=== PATIENT | female | born 1960 | race Caucasian/White ===

== ENCOUNTER 2018-05-28 15:15 | Emergency (ER) | payer BC, SELFPAY ==
[2018-05-28 15:15] VITALS: BP 163/74; PULSE 68; RESP 17; TEMP 36.7; O2SAT 96; BMI 47.1
--- NOTE | 2018-05-28 15:49 | ED.DEP ---
ED Disposition - Plan for ED Patient: Instructions: ED Sprain Knee Prescriptions: Naproxen [Naprosyn] 500 mg PO BID PRN #20 tablet Referrals: Shen Smith III, MD [Primary Care Provider] -
--- NOTE | 2018-05-28 15:53 | ED.VISSUMM ---
- ER Visit Summary Date of Service: 05/28/18 Chief Complaint: Left knee pain History of Present Illness: The patient is a 57 F presenting with left knee pain. She states this has been ongoing for the past 3 weeks. She does not recall a specific injury. Pain has been persistent for the past 3 weeks. She has been able to ambulate. She has taken Tylenol at home for pain. She went to a walk-in clinic yesterday. She states they were unable to do anything for her and they were unable to prescribe her pain medication. She did have an x-ray which she was told showed degenerative changes. 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 She states this does not feel similar. Denies fever. Denies other complaints. Physical Examination: Vitals are stable. Patient is afebrile. Alert no acute distress. HEENT exam is unremarkable. Neck is supple. Lungs are clear and equal bilaterally. Heart is regular rate and rhythm. Abdomen is soft nontender nondistended. Extremities left anterior knee and medial knee tenderness. Active full range of motion. No erythema or warmth. No calf tenderness. No swelling. Normal distal pulse. Skin is warm and dry. No focal neurologic deficit. Remainder of exam is unremarkable. Emergency Department Course and Treatment: Patient is given morphine, Zofran IM x1. She is given prescription for Naprosyn. She is advised to follow-up at her scheduled appointment with Dr. Smith. Advised return to ED for worsening complaints. Disposition: Discharge home Impression: Left knee pain This note was generated with [employer] dictation software. It may contain incorrect words, spelling, and punctuation that were not noted in review of the chart prior to signing ED Disposition - Plan for ED Patient: Instructions: ED Sprain Knee Prescriptions: Naproxen [Naprosyn] 500 mg PO BID PRN #20 tablet Referrals: Shen Smith III, MD [Primary Care Provider] -
[2018-05-28] MEDS: morphine 10 MG/ML Syringe 8 MG IM (16:28)
[2018-05-28] MEDS: Ondansetron 4 MG/2 ML Vial IM (16:28)
[2018-05-28 17:00] VITALS: BP 138/79; PULSE 65; RESP 15; O2SAT 98
== END 2018-05-28 17:03 | disposition home or self-care (01) ==
LOC: ED 16:00
PROVIDERS: Emergency Provider Emergency Medicine; Family Provider Family Medicine; PCP Family Medicine
DX: M25.562 Pain in left knee (principal); I10 Essential (primary) hypertension; E11.9 Type 2 diabetes mellitus without complications; Z86.718 Personal history of other venous thrombosis and embolism; Z79.01 Long term (current) use of anticoagulants; Z79.84 Long term (current) use of oral hypoglycemic drugs; Z79.899 Other long term (current) drug therapy
CPT/HCPCS: 96372; 99282; J2405

== ENCOUNTER → 2019-10-10 11:37 | Outpatient (CLI) | payer BC, SELFPAY ==
--- NOTE | 2019-10-10 | EMB_PTH ---
PATIENT: DEREK ROD LOC: [facility] U#:[id number] AGE/SX: 64/F ROOM: RE10/10/[address]: Dr. Angeline Galvez MD : [id number] BED: DIS: SPEC #: [id number] RECD: 10/10/19 16:07 STATUS: ZORAN LETI #: [id number] SABINO: 10/10/19 00:[address]: Angeline Galvez DEPT: SURGICAL PATHOLOGY RECD BY: Anders Robison ENTERED: 10/13/19 08:31 SP TYPE: ENDOM BX/C BELTRAN DR: Dr. Shen Smith III, MD Tissues: Endometrium, NOS Procedures: Surgery Specimen Level IV HEADER OPERATION: Endometrial biopsy PRE-OP DIAGNOSIS: Postmenopausal bleeding TISSUE SUBMITTED: Endometrial biopsy MICROSCOPIC DIAGNOSIS Endometrial biopsy: Disordered proliferative endometrium to simple cystic endometrial hyperplasia without atypia. SJ:dione 10/14/19 COMMENT Case has been reviewed in consultation with Dr. Orozco who concurs with the above diagnosis. IDC:AM MICROSCOPIC DESCRIPTION Slides are reviewed. GROSS DESCRIPTION Received is one container labeled with the patient's name and not further designated. The specimen consists of multiple fragments of hemorrhagic soft tissue mixed with mucoid tissue that in aggregate measure 2.5 x 2.5 x 0.2 cm. The specimen is totally submitted in one cassette. / SJ:dione 10/13/19 TC:5 CPT: 00430
[2019-10-10 10:53] VITALS: BMI 47.1
[2019-10-10 11:52] LABS: Absolute Lymphocyte Count 1.51 X10^3/uL (0.83-4.51); Absolute Neutrophil Count 5.3 X10^3/uL (2.0-7.7); Basophil# 0.04 X10^3/uL; Basophil% 0.5 % (0-1); Eosinophil# 0.16 X10^3/uL; Eosinophils% 2.1 % (0-5); Hematocrit 42.2 % (37-47); Hemoglobin 13.1 g/dL (12.0-15.0); Lymphocyte # 1.51 X10^3/ul (4.0); Lymphocyte % 19.5 % (19-41); Mean Corpuscular Hgb 28.2 pg (27.0-32.0); Mean Corpuscular Volume 90.8 fL (81-99); Mean Platelet Vol. 10.5 fl (6.2-12.0); Monocyte# 0.69 X10^3/uL; Monocyte% 8.9 % (0-10); NRBC Flagged by Analyzer 0 % (0-5); Neutrophil # 5.32 X10^3/uL (2.7-7.7); Neutrophil % 68.9 % (47-70); Platelet Count 285 K/mm3 (150-450); RBC Distribution Width CV 14.7 % (11.6-14.6); RBC Distribution Width SD 48.8 fl (35.1-43.9); Red Blood Count 4.65 M/mm3 (4.2-5.4); White Blood Count 7.7 K/mm3 (4.4-11.0)
[2019-10-10 12:05] LABS: ALB/GLOB Ratio 0.7 RATIO (0.9-2.4); AST(SGOT) 12 U/L (15-37); Alanine Aminotransfer ALT/SGPT 22 U/L (13-56); Albumin, Serum 3.2 g/dL (3.2-5.0); Alkaline Phosphatase 122 U/L (45-117); Anion Gap 5 (5-15); BUN 19 mg/dL (7-18); BUN/Creat Ratio 30.8 RATIO (10-20); Calcium,Total 8.4 mg/dL (8.5-10.1); Chloride 112 mmol/L (98-107); Creatinine, Serum 0.62 mg/dL (0.55-1.02); EST Glomerular Filtration Rate 105 mL/min (>60); Est Glom Filt Rate - Afr Amer 127 mL/min (>60); Globulin 4.6 g/dL (2.2-4.2); Glucose 157 mg/dL (74-106); Protein, Total 7.8 g/dL (6.4-8.2); Sodium Level 142 mmol/L (136-145)
[2019-10-10 12:10] LABS: Hemoglobin A1c 7.1 % (3.8-5.6)
== END ==
PROVIDERS: PCP Family Medicine; Referring Provider Obstetrics & Gynecology; Visit Provider Obstetrics & Gynecology
DX: N95.0 Postmenopausal bleeding (principal); E11.9 Type 2 diabetes mellitus without complications
CPT/HCPCS: 36415; 80053; 83036; 85025; 86304; 88305

== ENCOUNTER → 2019-10-13 12:28 | Outpatient (CLI) | payer BC, SELFPAY ==
[2019-10-10 10:53] VITALS: BMI 47.1
--- NOTE | 2019-10-13 12:30 | US_ITS ---
STUDY: ULTRASOUND OF THE FEMALE PELVIS - COMPLETE REASON FOR EXAM: Female, 59 years old. POST MENOPAUSAL BLEEDING INTERMITTENT X 2 YEARS LMP: The patient is postmenopausal. TECHNIQUE: Transabdominal and Transvaginal TECHNICAL QUALITY: Adequate. COMPARISON: None. FINDINGS: The uterus is anteverted and is in a midline position. The uterus is enlarged and measures 14.9 cm x 11.8 cm x 9.0 cm. There is a Nabothian cyst of the cervix. The endometrium is thickened and measures 10 mm in thickness, and is hyperechoic. There is no demonstrated endometrial mass. Several fibroids are seen. The largest measures 4.7 cm x 5.3 sinus by 3.5 cm. A second fibroid measures 4.6 cm by 4.3 cm x 3.9 cm. I.U.D. - The patient does not have an I.U.D. The right ovary is non-visualized. The left ovary is non-visualized. There is no fluid in the cul-de-sac. US/Pelvic (Non ) IMPRESSION: Enlarged fibroid uterus with thickened endometrium. Electronically Signed: Brandyn Livingston, at 15:36 EDT , Service support ,
--- NOTE | 2019-10-13 12:30 | US_ITS ---
STUDY: ULTRASOUND OF THE FEMALE PELVIS - COMPLETE REASON FOR EXAM: Female, 59 years old. POST MENOPAUSAL BLEEDING INTERMITTENT X 2 YEARS LMP: The patient is postmenopausal. TECHNIQUE: Transabdominal and Transvaginal TECHNICAL QUALITY: Adequate. COMPARISON: None. FINDINGS: The uterus is anteverted and is in a midline position. The uterus is enlarged and measures 14.9 cm x 11.8 cm x 9.0 cm. There is a Nabothian cyst of the cervix. The endometrium is thickened and measures 10 mm in thickness, and is hyperechoic. There is no demonstrated endometrial mass. Several fibroids are seen. The largest measures 4.7 cm x 5.3 sinus by 3.5 cm. A second fibroid measures 4.6 cm by 4.3 cm x 3.9 cm. I.U.D. - The patient does not have an I.U.D. The right ovary is non-visualized. The left ovary is non-visualized. There is no fluid in the cul-de-sac. US/Transvaginal Non- IMPRESSION: Enlarged fibroid uterus with thickened endometrium. Electronically Signed: Brandyn Livingston, at 15:36 EDT , Service support ,
== END ==
PROVIDERS: PCP Family Medicine; Referring Provider Obstetrics & Gynecology; Visit Provider Obstetrics & Gynecology
DX: N95.0 Postmenopausal bleeding (principal); D25.9 Leiomyoma of uterus, unspecified; R93.89 Abnormal findings on diagnostic imaging of other specified body structures
CPT/HCPCS: 76830; 76856

== ENCOUNTER 2020-06-04 15:50 | Inpatient (IN) | payer OTHER, SELFPAY ==
[2019-10-10 10:53] VITALS: BMI 47.1
[2020-06-04] VITALS (12 sets, daily range): BP systolic 130–163; BP diastolic 77–93; PULSE 92–104; RESP 20–30; TEMP 36.1–36.9; O2SAT 90–96; BMI 47.2; BMI 46.9
--- NOTE | 2020-06-04 16:23 | CT_ITS ---
STUDY: CT BRAIN WITHOUT CONTRAST REASON FOR EXAM: Female, 59 years old. Dizziness RADIATION DOSAGE (If Supplied By Facility): CTDIvol = ( 44.99 ) mGy, DLP = ( 779.24 ) mGycm TECHNIQUE: Transaxial CT imaging of the brain was performed without administration of intravenous contrast material. Individualized dose optimization techniques were used for this CT. COMPARISON: No relevant priors. FINDINGS: Normal soft tissue structures. Normal calvarium. There is mild cerebral atrophy with widening of the extra-axial spaces and ventricular dilatation. There are areas of decreased attenuation within the white matter tracts of the supratentorial brain, consistent with microvascular disease changes. Normal basal ganglia and thalami. Normal brainstem. Normal cerebellum. There is no intracranial hemorrhage. There are no findings of an acute ischemic infarction. Normal visualized paranasal sinuses. CT/Brain/Head without Contrast IMPRESSION: Chronic involutional changes of the brain. Electronically Signed: Sukhi Deleon MD at 17:02 EDT Tel , Service support ,
--- NOTE | 2020-06-04 16:23 | EKG12_ITS ---
Test Reason : SOB Blood Pressure : / mmHG Vent. Rate : 101 BPM Atrial Rate : 101 BPM P-R Int : 200 ms QRS Dur : 086 ms QT Int : 358 ms P-R-T Axes : 018 -25 003 degrees QTc Int : 464 ms Sinus tachycardia Otherwise normal ECG Confirmed by JEANETH DHILLON, ROMERO ([id number]), film or videotape editor YASSINE SAUCEDA ([id number]) on 06/07/2020 1:49:53 PM Referred By: MAI Confirmed By:ROMERO ERIC MD
[2020-06-04] MEDS: Meclizine HCl 25 MG Tablet PO (16:35)
--- NOTE | 2020-06-04 16:38 | ED.DCSUM_ITS ---
- ER Visit Summary Date of Service: 06/04/20 Chief Complaint: Shortness of breath, nausea, vomiting, and diarrhea. History of Present Illness: The patient is a 59 F who presents with shortness of breath, nausea, vomiting, and diarrhea that has been getting worse over the past week. Patient states it has been waxing and waning. Patient admits to a cough but denies any sputum production. Patient admits to subjective chills but denies any fevers. Patient denies any chest pain. Patient denies any sore throat or rhinorrhea. Patient does admit to some dizziness. Patient states she feels off balance with this. Patient states it is worse whenever she closes her eyes. Patient denies any headaches. Patient denies any hearing changes or tinnitus. Physical Examination: Vital signs showed an elevated blood pressure of 163/93, mild tachycardia of 104, and a mild tachypnea of 22. Pulse oximeter is 90% on room air. Patient is afebrile. Patient is in no acute distress. Oral mucosa is pink and moist. Neck is supple. Trachea is midline. There is no JVD. Heart was regular rate and rhythm. Lungs are diminished bilaterally. There is adequate respiratory effort. Abdomen is soft. Bowel sounds are normal. There is no tenderness. Cranial nerves II through XII are intact. There are no focal motor or sensory deficits. Extremities are intact. There is no calf tenderness or edema. Test Results: Portable chest x-ray was obtained. There is 1 view. On my interpretation, there is a right upper lobe and right middle lobe infiltrate. Bony thorax is normal. There is no cardiomegaly noted. Radiologist also interpreted the x-ray and agrees. CT scan of the brain was obtained. There is no acute intracranial abnormality. This was interpreted by the radiologist and reviewed by myself. KG was obtained. On my interpretation, there is a sinus tachycardia with a rate of 101. There are no acute ST or T wave changes. CBC is within normal limits. Comprehensive metabolic profile showed an elevated glucose of 285. Troponin was normal. D-dimer was slightly elevated at 1.04. Because of this, CTA of the chest was obtained. There is no evidence of pulmonary embolism. There is patchy groundglass infiltrates in both lungs. This was interpreted by the radiologist and reviewed by myself. Because of the bilateral groundglass infiltrates, COVID-19 PCR test was ordered and is pending. Emergency Department Course and Treatment: Patient was given albuterol here. Patient was started on Rocephin and Zithromax. Patient was also given a dose of Decadron. Case was discussed with the hospitalist. She will admit the patient to [facility] unit. Patient understood and was agreeable with the plan. All questions were answered. Disposition: Admit to hospital Impression: 1. Pneumonia This note was generated with [employer] dictation software. It may contain incorrect words, spelling, and punctuation that were not noted in review of the chart raza or to signing ED Disposition - Plan for ED Patient: Disposition: Acute Care Hospital [facility] Diagnosis: Pneumonia Referrals: Shen Smith III, MD [Primary Care Provider] -
--- NOTE | 2020-06-04 16:45 | RAD_ITS ---
STUDY: X-RAY CHEST REASON FOR EXAM: Female, 59 years old. Shortness of breath TECHNIQUE: Single AP portable view of the chest. COMPARISON: None. FINDINGS: 3 cm focal opacity in the right upper lobe the lungs worrisome for focal pneumonia or mass. Correlation with CT the chest with contrast is recommended. There is no demonstrated pleural abnormality. There is moderate cardiac enlargement. Normal mediastinum and andre. Normal visualized pulmonary arteries. Normal visualized aortic arch and descending thoracic aorta. Normal visualized thoracic spine. Normal visualized ribs, clavicles, and shoulders. There is no demonstrated abnormality of the visualized soft tissue structures of the upper abdomen. RAD/Chest 1 View (Portable) IMPRESSION: 1. Focal pneumonia or mass in the right upper lobe and correlation with CT the chest with contrast is recommended. 2. Cardiomegaly. Electronically Signed: Sukhi Deleon MD at 17:04 EDT Tel , Service support ,
[2020-06-04 16:47] LABS: Absolute Lymphocyte Count 0.78 X10^3/uL (0.83-4.51); Absolute Neutrophil Count 4.2 X10^3/uL (2.0-7.7); Basophil# 0.01 X10^3/uL; Basophil% 0.2 % (0-1); Hematocrit 43.1 % (37-47); Hemoglobin 13.4 g/dL (12.0-15.0); Lymphocyte # 0.78 X10^3/ul (4.0); Lymphocyte % 14.3 % (19-41); Mean Corp Hgb Conc 31.1 g/dL (32-36); Mean Corpuscular Hgb 26.3 pg (27.0-32.0); Mean Corpuscular Volume 84.5 fL (81-99); Mean Platelet Vol. 10.9 fl (6.2-12.0); Monocyte# 0.45 X10^3/uL; Monocyte% 8.2 % (0-10); NRBC Flagged by Analyzer 0 % (0-5); Neutrophil # 4.21 X10^3/uL (2.7-7.7); Neutrophil % 77.1 % (47-70); POSITIVE MORPHOLOGY YES; Platelet Count 208 K/mm3 (150-450); RBC Distribution Width CV 15.1 % (11.6-14.6); RBC Distribution Width SD 46.8 fl (35.1-43.9); White Blood Count 5.5 K/mm3 (4.4-11.0)
[2020-06-04 17:02] LABS: Differential Indicated SCAN CRITERIA MET
[2020-06-04 17:04] LABS: ALB/GLOB Ratio 0.6 RATIO (0.9-2.4); AST(SGOT) 27 U/L (15-37); Alanine Aminotransfer ALT/SGPT 23 U/L (13-56); Albumin, Serum 2.9 g/dL (3.2-5.0); Alkaline Phosphatase 126 U/L (45-117); Anion Gap 11 (5-15); BUN 13 mg/dL (7-18); BUN/Creat Ratio 18.1 RATIO (10-20); Calcium,Total 8.1 mg/dL (8.5-10.1); Chloride 101 mmol/L (98-107); Creatinine, Serum 0.72 mg/dL (0.55-1.02); EST Glomerular Filtration Rate 87 mL/min (>60); Est Glom Filt Rate - Afr Amer 106 mL/min (>60); Estimated Creatinine Clearance 76.81 ml/min; Globulin 5.2 g/dL (2.2-4.2); Glucose 285 mg/dL (74-106); Potassium 3.4 mmol/L (3.5-5.1); Protein, Total 8.1 g/dL (6.4-8.2); Sodium Level 136 mmol/L (136-145)
[2020-06-04 17:27] LABS: Platelet Estimate ADEQUATE (ADEQ); Red Cell Morphology NORM C+C NORMAL (NORM C&C)
[2020-06-04] MEDS: Ondansetron 4 MG/2 ML Vial IV (17:31)
[2020-06-04 17:42] LABS: D-Dimer Quantitative (DVT/PE) 1.04 FEU/ug/m (0.27-0.49)
--- NOTE | 2020-06-04 18:17 | CT_ITS ---
STUDY: CTA CHEST REASON FOR EXAM: Female, 59 years old. Elevated d-dimer. Cough. Shortness of breath. Body aches for one week. Nausea, vomiting and diarrhea. RADIATION DOSAGE (If Supplied By Facility): CTDIvol = ( 17.42 ) mGy, DLP = ( 504.13 ) mGycm TECHNIQUE: The examination was performed with the intravenous administration of IV 100mL [id number]-300. Post-processing of the angiographic images was performed, with multiplanar reformation and 3D reconstruction. Individualized dose optimization techniques were used for this CT. COMPARISON: Chest, 06/04/2020. FINDINGS: Normal enhancement of the main pulmonary artery and right and left pulmonary arteries. Normal enhancement of the bilateral peripheral pulmonary arteries. There is no demonstrated pulmonary embolism. Normal thoracic aorta and visualized great vessels. There is no demonstrated aortic dissection. Borderline cardiomegaly. Normal pericardium. Sternal cerclage wires and vascular clips are present from a prior sternotomy and coronary artery bypass graft procedure (CABG). There is evidence of prevascular, paratracheal, AP window and subcarinal lymphadenopathy. Normal hilar regions. Normal visualized trachea and bronchi. The lungs are well expanded. A patchy groundglass infiltrates throughout both lungs from directly peripheral and most marked in the perihilar regions. No focal mass. There is minimal consolidative changes along the pleural surface in the right upper lobe in the region of the hilum thought to correlate with the density seen on plain film. Normal pleura. Normal chest wall structures. There are degenerative changes of thoracic spine. Diffuse fatty infiltration of liver without mass. The upper abdomen is otherwise unremarkable. CT/CTA Chest W/WO Contrast IMPRESSION: 1. No evidence of pulmonary embolus. 2. No aortic dissection or aneurysm. 3. Patchy groundglass infiltrates in both lungs. 4. Mediastinal lymphadenopathy. 5. Fatty infiltration of the liver. 6. Borderline cardiomegaly. Electronically Signed: Yifan Richard DO at 19:01 EDT Tel [phone], Service support ,
--- NOTE | 2020-06-04 20:05 | HP.PCM_ITS ---
Problem List (1) Hypoxia Status: Acute (2) Sepsis Status: Acute Qualifiers: Sepsis type: sepsis due to unspecified organism Sepsis acute organ dysfunction status: unspecified Qualified Code(s): A41.9 - Sepsis, unspecified organism (3) Pneumonia due to COVID-19 virus Status: Suspected (4) DM (diabetes mellitus), type 2 Status: Chronic Qualifiers: Diabetes mellitus terminal clerk insulin use: without terminal clerk use Diabetes mellitus complication status: with other specified complication Qualified Code(s): E11.69 - Type 2 diabetes mellitus with other specified complication (5) HTN (hypertension) Status: Chronic Qualifiers: Hypertension type: essential hypertension Qualified Code(s): I10 - Essential (primary) hypertension (6) Right leg DVT Status: Chronic Qualifiers: Affected thrombotic vein of extremity: unspecified vein of extremity Chronicity: chronic Qualified Code(s): I82.501 - Chronic embolism and thrombosis of unspecified deep veins of right lower extremity Comment: diagnosed in March of 2014 (7) Venous (peripheral) insufficiency Status: Chronic (8) Morbid obesity with BMI of 45.0-49.9, adult Status: Chronic (9) History of Crohn's disease Status: Chronic Comment: no flares for many years History of Present Illness Date of Admission: 06/04/20 Chief Complaint: Cough, dyspnea, N/V/D, body aches x 1 week. The patient is a 59 y/o F w/ PMHx: Morbid Obesity, Crohn's Disease with chronic diarrhea, Diabetes mellitus type II, Hx DVT, HTN, Chronic R ankle ulcer who presents to the [facility] ED on 06/04/20 with onset non-productive cough, dyspnea, diz ziness with off balance sensation with activity attempts, nausea as well as emesis, decreased appetite, unchanged chronic diarrhea without abdominal pain prompting ED presentation for evaluation. Patient denies any fevers but does states she has had chills. She denies any alteration to her sense of taste or smell. Denies any headaches, sore throat or upper respiratory type symptoms including rhinorrhea or congestion. Patient's who is present notes that he has had a recent cough as well. Patient reports that she has been treated for pneumonia previously. Work-up in the ED included T 97, heart rate 104, BP 163/93, respiratory rate 22, initially 90% on room air transitioned to 3 L nasal cannula with 93% oxygenation, CBC with WC 5.5, hemoglobin 13.4, platelet 2 8 with lymphopenia, D-dimer 1.04, CMP with potassium 3.4, glucose 285, alk phos 126 otherwise not marked appearing hepatic profile, troponin less than 0.015, SARS rapid Covid antigen negative, CT of the brain with chronic involutional changes with no acute intracranial findings, chest x-ray with focal pneumonia or mass in the right upper lobe with recommended follow-up CT with cardiomegaly, follow-up CTPA with no evidence of PE, aortic dissection or aneurysm with patchy ground-glass infiltrates bilaterally, mediastinal lymphadenopathy, fatty infiltration of the liver and borderline cardiomegaly. In the ED patient ministered Zofran, meclizine, albuterol inhaler, Rocephin and azithromycin. PCR pending. Discussed case with ED physician and he will administer decadron. Past Medical History Past Medical History (Chronic Problems): Chronic Problems (Last Updated 10/15/19 @ 14:35 by Maria Del Carmen Munguia) DM (diabetes mellitus), type 2 (Chronic) HTN (hypertension) (Chronic) Right leg DVT (Chronic) diagnosed in March of 2014 Venous (peripheral) insufficiency (Chronic) Morbid obesity with BMI of 45.0-49.9, adult (Chronic) History of Crohn's disease (Chronic) no flares for many years Medical History: Medical History (Last Updated 10/15/19 @ 14:35 by Maria Del Carmen Munguia) Crohn's disease K50.90 DVT (deep venous thrombosis) I82.409 leg Diabetes E11.9 Urinary incontinence R32 Hypertension I10 Allergies Sulfa (Sulfonamide Antibiotics) Allergy (Verified 06/04/20 15:51) Hives Home Medications: Ambulatory Orders Medication Instructions Recorded Amlodipine [Norvasc] 5 mg PO QHS 06/09/14 Bisoprol/Hydrochlorothiazide [Ziac 1 tab PO DAILY 06/09/14 10/6.25 MG (Beta Savanah)] Lisinopril [Zestril] 40 mg PO QHS 06/09/14 Glimepiride [Amaryl] 4 mg PO DAILY #60 tab 10/28/15 metformin 1,000 mg tablet 1,000 mg PO BID 10/10/19 nystatin 100,000 unit/gram topical 1 applic TOPICAL BID #60 g 10/10/19 powder Rivaroxaban [Xarelto] 20 mg PO DINNER 06/04/20 Surgical History: Surgical History (Last Updated 10/15/19 @ 14:59 by Maria Del Carmen Munguia) H/O colonoscopy Z98.890 2017 H/O tubal ligation Z98.51 S/P foot surgery Z98.890 right heel spur Surgical History: - - Bilateral tubal ligation with a ventral hysterectomy with bilateral salpingo-oophorectomy, right foot heel spur removal. 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 Denies: Fever, Weight Change HEENT: Denies: Head Aches, Sinus Congestion, Sinus Drainage Cardiovascular: Reports: Light Headedness. Denies: Chest Pain, Palpitations Respiratory: Reports: Cough, Shortness of Breath, Shortness of breath at rest, Shortness of breath upon exertion. Denies: Sputum production, Wheezing Gastrointestinal: Reports: Diarrhea, Nausea, Vomiting. Denies: Abdominal Pain Genitourinary: Denies: Dysuria Musculoskeletal: Denies: Joint Pain, Joint Tenderness Skin: Denies: Rash, Wounds Neurological: Denies: Numbness, Tingling, Focal weakness Psychiatric: Denies: Anxiety, Depression, Homicidal Ideations, Suicidal Ideations Hematologic/ Lymphatic: Reports: Easy Bruising, Easy Bleeding VTE Information - Inpt Only VTE Present on Admission: No VTE Mechan Device Prophylaxis: SCD's VTE Pharm Prophylaxis ordered?: Yes Patient Problems: Active and Suspected Problems (Last Updated 10/15/19 @ 14:35 by Maria Del Carmen Munguia) Pneumonia (Acute) Hypoxia (Acute) Sepsis (Acute) Pneumonia due to COVID-19 virus (Suspected) Subjective: Patient seated upright in the ED bed, fatigued and ill-appearing but no obvious distress, supplemental oxygen in place. Objective: Physical Examination: General: awake, alert, oriented x 3 and cooperative, seated upright in the ED bed in no apparent distress. Skin: normal color, turgor, no icterus, cyanosis except mild evidence stasis disease bilateral lower extremities, chronic right heel ulcer. HEENT: AT/NC, EOMI, PERRLA, dry MM, no carotid bruits or JVD noted; however thickened neck makes examination difficult. Lungs: Diminished breath sounds throughout, greater bases, moderate effort currently, on supplemental oxygen, no rales, ronchi or wheezing. Heart: Mildly tachycardic with regular rhythm; no gallop, rub audible. Abdomen: soft, morbidly obese, NTTP, ND, moderately hyperactive BS, difficulty assessing HSM secondary to morbidly obese habitus. Extremities: no cyanosis or clubbing, mild bilateral pedal to proximal redd edema, not markedly pitting, chronic, see skin. Neurological: patient awake, alert, oriented as noted; cognitive function intact; pupils equally reactive to light and accomodation; cranial nerves II-XII grossly normal, moving all 4 extremities, no focal deficits, strength moderately to severely global decrease given acute presentation. Psychiatric: affect appears fatigued, ill-appearing, no acute evidence of depressive or anxiety feelings. - Physical Exam Vitals/I&O's: Vital Signs Temp Pulse Resp BP Pulse Ox 98 F 100 21 H 144/82 H 93 06/04/20 19:00 06/04/20 19:00 06/04/20 19:00 06/04/20 19:00 06/04/20 19:00 Oxygen Flow Rate (L/min) 3 Oxygen Delivery Method Nasal Cannula Weight: 292 lb 15.909 oz Body Mass Index (BMI) 47.2 Microbiology Past 72 Hours 06/04/20 16:27 Mucosa - Nose SARS-CoV-2 Antigen (Rapid) - Final Laboratory Results 06/04/20 16:25: WBC 5.5, RBC 5.10, Hgb 13.4, Hct 43.1, MCV 84.5, MCH 26.3 L, MCHC 31.1 L, RDW Std Deviation 46.8 H, RDW Coeff of Yves 15.1 H, Plt Count 208, MPV 10.9, Immature Gran % (Auto) 0.200, Neut % (Auto) 77.1 H, Lymph % (Auto) 14.3 L, [place] % (Auto) 8.2, Eos % (Auto) 0.0, Baso % (Auto) 0.2, Absolute Neuts (auto) 4.2, Absolute Lymphs (auto) 0.78 L, Nucleated RBC % 0, Platelet Estimate ADEQUATE, RBC Morphology NORM C+C 06/04/20 16:25: D-Dimer Quant (PE/DVT) 1.04 H* 06/04/20 16:25: Sodium 136, Potassium 3.4 L, Chloride 101, Carbon Dioxide 24.0, Anion Gap 11, BUN 13, Creatinine 0.72, Estim Creat Clear Calc 76.81, Est GFR (MDRD) Af Amer 106, Est GFR (MDRD) Non-Af 87, BUN/Creatinine Ratio 18.1, Glucose 285 H, Calcium 8.1 L, Total Bilirubin 0.70, AST 27, ALT 23, Alkaline Phosphatase 126 H, Troponin I < 0.015, Total Protein 8.1, Albumin 2.9 L, Globulin 5.2 H, Albumin/Globulin Ratio 0.6 L Current Medications Azithromycin 500 mg/ Dextrose 255 mls @ 250 mls/hr IV X1 ONE Stop: 06/04/20 21:00 Ceftriaxone Sodium (Rocephin) 1 gm in 50 mls @ 100 mls/hr IV X1 ONE Stop: 06/04/20 20:28 Assessment/Plan All Active Problems (Last Updated 10/15/19 @ 14:35 by Maria Del Carmen Munguia) Pneumonia (Acute) Hypoxia (Acute) Sepsis (Acute) Postmenopausal bleeding (Acute) Cellulitis and abscess (Acute) The patient is a 59 y/o F w/ PMHx: Morbid Obesity, Crohn's Disease with chronic diarrhea, Diabetes mellitus type II, Hx DVT, HTN, Chronic R ankle ulcer who presents to the [facility] ED on 06/04/20 with onset non-productive cough, dyspnea, dizziness with off balance sensation with activity attempts, nausea as well as emesis, decreased appetite, unchanged chronic diarrhea without abdominal pain prompting ED presentation for evaluation. 1. Acute Sepsis with Hypoxia secondary to Acute Bilateral Pneumonia suspected secondary to Acute Viral Syndrome, COVID-19: Will admit to the COVID unit, rapid Covid antigen negative but given presentation with no marked WBC elevation or l eft shift and lymphopenia with bilateral groundglass opacities on CTPA with elevated dimer higher suspicion with pending Covid PCR, will maintain on oxygen with wean as tolerated to room air, PRN albuterol, HOB, IS parameters w/ pending sputum cultures, respiratory viral panel and urine antigens, will procalcitonin, CRP, CPK, Ferritin, LDH and BNP, continue supportive care including q 2 hour turning including prone given no prone bed availability and judicious hydration, closely monitor for worsening status for ARDS and multiorgan failure, will consult Infectious disease, will initiate and continue IV decadron x 10 doses, given presentation will also initiate IV remdesivir if patient able if PCR positive but defer to discretion of Infectious disease. Patient did receive IV Rocephin and azithromycin in the emergency room therefore if any further evaluation more suggestive of bacterial pneumonia may add back antibiotic therapy 06/05/2020 given already dosed for today. 2. Hypokalemia: Admission K+ 3.4, magnesium level requested, supplementation given, repeat level in AM. 3. Hypertension: Continue home regimen including bisoprolol, Norvasc, hydrochlorothiazide, lisinopril with hold as needed given acute presentation, PRN hydralazine. 4. Diabetes mellitus type II: Hold oral home regimen, initiate on clear liquids given current presentation and transition once tolerated to ADA diet, accu checks w/ ISS. 5. Morbid Obesity: Weight loss and lifestyle changes encouraged. 6. History of DVT: We will continue patient home Xarelto regimen. 7. Crohn's disease: Not on any current regimen per list, encourage continued outpatient follow-up with gastroenterology, patient with chronic diarrhea which she reports has been unchanged but does not usually have any nausea or emesis. To be cautious will obtain stool cultures including enteric pathogen and C. difficile to be cautious given underlying history concurrently. 8. R Medical Ankle Chronic Ulcer: Not healing, chronic, will consult Wound RN, may need DESMOND/PVR, consider Podiatry involvement once #1 evaluated. 9. DVT prophylaxis: SCDs, Lovenox. 10. CODE status: Patient does not have healthcare power of claim attorney nor living will set up. Discussed potential for and herself to review these items with case management/social work if they are interested. Given potential for possible Covid pneumonia admission with hypoxia, discussed CODE status at length including difference between FULL code, DNR-CCA and DNR-CC status. Following discussions about the differences in these status, requested Full Code. She is amenable if needed for BIPAP and airvo usage also. Advanced Care Planning Face to Face Time: 16 minutes. Inpatient E&M: 99321 Init Hosp L3 Procedures: 31602 Advncd Care Plan 30 Min
[2020-06-04] MEDS: Ceftriaxone 1 GM/50 ML BAG IV (20:18)
[2020-06-04] MEDS: dexAMETHasone 10 MG/ML Vial 6 MG IV (20:25)
[2020-06-04 22:49] LABS: Ferritin 580 ng/mL (8-252); LDH 333 U/L (84-246); Magnesium 1.5 mg/dL (1.6-2.6)
[2020-06-04 22:53] LABS: BNP,B-Type NATRIURETIC PEPTIDE 24.7 pg/mL (0-100)
[2020-06-04 22:55] LABS: Procalcitonin 0.07 ng/mL (0.00-0.09)
[2020-06-04 22:56] LABS: Alkaline Phosphatase 126 U/L (45-117)
[2020-06-04] MEDS: Insulin Lispro 100 UNIT/ML INSULN.PEN SC (23:02)
[2020-06-04] MEDS: Potassium Chloride Oral Tablet 20 MEQ 40 MEQ PO (23:03)
[2020-06-04] MEDS: Lisinopril 40 MG Tablet PO (23:03)
[2020-06-04] MEDS: amLODIPine 5 MG Tablet PO (23:03)
[2020-06-04] MEDS: 0.9% Normal Saline 1,000 ML 100 ML IV (23:06)
[2020-06-05] VITALS (11 sets, daily range): BP systolic 124–145; BP diastolic 74–92; PULSE 69–95; RESP 19–24; TEMP 36.1–37; O2SAT 94–96
[2020-06-05 00:41] LABS: Bedside Glucose 293 mg/dL (70-110)
[2020-06-05 04:32] LABS: Absolute Lymphocyte Count 0.54 X10^3/uL (0.83-4.51); Absolute Neutrophil Count 2.3 X10^3/uL (2.0-7.7); Basophil# 0.02 X10^3/uL; Basophil% 0.7 % (0-1); Hematocrit 41.5 % (37-47); Hemoglobin 12.6 g/dL (12.0-15.0); Lymphocyte # 0.54 X10^3/ul (4.0); Lymphocyte % 17.7 % (19-41); Mean Corp Hgb Conc 30.4 g/dL (32-36); Mean Corpuscular Hgb 26.4 pg (27.0-32.0); Mean Platelet Vol. 10.6 fl (6.2-12.0); Monocyte# 0.14 X10^3/uL; Monocyte% 4.6 % (0-10); NRBC Flagged by Analyzer 0 % (0-5); Neutrophil # 2.33 X10^3/uL (2.7-7.7); Neutrophil % 76.3 % (47-70); POSITIVE DIFFERENTIAL YES; POSITIVE MORPHOLOGY YES; Platelet Count 212 K/mm3 (150-450); RBC Distribution Width CV 15.1 % (11.6-14.6); RBC Distribution Width SD 48.4 fl (35.1-43.9); Red Blood Count 4.77 M/mm3 (4.2-5.4); White Blood Count 3.1 K/mm3 (4.4-11.0)
[2020-06-05 04:38] LABS: Differential Indicated SCAN CRITERIA MET
[2020-06-05 04:49] LABS: ALB/GLOB Ratio 0.5 RATIO (0.9-2.4); AST(SGOT) 21 U/L (15-37); Alanine Aminotransfer ALT/SGPT 25 U/L (13-56); Albumin, Serum 2.6 g/dL (3.2-5.0); Alkaline Phosphatase 113 U/L (45-117); Anion Gap 5 (5-15); BUN 9 mg/dL (7-18); BUN/Creat Ratio 14.4 RATIO (10-20); Calcium,Total 8.2 mg/dL (8.5-10.1); Chloride 104 mmol/L (98-107); Creatinine, Serum 0.62 mg/dL (0.55-1.02); EST Glomerular Filtration Rate 103 mL/min (>60); Est Glom Filt Rate - Afr Amer 125 mL/min (>60); Globulin 4.9 g/dL (2.2-4.2); Glucose 303 mg/dL (74-106); Magnesium 2.8 mg/dL (1.6-2.6); Potassium 4.6 mmol/L (3.5-5.1); Protein, Total 7.5 g/dL (6.4-8.2); Sodium Level 137 mmol/L (136-145)
[2020-06-05 08:05] LABS: Bedside Glucose 274 mg/dL (70-110)
[2020-06-05] MEDS: Bisoprolol Fumarate 5 MG Tablet 10 MG PO (10:48)
[2020-06-05] MEDS: hydroCHLOROthiazide 6.25mg TAB 6.25 MG PO (10:49)
[2020-06-05] MEDS: dexAMETHasone 4 MG/ML Vial 6 MG IV (10:49)
[2020-06-05] MEDS: Insulin Lispro 100 UNIT/ML INSULN.PEN SC ×3 (11:01→22:07)
[2020-06-05 11:35] LABS: Bedside Glucose 247 mg/dL (70-110)
--- NOTE | 2020-06-05 13:07 | CM.UR ---
Addendum entered by Stephy Strong 06/05/20 15:19: Attempted to call again however no answer still. Samira Strong RN, CCM. Addendum entered by Stephy Strong 06/05/20 13:49: Attempted to call patient in her room again, however no answer. Samira Strong RN,CCM. Original Note: Attempted to call patient in her room at this time however no answer. Samira Strong RN, CCM.
--- NOTE | 2020-06-05 13:14 | PN_ITS ---
Patient Problems: Active and Suspected Problems (Last Updated 10/15/19 @ 14:35 by Maria Del Carmen Munguia) Pneumonia (Acute) Hypoxia (Acute) Sepsis (Acute) Pneumonia due to COVID-19 virus (Suspected) Subjective: Patient is currently lying in bed. Denies any significant shortness of breath and states she is overall feeling okay. States she started feeling poorly approximately a week and a half ago but did not present to the emergency department until yesterday when she became short of breath. She states she is not really not having any diarrhea at this time and her bowel movements are at her baseline with her Crohn's disease. Vitals/I&O's: Vital Signs Temp Pulse Resp BP Pulse Ox 98.2 F 86 20 H 140/85 H 94 06/05/20 10:00 06/05/20 10:00 06/05/20 10:00 06/05/20 10:00 06/05/20 10:00 Oxygen Flow Rate (L/min) 3 Oxygen Delivery Method Nasal Cannula Weight: 131.8 kg Body Mass Index (BMI) 46.9 Intake and Output for Last 24 Hours 06/03/20 06/04/20 06/05/20 23:59 23:59 23:59 Intake Total 306.67 / 426.67 1472.33 / 1472.33 Output Total 875 / 875 Balance 306.67 / 26.67 597.33 / 597.33 General: Alert, Oriented x3, Cooperative, No apparent distress, Well developed, Well nourished, - - Obese upper middle-aged white female lying in bed, appears comfortable, currently with supplemental nasal cannula in place, nontoxic- appearing, no signs of respiratory distress HEENT: Atraumatic, PERRLA, EOMI, Normocephalic, EAC Clear Oral: Moist Mucosa, No Gingival or Mucosal Lesions/ Ulcerations, - - No thrush Neck: Supple, Trachea Midline Lungs: Clear to auscultation, No rhonchi, No wheeze, No rales, Diminished - Fusilli, - - Stent secondary to body habitus Cardiovascular: Regular rate, Regular Rhythm, Normal S1, Normal S2, No murmurs, No Ectopic Activity, No rub noted, No Gallop, - - Distant secondary to body habitus Abdomen: Bowel Sounds Present, Soft, Non Tender, Non-Distended, Obese Extremities: No clubbing, No cyanosis, Capillary Refill Less than 3 Seconds, Edema - Bilateral lower extremity edema-patient states this is chronic, Peripheral Pulses Normal Skin: No rashes, Ulcer/ Wound - Right distal and medial lower extremity just above ankle, dressing in place, no purulent drainage Musculoskeletal: No Tenderness to Palpation of Joints or Extremities, No Muscle Wasting Lymphatic: No Cervical, Supraclavicular, or Inguinal Adenopathy Neurological: Cranial nerves II-XII grossly intact, Neuro grossly intact, Muscle tone normal, Coordination normal Psych/Mental Status: Normal Affect, Appropriate Microbiology Past 72 Hours 06/04/20 20:18 Mucosa - Nasopharyngeal Respiratory Panel (PCR) - Final 06/05/20 00:00 Urine, Clean Catch Legionella Antigen - Final 06/05/20 00:00 Urine, Clean Catch Streptococcus pneumoniae Antigen (M - Final 06/04/20 16:27 Mucosa - Nose SARS-CoV-2 Antigen (Rapid) - Final Laboratory Results 06/04/20 16:25: WBC 5.5, RBC 5.10, Hgb 13.4, Hct 43.1, MCV 84.5, MCH 26.3 L, MCHC 31.1 L, RDW Std Deviation 46.8 H, RDW Coeff of Yves 15.1 H, Plt Count 208, MPV 10.9, Immature Gran % (Auto) 0.200, Neut % (Auto) 77.1 H, Lymph % (Auto) 14.3 L, [place] % (Auto) 8.2, Eos % (Auto) 0.0, Baso % (Auto) 0.2, Absolute Neuts (auto) 4.2, Absolute Lymphs (auto) 0.78 L, Nucleated RBC % 0, Platelet Estimate ADEQUATE, RBC Morphology NORM C+C 06/04/20 16:25: D-Dimer Quant (PE/DVT) 1.04 H* 06/04/20 16:25: Sodium 136, Potassium 3.4 L, Chloride 101, Carbon Dioxide 24.0, Anion Gap 11, BUN 13, Creatinine 0.72, Estim Creat Clear Calc 76.81, Est GFR (MDRD) Af Amer 106, Est GFR (MDRD) Non-Af 87, BUN/Creatinine Ratio 18.1, Glucose 285 H, Calcium 8.1 L, Total Bilirubin 0.70, AST 27, ALT 23, Alkaline Phosphatase 126 H, Troponin I < 0.015, Total Protein 8.1, Albumin 2.9 L, Globulin 5.2 H, Albumin/Globulin Ratio 0.6 L 06/04/20 16:25: Alkaline Phosphatase 126 H 06/04/20 16:25: Magnesium 1.5 L, Ferritin 580 H, Lactate Dehydrogenase 333 H, C- React Prot Ext Range 82.50 H 06/04/20 16:25: B-Natriuretic Peptide 24.7 06/04/20 16:25: Procalcitonin 0.07 06/04/20 20:18: COVID-19 (VALERIE) Detected 06/04/20 23:01: POC Glucose 293 H 06/05/20 04:20: WBC 3.1 L, RBC 4.77, Hgb 12.6, Hct 41.5, MCV 87.0, MCH 26.4 L, MCHC 30.4 L, RDW Std Deviation 48.4 H, RDW Coeff of Yves 15.1 H, Plt Count 212, MPV 10.6, Immature Gran % (Auto) 0.700, Neut % (Auto) 76.3 H, Lymph % (Auto) 17.7 L, [place] % (Auto) 4.6, Eos % (Auto) 0.0, Baso % (Auto) 0.7, Absolute Neuts (auto) 2.3, Absolute Lymphs (auto) 0.54 L, Nucleated RBC % 0, Diff Path Review July06/05/20 04:20: Sodium 137, Potassium 4.6, Chloride 104, Carbon Dioxide 28.0, Anion Gap 5, BUN 9, Creatinine 0.62, Estim Creat Clear Calc 89.20, Est GFR (MDRD) Af Amer 125, Est GFR (MDRD) Non-Af 103, BUN/Creatinine Ratio 14.4, Glucose 303 H, Calcium 8.2 L, Magnesium 2.8 H, Total Bilirubin 0.40, AST 21, ALT 25, Alkaline Phosphatase 113, Total Protein 7.5, Albumin 2.6 L, Globulin 4.9 H, Albumin/Globulin Ratio 0.5 L 06/05/20 07:55: POC Glucose 274 H 06/05/20 11:00: POC Glucose 247 H Current Medications Acetaminophen (Acetaminophen 325 Mg Tablet) 650 mg PO Q6H PRN PRN PRN Reason: Pain Score 1-10/Temp > 100.7 F Al Hydroxide/Mg Hydroxide (Mag Hydrox/Al Hydrox/Simeth 30 Ml Udc) 30 ml PO Q6H PRN PRN PRN Reason: Gastric Burning Albuterol Sulfate (Albuterol Ih 8.5 Gm (Proair) Inhaler (200 Puffs)) 4 - 8 puff INHALATION Q4H PRN PRN PRN Reason: Dyspnea, wheezing Amlodipine Besylate (Amlodipine 5 Mg Tablet) 5 mg PO QHS [facility] Last Admin: 06/04/20 23:03 Dose: 5 mg Documented by: Bisoprolol Fumarate (Bisoprolol Fumarate 5 Mg Tablet) 10 mg PO DAILY [facility] Last Admin: 06/05/20 10:48 Dose: 10 mg Documented by: Dexamethasone Sodium Phosphate (Dexamethasone 4 Mg/Ml Vial) 6 mg IV DAILY [facility] Stop: 06/14/20 10:01 Last Admin: 06/05/20 10:49 Dose: 6 mg Documented by: Guaifenesin (Guaifenesin 10 Ml Udc (200mg/10ml)) 20 ml PO Q4H PRN PRN PRN Reason: COUGH Hydralazine HCl (Hydralazine 20 Mg/Ml Vial) 10 mg IV Q4H PRN PRN PRN Reason: SBP > 160 Hydrochlorothiazide (Hydrochlorothiazide 6.25mg Tab) 6.25 mg PO DAILY [facility] Last Admin: 06/05/20 10:49 Dose: 6.25 mg Documented by: Sodium Chloride () 250 mls @ 15 mls/hr IV .[id number] PRN PRN Reason: Saline Flush Remdesivir 100 mg/ Sodium (Chloride) 250 mls @ 125 mls/hr IV Q24H [facility]; Protocol Stop: 06/08/20 23:59 Insulin Human Lispro (Insulin Lispro 100 Unit/Ml Insuln.Pen) 0 unit SC ACHS [facility]; Protocol Last Admin: 06/05/20 11:01 Dose: 3 u Documented by: Lisinopril (Lisinopril 40 Mg Tablet) 40 mg PO QHS [facility] Last Admin: 06/04/20 23:03 Dose: 40 mg Documented by: Loperamide HCl (Loperamide 2 Mg Capsule) 2 mg PO Q2H PRN PRN PRN Reason: Diarrhea Melatonin (Melatonin 3 Mg Tablet) 3 mg PO QHS PRN PRN PRN Reason: INSOMNIA Nitroglycerin (Nitroglycerin (Inpatient Use) 0.4 Mg Tab.Subl) 0.4 mg SL Q5M PRN PRN Reason: CARDIAC/CHEST PAIN Nystatin (Nystatin Powder 15gm Bottle) 1 applic TOPICAL BID EDITH; Protocol Last Admin: 06/05/20 10:49 Dose: Not Given Documented by: Ondansetron HCl (Ondansetron 4 Mg/2 Ml Vial) 4 mg IV Q8H PRN PRN PRN Reason: NAUSEA/VOMITING Prochlorperazine Edisylate (Prochlorperazine 10 Mg/2 Ml Vial) 5 mg IV Q4H PRN PRN PRN Reason: Breakthrough nausea/vomiting Rivaroxaban (Rivaroxaban 20 Mg Tablet) 20 mg PO DINNER EDITH Sodium Chloride (0.9% Saline Lock 10 Ml Syringe) 10 - 40 ml IV UD PRN PRN Reason: SALINE FLUSH Throat Lozenges (Benzocaine/Menthol 1 Lozenge) 1 lozenge MUCOUS MEM Q2H PRN PRN PRN Reason: SORE THROAT STROKE Vital Signs/Narrative: Vital Signs Temp Pulse Resp BP Pulse Ox 06/05/20 10:00 98.2 F 86 20 H 140/85 H 94 Medical Necessity - Tobacco Use Smoking Status: Never smoker Tobacco Use: Non-smoker Assessment/Plan All Active Problems (Last Updated 10/15/19 @ 14:35 by Maria Del Carmen Munguia) Pneumonia (Acute) Hypoxia (Acute) Sepsis (Acute) Postmenopausal bleeding (Acute) Cellulitis and abscess (Acute) Sepsis secondary to COVID-19 pneumonia -Patient was initiated on Decadron and remdesivir day of and day 1 of respectively -Patient is not oxygen dependent at baseline and is currently on 3 L nasal cannula with an O2 saturation of 94% -And oxygen as able -Continue supportive medications -Continue as needed albuterol HFA -ID consult pending Acute hypoxic respiratory failure secondary to Covid pneumonia -See above Leukopenia -Most likely related to Covid infection -Continue to monitor Hypokalemia -Resolved DM-2 -Currently uncontrolled secondary to Decadron use -Baseline the patient is on Metformin and glimepiride -We will hold both of these at this time -Add Lantus 10 units at at bedtime -Sliding scale -Blood sugar is 140-180 with acute illness -Continue BGT before meals and at bedtime Hypertension -Continue amlodipine 5 mg daily -Continue Ziac daily -Continue lisinopril 40 mg daily History of right lower extremity DVT -Continue Xarelto History of Crohn's -Patient is not immunosuppressed -States her stools are at baseline for her -No anemia Morbid obesity -BMI 46.9 -Complicates overall medical condition and prognosis DVT prophylaxis -Continue NOAC CODE STATUS -Full code Inpatient E&M: 84952 Subs Hosp L3
[2020-06-05] MEDS: Rivaroxaban 20 MG Tablet PO (16:27)
[2020-06-05 16:35] LABS: Bedside Glucose 276 mg/dL (70-110)
[2020-06-05] MEDS: amLODIPine 5 MG Tablet PO (22:07)
[2020-06-05] MEDS: Lisinopril 40 MG Tablet PO (22:07)
[2020-06-06] VITALS (15 sets, daily range): BP systolic 144–169; BP diastolic 61–84; PULSE 57–69; RESP 16–19; TEMP 36.1–36.6; O2SAT 93–96
[2020-06-06 03:05] LABS: Bedside Glucose 342 mg/dL (70-110)
[2020-06-06 04:04] LABS: Absolute Lymphocyte Count 0.88 X10^3/uL (0.83-4.51); Absolute Neutrophil Count 5.2 X10^3/uL (2.0-7.7); Basophil# 0.01 X10^3/uL; Basophil% 0.2 % (0-1); Hematocrit 39.7 % (37-47); Hemoglobin 12.2 g/dL (12.0-15.0); Lymphocyte # 0.88 X10^3/ul (4.0); Lymphocyte % 13.4 % (19-41); Mean Corp Hgb Conc 30.7 g/dL (32-36); Mean Corpuscular Hgb 26.8 pg (27.0-32.0); Mean Corpuscular Volume 87.3 fL (81-99); Mean Platelet Vol. 10.3 fl (6.2-12.0); Monocyte% 7.6 % (0-10); NRBC Flagged by Analyzer 0 % (0-5); Neutrophil # 5.15 X10^3/uL (2.7-7.7); Neutrophil % 78.3 % (47-70); POSITIVE MORPHOLOGY YES; Platelet Count 227 K/mm3 (150-450); RBC Distribution Width CV 15.3 % (11.6-14.6); RBC Distribution Width SD 48.4 fl (35.1-43.9); Red Blood Count 4.55 M/mm3 (4.2-5.4); White Blood Count 6.6 K/mm3 (4.4-11.0)
[2020-06-06 04:06] LABS: Differential Indicated SCAN CRITERIA MET
[2020-06-06 04:23] LABS: ALB/GLOB Ratio 0.5 RATIO (0.9-2.4); AST(SGOT) 15 U/L (15-37); Alanine Aminotransfer ALT/SGPT 22 U/L (13-56); Albumin, Serum 2.4 g/dL (3.2-5.0); Alkaline Phosphatase 102 U/L (45-117); Anion Gap 5 (5-15); BUN 21 mg/dL (7-18); BUN/Creat Ratio 34.4 RATIO (10-20); Chloride 107 mmol/L (98-107); Creatinine, Serum 0.61 mg/dL (0.55-1.02); EST Glomerular Filtration Rate 106 mL/min (>60); Est Glom Filt Rate - Afr Amer 128 mL/min (>60); Estimated Creatinine Clearance 90.66 ml/min; Globulin 4.5 g/dL (2.2-4.2); Glucose 308 mg/dL (74-106); Potassium 4.3 mmol/L (3.5-5.1); Protein, Total 6.9 g/dL (6.4-8.2); Sodium Level 139 mmol/L (136-145)
[2020-06-06 04:58] LABS: Atypical Lymphocyte 1+ %; Differential Comment SCANNED
[2020-06-06] MEDS: Insulin Lispro 100 UNIT/ML INSULN.PEN SC ×4 (09:06→20:21)
[2020-06-06] MEDS: Bisoprolol Fumarate 5 MG Tablet 10 MG PO (09:08)
[2020-06-06] MEDS: hydroCHLOROthiazide 6.25mg TAB 6.25 MG PO (09:08)
[2020-06-06] MEDS: dexAMETHasone 4 MG/ML Vial 6 MG IV (09:08)
[2020-06-06] MEDS: 0.9% Saline Lock 10 ML Syringe IV (09:08)
[2020-06-06 09:21] LABS: Bedside Glucose 297 mg/dL (70-110)
[2020-06-06 12:36] LABS: Bedside Glucose 296 mg/dL (70-110)
--- NOTE | 2020-06-06 12:41 | PCM.PN.HOSP ---
Patient Problems: Active and Suspected Problems (Last Updated 10/15/19 @ 14:35 by Maria Del Carmen Munguia) Pneumonia (Acute) Hypoxia (Acute) Sepsis (Acute) Pneumonia due to COVID-19 virus (Suspected) Subjective: States she is feeling a little bit better. Denies any issues overnight. Denies any current needs. Reports that her shortness of breath has improved although she still complains of shortness of breath with exertion. Vitals/I&O's: Vital Signs Temp Pulse Resp BP Pulse Ox 97.0 F L 68 16 169/84 H 93 06/06/20 09:13 06/06/20 11:11 06/06/20 09:13 06/06/20 09:13 06/06/20 09:13 Oxygen Flow Rate (L/min) 1 Oxygen Delivery Method Nasal Cannula Weight: 131.9 kg Body Mass Index (BMI) 46.9 Intake and Output for Last 24 Hours 06/04/20 06/05/20 06/06/20 23:59 23:59 23:59 Intake Total 306.67 / 426.67 2352.33 / 2592.33 730 / 730 Output Total 875 / 875 500 / 500 Balance 306.67 / 26.67 1477.33 / 1717.33 230 / 230 General: Alert, Oriented x3, Cooperative, No apparent distress, Well developed, Well nourished, - - Upper middle-aged white female, morbidly obese, lying in bed, appears comfortable and nontoxic but ill-appearing HEENT: Atraumatic, PERRLA, EOMI, Normocephalic Oral: Moist Mucosa, No Gingival or Mucosal Lesions/ Ulcerations, - - No thrush noted, Mallampati 3 Neck: Supple, Trachea Midline, Thyroid Normal Size and Texture Lungs: Clear to auscultation, No rhonchi, No wheeze, No rales, Diminished - Diffusely Cardiovascular: Regular rate, Regular Rhythm, Normal S1, Normal S2, No murmurs, No Ectopic Activity, No rub noted, No Gallop Abdomen: Bowel Sounds Present, Soft, Non Tender, Non-Distended, No Hepato-splenomegaly, No hernias noted Extremities: No clubbing, No cyanosis, No edema, Capillary Refill Less than 3 Seconds, Peripheral Pulses Normal Skin: No rashes, Ulcer/ Wound - Right lower extremity medial distal, dressing in place Musculoskeletal: No Tenderness to Palpation of Joints or Extremities, No Muscle Wasting, Arthritic Changes Lymphatic: No Cervical, Supraclavicular, or Inguinal Adenopathy Neurological: Cranial nerves II-XII grossly intact, Neuro grossly intact Psych/Mental Status: Normal Affect, Appropriate Microbiology Past 72 Hours 06/04/20 20:18 Mucosa - Nasopharyngeal Respiratory Panel (PCR) - Final 06/05/20 00:00 Urine, Clean Catch Legionella Antigen - Final 06/05/20 00:00 Urine, Clean Catch Streptococcus pneumoniae Antigen (M - Final 06/04/20 16:27 Mucosa - Nose SARS-CoV-2 Antigen (Rapid) - Final Laboratory Results 06/05/20 16:27: POC Glucose 276 H 06/05/20 22:06: POC Glucose 342 H 06/06/20 03:50: WBC 6.6, RBC 4.55, Hgb 12.2, Hct 39.7, MCV 87.3, MCH 26.8 L, MCHC 30.7 L, RDW Std Deviation 48.4 H, RDW Coeff of Yves 15.3 H, Plt Count 227, MPV 10.3, Immature Gran % (Auto) 0.500, Neut % (Auto) 78.3 H, Lymph % (Auto) 13.4 L, Fallon % (Auto) 7.6, Eos % (Auto) 0.0, Baso % (Auto) 0.2, Absolute Neuts (auto) 5.2, Absolute Lymphs (auto) 0.88, Nucleated RBC % 0, Differential Comment SCANNED, Atypical Lymphocytes 1+ 06/06/20 03:50: Sodium 139, Potassium 4.3, Chloride 107, Carbon Dioxide 27.0, Anion Gap 5, BUN 21 H, Creatinine 0.61, Estim Creat Clear Calc 90.66, Est GFR (MDRD) Af Amer 128, Est GFR (MDRD) Non-Af 106, BUN/Creatinine Ratio 34.4 H, Glucose 308 H, Calcium 8.0 L, Total Bilirubin 0.40, AST 15, ALT 22, Alkaline Phosphatase 102, Total Protein 6.9, Albumin 2.4 L, Globulin 4.5 H, Albumin/Globulin Ratio 0.5 L 06/06/20 09:02: POC Glucose 297 H 06/06/20 12:25: POC Glucose 296 H Current Medications Acetaminophen (Acetaminophen 325 Mg Tablet) 650 mg PO Q6H PRN PRN PRN Reason: Pain Score 1-10/Temp > 100.7 F Al Hydroxide/Mg Hydroxide (Mag Hydrox/Al Hydrox/Simeth 30 Ml Udc) 30 ml PO Q6H PRN PRN PRN Reason: Gastric Burning Albuterol Sulfate (Albuterol Ih 8.5 Gm (Proair) Inhaler (200 Puffs)) 4 - 8 puff INHALATION Q4H PRN PRN PRN Reason: Dyspnea, wheezing Amlodipine Besylate (Amlodipine 5 Mg Tablet) 5 mg PO QHS [facility] Last Admin: 06/05/20 22:07 Dose: 5 mg Documented by: Bisoprolol Fumarate (Bisoprolol Fumarate 5 Mg Tablet) 10 mg PO DAILY [facility] Last Admin: 06/06/20 09:08 Dose: 10 mg Documented by: Dexamethasone Sodium Phosphate (Dexamethasone 4 Mg/Ml Vial) 6 mg IV DAILY [facility] Stop: 06/14/20 10:01 Last Admin: 06/06/20 09:08 Dose: 6 mg Documented by: Guaifenesin (Guaifenesin 10 Ml Udc (200mg/10ml)) 20 ml PO Q4H PRN PRN PRN Reason: COUGH Hydralazine HCl (Hydralazine 20 Mg/Ml Vial) 10 mg IV Q4H PRN PRN PRN Reason: SBP > 160 Hydrochlorothiazide (Hydrochlorothiazide 6.25mg Tab) 6.25 mg PO DAILY [facility] Last Admin: 06/06/20 09:08 Dose: 6.25 mg Documented by: Sodium Chloride () 250 mls @ 15 mls/hr IV .[id number] PRN PRN Reason: Saline Flush Remdesivir 100 mg/ Sodium (Chloride) 250 mls @ 125 mls/hr IV Q24H [facility]; Protocol Stop: 06/08/20 23:59 Last Infusion: 06/06/20 00:11 Dose: Infused Documented by: Insulin Glargine (Insulin Glargine 100 Units/Ml Pen) 10 units SC QHS [facility] Last Admin: 06/05/20 22:07 Dose: 10 u Documented by: Insulin Human Lispro (Insulin Lispro 100 Unit/Ml Insuln.Pen) 0 unit SC [facility]; Protocol Last Admin: 06/06/20 12:27 Dose: 4 u Documented by: Lisinopril (Lisinopril 40 Mg Tablet) 40 mg PO QHS [facility] Last Admin: 06/05/20 22:07 Dose: 40 mg Documented by: Loperamide HCl (Loperamide 2 Mg Capsule) 2 mg PO Q2H PRN PRN PRN Reason: Diarrhea Melatonin (Melatonin 3 Mg Tablet) 3 mg PO QHS PRN PRN PRN Reason: INSOMNIA Nitroglycerin (Nitroglycerin (Inpatient Use) 0.4 Mg Tab.Subl) 0.4 mg SL Q5M PRN PRN Reason: CARDIAC/CHEST PAIN Nystatin (Nystatin Powder 15gm Bottle) 1 applic TOPICAL BID [facility]; Protocol Last Admin: 06/06/20 09:27 Dose: Not Given Documented by: Ondansetron HCl (Ondansetron 4 Mg/2 Ml Vial) 4 mg IV Q8H PRN PRN PRN Reason: NAUSEA/VOMITING Prochlorperazine Edisylate (Prochlorperazine 10 Mg/2 Ml Vial) 5 mg IV Q4H PRN PRN PRN Reason: Breakthrough nausea/vomiting Rivaroxaban (Rivaroxaban 20 Mg Tablet) 20 mg PO DINNER [facility] Last Admin: 06/05/20 16:27 Dose: 20 mg Documented by: Sodium Chloride (0.9% Saline Lock 10 Ml Syringe) 10 - 40 ml IV UD PRN PRN Reason: SALINE FLUSH Last Admin: 06/06/20 09:08 Dose: 20 ml Documented by: Throat Lozenges (Benzocaine/Menthol 1 Lozenge) 1 lozenge MUCOUS MEM Q2H PRN PRN PRN Reason: SORE THROAT STROKE Vital Signs/Narrative: Vital Signs Temp Pulse Resp BP Pulse Ox 06/06/20 11:11 68 06/06/20 09:13 97.0 F L 66 16 169/84 H 93 06/06/20 09:00 93 Medical Necessity - Tobacco Use Smoking Status: Never smoker Tobacco Use: Non-smoker Assessment/Plan All Active Problems (Last Updated 10/15/19 @ 14:35 by Maria Del Carmen Munguia) Pneumonia (Acute) Hypoxia (Acute) Sepsis (Acute) Postmenopausal bleeding (Acute) Cellulitis and abscess (Acute) Sepsis secondary to COVID-19 pneumonia -Patient was initiated on Decadron and remdesivir day 2 of 10 and day 2 of 5 respectively -Discontinue remdesivir today -New Decadron for 10-day course -I was able to wean the patient's oxygen to 1 L nasal cannula today and oxygen saturations remained 92 to 93% -I do suspect the patient will likely need discharged home on oxygen especially with exertion and we are limited today with the ability to arrange this -I do anticipate discharge tomorrow -Continue supportive medications -Continue as needed albuterol HFA Acute hypoxic respiratory failure secondary to Covid pneumonia -See above Leukopenia -Most likely related to Covid infection -Continue to monitor Hypokalemia -Resolved DM-2 -Currently uncontrolled secondary to Decadron use -Baseline the patient is on Metformin and glimepiride -We will continue to hold both of these at this time -Increase Lantus to 20 units at at bedtime 10 units -Sliding scale -Blood sugar is 140-180 with acute illness -Continue BGT before meals and at bedtime Hypertension -Continue amlodipine 5 mg daily -Continue Ziac daily -Continue lisinopril 40 mg daily -Blood pressure remains elevated despite therapy -Weighted to steroid utilization -Increase amlodipine to 10 mg daily and continue to monitor History of right lower extremity DVT -Continue Xarelto History of Crohn's -Patient is not immunosuppressed -States her stools are at baseline for her -No anemia Morbid obesity -BMI 46.9 -Complicates overall medical condition and prognosis DVT prophylaxis -Continue NOAC CODE STATUS -Full code Inpatient E&M: 02325 Subs Hosp L2
[2020-06-06] MEDS: Rivaroxaban 20 MG Tablet PO (17:15)
[2020-06-06 18:00] LABS: Bedside Glucose 359 mg/dL (70-110)
[2020-06-06] MEDS: amLODIPine 10 MG Tablet PO (20:24)
[2020-06-06] MEDS: MELATONIN 3 MG TABLET PO (20:24)
[2020-06-06] MEDS: Lisinopril 40 MG Tablet PO (20:24)
[2020-06-06 21:06] LABS: Bedside Glucose 442 mg/dL (70-110)
[2020-06-07 02:33] VITALS: BP 133/50; PULSE 53; RESP 16; TEMP 36.6; O2SAT 95
[2020-06-07 04:41] LABS: ALB/GLOB Ratio 0.5 RATIO (0.9-2.4); AST(SGOT) 14 U/L (15-37); Alanine Aminotransfer ALT/SGPT 23 U/L (13-56); Albumin, Serum 2.4 g/dL (3.2-5.0); Alkaline Phosphatase 108 U/L (45-117); Anion Gap 5 (5-15); BUN 23 mg/dL (7-18); BUN/Creat Ratio 36.1 RATIO (10-20); Calcium,Total 8.3 mg/dL (8.5-10.1); Chloride 107 mmol/L (98-107); Creatinine, Serum 0.64 mg/dL (0.55-1.02); EST Glomerular Filtration Rate 100 mL/min (>60); Est Glom Filt Rate - Afr Amer 121 mL/min (>60); Estimated Creatinine Clearance 86.41 ml/min; Globulin 4.4 g/dL (2.2-4.2); Glucose 340 mg/dL (74-106); Potassium 4.2 mmol/L (3.5-5.1); Protein, Total 6.8 g/dL (6.4-8.2); Sodium Level 138 mmol/L (136-145)
[2020-06-07 08:30] VITALS: BP 139/49; PULSE 61; RESP 16; TEMP 36.9; O2SAT 95
[2020-06-07] MEDS: Insulin Lispro 100 UNIT/ML INSULN.PEN SC (08:40)
[2020-06-07] MEDS: dexAMETHasone 4 MG/ML Vial 6 MG IV (08:41)
[2020-06-07] MEDS: hydroCHLOROthiazide 6.25mg TAB 6.25 MG PO (08:41)
[2020-06-07] MEDS: Bisoprolol Fumarate 5 MG Tablet 10 MG PO (08:42)
[2020-06-07 08:46] LABS: Bedside Glucose 316 mg/dL (70-110)
--- NOTE | 2020-06-07 10:15 | CASEMGMT ---
RN CM called patient for initial transition planning/care coordination assessment. RN CM introduced self and role at [facility]. Patient is alert and oriented. Patient willing to participate in assessment and is able to answer all questions appropriately. Care providers, pharmacy, and demographics verified. Patient wishes to discharge home, denies need for home health at this time. Patient states she has no further needs or concerns at this time. CM to follow for discharge planning needs that may arise. PCP: Luis Specialists: none Preferred Pharmacy: [facility] at discharge. Insurance: Health plan Prescription Benefit: yes Living Will/HPOA: none LNOK: Living Arrangements: Patient lives with in a 1 story home with 3 steps and railing to enter the home. Patient states she is independent at home. is self isolating at home as well. Patient states she could have someone assist with groceries and supplies. Transportation: self/ DME/HHC: Patient states she has raised toilet at home. Patient denies previous HHC or SNF Covid test completed at [facility] Disposition Plan: Patient to discharge home with family support and follow-up plans in place. Elizabeth SALGADO, RN, CM
--- NOTE | 2020-06-07 10:53 | PCM.DC ---
- Discharge Diagnoses Current Active Problems: Current Active and Chronic Problems (Last Updated 10/15/19 @ 14:35 by Maria Del Carmen Munguia) Pneumonia (Acute) Hypoxia (Acute) Sepsis (Acute) DM (diabetes mellitus), type 2 (Chronic) HTN (hypertension) (Chronic) Right leg DVT (Chronic) diagnosed in March of 2014 Venous (peripheral) insufficiency (Chronic) Morbid obesity with BMI of 45.0-49.9, adult (Chronic) History of Crohn's disease (Chronic) no flares for many years You will use the following diet at home:: Calorie/Carbohydrate Controlled (specify 1200, 1400, etc) - 1800 Your food should be the consistency of: Regular Call your doctor if you observe: Fever of 101 or Higher, Shortness of breath Additional Instructions: Self isolate for at least 21 days since symptoms began 05/31/2020-06/21/2020 AND at least one day (24 hours) have passed since resolution of fever without the use of fever-reducing agents AND improvement of symptoms (e.g., cough, shortness of breath) When around people in the same room, wear a face mask. Individuals also in the room should wear a mask. If possible, use a different bathroom and bedroom. Perform adequate hand hygiene. Avoid sharing dishes, glasses, etc. Use insulin glargine (Lantus) only while on dexamethasone, stop the day after dexamethasone has completed. Allergies/Adverse Reactions: Allergies Sulfa (Sulfonamide Antibiotics) Allergy (Verified 06/04/20 15:51) Hives Medications to take at Discharge Amlodipine [Norvasc] 5 mg PO QHS 06/09/14 Bisoprol/Hydrochlorothiazide [Ziac 10/6.25 MG (Beta Savanah)] 1 tab PO DAILY 06/09/14 Lisinopril [Zestril] 40 mg PO QHS 06/09/14 Glimepiride [Amaryl] 4 mg PO DAILY #60 tab 10/28/15 nystatin 100,000 unit/gram topical powder 1 applic TOPICAL BID #60 g 10/10/19 Rivaroxaban [Xarelto] 20 mg PO DINNER 06/04/20 Dexamethasone 6 mg PO DAILY #6 tablet 06/07/20 Insulin Glargine [Lantus SoloStar Pen] 20 units SC QHS #1 pen 06/07/20 Metformin HCl 1,000 mg PO BID #0 06/07/20 Erin, Insulin Disposable [Novofine Autocover 30G Needle] 1 each MISCELL. UD #1 box 06/07/20 The following prescriptions were given: Dexamethasone 6 mg PO DAILY #6 tablet Transmission Status: Pending to [facility] Insulin Glargine [Lantus SoloStar Pen] 20 units SC QHS #1 pen Transmission Status: Pending to [facility] Erin, Insulin Disposable [Novofine Autocover 30G Needle] 1 each MISCELL. UD #1 box Transmission Status: Pending to [facility] Orders to be completed after discharge: Glucometer Location: None Selected Primary Care Physician: Shen Smith III, MD [Primary Care Provider] - Within 2 Weeks Test Results: Test results from this visit will be discussed in further detail at your follow-up appointment, if applicable. Proposed Discharge Date: 06/07/20
--- NOTE | 2020-06-07 10:57 | DS.PCM_ITS ---
Discharge Date and Diagnosis - Problem List Patient Problems: Active and Suspected Problems (Last Updated 10/15/19 @ 14:35 by Maria Del Carmen Munguia) Pneumonia (Acute) Hypoxia (Acute) Sepsis (Acute) Pneumonia due to COVID-19 virus (Suspected) Date of Admission: 06/04/20 Date of Discharge: 06/07/20 - Primary Discharge Diagnosis Acute Problems: Active Problems (Last Updated 10/15/19 @ 14:35 by Maria Del Carmen Munguia) Pneumonia (Acute) Hypoxia (Acute) Sepsis (Acute) Suspected Problems: Suspected Problems (Last Updated 10/15/19 @ 14:35 by Maria Del Carmen Munguia) Pneumonia due to COVID-19 virus (Suspected) - Secondary Discharge Diagnosis Chronic Problems: Chronic Problems (Last Updated 10/15/19 @ 14:35 by Maria Del Carmen Munguia) DM (diabetes mellitus), type 2 (Chronic) HTN (hypertension) (Chronic) Right leg DVT (Chronic) diagnosed in March of 2014 Venous (peripheral) insufficiency (Chronic) Morbid obesity with BMI of 45.0-49.9, adult (Chronic) History of Crohn's disease (Chronic) no flares for many years Hospital Course and Treatment Imaging Results: Clinical Impression(s) from Imaging Studies Brain CT 06/04/20 16:23 IMPRESSION: Chronic involutional changes of the brain. Electronically Signed: Sukhi Deleon MD at 17:02 EDT Tel , Service support , Chest X-Ray 06/04/20 16:45 IMPRESSION: 1. Focal pneumonia or mass in the right upper lobe and correlation with CT the chest with contrast is recommended. 2. Cardiomegaly. Electronically Signed: Sukhi Deleon MD at 17:04 EDT Tel , Service support , Chest CTA 06/04/20 18:17 IMPRESSION: 1. No evidence of pulmonary embolus. 2. No aortic dissection or aneurysm. 3. Patchy groundglass infiltrates in both lungs. 4. Mediastinal lymphadenopathy. 5. Fatty infiltration of the liver. 6. Borderline cardiomegaly. 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 Symptoms began on 31 May. Patient presented to the emergency room and was 90% on room air put on oxygen and improved to 94%. Patient had a rapid Covid antigen that was negative but PCR was positive. Patient had CAT scan findings consistent with COVID-19 pneumonia. Patient was started on remdesivir as well as dexamethasone. Patient steadily improved during the hospitalization and today, the patient is on room air. Patient will be discharged to complete her 10-day course of dexamethasone. Additionally, patient's blood sugars have been very poorly controlled. Patient is a known type II diabetic and does not take Metformin and glimepiride at home. Patient does not check her blood sugars daily as she does not have a glucometer. Patient's blood sugars have been 3-400 range and was started on insulin glargine but still remains uncontrolled. Told the patient that she is likely very poorly controlled at baseline but we do not know that officially because she does not check her blood sugars. Patient will be on insulin glargine while she is on her dexamethasone and then she is instructed to discontinue that. Patient will be off Metformin until the because she had a CT angiogram of her chest. Patient will be given a prescription for glucometer as well as Lantus. Patient instructed to check her blood sugar daily and as needed. Patient stable to be discharged home in stable condition. She will not require oxygen upon discharge. [] Patient Problems: Active and Suspected Problems (Last Updated 10/15/19 @ 14:35 by Maria Del Carmen Munguia) Pneumonia (Acute) Hypoxia (Acute) Sepsis (Acute) Pneumonia due to COVID-19 virus (Suspected) - Physical Exam Vitals/I&O's: Vital Signs Temp Pulse Resp BP Pulse Ox 36.9 C 61 16 139/49 H 95 06/07/20 08:30 06/07/20 08:30 06/07/20 08:30 06/07/20 08:30 06/07/20 08:30 Oxygen Flow Rate (L/min) 1 Oxygen Delivery Method Room Air Weight: 131.9 kg Body Mass Index (BMI) 46.9 Intake and Output for Last 24 Hours 06/05/20 06/06/20 06/07/20 23:59 23:59 23:59 Intake Total 2352.33 / 2592.33 1210 / 1210 250 / 250 Output Total 875 / 875 500 / 500 Balance 1477.33 / 1717.33 710 / 710 250 / 250 General: Alert, No apparent distress HEENT: Atraumatic, Normocephalic Lungs: - - crackles bilaterally. Cardiovascular: Regular rate, Regular Rhythm, Normal S1, Normal S2, No murmurs Abdomen: Bowel Sounds Present, Soft, Non Tender, Non-Distended Microbiology Past 72 Hours 06/04/20 20:18 Mucosa - Nasopharyngeal Respiratory Panel (PCR) - Final 06/05/20 00:00 Urine, Clean Catch Legionella Antigen - Final 06/05/20 00:00 Urine, Clean Catch Streptococcus pneumoniae Antigen (M - Final 06/04/20 16:27 Mucosa - Nose SARS-CoV-2 Antigen (Rapid) - Final Laboratory Results 06/06/20 12:25: POC Glucose 296 H 06/06/20 17:13: POC Glucose 359 H 06/06/20 20:15: POC Glucose 442 H 06/07/20 04:10: Sodium 138, Potassium 4.2, Chloride 107, Carbon Dioxide 26.0, Anion Gap 5, BUN 23 H, Creatinine 0.64, Estim Creat Clear Calc 86.41, Est GFR (MDRD) Af Amer 121, Est GFR (MDRD) Non-Af 100, BUN/Creatinine Ratio 36.1 H, Glucose 340 H, Calcium 8.3 L, Total Bilirubin 0.40, AST 14 L, ALT 23, Alkaline Phosphatase 108, Total Protein 6.8, Albumin 2.4 L, Globulin 4.4 H, Albumin/Globulin Ratio 0.5 L 06/07/20 08:39: POC Glucose 316 H Current Medications Acetaminophen (Acetaminophen 325 Mg Tablet) 650 mg PO Q6H PRN PRN PRN Reason: Pain Score 1-10/Temp > 100.7 F Al Hydroxide/Mg Hydroxide (Mag Hydrox/Al Hydrox/Simeth 30 Ml Udc) 30 ml PO Q6H PRN PRN PRN Reason: Gastric Burning Albuterol Sulfate (Albuterol Ih 8.5 Gm (Proair) Inhaler (200 Puffs)) 4 - 8 puff INHALATION Q4H PRN PRN PRN Reason: Dyspnea, wheezing Amlodipine Besylate (Amlodipine 10 Mg Tablet) 10 mg PO QHS [facility] Last Admin: 06/06/20 20:24 Dose: 10 mg Documented by: Bisoprolol Fumarate (Bisoprolol Fumarate 5 Mg Tablet) 10 mg PO DAILY [facility] Last Admin: 06/07/20 08:42 Dose: 10 mg Documented by: Dexamethasone Sodium Phosphate (Dexamethasone 4 Mg/Ml Vial) 6 mg IV DAILY [facility] Stop: 06/14/20 10:01 Last Admin: 06/07/20 08:41 Dose: 6 mg Documented by: Guaifenesin (Guaifenesin 10 Ml Udc (200mg/10ml)) 20 ml PO Q4H PRN PRN PRN Reason: COUGH Hydralazine HCl (Hydralazine 20 Mg/Ml Vial) 10 mg IV Q4H PRN PRN PRN Reason: SBP > 160 Hydrochlorothiazide (Hydrochlorothiazide 6.25mg Tab) 6.25 mg PO DAILY [facility] Last Admin: 06/07/20 08:41 Dose: 6.25 mg Documented by: Sodium Chloride () 250 mls @ 15 mls/hr IV .[id number] PRN PRN Reason: Saline Flush Remdesivir 100 mg/ Sodium (Chloride) 250 mls @ 125 mls/hr IV Q24H [facility]; Protocol Stop: 06/08/20 23:59 Last Infusion: 06/07/20 00:37 Dose: Infused Documented by: Insulin Glargine (Insulin Glargine 100 Units/Ml Pen) [facility] Last Admin: 06/06/20 20:22 Dose: 20 units Documented by: Insulin Human Lispro (Insulin Lispro 100 Unit/Ml Insuln.Pen) 0 unit SC [facility]; Protocol Last Admin: 06/07/20 08:40 Dose: 5 u Documented by: Lisinopril (Lisinopril 40 Mg Tablet) 40 mg PO QHS [facility] Last Admin: 06/06/20 20:24 Dose: 40 mg Documented by: Loperamide HCl (Loperamide 2 Mg Capsule) 2 mg PO Q2H PRN PRN PRN Reason: Diarrhea Melatonin (Melatonin 3 Mg Tablet) 3 mg PO QHS PRN PRN PRN Reason: INSOMNIA Last Admin: 06/06/20 20:24 Dose: 3 mg Documented by: Nitroglycerin (Nitroglycerin (Inpatient Use) 0.4 Mg Tab.Subl) 0.4 mg SL Q5M PRN PRN Reason: CARDIAC/CHEST PAIN Nystatin (Nystatin Powder 15gm Bottle) 1 applic TOPICAL BID [facility]; Protocol Last Admin: 06/07/20 08:41 Dose: Not Given Documented by: Ondansetron HCl (Ondansetron 4 Mg/2 Ml Vial) 4 mg IV Q8H PRN PRN PRN Reason: NAUSEA/VOMITING Prochlorperazine Edisylate (Prochlorperazine 10 Mg/2 Ml Vial) 5 mg IV Q4H PRN PRN PRN Reason: Breakthrough nausea/vomiting Rivaroxaban (Rivaroxaban 20 Mg Tablet) 20 mg PO DINNER [facility] Last Admin: 06/06/20 17:15 Dose: 20 mg Documented by: Sodium Chloride (0.9% Saline Lock 10 Ml Syringe) 10 - 40 ml IV UD PRN PRN Reason: SALINE FLUSH Last Admin: 06/06/20 09:08 Dose: 20 ml Documented by: Throat Lozenges (Benzocaine/Menthol 1 Lozenge) 1 lozenge MUCOUS MEM Q2H PRN PRN PRN Reason: SORE THROAT Discharge Diet: 1800 Calorie Control Diet Discharge Activity: Return to Normal Activity Call your doctor if you observe: Fever of 101 or Higher, Shortness of breath Home Medications: Medications to take at Discharge Amlodipine [Norvasc] 5 mg PO QHS 06/09/14 Bisoprol/Hydrochlorothiazide [Ziac 10/6.25 MG (Beta Savanah)] 1 tab PO DAILY 06/09/14 Lisinopril [Zestril] 40 mg PO QHS 06/09/14 Glimepiride [Amaryl] 4 mg PO DAILY #60 tab 10/28/15 nystatin 100,000 unit/gram topical powder 1 applic TOPICAL BID #60 g 10/10/19 Rivaroxaban [Xarelto] 20 mg PO DINNER 06/04/20 Dexamethasone 6 mg PO DAILY #6 tablet 06/07/20 Insulin Glargine [Lantus SoloStar Pen] 20 units SC QHS #1 pen 06/07/20 Metformin HCl 1,000 mg PO BID #0 06/07/20 Hagerman, Insulin Disposable [Novofine Autocover 30G Needle] 1 each MISCELL. UD #1 box 06/07/20 Following Prescriptions Were Given to Patient: Dexamethasone 6 mg PO DAILY #6 tablet Transmission Status: Pending to [facility] Insulin Glargine [Lantus SoloStar Pen] 20 units SC QHS #1 pen Transmission Status: Pending to [facility] Hagerman, Insulin Disposable [Novofine Autocover 30G Needle] 1 each MISCELL. UD #1 box Transmission Status: Pending to [facility] Other Amb Orders: Glucometer Location: None Selected Primary Care Physician: Shen Smith III, MD [Primary Care Provider] - Within 2 Weeks Disposition: Home Minutes spent on discharge:: 32 Patient Condition:: Good Medical Necessity - Tobacco Use Smoking Status: Never smoker Tobacco Use: Non-smoker Meaningful Use Info Meaningful Use Diagnoses (Choose all that apply): None applicable Inpatient E&M: 96792 Disch Hosp
[2020-06-07 13:38] LABS: Pathologist Review Reviewed
--- NOTE | 2020-06-09 16:11 | CASEMGMT ---
JANNY GREGORY Discharge Follow-up Phone Call: JOSE: Jameel Strata: 2 Call Date: 06/09/20 Discharge Date: 06/07/20 Time of Call: 1610 Duration: 3 min Admitting Diagnosis: Covid JANNY GREGORY completed follow-up phone call after recent hospitalization. Patient states she is doing ok and her breathing is fine. Patient has been checking her BS and taking insulin without difficulty. Patient was able to fill prescription with no problems. Patient had no questions or concerns regarding discharge instructions. Patient states she and are isolating at home. Patient aware of follow-up appts.
== END 2020-06-07 11:45 | disposition home or self-care (01) | DRG 871 ==
LOC: ED 20:19 → ICU 21:38
PROVIDERS: Internal Medicine; Admitting Provider Family Medicine; Emergency Provider Emergency Medicine; PCP Family Medicine
DX: A41.89 Other specified sepsis (principal); U07.1 COVID-19; J12.82 Pneumonia due to coronavirus disease 2019; J96.01 Acute respiratory failure with hypoxia; Z68.42 Body mass index [BMI] 45.0-49.9, adult; I82.501 Chronic embolism and thrombosis of unspecified deep veins of right lower extremity; K50.90 Crohn's disease, unspecified, without complications; I10 Essential (primary) hypertension; E11.65 Type 2 diabetes mellitus with hyperglycemia; E11.621 Type 2 diabetes mellitus with foot ulcer; L97.519 Non-pressure chronic ulcer of other part of right foot with unspecified severity; I87.2 Venous insufficiency (chronic) (peripheral); T38.0X5A Adverse effect of glucocorticoids and synthetic analogues, initial encounter; E66.01 Morbid (severe) obesity due to excess calories; Z79.01 Long term (current) use of anticoagulants; Z79.4 Long term (current) use of insulin; Z79.899 Other long term (current) drug therapy
CPT/HCPCS: 70450; 71045; 71275; 80053; 82728; 82962; 83615; 83735; 83880; 84075; 84145; 84484; 85025; 85379; 86140; 87426; 87449; 87633; 87635; 93005; 94640; 97163; 97166; 97530; 99251; 99285; J7030; J7050; Q9967; A4216; G0463; J2405; U0002

== ENCOUNTER 2020-10-18 13:02 | Emergency (ER) | payer OTHER, SELFPAY ==
[2020-06-04 20:44] VITALS: BMI 46.9
[2020-10-18 13:03] VITALS: BP 144/80; PULSE 78; RESP 14; TEMP 36.5; O2SAT 99; BMI 47.9
--- NOTE | 2020-10-18 14:44 | ED.VIS.LOWEX ---
HPI History of Present Illness Chief Complaint: Wound Informant: patient Onset/Context/Timing Onset: Month(s) (2) Context: Gradual Onset Timing: Continuous Quality of Pain: - (sore) Location: Right lower leg Current Severity: Mild Maximum Severity: Moderate Worsened by: Palpation/touching affected wound Relieved by: Leaving it alone Associated Symptoms Associated Symptoms: Negative for Parasthesia, Weakness and Loss of Funtion Narrative Narrative: Patient has had this wound present for about 2 months. She saw someone in urgent care who initially just gave her some pain medication then she went back and was prescribed an antibiotic that she is still currently on. She said that the urgent care nurse practitioner told her it did not look like it was infected. She states the wound is persistent. She denies any systemic symptoms or fevers. She is a diabetic. She states her PCP retired so I do not have one now. She confirms that she has had bilateral lower extremity lymphedema for years. She is on a combination pill including hydrochlorothiazide, no other diuretics. [facility] Medical History Crohn's disease Diabetes DVT (deep venous thrombosis) Hypertension Urinary incontinence Home Medications amlodipine 5 mg PO QHS 06/09/14 [History Last Taken 10/24/15 00:00] bisoprolol-hydrochlorothiazide 1 tab PO DAILY 06/09/14 [History Last Taken 10/24/15 01:00] lisinopril 40 mg PO QHS 06/09/14 [History Last Taken 10/24/15 00:00] glimepiride 4 mg PO DAILY #60 tab 10/28/15 [Rx Last Taken Unknown] nystatin 100,000 unit/gram topical powder 1 applic TOPICAL BID #60 g 10/10/19 [Rx Last Taken Unknown] rivaroxaban 20 mg PO DINNER 06/04/20 [History Last Taken Unknown] dexamethasone 6 mg PO DAILY #6 tablet 06/07/20 [Rx Last Taken Unknown] insulin glargine 20 units SC QHS #1 pen 06/07/20 [Rx Last Taken Unknown] metformin 1,000 mg PO BID #0 06/07/20 [Rx Last Taken Unknown] pen needle, diabetic, safety #1 box 06/07/20 [Rx Last Taken Unknown] Allergy/AdvReac Type Severity Reaction Status Date / Time Sulfa (Sulfonamide Allergy Hives Verified 10/18/20 13:03 Antibiotics) Family History (Updated 10/10/19 @ 10:51 by Radha Rapp) Mother Heart disease Surgical History (Updated 06/04/20 @ 20:[address] Sandy Nguyen MD) H/O colonoscopy H/O tubal ligation S/P foot surgery Social History Smoking Status: Never smoker alcohol intake: never substance use type: does not use caffeine: Yes what type of physical activity do you participate in: walking frequency: 1-2 times per week seatbelt use: always do you feel safe at home: Yes additional social history: Anitra [place] second shift- [employer] ROS ROS ED Constitutional Constitutional ED: Denies chills or fever(s) Musculoskeletal Musculoskeletal: Reports extremity pain; Denies neck pain Integumentary Reports wounds; Denies Abrasions or rash Neurologic Neurologic: Denies paresthesias or weakness EXAM Physical Exam Const Vital Signs: 10/18/20 13:03 Temperature 97.7 F L Temperature Source Temporal Pulse Rate 78 Respiratory Rate 14 Blood Pressure 144/80 H Blood Pressure Mean 101 Pulse Ox 99 Oxygen Delivery Method Room Air Positive well nourished and well developed General Appearance ED: well developed and NAD Neck full ROM and supple Back/Spine normal ROM and normal to inspection Extremity Extremity Narrative: Bilateral lower extremity symmetric lymphedema with signs of chronic stasis dermatitis bilaterally, associated with a superficial broad-based wound with granulation tissue present and no signs of infection on the right redd distally above the ankle. Neuro oriented x3, no focal motor deficits and no sensory deficits noted Sensorium / Orientation: alert Psych mental status grossly normal and thought process normal Skin Skin Narrative: Wound as above, broad-based superficial with granulation tissue present right distal lower leg. No lymphangitis. No discharge. No tenderness if I am not palpating directly into the wound. There is no surrounding erythema noted although this wound is in the area of stasis dermatitis that is noted on the other side as well. There is no lymphangitis, abscess. She has no limited ranging of the knee or ankle. No inguinal lymphadenopathy. Rashes: no rashes MDM MDM MDM Narrative Medical decision making narrative: Patient has had some minor transparent yellow seeping from these wounds no bleeding or purulent discharge and currently it does not appear to be infected. I reassured her, advised that she continue the antibiotic until completed, advised her to follow-up with the new PCP she will have in the office, to help manage the lymphedema and her diabetes, and I also referred her to the wound care center here locally at the hospital. She is comfortable with that plan. We discussed reasons to return. Discharge Plan Triage Chief Complaint: Wound ED Provider: Alex Pizarro Dx/Rx/DC Orders Clinical Impression: Visit for wound check Instructions: ED Wound Check (No Infection) Prescriptions: No Action nystatin [Nystop] 100,000 unit/gram powder 1 applic TOPICAL BID Qty: 60 RF: 2 bisoprolol-hydrochlorothiazide 1 TAB tablet 1 tab PO DAILY RF: 0 amlodipine 5 MG tablet 5 mg PO QHS RF: 0 lisinopril 40 MG tablet 40 mg PO QHS RF: 0 glimepiride 2 MG tablet 4 mg PO DAILY Qty: 60 RF: 0 rivaroxaban 20 MG tablet 20 mg PO DINNER RF: 0 dexamethasone 6 MG tablet 6 mg PO DAILY Qty: 6 RF: 0 (DME) pen needle, diabetic, safety 1 EACH needle 1 each MISCELL. UD Qty: 1 RF: 0 insulin glargine 100 UNITS/ML insulin pen 20 units SC QHS Qty: 1 RF: 0 metformin 1,000 mg tablet 1,000 mg PO BID Qty: 0 RF: 0 Primary Care Provider: Care Physician,No Primary Referrals: Wound Health [Outside] - As soon as possible (call for appt [phone]) Doctor,Your [STAFF PHYSICIAN] - Keep Mariya appointment (Follow-up with your new primary care physician as scheduled or sooner if able) Disposition Disposition: Home, Self Care
[2020-10-18 14:58] VITALS: BP 145/82; PULSE 76; RESP 16; O2SAT 97
== END 2020-10-18 15:08 | disposition home or self-care (01) ==
PROVIDERS: Emergency Provider Emergency Medicine
DX: S80.921A Unspecified superficial injury of right lower leg, initial encounter (principal); X58.XXXA Exposure to other specified factors, initial encounter; Y93.9 Activity, unspecified; Y92.9 Unspecified place or not applicable; Y99.9 Unspecified external cause status; I89.0 Lymphedema, not elsewhere classified; I10 Essential (primary) hypertension; E11.9 Type 2 diabetes mellitus without complications; Z79.4 Long term (current) use of insulin; Z79.899 Other long term (current) drug therapy
CPT/HCPCS: 99282

== ENCOUNTER 2020-11-03 10:00 | Outpatient (RCR) | payer OTHER, SELFPAY ==
[2020-10-27 10:09] VITALS: BP 145/86; PULSE 99; TEMP 36.2; BMI 47.9
--- NOTE | 2020-10-27 11:12 | HP.PCM_ITS ---
History of Present Illness Date of Service: 10/27/20 Chief Complaint: Follow-up on right lower leg blisters and skin breakdown and edema History of Wound: 60-year-old white female diabetic history of a DVT in the same leg. She is currently on Xarelto. About 2 months ago started developing increase in swelling of the right lower leg with blisters developing on the ankle area but not circumferential. Went to the emergency room on October 18 , and they noted previously she had gone to urgent care and had been put on antibiotics Bactrim DS and she has been taking water pills. The emergency room suggested she refer to wound center. Patient has been using Neosporin ointment on the wounds which are covered in yellow slough. [facility] Medical History Crohn's disease Diabetes DVT (deep venous thrombosis) Hypertension Urinary incontinence Home Medications amlodipine 5 mg PO QHS 06/09/14 [History Last Taken 10/24/15 00:00] bisoprolol-hydrochlorothiazide 1 tab PO DAILY 06/09/14 [History Last Taken 10/24/15 01:00] lisinopril 40 mg PO QHS 06/09/14 [History Last Taken 10/24/15 00:00] glimepiride 4 mg PO DAILY #60 tab 10/28/15 [Rx Last Taken Unknown] nystatin 100,000 unit/gram topical powder 1 applic TOPICAL BID #60 g 10/10/19 [Rx Last Taken Unknown] rivaroxaban 20 mg PO DINNER 06/04/20 [History Last Taken Unknown] dexamethasone 6 mg PO DAILY #6 tablet 06/07/20 [Rx Last Taken Unknown] insulin glargine 20 units SC QHS #1 pen 06/07/20 [Rx Last Taken Unknown] metformin 1,000 mg PO BID #0 06/07/20 [Rx Last Taken Unknown] pen needle, diabetic, safety #1 box 06/07/20 [Rx Last Taken Unknown] Allergy/AdvReac Type Severity Reaction Status Date / Time Sulfa (Sulfonamide Allergy Hives Verified 10/18/20 13:03 Antibiotics) Family History (Updated 10/10/19 @ 10:51 by Radha Rapp) Mother Heart disease Surgical History H/O colonoscopy H/O tubal ligation S/P foot surgery Social History Smoking Status: Never smoker alcohol intake: never substance use type: does not use caffeine: Yes what type of physical activity do you participate in: walking frequency: 1-2 times per week seatbelt use: always do you feel safe at home: Yes additional social history: Anitra [place] second shift- [employer] ROS Constitutional Constitutional: Reports systems reviewed and no addt'l complaints, except as documented Eyes Eyes: Reports systems reviewed and no addt'l complaints, except as documented ENT HEENT: Reports systems reviewed and no addt'l complaints, except as documented Cardiovascular Cardiovascular: Reports systems reviewed and no addt'l complaints, except as documented Respiratory/Chest Respiratory/Chest: Reports systems reviewed and no addt'l complaints, except as documented Gastrointestinal Gastrointestinal: Reports systems reviewed and no addt'l complaints, except as documented Genitourinary Genitourinary: Reports systems reviewed and no addt'l complaints, except as documented Musculoskeletal Musculoskeletal: Reports systems reviewed and no addt'l complaints, except as documented Integumentary Integumentary: Reports as per HPI, nail changes, skin swelling, sores and wounds Neurologic Neurologic: Reports systems reviewed and no addt'l complaints, except as documented Psychiatric Psychiatric: Reports systems reviewed and no addt'l complaints, except as documented Endocrine Endocrinology: Reports systems reviewed and no addt'l complaints, except as documented Hematologic/Lymphatic Hematologic/Lymphatic: Reports systems reviewed and no addt'l complaints, except as documented Allergic/Immunologic Allergic/Immunologic: Reports systems reviewed and no addt'l complaints, except as documented Vital Signs Vital Signs Vital Signs: 10/27/20 10:09 Temperature 97.1 F L Temperature Source Temporal Pulse Rate 99 Blood Pressure 145/86 H Blood Pressure Mean 105 Blood Pressure Source Monitor Blood Pressure Position Semi-Fowlers Blood Pressure Location Right Arm Weight Body Mass Index (BMI) 47.9 Physical Exam Const oriented x3 General Appearance: cooperative and disheveled; Negative for well kempt Orientation / Consciousness: awake and oriented to person Exam Limitations: physical limitations Nutritional Appearance: obese HEENT normocephalic Head and Scalp: normal to inspection Face and Sinus: normal facial exam Nose: external nose normal External Ear: external ears normal External Auditory Canal: EAC's normal Mouth: oral and palatal mucosa normal Teeth and Gingiva: abnormal tooth and associated gingiva Throat: posterior oropharynx normal Eyes PERRL General Eye: normal appearance of both eyes Neck full ROM General: normal visual inspection Lymph Lymphatic: no lymphadenopathy noted Chest inspection of chest normal Chest: abnormal inspection of the chest Resp normal respiratory effort Effort and Inspection: able to speak in complete sentences Auscultation: clear to auscultation bilaterally Cardio regular rate and regular rhythm Palpation: normal PMI Rate: regular rate Rhythm: regular rhythm GI Auscultation: normoactive bowel sounds Palpation: soft, firm and tender Percussion: normal to percussion no CVA tenderness Back/Spine Thoracic Spine / Upper Back: normal to inspection Lumbar Spine / Lower Back: normal to inspection Extremity Negative for normal to inspection, no clubbing, cyanosis or edema or no pedal edema Extremity Narrative: bilat lower extremity edema right lower leg bigger than left lower leg. Right lower leg has open blisters anterior with slough on top. Bilateral low lower legs has stasis dermatitis General Extremity: edema; Negative for normal exam except as noted or vascular access Peripheral Pulses: Negative for dorsalis pedis pulses present Skin No no rashes or lesions noted General Skin Exam: erythema, venous stasis, dermatitis and other wounds R lower legs Rashes: rashes noted Wounds: wounds noted Neuro oriented x3 Debridement Note Debridement Note Post-Debridement Measurements and Additional Note: Post-Debridement Measurements/Treatment MICHELLE - Nurse 1 - General Ulcer Assessment Start: 10/27/20 10:09 Freq: Status: Active Protocol: DERRICK Activity Type Activity Date Activity User E-Sign Co-Sign Detail Recorded Client Recorded Date Recorded By Document 10/27/20 10:09 DREW [id number] 10/27/20 10:32 DREW 10/27/20 10:09 - Today's Visit Information Type of service Follow-up Visit (Physician/[employer] ) Patient Identification Verified (Name & Yes ) Height and Weight Body Mass Index (BMI) 47.9 BMI Classification Obese Vital Signs Temperature (97.8 F-99.1 F) 97.1 F L Temperature Source Temporal Pulse Rate (60-100) 99 Pulse Location Monitor Blood Pressure (90/60-120/80) 145/86 H Blood Pressure Mean 105 Source Monitor Position Semi-Fowlers Blood Pressure Location Right Arm History Since Last Visit- (Skip if this is Patient's initial visit) Have you changed medications since your No last visit? Any new allergies or adverse reactions No Had a fall/change in ADL's that may No increase risk of falls Signs or symptoms of abuse and/or No neglect since last visit Have you been in the hospital since your No last visit? Has dressing in place as prescribed No Has compression in place as prescribed N/A Has offloadiing in place as prescribed N/A Experienced any changes in pain level or No management Left Footwear Regular Shoe Right Footwear Regular Shoe Pain Scale: 0-10 Numeric Is Patient Pain Free? Yes Lower Extremity Assessment/ Foot Assessment/ Toe Nail Assessment Right -Popliteal Doppler Multiphasic -Posterior Tibial Doppler Multiphasic -Dorsalis Pedis Doppler Multiphasic -Extremity Color Hemosiderin -Hair Growth on Legs No -Hair Growth on Toes Yes -Temperature of Extremity Warm -Capillary Refill Less than 3 Seconds -Dependent Rubor No -Blanched when Elevated No -Lipodermatosclerosis No -Other Deformity No -Prior Foot Ulcer No -Charcot Joint No -Prior Amputation No -Thick Yes -Discolored Yes -Deformed No -Improper Length & Hygeine No Left -Popliteal Doppler Monophasic -Posterior Tibial Doppler Monophasic -Dorsalis Pedis Doppler Monophasic -Extremity Color Hemosiderin -Hair Growth on Legs No -Hair Growth on Toes Yes -Temperature of Extremity Warm -Capillary Refill Less than 3 Seconds -Dependent Rubor No -Blanched when Elevated No -Lipodermatosclerosis No -Thick Yes -Discolored Yes -Deformed No -Improper Length & Hygeine Yes Neuropathy Assessment Feet - Top Side and Bottom <Entered> (a) (a) 1 - + 2 - + 3 - + 4 - + 5 - + 6 - + WC - Nurse 1 - General Ulcer Measurement Start: 10/27/20 10:09 Freq: Status: Active Protocol: Activity Type Activity Date Activity User E-Sign Co-Sign Detail Recorded Client Recorded Date Recorded By Document 10/27/20 10:09 DREW [id number] 10/27/20 10:32 DREW 10/27/20 10:09 Wound Center Nurse 1 #1 Right ankle cluster -Current Size (cm) - Length 6.5 -Current Size (cm) - Width 31 -Current Size (cm) - Depth 0.1 -Total Square Cm 201.5 -Exudate Amt Large -Exudate Type Yellow/Green -Wound Margin Distinct, Outline Attached -Granulation Amt Small (1-33%) -Granulation Quality Red -Necrosis Amt Large (67-100%) -Necrotic Tissue Type Adherent Slough -Texture (Flower-wound Skin Appearance) Assessed, Scarring -Moisture (Flower-wound Skin Appearance) Assessed, Maceration -Color (Flower-wound Skin Appearance) No Abnormality, Assessed -Temperature (Flower-wound Skin No Abnormality Appearance) (Pt Warm) -Tenderness on Palpation (Flower-wound No Skin Appearance) -Ulcer Cleansing Rinsed/ Irrigated with Saline -Foul Odor after Cleansing No -Anesthetic Used 4% Lidocaine Solution Right Calf (cm) 54 Right Ankle (cm) 31.4 Left Calf (cm) 45 Left Ankle (cm) 31.5 WC - Nurse 2 - General Ulcer CM Notes Start: 10/27/20 10:09 Freq: Status: Active Protocol: Activity Type Activity Date Activity User E-Sign Co-Sign Detail Recorded Client Recorded Date Recorded By Document 10/27/20 10:56 PL [id number] 10/27/20 10:58 PL 10/27/20 10:56 Wound Center Nurse 2 #1 Right ankle cluster -Time 10:40 -Correct Patient Yes -Correct Side, Site, Position Yes -Correct Procedure Yes -Procedure Performed Yes -Type of Procedure Debridement -Clinical Debridement Subcutaneous -Tissue Removed Subcutaneous -Post Debridement (cm) - Length 7.0 -Post Debridement (cm) - Width 20.5 -Post Debridement (cm) - Depth 0.2 -Total Square (Post) (cm) 143.50 -Area of Debridement (cm) - Length 7.0 -Area of Debridement (cm) - Width 20.5 -Total Square (Area) (cm) 143.50 -Tunneling No -Undermining/Tunneling No -Circular Undermining No -Wound/Ulcer Outcome Not Healed -Ulcer Cleansing Rinsed/ Irrigated with Saline -Foul Odor after Cleansing No -Bioengineered Tissue No -Debridement - Subq, 1st 20sq cm Yes -Debridement, SubQ, ea addt'l 20sq cm 7 or part thereof WC - Nurse 3 - General Ulcer D/C NN Start: 10/27/20 10:09 Freq: Status: Active Protocol: Activity Type Activity Date Activity User E-Sign Co-Sign Detail Recorded Client Recorded Date Recorded By Document 10/27/20 11:03 ELIZABETH [id number] 10/27/20 11:05 ELIZABETH 10/27/20 11:03 Wound Care Nurse 3 -Ulcer Cleansing Rinsed/ Irrigated with Saline -Foul Odor after Cleansing No -Negative Pressure Wound Therapy N/A -Other Dressing xeroform x2 Right -Lotion applied to leg before No compression wrap -Compression Wrap Juan Luis Wrap WC - Visit Discharge Discharge Condition Stable Ambulatory Status Ambulatory Transportation Private Auto Medication Reconcilliation completed & No provided to patient/care provider Clinical Summary of Care Provided Yes Wound debrided: Right lower leg wounds Type of Debridement: Excisional debridement Anesthesia Used: 5% Lidocaine Gel Depth: Down to and including healthy tissue and in the subcutaneous layer Percentage of wound debrided: 100 Instrument Used: 7mm curette Tissue Removed: Slough Severity: Fat Layer Exposed Amount of bleeding with debridement: Mild Bleeding Controlled with: Compression and gauze Patient tolerated procedure: Patient tolerated procedure well Assessment/Plan Assessment/Plan (1) Peripheral vascular disease of lower extremity with ulceration: CODE(S): I73.9 - Peripheral vascular disease, unspecified; L97.909 - Non- pressure chronic ulcer of unspecified part of unspecified lower leg with unspecified severity PLAN: Wash right leg with antibacterial soap cover wound area with Xeroform dressing and Adaptic a gauze and Christen with Juan Luis wraps over top every day (2) Diabetes type 2, uncontrolled: CODE(S): E11.65 - Type 2 diabetes mellitus with hyperglycemia PLAN: Better monitoring and control of her diabetes (3) Edema, lower extremity: CODE(S): R60.0 - Localized edema PLAN: 4 and 6 inch Juan Luis wraps to the right lower extremity come continue the compression stocking on the left leg (4) Non-healing surgical wound: CODE(S): T81.89XA - Other complications of procedures, not elsewhere classified, initial encounter (5) Infected wound: CODE(S): T14.8XXA - Other injury of unspecified body region, initial encounter; L08.9 - Local infection of the skin and subcutaneous tissue, unspecified PLAN: Wound cultures obtained for anaerobes
[2020-11-03 10:08] VITALS: BP 154/93; PULSE 98; TEMP 35.8; BMI 47.9
--- NOTE | 2020-11-03 12:12 | PN.PCM_ITS ---
History of Present Illness Date of Service: 11/03/20 Chief Complaint: Follow-up on right lower leg blisters and skin breakdown and edema History of Wound: 60-year-old white female diabetic history of a DVT in the same leg. She is currently on Xarelto. About 2 months ago started developing increase in swelling of the right lower leg with blisters developing on the ankle area but not circumferential. Went to the emergency room on October 18 , and they noted previously she had gone to urgent care and had been put on antibiotics Bactrim DS and she has been taking water pills. The emergency room suggested she refer to wound center. Patient has been using Neosporin ointment on the wounds which are covered in yellow slough. Progress of Wound: The open wound is not quite circumferential but open appears a peripheral vascular disease with ulcerations shallow. Easier to debride this week with the use of the Adaptic over top the Xeroform dressings tolerating dressings well. Has many bacteria growing will start patient on antibiotic therapy and metronidazole for her anaerobes. Subjective Subjective No concerns see slight improvement Objective Data Objective Data Open wound right lower ankle area debrided easily for slough and many bacteria's and anaerobes patient is starting on antibiotic therapy for this. Patient still complains of some pain, should get better with antibiotic therapy Vital Signs: Vital Signs Temp Pulse BP 96.5 F L 98 154/93 H 11/03/20 10:08 11/03/20 10:08 11/03/20 10:08 Body Mass Index (BMI) 47.9 Lab / Micro Data Attestation: I reviewed the patient's lab results. Micro: Microbiology 10/27/20 10:45 Wound - Open/Non-Healing Wound Gram Stain - Final 10/27/20 10:45 Wound - Open/Non-Healing Wound Wound Culture - Final Meth. resistant Staph. aureus Staphylococcus epidermidis Kocuria kristinae Corynebacterium minutissimum Enterococcus faecalis 10/27/20 10:45 Wound - Open/Non-Healing Wound Anaerobic Culture - Final Anaerobic cocci Physical Exam Const oriented x3 General Appearance: cooperative and disheveled; Negative for well kempt Orientation / Consciousness: awake and oriented to person Exam Limitations: physical limitations Nutritional Appearance: obese HEENT normocephalic Head and Scalp: normal to inspection Face and Sinus: normal facial exam Nose: external nose normal External Ear: external ears normal External Auditory Canal: EAC's normal Mouth: oral and palatal mucosa normal Teeth and Gingiva: abnormal tooth and associated gingiva Throat: posterior oropharynx normal Eyes PERRL General Eye: normal appearance of both eyes Neck full ROM General: normal visual inspection Lymph Lymphatic: no lymphadenopathy noted Chest inspection of chest normal Chest: abnormal inspection of the chest Resp normal respiratory effort Effort and Inspection: able to speak in complete sentences Auscultation: clear to auscultation bilaterally Cardio regular rate and regular rhythm Palpation: normal PMI Rate: regular rate Rhythm: regular rhythm GI Auscultation: normoactive bowel sounds Palpation: soft, firm and tender Percussion: normal to percussion no CVA tenderness Back/Spine Thoracic Spine / Upper Back: normal to inspection Lumbar Spine / Lower Back: normal to inspection Extremity Negative for normal to inspection, no clubbing, cyanosis or edema or no pedal edema Extremity Narrative: bilat lower extremity edema right lower leg bigger than left lower leg. Right lower leg has open blisters anterior with slough on top. Bilateral low lower legs has stasis dermatitis General Extremity: edema; Negative for normal exam except as noted or vascular access Peripheral Pulses: Negative for dorsalis pedis pulses present Skin No no rashes or lesions noted General Skin Exam: erythema, venous stasis, dermatitis and other wounds R lower legs Rashes: rashes noted Wounds: wounds noted Neuro oriented x3 Debridement Note Debridement Note Post-Debridement Measurements and Additional Note: Post-Debridement Measurements/Treatment MICHELLE - Nurse 1 - General Ulcer Assessment Start: 10/27/20 10:09 Freq: Status: Active Protocol: DERRICK Activity Type Activity Date Activity User E-Sign Co-Sign Detail Recorded Client Recorded Date Recorded By Document 10/27/20 10:09 DREW [id number] 10/27/20 10:32 KR Document 11/03/20 10:08 DREW [id number] 11/03/20 10:09 DREW 10/27/20 11/03/20 10:09 10:08 - Today's Visit Information Type of service Follow-up Visit Follow-up Visit (Physician/FILM OR VIDEOTAPE EDITOR (Physician/FILM OR VIDEOTAPE EDITOR ) ) Arrival Mode Ambulatory Patient Identification Verified (Name & Yes Yes ) Height and Weight Body Mass Index (BMI) 47.9 47.9 BMI Classification Obese Obese Vital Signs Temperature (97.8 F-99.1 F) 97.1 F L 96.5 F L Temperature Source Temporal Temporal Pulse Rate (60-100) 99 98 Pulse Location Monitor Monitor Blood Pressure (90/60-120/80) 145/86 H 154/93 H Blood Pressure Mean (mm Hg) 105 113 Source Monitor Monitor Position Semi-Fowlers Sitting Blood Pressure Location Right Arm Right Arm History Since Last Visit- (Skip if this is Patient's initial visit) Have you changed medications since your No No last visit? Any new allergies or adverse reactions No No Had a fall/change in ADL's that may No No increase risk of falls Signs or symptoms of abuse and/or No No neglect since last visit Have you been in the hospital since your No No last visit? Has dressing in place as prescribed No Yes Has compression in place as prescribed N/A N/A Has offloadiing in place as prescribed N/A N/A Experienced any changes in pain level or No No management Left Footwear Regular Shoe Right Footwear Regular Shoe Pain Scale: 0-10 Numeric Is Patient Pain Free? Yes Yes Lower Extremity Assessment/ Foot Assessment/ Toe Nail Assessment Right -Popliteal Doppler Multiphasic -Posterior Tibial Doppler Multiphasic -Dorsalis Pedis Doppler Multiphasic -Extremity Color Hemosiderin -Hair Growth on Legs No -Hair Growth on Toes Yes -Temperature of Extremity Warm -Capillary Refill Less than 3 Seconds -Dependent Rubor No -Blanched when Elevated No -Lipodermatosclerosis No -Other Deformity No -Prior Foot Ulcer No -Charcot Joint No -Prior Amputation No -Thick Yes -Discolored Yes -Deformed No -Improper Length & Hygeine No Left -Popliteal Doppler Monophasic -Posterior Tibial Doppler Monophasic -Dorsalis Pedis Doppler Monophasic -Extremity Color Hemosiderin -Hair Growth on Legs No -Hair Growth on Toes Yes -Temperature of Extremity Warm -Capillary Refill Less than 3 Seconds -Dependent Rubor No -Blanched when Elevated No -Lipodermatosclerosis No -Thick Yes -Discolored Yes -Deformed No -Improper Length & Hygeine Yes Neuropathy Assessment Feet - Top Side and Bottom <Entered> (a) (a) 1 - + 2 - + 3 - + 4 - + 5 - + 6 - + WC - Nurse 1 - General Ulcer Measurement Start: 10/27/20 10:09 Freq: Status: Active Protocol: Activity Type Activity Date Activity User E-Sign Co-Sign Detail Recorded Client Recorded Date Recorded By Document 10/27/20 10:09 KR [id number] 10/27/20 10:32 KR Document 11/03/20 10:08 KR [id number] 11/03/20 10:09 KR 10/27/20 11/03/20 10:09 10:08 Wound Center Nurse 1 #1 Right ankle cluster -Current Size (cm) - Length 6.5 6.8 -Current Size (cm) - Width 31 19.5 -Current Size (cm) - Depth 0.1 0.2 -Total Square Cm 201.5 132.60 -Exudate Amt Large Medium -Exudate Type Yellow/Green Serosanguineous -Wound Margin Distinct, Distinct, Outline Outline Attached Attached -Granulation Amt Small (1-33%) Medium (34-66%) -Granulation Quality Red Red -Necrosis Amt Large (67-100%) Medium (34-66%) -Necrotic Tissue Type Adherent Slough Adherent Slough -Texture (Flower-wound Skin Appearance) Assessed, Assessed, Scarring Scarring -Moisture (Flower-wound Skin Appearance) Assessed, Assessed, Maceration Maceration -Color (Flower-wound Skin Appearance) No Abnormality, No Abnormality, Assessed Assessed -Temperature (Flower-wound Skin No Abnormality Appearance) (Pt Warm) -Tenderness on Palpation (Flower-wound No Skin Appearance) -Ulcer Cleansing Rinsed/ Rinsed/ Irrigated with Irrigated with Saline Saline -Foul Odor after Cleansing No No -Anesthetic Used 4% Lidocaine 4% Lidocaine Solution Solution,5% Lidocaine Gel Right Calf (cm) 54 Right Ankle (cm) 31.4 Left Calf (cm) 45 Left Ankle (cm) 31.5 WC - Nurse 2 - General Ulcer CM Notes Start: 10/27/20 10:09 Freq: Status: Active Protocol: Activity Type Activity Date Activity User E-Sign Co-Sign Detail Recorded Client Recorded Date Recorded By Document 10/27/20 10:56 PL [id number] 10/27/20 10:58 PL Document 11/03/20 10:15 MW [id number] 11/03/20 10:21 MW 10/27/20 11/03/20 10:56 10:15 Wound Center Nurse 2 -Time 10:40 10:17 -Correct Patient Yes Yes -Correct Side, Site, Position Yes Yes -Correct Procedure Yes Yes -Procedure Performed Yes Yes -Type of Procedure Debridement Debridement -Clinical Debridement Subcutaneous Subcutaneous -Tissue Removed Subcutaneous Subcutaneous -Post Debridement (cm) - Length 7.0 7.0 -Post Debridement (cm) - Width 20.5 19.0 -Post Debridement (cm) - Depth 0.2 0.1 -Total Square (Post) (cm) 143.50 133.00 -Area of Debridement (cm) - Length 7.0 7.0 -Area of Debridement (cm) - Width 20.5 19.0 -Total Square (Area) (cm) 143.50 133.00 -Tunneling No No -Undermining/Tunneling No No -Circular Undermining No No -Wound/Ulcer Outcome Not Healed Not Healed -Ulcer Cleansing Rinsed/ Rinsed/ Irrigated with Irrigated with Saline Saline -Foul Odor after Cleansing No No -Bioengineered Tissue No No -Bleeding Controlled with Pressure -Offloading No -Treatment Response Procedure Tolerated Well -Debridement - Subq, 1st 20sq cm Yes Yes -Debridement, SubQ, ea addt'l 20sq cm 7 6 or part thereof Pain Scale: 0-10 Numeric Is Patient Pain Free? Yes - Nurse 3 - General Ulcer D/C NN Start: 10/27/20 10:09 Freq: Status: Active Protocol: Activity Type Activity Date Activity User E-Sign Co-Sign Detail Recorded Client Recorded Date Recorded By Document 10/27/20 11:03 FL [id number] 10/27/20 11:05 FL Document 11/03/20 10:29 WY [id number] 11/03/20 10:30 MT Document 11/03/20 10:31 WY [id number] 11/03/20 10:32 WY 10/27/20 11/03/20 11/03/20 11:03 10:29 10:31 Wound Care Nurse 3 #1 Right ankle cluster -Ulcer Cleansing Rinsed/ Rinsed/ Irrigated with Irrigated with Saline Saline -Foul Odor after Cleansing No No -Negative Pressure Wound Therapy N/A N/A -Primary Dressing Applied NonAdherent Contact Layer -Other Dressing xeroform x2 Xeroform -Primary Dressing Covered/Secured with Dry Gauze & Roll Gauze, Secured with Tape Right -Lotion applied to leg before No No compression wrap -Compression Wrap Juan Luis Wrap Juan Luis Wrap WC - Visit Discharge Discharge Condition Stable Stable Ambulatory Status Ambulatory Ambulatory Transportation Private Auto Private Auto Medication Reconcilliation completed & No No provided to patient/care provider Clinical Summary of Care Provided Yes Yes Wound debrided: Right lower extremity around ankle Type of Debridement: Excisional debridement Anesthesia Used: 5% Lidocaine Gel Depth: Down to and including healthy tissue and in the subcutaneous layer Percentage of wound debrided: 100 Instrument Used: 7mm curette Tissue Removed: Slough devitalized tissue Severity: Fat Layer Exposed Amount of bleeding with debridement: Mild Bleeding Controlled with: Compression and gauze Patient tolerated procedure: Patient tolerated procedure well Assessment/Plan Assessment/Plan (1) Infected wound: CODE(S): T14.8XXA - Other injury of unspecified body region, initial encounter; L08.9 - Local infection of the skin and subcutaneous tissue, unspecified PLAN: Patient to start antibiotic therapy for her infection (2) Edema, lower extremity: CODE(S): R60.0 - Localized edema PLAN: 4 and 6 inch Juan Luis wraps to the right lower extremity come continue the compression stocking on the left leg (3) Non-healing surgical wound: CODE(S): T81.89XA - Other complications of procedures, not elsewhere classified, initial encounter (4) Diabetes type 2, uncontrolled: CODE(S): E11.65 - Type 2 diabetes mellitus with hyperglycemia PLAN: Better monitoring and control of her diabetes (5) Peripheral vascular disease of lower extremity with ulceration: CODE(S): I73.9 - Peripheral vascular disease, unspecified; L97.909 - Non- pressure chronic ulcer of unspecified part of unspecified lower leg with unspecified severity PLAN: Wash right leg with antibacterial soap cover wound area with Xeroform dressing and Adaptic a gauze and Christen with Juan Luis wraps over top every day
== END 2020-11-09 23:59 ==
LOC: WC 10:00
PROVIDERS: Visit Provider Nurse Practitioner
DX: E11.621 Type 2 diabetes mellitus with foot ulcer (principal); L97.312 Non-pressure chronic ulcer of right ankle with fat layer exposed; E11.51 Type 2 diabetes mellitus with diabetic peripheral angiopathy without gangrene; E11.65 Type 2 diabetes mellitus with hyperglycemia; T81.89XA Other complications of procedures, not elsewhere classified, initial encounter; Y83.8 Other surgical procedures as the cause of abnormal reaction of the patient, or of later complication, without mention of misadventure at the time of the procedure; Z86.718 Personal history of other venous thrombosis and embolism; R60.0 Localized edema; M79.89 Other specified soft tissue disorders
CPT/HCPCS: 11042; 11045; 87070; 87075; 87077; 87186; 87205; 99213; G0463

== ENCOUNTER 2020-12-08 10:30 | Outpatient (RCR) | payer OTHER, SELFPAY ==
[2020-11-10 00:43] VITALS: BP 154/93; PULSE 98; TEMP 35.8; BMI 47.9
[2020-11-10 10:31] VITALS: BP 153/80; PULSE 89; TEMP 36.2; BMI 47.9
--- NOTE | 2020-11-10 11:57 | PN.PCM_ITS ---
History of Present Illness Date of Service: 11/10/20 Chief Complaint: Follow-up on right lower leg blisters and skin breakdown and edema History of Wound: 60-year-old white female diabetic history of a DVT in the same leg. She is currently on Xarelto. About 2 months ago started developing increase in swelling of the right lower leg with blisters developing on the ankle area but not circumferential. Went to the emergency room on October 18 , and they noted previously she had gone to urgent care and had been put on antibiotics Bactrim DS and she has been taking water pills. The emergency room suggested she refer to wound center. Patient has been using Neosporin ointment on the wounds which are covered in yellow slough. Progress of Wound: The wounds on the right lower leg are healing definitely has some peripheral vascular disease going on studies to be done this Sunday. Tolerating treatments well no increase in infection she did have positive cultures and is on antibiotic therapy at this time Subjective Subjective No concerns Objective Data Objective Data [place] wound is healing better softer easier to debridement for the yellow got most of all the skin off and scabbing looks nice clean and beefy Vital Signs: Vital Signs Temp Pulse BP 97.2 F L 89 153/80 H 11/10/20 10:31 11/10/20 10:31 11/10/20 10:31 Body Mass Index (BMI) 47.9 Physical Exam Const oriented x3 General Appearance: cooperative and disheveled; Negative for well kempt Orientation / Consciousness: awake and oriented to person Exam Limitations: physical limitations Nutritional Appearance: obese HEENT normocephalic Head and Scalp: normal to inspection Face and Sinus: normal facial exam Nose: external nose normal External Ear: external ears normal External Auditory Canal: EAC's normal Mouth: oral and palatal mucosa normal Teeth and Gingiva: abnormal tooth and associated gingiva Throat: posterior oropharynx normal Eyes PERRL General Eye: normal appearance of both eyes Neck full ROM General: normal visual inspection Lymph Lymphatic: no lymphadenopathy noted Chest inspection of chest normal Chest: abnormal inspection of the chest Resp normal respiratory effort Effort and Inspection: able to speak in complete sentences Auscultation: clear to auscultation bilaterally Cardio regular rate and regular rhythm Palpation: normal PMI Rate: regular rate Rhythm: regular rhythm GI Auscultation: normoactive bowel sounds Palpation: soft, firm and tender Percussion: normal to percussion no CVA tenderness Back/Spine Thoracic Spine / Upper Back: normal to inspection Lumbar Spine / Lower Back: normal to inspection Extremity Negative for normal to inspection, no clubbing, cyanosis or edema or no pedal edema Extremity Narrative: bilat lower extremity edema right lower leg bigger than left lower leg. Right lower leg has open blisters anterior with slough on top. Bilateral low lower legs has stasis dermatitis General Extremity: edema; Negative for normal exam except as noted or vascular access Peripheral Pulses: Negative for dorsalis pedis pulses present Skin No no rashes or lesions noted General Skin Exam: erythema, venous stasis, dermatitis and other wounds R lower legs Rashes: rashes noted Wounds: wounds noted Neuro oriented x3 Debridement Note Debridement Note Post-Debridement Measurements and Additional Note: Post-Debridement Measurements/Treatment - Nurse 1 - General Ulcer Assessment Start: 11/10/20 10:31 Freq: Status: Active Protocol: [email or web address] Activity Type Activity Date Activity User E-Sign Co-Sign Detail Recorded Client Recorded Date Recorded By Document 11/10/20 10:31 DREW [id number] 11/10/20 10:37 DREW 11/10/20 10:31 - Today's Visit Information Type of service Follow-up Visit (Physician/ALLOCATION ANALYST ) Arrival Mode Ambulatory Patient Identification Verified (Name & Yes ) Height and Weight Body Mass Index (BMI) 47.9 BMI Classification Obese Vital Signs Temperature (97.8 F-99.1 F) 97.2 F L Temperature Source Temporal Pulse Rate (60-100) 89 Pulse Location Monitor Blood Pressure (90/60-120/80) 153/80 H Blood Pressure Mean (mm Hg) 104 Source Monitor Position Semi-Fowlers Blood Pressure Location Right Arm History Since Last Visit- (Skip if this is Patient's initial visit) Have you changed medications since your No last visit? Any new allergies or adverse reactions No Had a fall/change in ADL's that may No increase risk of falls Signs or symptoms of abuse and/or No neglect since last visit Have you been in the hospital since your No last visit? Has dressing in place as prescribed Yes Has compression in place as prescribed N/A Has offloadiing in place as prescribed N/A Experienced any changes in pain level or No management Left Footwear Regular Shoe Right Footwear Regular Shoe Pain Scale: 0-10 Numeric Is Patient Pain Free? Yes - Nurse 1 - General Ulcer Measurement Start: 11/10/20 10:31 Freq: Status: Active Protocol: Activity Type Activity Date Activity User E-Sign Co-Sign Detail Recorded Client Recorded Date Recorded By Document 11/10/20 10:31 KR [id number] 11/10/20 10:37 KR 11/10/20 10:31 Wound Center Nurse 1 #1 Right ankle cluster -Current Size (cm) - Length 5 -Current Size (cm) - Width 27 -Current Size (cm) - Depth 0.1 -Total Square Cm 135 -Photo Taken No -Epithelialization None Present -Tunneling No -Undermining/Tunneling No -Circular Undermining No -Change in Wound Grade/Stage No -Exudate Amt Small -Exudate Type Serosanguineous -Wound Margin Distinct, Outline Attached -Texture (Flower-wound Skin Appearance) Assessed, Scarring -Moisture (Flower-wound Skin Appearance) No Abnormality, Assessed -Color (Flower-wound Skin Appearance) No Abnormality, Assessed -Temperature (Flower-wound Skin No Abnormality Appearance) (Pt Warm) -Tenderness on Palpation (Flower-wound No Skin Appearance) -Ulcer Cleansing Rinsed/ Irrigated with Saline -Foul Odor after Cleansing No -Anesthetic Used 5% Lidocaine Gel Right Calf (cm) 51 Right Ankle (cm) 31 - Nurse 2 - General Ulcer CM Notes Start: 11/10/20 10:31 Freq: Status: Active Protocol: Activity Type Activity Date Activity User E-Sign Co-Sign Detail Recorded Client Recorded Date Recorded By Document 11/10/20 10:59 MW [id number] 11/10/20 11:04 MW 11/10/20 10:59 Wound Center Nurse 2 #1 Right ankle cluster -Time 10:59 -Correct Patient Yes -Correct Side, Site, Position Yes -Correct Procedure Yes -Procedure Performed Yes -Type of Procedure Debridement -Clinical Debridement Subcutaneous -Tissue Removed Subcutaneous -Post Debridement (cm) - Length 5.5 -Post Debridement (cm) - Width 18.5 -Post Debridement (cm) - Depth 0.1 -Total Square (Post) (cm) 101.75 -Area of Debridement (cm) - Length 5.5 -Area of Debridement (cm) - Width 18.5 -Total Square (Area) (cm) 101.75 -Tunneling No -Undermining/Tunneling No -Circular Undermining No -Wound/Ulcer Outcome Not Healed -Ulcer Cleansing Rinsed/ Irrigated with Saline -Foul Odor after Cleansing No -Bioengineered Tissue No -Bleeding Controlled with Pressure -Offloading No -Treatment Response Procedure Tolerated Well -Debridement - Subq, 1st 20sq cm Yes -Debridement, SubQ, ea addt'l 20sq cm 5 or part thereof Pain Scale: 0-10 Numeric Is Patient Pain Free? Yes Wound debrided: Right lower leg peripheral vascular disease ulcers Type of Debridement: Excisional debridement Anesthesia Used: 5% Lidocaine Gel Depth: Down to and including healthy tissue Percentage of wound debrided: 100 Instrument Used: 5mm curette Tissue Removed: Slough and fibrin and devitalized tissue Severity: Fat Layer Exposed Amount of bleeding with debridement: Mild Bleeding Controlled with: Compression and gauze Patient tolerated procedure: Patient tolerated procedure well Assessment/Plan Assessment/Plan (1) Infected wound: CODE(S): T14.8XXA - Other injury of unspecified body region, initial encounter; L08.9 - Local infection of the skin and subcutaneous tissue, unspecified PLAN: Patient to start antibiotic therapy for her infection (2) Edema, lower extremity: CODE(S): R60.0 - Localized edema PLAN: 4 and 6 inch Juan Luis wraps to the right lower extremity come continue the compression stocking on the left leg (3) Non-healing surgical wound: CODE(S): T81.89XA - Other complications of procedures, not elsewhere classified, initial encounter QUALIFIERS: Encounter type: subsequent encounter Qualified Code(s): T81.89XD - Other complications of procedures, not elsewhere classified, subsequent encounter (4) Diabetes type 2, uncontrolled: CODE(S): E11.65 - Type 2 diabetes mellitus with hyperglycemia QUALIFIERS: Glycemic state: with hyperglycemia Qualified Code(s): E11.65 - Type 2 diabetes mellitus with hyperglycemia PLAN: Better monitoring and control of her diabetes (5) Peripheral vascular disease of lower extremity with ulceration: CODE(S): I73.9 - Peripheral vascular disease, unspecified; L97.909 - Non- pressure chronic ulcer of unspecified part of unspecified lower leg with unspecified severity PLAN: Wash right leg with antibacterial soap cover wound area with Xeroform dressing and Adaptic a gauze and Christen with Juan Luis wraps over top every day
--- NOTE | 2020-11-12 12:46 | ART_ITS ---
Reason For Study: PAD Procedure A bilateral lower extremity continuous wave Doppler with analog waveform analysis,segmental pressures,and ankle brachial indexes without exercise. Left Segmental Pressures Left brachial= 144mmHg. Left posterior tibial artery = 161mmHg. Left dorsalis pedis artery = 151mmHg. Left digit = 131 mmHg. The left dorsalis pedis waveforms are triphasic. The left posterior tibial artery waveforms are triphasic. Right Segmental Pressures Right brachial= 149mmHg. Right posterior tibial artery = 167mmHg. Right dorsalis pedis artery = 165mmHg. Right digit = 141 mmHg. The right dorsalis pedis waveforms are triphasic. The right posterior tibial artery waveforms are triphasic. Indices The right ankle brachial index by the dorsalis pedis is 1.11. The right ankle brachial index by the posterior tibial artery is 1.12. The right digital-brachial index is 0.95. The left ankle brachial index by the dorsalis pedis is 1.01. The left ankle brachial index by the posterior tibial artery is 1.08. The left digital-brachial index is 0.88. VL/Lower Ext Art Exam w/o Exercis Interpretation Summary Triphasic Doppler waveforms are noted at ankle level bilaterally. Pulse-volume recordings appear satisfactory at all levels bilaterally. Resting ankle-brachial indices are norm al bilaterally. Digital-brachial indices are normal bilaterally. There is no evidece of significant arterial occlusive disease in the lower extr emities bilaterally. Ordering Physician: Casandra Jarquin Performed By: Elizabeth Godfrey RVT
--- NOTE | 2020-11-12 12:46 | VDLE_ITS ---
Reason For Study: Bilateral lower extremity edema RIGHT LEFT CFV is compressible, spontaneous, phasic, CFV is compressible, spontaneous, phasic, competent and demonstrates normal competent, and demonstrates normal augmentation. augmentation. FV is compressible, spontaneous, phasic, FV is compressible, spontaneous, phasic, competent and demonstrates normal competent and demonstrates normal augmentation. augmentation. POP V is compressible, spontaneous, phasic, POP V is compressible, spontaneous, phasic, competent and demonstrates normal competent and demonstrates normal augmentation. augmentation. T/P Trunk is compressible. T/P Trunk is compressible. PTV is compressible. PTV is compressible. RT PerV is compressible. LT PerV is compressible. SFJ is INCOMPETENT and measures 1.43 x 1.68 SFJ is INCOMPETENT and measures 1.02 x 1.33 cm. cm. GSV proximal thigh measures 0.94 x 0.98 cm. GSV proximal thigh measures 0.79 x 0.82 cm. GSV at knee measures 0.30 x 0.28 cm. GSV at knee measures 0.23 x 0.20 cm. GSV is competent throughout. GSV is competent throughout. ASV mid thigh is INCOMPETENT for greater than SSV proximal calf is INCOMPETENT for greater 0.5 seconds and measures 0.91 x 0.88 cm. than 0.5 seconds and measures 0.62 x 0.60 SSV proximal calf is competent and measures cm. 0.34 x 0.33 cm. Left Vein of Giacomini is INCOMPETENT for ASV from junction is INCOMPETENTfor greater greater than 0.5 seconds and measures 0.43 x than 0.5 seconds and measures 0.59 x 0.60 cm. 0.42 cm. Right Vein of Giacomini is INCOMPETENT for greater than 0.5 secodns and measures 0.40 x 0.42 cm. Procedure This is a venous duplex using B-mode, color flow and spectral Doppler. Exam performed in department. A preliminary report was called and/or faxed to . VL/Venous Duplex US - Chuckie Extrem Interpretation Summary Deep veins of the lower extremities are bilaterally patent and compressible seg mentally. There is no evidence of deep vein thrombosis on either side. Valvular competence appears in tact within the proximal deep venous systems bilaterally. The great saphenous veins appear bila terally patent and compressible segmentally. Sapheno-femoral junctions are bilaterally incompetent . Valvular competence appears to be intact segmentally within the great saphenous veins bi laterally. The right small saphenous vein is patent and competent. The left small saphenous vein is patent and incompetent. The accessory saphenous vein at the right sapheno-femoral junction is incompetent. The accessory saphenous vein in the right mid-thigh is incompetent. The right vein of Giacomini is incompetent. The left vein of Giacomini is incompetent. Ordering Physician: Casandra Jarquin Performed By: Elizabeth Godfrey RVT
[2020-11-17 10:38] VITALS: BP 119/75; PULSE 89; TEMP 35.9; BMI 47.9
--- NOTE | 2020-11-17 11:23 | PCM.WC.PN ---
History of Present Illness Date of Service: 11/17/20 Chief Complaint: Follow-up on right lower leg blisters and skin breakdown and edema History of Wound: 60-year-old white female diabetic history of a DVT in the same leg. She is currently on Xarelto. About 2 months ago started developing increase in swelling of the right lower leg with blisters developing on the ankle area but not circumferential. Went to the emergency room on October 18 , and they noted previously she had gone to urgent care and had been put on antibiotics Bactrim DS and she has been taking water pills. The emergency room suggested she refer to wound center. Patient has been using Neosporin ointment on the wounds which are covered in yellow slough. Progress of Wound: The wounds on the right lower leg are healing definitely has some peripheral vascular disease going on studies to be done and shows definite problems in the GSV area patient be referred to [facility] for evaluation. Tolerating treatments well no increase in infection she did have positive cultures and is on antibiotic therapy at this time Patient also has returned to work on 11/27/20 Subjective Subjective No concerns Objective Data Objective Data Healing well she has the pitted cobblestoning type skin from peripheral vascular disease cleaning well with the Xeroform debrided easily bleeding well controlled becoming smaller. Compression stockings are working patient needs to be seen by [facility]. Vital Signs: Vital Signs Temp Pulse BP 96.7 F L 89 119/75 11/17/20 10:38 11/17/20 10:38 11/17/20 10:38 Body Mass Index (BMI) 47.9 Physical Exam Const oriented x3 General Appearance: cooperative and disheveled; Negative for well kempt Orientation / Consciousness: awake and oriented to person Exam Limitations: physical limitations Nutritional Appearance: obese HEENT normocephalic Head and Scalp: normal to inspection Face and Sinus: normal facial exam Nose: external nose normal External Ear: external ears normal External Auditory Canal: EAC's normal Mouth: oral and palatal mucosa normal Teeth and Gingiva: abnormal tooth and associated gingiva Throat: posterior oropharynx normal Eyes PERRL General Eye: normal appearance of both eyes Neck full ROM General: normal visual inspection Lymph Lymphatic: no lymphadenopathy noted Chest inspection of chest normal Chest: abnormal inspection of the chest Resp normal respiratory effort Effort and Inspection: able to speak in complete sentences Auscultation: clear to auscultation bilaterally Cardio regular rate and regular rhythm Palpation: normal PMI Rate: regular rate Rhythm: regular rhythm GI Auscultation: normoactive bowel sounds Palpation: soft, firm and tender Percussion: normal to percussion no CVA tenderness Back/Spine Thoracic Spine / Upper Back: normal to inspection Lumbar Spine / Lower Back: normal to inspection Extremity Negative for normal to inspection, no clubbing, cyanosis or edema or no pedal edema Extremity Narrative: bilat lower extremity edema right lower leg bigger than left lower leg. Right lower leg has open blisters anterior with slough on top. Bilateral low lower legs has stasis dermatitis General Extremity: edema; Negative for normal exam except as noted or vascular access Peripheral Pulses: Negative for dorsalis pedis pulses present Skin No no rashes or lesions noted General Skin Exam: erythema, venous stasis, dermatitis and other wounds R lower legs Rashes: rashes noted Wounds: wounds noted Neuro oriented x3 Debridement Note Debridement Note Wound debrided: Right lower leg peripheral vascular disease ulcers Type of Debridement: Selective debridement Anesthesia Used: 5% Lidocaine Gel Depth: Down to and including healthy tissue and in the subcutaneous layer Percentage of wound debrided: 100 Instrument Used: 7mm curette Tissue Removed: Fibrin and devitalized tissue Severity: Fat Layer Exposed Amount of bleeding with debridement: Mild Bleeding Controlled with: Compression and gauze Patient tolerated procedure: Patient tolerated procedure well Post-Debridement Measurements and Additional Note: Post-Debridement Measurements/Treatment - Nurse 1 - General Ulcer Assessment Start: 11/10/20 10:31 Freq: Status: Active Protocol: [email or web address] Activity Type Activity Date Activity User E-Sign Co-Sign Detail Recorded Client Recorded Date Recorded By Document 11/10/20 10:31 DREW [id number] 11/10/20 10:37 KR Document 11/17/20 10:38 DREW [id number] 11/17/20 10:38 KR 11/10/20 11/17/20 10:31 10:38 - Today's Visit Information Type of service Follow-up Visit Follow-up Visit (Physician/RESIDENTIAL PROPERTY MANAGER (Physician/RESIDENTIAL PROPERTY MANAGER ) ) Arrival Mode Ambulatory Ambulatory Patient Identification Verified (Name & Yes Yes ) Height and Weight Body Mass Index (BMI) 47.9 47.9 BMI Classification Obese Obese Vital Signs Temperature (97.8 F-99.1 F) 97.2 F L 96.7 F L Temperature Source Temporal Temporal Pulse Rate (60-100) 89 89 Pulse Location Monitor Monitor Blood Pressure (90/60-120/80) 153/80 H 119/75 Blood Pressure Mean (mm Hg) 104 89 Source Monitor Monitor Position Semi-Fowlers Sitting Blood Pressure Location Right Arm Left Arm History Since Last Visit- (Skip if this is Patient's initial visit) Have you changed medications since your No No last visit? Any new allergies or adverse reactions No No Had a fall/change in ADL's that may No No increase risk of falls Signs or symptoms of abuse and/or No No neglect since last visit Have you been in the hospital since your No No last visit? Has dressing in place as prescribed Yes Yes Has compression in place as prescribed N/A N/A Has offloadiing in place as prescribed N/A N/A Experienced any changes in pain level or No No management Left Footwear Regular Shoe Regular Shoe Right Footwear Regular Shoe Regular Shoe Pain Scale: 0-10 Numeric Is Patient Pain Free? Yes Yes WC - Nurse 1 - General Ulcer Measurement Start: 11/10/20 10:31 Freq: Status: Active Protocol: Activity Type Activity Date Activity User E-Sign Co-Sign Detail Recorded Client Recorded Date Recorded By Document 11/10/20 10:31 DREW [id number] 11/10/20 10:37 KR Document 11/17/20 10:38 KR [id number] 11/17/20 10:38 KR 11/10/20 11/17/20 10:31 10:38 Wound Center Nurse 1 #1 Right ankle cluster -Current Size (cm) - Length 5 3.9 -Current Size (cm) - Width 27 12.4 -Current Size (cm) - Depth 0.1 0.1 -Total Square Cm 135 48.36 -Photo Taken No -Epithelialization None Present -Tunneling No -Undermining/Tunneling No -Circular Undermining No -Change in Wound Grade/Stage No -Exudate Amt Small Small -Exudate Type Serosanguineous Serosanguineous -Wound Margin Distinct, Distinct, Outline Outline Attached Attached -Granulation Amt Medium (34-66%) -Granulation Quality Red -Necrosis Amt Medium (34-66%) -Necrotic Tissue Type Adherent Slough -Texture (Flower-wound Skin Appearance) Assessed, Assessed, Scarring Scarring -Moisture (Flower-wound Skin Appearance) No Abnormality, Assessed, Assessed Maceration -Color (Flower-wound Skin Appearance) No Abnormality, No Abnormality, Assessed Assessed -Temperature (Flower-wound Skin No Abnormality No Abnormality Appearance) (Pt Warm) (Pt Warm) -Tenderness on Palpation (Flower-wound No No Skin Appearance) -Ulcer Cleansing Rinsed/ Rinsed/ Irrigated with Irrigated with Saline Saline -Foul Odor after Cleansing No No -Anesthetic Used 5% Lidocaine 4% Lidocaine Gel Solution Right Calf (cm) 51 Right Ankle (cm) 31 WC - Nurse 2 - General Ulcer CM Notes Start: 11/10/20 10:31 Freq: Status: Active Protocol: Activity Type Activity Date Activity User E-Sign Co-Sign Detail Recorded Client Recorded Date Recorded By Document 11/10/20 10:59 MW [id number] 11/10/20 11:04 MW Document 11/17/20 10:57 MW Desktop 11/17/20 11:01 MW 11/10/20 11/17/20 10:59 10:57 Wound Center Nurse 2 #1 Right ankle cluster -Time 10:59 10:59 -Correct Patient Yes Yes -Correct Side, Site, Position Yes Yes -Correct Procedure Yes Yes -Procedure Performed Yes Yes -Type of Procedure Debridement Debridement -Clinical Debridement Subcutaneous Subcutaneous -Tissue Removed Subcutaneous Subcutaneous -Post Debridement (cm) - Length 5.5 5.0 -Post Debridement (cm) - Width 18.5 18.5 -Post Debridement (cm) - Depth 0.1 0.1 -Total Square (Post) (cm) 101.75 92.50 -Area of Debridement (cm) - Length 5.5 5.0 -Area of Debridement (cm) - Width 18.5 18.5 -Total Square (Area) (cm) 101.75 92.50 -Tunneling No No -Undermining/Tunneling No No -Circular Undermining No No -Wound/Ulcer Outcome Not Healed Not Healed -Ulcer Cleansing Rinsed/ Rinsed/ Irrigated with Irrigated with Saline Saline -Foul Odor after Cleansing No No -Bioengineered Tissue No No -Bleeding Controlled with Pressure Pressure -Offloading No No -Treatment Response Procedure Tolerated Well -Debridement - Subq, 1st 20sq cm Yes Yes -Debridement, SubQ, ea addt'l 20sq cm 5 4 or part thereof Pain Scale: 0-10 Numeric Is Patient Pain Free? Yes Yes Assessment/Plan Assessment/Plan (1) Infected wound: CODE(S): T14.8XXA - Other injury of unspecified body region, initial encounter; L08.9 - Local infection of the skin and subcutaneous tissue, unspecified PLAN: Patient to start antibiotic therapy for her infection (2) Edema, lower extremity: CODE(S): R60.0 - Localized edema PLAN: 4 and 6 inch Juan Luis wraps to the right lower extremity come continue the compression stocking on the left leg (3) Non-healing surgical wound: CODE(S): T81.89XA - Other complications of procedures, not elsewhere classified, initial encounter QUALIFIERS: Encounter type: subsequent encounter Qualified Code(s): T81.89XD - Other complications of procedures, not elsewhere classified, subsequent encounter (4) Diabetes type 2, uncontrolled: CODE(S): E11.65 - Type 2 diabetes mellitus with hyperglycemia QUALIFIERS: Glycemic state: with hyperglycemia Qualified Code(s): E11.65 - Type 2 diabetes mellitus with hyperglycemia PLAN: Better monitoring and control of her diabetes (5) Peripheral vascular disease of lower extremity with ulceration: CODE(S): I73.9 - Peripheral vascular disease, unspecified; L97.909 - Non-pressure chronic ulcer of unspecified part of unspecified lower leg with unspecified severity PLAN: Wash right leg with antibacterial soap cover wound area with Xeroform dressing and Adaptic a gauze and Christen with Juan Luis wraps over top every day We will refer to Dr. Ojeda for further evaluation of her peripheral vascular disease
[2020-11-24 11:43] VITALS: BP 142/77; PULSE 85; RESP 16; TEMP 36.3; BMI 47.9
--- NOTE | 2020-11-24 12:16 | PCM.WC.PN ---
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 She is currently on Xarelto. About 2 months ago started developing increase in swelling of the right lower leg with blisters developing on the ankle area but not circumferential. Went to the emergency room on October 18 , and they noted previously she had gone to urgent care and had been put on antibiotics Bactrim DS and she has been taking water pills. The emergency room suggested she refer to wound center. Patient has been using Neosporin ointment on the wounds which are covered in yellow slough. Progress of Wound: The wounds on the right lower leg are healing definitely has some peripheral vascular disease going on studies to be done and shows definite problems in the GSV area patient be referred to [facility] for evaluation. Tolerating treatments well no increase in infection she did have positive cultures and is on antibiotic therapy at this time Patient also has returned to work on 11/27/20 The wound is itself is smaller less circumferential and less cobblestoning. Subjective Subjective Patient has no concerns Objective Data Objective Data Improving wound on right lower ankle area compressions working well Vital Signs: Vital Signs Temp Pulse Resp BP 97.4 F L 85 16 142/77 H 11/24/20 11:43 11/24/20 11:43 11/24/20 11:43 11/24/20 11:43 Body Mass Index (BMI) 47.9 Physical Exam Const oriented x3 General Appearance: cooperative and disheveled; Negative for well kempt Orientation / Consciousness: awake and oriented to person Exam Limitations: physical limitations Nutritional Appearance: obese HEENT normocephalic Head and Scalp: normal to inspection Face and Sinus: normal facial exam Nose: external nose normal External Ear: external ears normal External Auditory Canal: EAC's normal Mouth: oral and palatal mucosa normal Teeth and Gingiva: abnormal tooth and associated gingiva Throat: posterior oropharynx normal Eyes PERRL General Eye: normal appearance of both eyes Neck full ROM General: normal visual inspection Lymph Lymphatic: no lymphadenopathy noted Chest inspection of chest normal Chest: abnormal inspection of the chest Resp normal respiratory effort Effort and Inspection: able to speak in complete sentences Auscultation: clear to auscultation bilaterally Cardio regular rate and regular rhythm Palpation: normal PMI Rate: regular rate Rhythm: regular rhythm GI Auscultation: normoactive bowel sounds Palpation: soft, firm and tender Percussion: normal to percussion no CVA tenderness Back/Spine Thoracic Spine / Upper Back: normal to inspection Lumbar Spine / Lower Back: normal to inspection Extremity Negative for normal to inspection, no clubbing, cyanosis or edema or no pedal edema Extremity Narrative: bilat lower extremity edema right lower leg bigger than left lower leg. Right lower leg has open blisters anterior with slough on top. Bilateral low lower legs has stasis dermatitis General Extremity: edema; Negative for normal exam except as noted or vascular access Peripheral Pulses: Negative for dorsalis pedis pulses present Skin No no rashes or lesions noted General Skin Exam: erythema, venous stasis, dermatitis and other wounds R lower legs Rashes: rashes noted Wounds: wounds noted Neuro oriented x3 Debridement Note Debridement Note Wound debrided: Right lower ankle area Type of Debridement: Excisional debridement Anesthesia Used: 5% Lidocaine Gel Depth: Down to and including healthy tissue and in the subcutaneous layer Percentage of wound debrided: 100 Instrument Used: 7mm curette Tissue Removed: Devitalized tissue and fibrin Severity: Limited To Skin Breakdown Amount of bleeding with debridement: Mild Bleeding Controlled with: Compression and gauze Patient tolerated procedure: Patient tolerated procedure well Post-Debridement Measurements and Additional Note: Post-Debridement Measurements/Treatment - Nurse 1 - General Ulcer Assessment Start: 11/10/20 10:31 Freq: Status: Active Protocol: [email or web address].[email or web address] Activity Type Activity Date Activity User E-Sign Co-Sign Detail Recorded Client Recorded Date Recorded By Document 11/10/20 10:31 KR [id number] 11/10/20 10:37 KR Document 11/17/20 10:38 KR [id number] 11/17/20 10:38 KR Document 11/24/20 11:43 ML [id number] 11/24/20 11:45 ML 11/10/20 11/17/20 11/24/20 10:31 10:38 11:43 - Today's Visit Information Type of service Follow-up Visit Follow-up Visit Follow-up Visit (Physician/OPTICAL LAB TECHNICIAN (Physician/OPTICAL LAB TECHNICIAN (Physician/OPTICAL LAB TECHNICIAN ) ) ) Arrival Mode Ambulatory Ambulatory Ambulatory Transfer Assistance None Patient Identification Verified (Name & Yes Yes Yes ) Patient Requires Transmission-Based No Precautions Safety Precautions NA Height and Weight Body Mass Index (BMI) 47.9 47.9 47.9 BMI Classification Obese Obese Obese Vital Signs Temperature (97.8 F-99.1 F) 97.2 F L 96.7 F L 97.4 F L Temperature Source Temporal Temporal Temporal Pulse Rate (60-100) 89 89 85 Pulse Location Monitor Monitor Monitor Respiratory Rate (12-18) 16 Respiratory rate source Monitor Blood Pressure (90/60-120/80) 153/80 H 119/75 142/77 H Blood Pressure Mean (mm Hg) 104 89 98 Source Monitor Monitor Monitor Position Semi-Fowlers Sitting Sitting Blood Pressure Location Right Arm Left Arm Right Arm History Since Last Visit- (Skip if this is Patient's initial visit) Have you changed medications since your No No No last visit? Any new allergies or adverse reactions No No No Had a fall/change in ADL's that may No No No increase risk of falls Signs or symptoms of abuse and/or No No No neglect since last visit Have you been in the hospital since your No No No last visit? Has dressing in place as prescribed Yes Yes Yes Has compression in place as prescribed N/A N/A Yes Has offloadiing in place as prescribed N/A N/A N/A Experienced any changes in pain level or No No No management Left Footwear Regular Shoe Regular Shoe Regular Shoe Right Footwear Regular Shoe Regular Shoe Regular Shoe Pain Scale: 0-10 Numeric Is Patient Pain Free? Yes Yes Yes WC - Nurse 1 - General Ulcer Measurement Start: 11/10/20 10:31 Freq: Status: Active Protocol: Activity Type Activity Date Activity User E-Sign Co-Sign Detail Recorded Client Recorded Date Recorded By Document 11/10/20 10:31 KR [id number] 11/10/20 10:37 KR Document 11/17/20 10:38 KR [id number] 11/17/20 10:38 KR Document 11/24/20 11:43 ML [id number] 11/24/20 11:45 ML 11/10/20 11/17/20 11/24/20 10:31 10:38 11:43 Wound Center Nurse 1 #1 Right ankle cluster -Current Size (cm) - Length 5 3.9 3.5 -Current Size (cm) - Width 27 12.4 7 -Current Size (cm) - Depth 0.1 0.1 0.1 -Total Square Cm 135 48.36 24.5 -Photo Taken No -Epithelialization None Present -Tunneling No -Undermining/Tunneling No -Circular Undermining No -Change in Wound Grade/Stage No -Exudate Amt Small Small Medium -Exudate Type Serosanguineous Serosanguineous Serosanguineous -Wound Margin Distinct, Distinct, Distinct, Outline Outline Outline Attached Attached Attached -Granulation Amt Medium (34-66%) Medium (34-66%) -Granulation Quality Red -Necrosis Amt Medium (34-66%) Medium (34-66%) -Necrotic Tissue Type Adherent Slough Adherent Slough -Texture (Flower-wound Skin Appearance) Assessed, Assessed, Assessed Scarring Scarring -Moisture (Flower-wound Skin Appearance) No Abnormality, Assessed, Assessed Assessed Maceration -Color (Flower-wound Skin Appearance) No Abnormality, No Abnormality, Hemosiderin Assessed Assessed Staining -Temperature (Flower-wound Skin No Abnormality No Abnormality Appearance) (Pt Warm) (Pt Warm) -Tenderness on Palpation (Flower-wound No No No Skin Appearance) -Ulcer Cleansing Rinsed/ Rinsed/ Rinsed/ Irrigated with Irrigated with Irrigated with Saline Saline Saline -Foul Odor after Cleansing No No No -Anesthetic Used 5% Lidocaine 4% Lidocaine 4% Lidocaine Gel Solution Solution Right Calf (cm) 51 Right Ankle (cm) 31 WC - Nurse 2 - General Ulcer CM Notes Start: 11/10/20 10:31 Freq: Status: Active Protocol: Activity Type Activity Date Activity User E-Sign Co-Sign Detail Recorded Client Recorded Date Recorded By Document 11/10/20 10:59 MW [id number] 11/10/20 11:04 MW Document 11/17/20 10:57 MW Desktop 11/17/20 11:01 MW Document 11/24/20 11:54 ML [id number] 11/24/20 11:56 ML 11/10/20 11/17/20 11/24/20 10:59 10:57 11:54 Wound Center Nurse 2 #1 Right ankle cluster -Time 10:59 10:59 11:54 -Correct Patient Yes Yes Yes -Correct Side, Site, Position Yes Yes Yes -Correct Procedure Yes Yes Yes -Procedure Performed Yes Yes Yes -Type of Procedure Debridement Debridement Debridement -Clinical Debridement Subcutaneous Subcutaneous Subcutaneous -Tissue Removed Subcutaneous Subcutaneous Subcutaneous -Post Debridement (cm) - Length 5.5 5.0 4.5 -Post Debridement (cm) - Width 18.5 18.5 17.0 -Post Debridement (cm) - Depth 0.1 0.1 0.1 -Total Square (Post) (cm) 101.75 92.50 76.50 -Area of Debridement (cm) - Length 5.5 5.0 4.5 -Area of Debridement (cm) - Width 18.5 18.5 17.0 -Total Square (Area) (cm) 101.75 92.50 76.50 -Tunneling No No No -Undermining/Tunneling No No No -Circular Undermining No No No -Wound/Ulcer Outcome Not Healed Not Healed Not Healed -Ulcer Cleansing Rinsed/ Rinsed/ Rinsed/ Irrigated with Irrigated with Irrigated with Saline Saline Saline -Foul Odor after Cleansing No No No -Bioengineered Tissue No No No -Bleeding Controlled with Pressure Pressure Pressure -Offloading No No No -Treatment Response Procedure Procedure Tolerated Well Tolerated Well -Debridement - Subq, 1st 20sq cm Yes Yes Yes -Debridement, SubQ, ea addt'l 20sq cm 5 4 3 or part thereof Pain Scale: 0-10 Numeric Is Patient Pain Free? Yes Yes Yes - Nurse 3 - General Ulcer D/C NN Start: 11/10/20 10:31 Freq: Status: Active Protocol: Activity Type Activity Date Activity User E-Sign Co-Sign Detail Recorded Client Recorded Date Recorded By Document 11/24/20 12:05 [facility] [id number] 11/24/20 12:06 [facility] 11/24/20 12:05 Wound Care Nurse 3 #1 Right ankle cluster -Ulcer Cleansing Rinsed/ Irrigated with Saline -Foul Odor after Cleansing No -Primary Dressing Applied NonAdherent Contact Layer, Other -Other Dressing xeroform, adaptic -Primary Dressing Covered/Secured with Dry Gauze & Roll Gauze, Secured with Tape,Other -Other Covering abd Right -Compression Wrap Juan Luis Wrap Treatment Response Procedure Tolerated Well Pain Scale: 0-10 Numeric Is Patient Pain Free? Yes - Visit Discharge Discharge Condition Stable Ambulatory Status Ambulatory Transportation Private Auto Assessment/Plan Assessment/Plan (1) Infected wound: CODE(S): T14.8XXA - Other injury of unspecified body region, initial encounter; L08.9 - Local infection of the skin and subcutaneous tissue, unspecified PLAN: Patient finished antibiotics (2) Edema, lower extremity: CODE(S): R60.0 - Localized edema PLAN: Continue 4 and 6 inch Juan Luis wraps to the right lower extremity come continue the compression stocking on the left leg (3) Non-healing surgical wound: CODE(S): T81.89XA - Other complications of procedures, not elsewhere classified, initial encounter QUALIFIERS: Encounter type: subsequent encounter Qualified Code(s): T81.89XD - Other complications of procedures, not elsewhere classified, subsequent encounter (4) Diabetes type 2, uncontrolled: CODE(S): E11.65 - Type 2 diabetes mellitus with hyperglycemia QUALIFIERS: Glycemic state: with hyperglycemia Qualified Code(s): E11.65 - Type 2 diabetes mellitus with hyperglycemia PLAN: Better monitoring and control of her diabetes (5) Peripheral vascular disease of lower extremity with ulceration: CODE(S): I73.9 - Peripheral vascular disease, unspecified; L97.909 - Non-pressure chronic ulcer of unspecified part of unspecified lower leg with unspecified severity PLAN: Wash right leg with antibacterial soap cover wound area with Xeroform dressing and Adaptic a gauze and Christen with Juan Luis wraps over top every day Patient to call Dr. Ojeda for further evaluation of her peripheral vascular disease referral has gone through November 17
[2020-12-08 10:42] VITALS: BP 168/57; PULSE 93; TEMP 36.1; BMI 47.9
--- NOTE | 2020-12-08 11:52 | PCM.WC.PN ---
History of Present Illness Date of Service: 12/08/20 Chief Complaint: Follow-up on right lower leg blisters and skin breakdown and edema History of Wound: 60-year-old white female diabetic history of a DVT in the same leg. She is currently on Xarelto. About 2 months ago started developing increase in swelling of the right lower leg with blisters developing on the ankle area but not circumferential. Went to the emergency room on October 18 , and they noted previously she had gone to urgent care and had been put on antibiotics Bactrim DS and she has been taking water pills. The emergency room suggested she refer to wound center. Patient has been using Neosporin ointment on the wounds which are covered in yellow slough. Progress of Wound: The wounds on the right lower leg are healing definitely has some peripheral vascular disease going on studies to be done and shows definite problems in the GSV area patient be referred to [facility] for evaluation. Tolerating treatments well no increase in infection she did have positive cultures and finished antibiotic therapy at this time Patient also has returned to work on 11/27/20 The wound is itself is smaller less circumferential and less cobblestoning. Patient needs to follow-up with Dr. Ojeda she has not called him back. Patient is to stop with the Xeroform and will just do Adaptic it is almost healed now. Continue with compression stockings and and basically she needs to follow-up with Dr. Ojeda. Subjective Subjective Patient has neglected to call Dr. Ojeda yet reiterated the importance Objective Data Objective Data Area is almost healed just a little bit more of hyper granulation we did use nitro sticks to stop the overgrowth of skin we will just put her on Adaptic no medications. Vital Signs: Vital Signs Temp Pulse Resp BP 96.9 F L 93 16 168/57 H 12/08/20 10:42 12/08/20 10:42 11/24/20 11:43 12/08/20 10:42 Body Mass Index (BMI) 47.9 Physical Exam Const oriented x3 General Appearance: cooperative and disheveled; Negative for well kempt Orientation / Consciousness: awake and oriented to person Exam Limitations: physical limitations Nutritional Appearance: obese HEENT normocephalic Head and Scalp: normal to inspection Face and Sinus: normal facial exam Nose: external nose normal External Ear: external ears normal External Auditory Canal: EAC's normal Mouth: oral and palatal mucosa normal Teeth and Gingiva: abnormal tooth and associated gingiva Throat: posterior oropharynx normal Eyes PERRL General Eye: normal appearance of both eyes Neck full ROM General: normal visual inspection Lymph Lymphatic: no lymphadenopathy noted Chest inspection of chest normal Chest: abnormal inspection of the chest Resp normal respiratory effort Effort and Inspection: able to speak in complete sentences Auscultation: clear to auscultation bilaterally Cardio regular rate and regular rhythm Palpation: normal PMI Rate: regular rate Rhythm: regular rhythm GI Auscultation: normoactive bowel sounds Palpation: soft, firm and tender Percussion: normal to percussion no CVA tenderness Back/Spine Thoracic Spine / Upper Back: normal to inspection Lumbar Spine / Lower Back: normal to inspection Extremity Negative for normal to inspection, no clubbing, cyanosis or edema or no pedal edema Extremity Narrative: bilat lower extremity edema right lower leg bigger than left lower leg. Right lower leg has open blisters anterior with slough on top. Bilateral low lower legs has stasis dermatitis General Extremity: edema; Negative for normal exam except as noted or vascular access Peripheral Pulses: Negative for dorsalis pedis pulses present Skin No no rashes or lesions noted General Skin Exam: erythema, venous stasis, dermatitis and other wounds R lower legs Rashes: rashes noted Wounds: wounds noted Neuro oriented x3 Debridement Note Debridement Note Wound debrided: Right ankle cluster peripheral vascular disease ulcers Laterality: Right Type of Debridement: Excisional debridement Anesthesia Used: 5% Lidocaine Gel Depth: Down to and including healthy tissue Percentage of wound debrided: 100 Instrument Used: 5mm curette Tissue Removed: Fibrin Severity: Limited To Skin Breakdown Amount of bleeding with debridement: Mild Bleeding Controlled with: Silver Nitrate Patient tolerated procedure: Patient tolerated procedure well Post-Debridement Measurements and Additional Note: Post-Debridement Measurements/Treatment WC - Nurse 1 - General Ulcer Assessment Start: 11/10/20 10:31 Freq: Status: Active Protocol: DERRICK Activity Type Activity Date Activity User E-Sign Co-Sign Detail Recorded Client Recorded Date Recorded By Document 11/10/20 10:31 KR [id number] 11/10/20 10:37 KR Document 11/17/20 10:38 KR [id number] 11/17/20 10:38 KR Document 11/24/20 11:43 ML [id number] 11/24/20 11:45 ML Document 12/08/20 10:42 AK [id number] 12/08/20 10:47 AK 11/10/20 11/17/20 11/24/20 10:31 10:38 11:43 WC - Today's Visit Information Type of service Follow-up Visit Follow-up Visit Follow-up Visit (Physician/LOGISTICS SERVICE REPRESENTATIVE (Physician/LOGISTICS SERVICE REPRESENTATIVE (Physician/LOGISTICS SERVICE REPRESENTATIVE ) ) ) Arrival Mode Ambulatory Ambulatory Ambulatory Transfer Assistance None Patient Identification Verified (Name & Yes Yes Yes ) Patient Requires Transmission-Based No Precautions Safety Precautions NA Height and Weight Body Mass Index (BMI) 47.9 47.9 47.9 BMI Classification Obese Obese Obese Vital Signs Temperature (97.8 F-99.1 F) 97.2 F L 96.7 F L 97.4 F L Temperature Source Temporal Temporal Temporal Pulse Rate (60-100) 89 89 85 Pulse Location Monitor Monitor Monitor Respiratory Rate (12-18) 16 Respiratory rate source Monitor Blood Pressure (90/60-120/80) 153/80 H 119/75 142/77 H Blood Pressure Mean (mm Hg) 104 89 98 Source Monitor Monitor Monitor Position Semi-Fowlers Sitting Sitting Blood Pressure Location Right Arm Left Arm Right Arm History Since Last Visit- (Skip if this is Patient's initial visit) Have you changed medications since your No No No last visit? Any new allergies or adverse reactions No No No Had a fall/change in ADL's that may No No No increase risk of falls Signs or symptoms of abuse and/or No No No neglect since last visit Have you been in the hospital since your No No No last visit? Has dressing in place as prescribed Yes Yes Yes Has compression in place as prescribed N/A N/A Yes Has offloadiing in place as prescribed N/A N/A N/A Experienced any changes in pain level or No No No management Left Footwear Regular Shoe Regular Shoe Regular Shoe Right Footwear Regular Shoe Regular Shoe Regular Shoe Pain Scale: 0-10 Numeric Is Patient Pain Free? Yes Yes Yes 12/08/20 10:42 WC - Today's Visit Information Type of service Follow-up Visit (Physician/LOGISTICS SERVICE REPRESENTATIVE ) Arrival Mode Ambulatory Transfer Assistance Patient Identification Verified (Name & Yes ) Patient Requires Transmission-Based No Precautions Safety Precautions NA Height and Weight Body Mass Index (BMI) 47.9 BMI Classification Obese Vital Signs Temperature (97.8 F-99.1 F) 96.9 F L Temperature Source Temporal Pulse Rate (60-100) 93 Pulse Location Monitor Respiratory Rate (12-18) Respiratory rate source Blood Pressure (90/60-120/80) 168/57 H Blood Pressure Mean (mm Hg) 94 Source Monitor Position Blood Pressure Location History Since Last Visit- (Skip if this is Patient's initial visit) Have you changed medications since your No last visit? Any new allergies or adverse reactions No Had a fall/change in ADL's that may No increase risk of falls Signs or symptoms of abuse and/or No neglect since last visit Have you been in the hospital since your No last visit? Has dressing in place as prescribed Yes Has compression in place as prescribed Yes Has offloadiing in place as prescribed N/A Experienced any changes in pain level or No management Left Footwear Regular Shoe Right Footwear Regular Shoe Pain Scale: 0-10 Numeric Is Patient Pain Free? WC - Nurse 1 - General Ulcer Measurement Start: 11/10/20 10:31 Freq: Status: Active Protocol: Activity Type Activity Date Activity User E-Sign Co-Sign Detail Recorded Client Recorded Date Recorded By Document 11/10/20 10:31 KR [id number] 11/10/20 10:37 KR Document 11/17/20 10:38 KR [id number] 11/17/20 10:38 KR Document 11/24/20 11:43 ML [id number] 11/24/20 11:45 ML Document 12/08/20 10:42 AK [id number] 12/08/20 10:47 AK 11/10/20 11/17/20 11/24/20 10:31 10:38 11:43 Wound Center Nurse 1 #1 Right ankle cluster -Current Size (cm) - Length 5 3.9 3.5 -Current Size (cm) - Width 27 12.4 7 -Current Size (cm) - Depth 0.1 0.1 0.1 -Total Square Cm 135 48.36 24.5 -Photo Taken No -Epithelialization None Present -Tunneling No -Undermining/Tunneling No -Circular Undermining No -Change in Wound Grade/Stage No -Exudate Amt Small Small Medium -Exudate Type Serosanguineous Serosanguineous Serosanguineous -Wound Margin Distinct, Distinct, Distinct, Outline Outline Outline Attached Attached Attached -Granulation Amt Medium (34-66%) Medium (34-66%) -Granulation Quality Red -Slough/Fibrin -Necrosis Amt Medium (34-66%) Medium (34-66%) -Necrotic Tissue Type Adherent Slough Adherent Slough -Structure Exposed -Texture (Flower-wound Skin Appearance) Assessed, Assessed, Assessed Scarring Scarring -Moisture (Flower-wound Skin Appearance) No Abnormality, Assessed, Assessed Assessed Maceration -Color (Flower-wound Skin Appearance) No Abnormality, No Abnormality, Hemosiderin Assessed Assessed Staining -Temperature (Flower-wound Skin No Abnormality No Abnormality Appearance) (Pt Warm) (Pt Warm) -Tenderness on Palpation (Flower-wound No No No Skin Appearance) -Ulcer Cleansing Rinsed/ Rinsed/ Rinsed/ Irrigated with Irrigated with Irrigated with Saline Saline Saline -Foul Odor after Cleansing No No No -Anesthetic Used 5% Lidocaine 4% Lidocaine 4% Lidocaine Gel Solution Solution Right Calf (cm) 51 Right Ankle (cm) 31 12/08/20 10:42 Wound Center Nurse 1 #1 Right ankle cluster -Current Size (cm) - Length -Current Size (cm) - Width -Current Size (cm) - Depth -Total Square Cm -Photo Taken No -Epithelialization -Tunneling No -Undermining/Tunneling No -Circular Undermining No -Change in Wound Grade/Stage -Exudate Amt Medium -Exudate Type Serosanguineous -Wound Margin Distinct, Outline Attached -Granulation Amt None Present (0 %) -Granulation Quality N/A -Slough/Fibrin Yes -Necrosis Amt Medium (34-66%) -Necrotic Tissue Type Adherent Slough -Structure Exposed N/A -Texture (Flower-wound Skin Appearance) No Abnormality, Assessed -Moisture (Flower-wound Skin Appearance) No Abnormality, Assessed -Color (Flower-wound Skin Appearance) Assessed, Hemosiderin Staining -Temperature (Flower-wound Skin No Abnormality Appearance) (Pt Warm) -Tenderness on Palpation (Flower-wound Yes Skin Appearance) -Ulcer Cleansing Rinsed/ Irrigated with Saline -Foul Odor after Cleansing No -Anesthetic Used 5% Lidocaine Gel Right Calf (cm) 52 Right Ankle (cm) 32.5 WC - Nurse 2 - General Ulcer CM Notes Start: 11/10/20 10:31 Freq: Status: Active Protocol: Activity Type Activity Date Activity User E-Sign Co-Sign Detail Recorded Client Recorded Date Recorded By Document 11/10/20 10:59 MW [id number] 11/10/20 11:04 MW Document 11/17/20 10:57 MW Desktop 11/17/20 11:01 MW Document 11/24/20 11:54 ML [id number] 11/24/20 11:56 ML Document 12/08/20 10:53 MW [id number] 12/08/20 10:54 MW 11/10/20 11/17/20 11/24/20 10:59 10:57 11:54 Wound Center Nurse 2 #1 Right ankle cluster -Time 10:59 10:59 11:54 -Correct Patient Yes Yes Yes -Correct Side, Site, Position Yes Yes Yes -Correct Procedure Yes Yes Yes -Procedure Performed Yes Yes Yes -Type of Procedure Debridement Debridement Debridement -Clinical Debridement Subcutaneous Subcutaneous Subcutaneous -Tissue Removed Subcutaneous Subcutaneous Subcutaneous -Post Debridement (cm) - Length 5.5 5.0 4.5 -Post Debridement (cm) - Width 18.5 18.5 17.0 -Post Debridement (cm) - Depth 0.1 0.1 0.1 -Total Square (Post) (cm) 101.75 92.50 76.50 -Area of Debridement (cm) - Length 5.5 5.0 4.5 -Area of Debridement (cm) - Width 18.5 18.5 17.0 -Total Square (Area) (cm) 101.75 92.50 76.50 -Tunneling No No No -Undermining/Tunneling No No No -Circular Undermining No No No -Wound/Ulcer Outcome Not Healed Not Healed Not Healed -Ulcer Cleansing Rinsed/ Rinsed/ Rinsed/ Irrigated with Irrigated with Irrigated with Saline Saline Saline -Foul Odor after Cleansing No No No -Bioengineered Tissue No No No -Bleeding Controlled with Pressure Pressure Pressure -Offloading No No No -Treatment Response Procedure Procedure Tolerated Well Tolerated Well -Debridement - Subq, 1st 20sq cm Yes Yes Yes -Debridement, SubQ, ea addt'l 20sq cm 5 4 3 or part thereof Pain Scale: 0-10 Numeric Is Patient Pain Free? Yes Yes Yes 12/08/20 10:53 Wound Center Nurse 2 #1 Right ankle cluster -Time 10:53 -Correct Patient Yes -Correct Side, Site, Position Yes -Correct Procedure Yes -Procedure Performed No -Type of Procedure Chemical Cauterization ( $) -Clinical Debridement -Tissue Removed -Post Debridement (cm) - Length 3.5 -Post Debridement (cm) - Width 8.0 -Post Debridement (cm) - Depth 0.1 -Total Square (Post) (cm) 28.00 -Area of Debridement (cm) - Length -Area of Debridement (cm) - Width -Total Square (Area) (cm) -Tunneling No -Undermining/Tunneling No -Circular Undermining No -Wound/Ulcer Outcome Not Healed -Ulcer Cleansing Rinsed/ Irrigated with Saline -Foul Odor after Cleansing No -Bioengineered Tissue No -Bleeding Controlled with NA -Offloading No -Treatment Response Procedure Tolerated Well -Debridement - Subq, 1st 20sq cm -Debridement, SubQ, ea addt'l 20sq cm or part thereof Pain Scale: 0-10 Numeric Is Patient Pain Free? - Nurse 3 - General Ulcer D/C NN Start: 11/10/20 10:31 Freq: Status: Active Protocol: Activity Type Activity Date Activity User E-Sign Co-Sign Detail Recorded Client Recorded Date Recorded By Document 11/24/20 12:05 [facility] [id number] 11/24/20 12:06 [facility] Document 12/08/20 10:59 MW [id number] 12/08/20 10:59 MW 11/24/20 12/08/20 12:05 10:59 Wound Care Nurse 3 #1 Right ankle cluster -Ulcer Cleansing Rinsed/ Not Cleansed Irrigated with Saline -Foul Odor after Cleansing No -Primary Dressing Applied NonAdherent Contact Layer, Other -Other Dressing xeroform, adaptic -Primary Dressing Covered/Secured with Dry Gauze & Dry Gauze & Roll Gauze, Roll Gauze, Secured with Secured with Tape,Other Tape -Other Covering abd Right -Lotion applied to leg before No compression wrap -Compression Wrap Juan Luis Wrap Juan Luis Wrap Treatment Response Procedure Tolerated Well Pain Scale: 0-10 Numeric Is Patient Pain Free? Yes Yes Teaching: Wound Center Dressing Your Wound -Person Taught Patient -Teaching Method Discussion, Demonstration -Response to teaching Verbalize understanding WC - Visit Discharge Discharge Condition Stable Stable Ambulatory Status Ambulatory Ambulatory Transportation Private Auto Private Auto Accompanied by self Medication Reconcilliation completed & No provided to patient/care provider Clinical Summary of Care Provided Yes Assessment/Plan Assessment/Plan (1) Infected wound: CODE(S): T14.8XXA - Other injury of unspecified body region, initial encounter; L08.9 - Local infection of the skin and subcutaneous tissue, unspecified PLAN: Patient finished antibiotics (2) Edema, lower extremity: CODE(S): R60.0 - Localized edema PLAN: Continue 4 and 6 inch Juan Luis wraps to the right lower extremity come continue the compression stocking on the left leg (3) Non-healing surgical wound: CODE(S): T81.89XA - Other complications of procedures, not elsewhere classified, initial encounter QUALIFIERS: Encounter type: subsequent encounter Qualified Code(s): T81.89XD - Other complications of procedures, not elsewhere classified, subsequent encounter (4) Diabetes type 2, uncontrolled: CODE(S): E11.65 - Type 2 diabetes mellitus with hyperglycemia QUALIFIERS: Glycemic state: with hyperglycemia Qualified Code(s): E11.65 - Type 2 diabetes mellitus with hyperglycemia PLAN: Better monitoring and control of her diabetes (5) Peripheral vascular disease of lower extremity with ulceration: CODE(S): I73.9 - Peripheral vascular disease, unspecified; L97.909 - Non-pressure chronic ulcer of unspecified part of unspecified lower leg with unspecified severity PLAN: Wash right leg with antibacterial soap cover wound area with Adaptic a gauze and Christen with Juan Luis wraps over top every day Patient to call Dr. Ojeda for further evaluation of her peripheral vascular disease
== END 2020-12-09 23:59 ==
LOC: WC 10:30
PROVIDERS: Visit Provider Nurse Practitioner
DX: E11.621 Type 2 diabetes mellitus with foot ulcer (principal); R60.0 Localized edema; M79.89 Other specified soft tissue disorders; E11.51 Type 2 diabetes mellitus with diabetic peripheral angiopathy without gangrene; L97.312 Non-pressure chronic ulcer of right ankle with fat layer exposed; T81.89XA Other complications of procedures, not elsewhere classified, initial encounter; Y83.8 Other surgical procedures as the cause of abnormal reaction of the patient, or of later complication, without mention of misadventure at the time of the procedure; E11.65 Type 2 diabetes mellitus with hyperglycemia; Z86.718 Personal history of other venous thrombosis and embolism; L97.311 Non-pressure chronic ulcer of right ankle limited to breakdown of skin
CPT/HCPCS: 11042; 11045; 17250; 93923; 93970; 99213; G0463

== ENCOUNTER 2020-12-15 09:30 | Outpatient (RCR) | payer OTHER, SELFPAY ==
[2020-12-10 00:33] VITALS: BP 168/57; PULSE 93; RESP 16; TEMP 36.1; BMI 47.9
--- NOTE | 2020-12-15 09:15 | PN.PCM_ITS ---
History of Present Illness Date of Service: 12/15/20 Chief Complaint: Follow-up on right lower leg blisters and skin breakdown and edema History of Wound: 60-year-old white female diabetic history of a DVT in the same leg. She is currently on Xarelto. About 2 months ago started developing increase in swelling of the right lower leg with blisters developing on the ankle area but not circumferential. Went to the emergency room on October 18 , and they noted previously she had gone to urgent care and had been put on antibiotics Bactrim DS and she has been taking water pills. The emergency room suggested she refer to wound center. Patient has been using Neosporin ointment on the wounds which are covered in yellow slough. Progress of Wound: Wound is healed patient will be discharged from the wound center Subjective Subjective Patient states she does have an appointment Dr. Ojeda finally Objective Data Objective Data The area is completely healed she is to continue wearing his port stockings until seen by Dr. Ojeda for repair Vital Signs: Vital Signs Temp Pulse Resp BP 96.9 F L 93 16 168/57 H 12/10/20 00:33 12/10/20 00:33 12/10/20 00:33 12/10/20 00:33 Body Mass Index (BMI) 47.9 Lab / Micro Data Attestation: I reviewed the patient's lab results. Physical Exam Const oriented x3 General Appearance: cooperative and disheveled; Negative for well kempt Orientation / Consciousness: awake and oriented to person Exam Limitations: physical limitations Nutritional Appearance: obese HEENT normocephalic Head and Scalp: normal to inspection Face and Sinus: normal facial exam Nose: external nose normal External Ear: external ears normal External Auditory Canal: EAC's normal Mouth: oral and palatal mucosa normal Teeth and Gingiva: abnormal tooth and associated gingiva Throat: posterior oropharynx normal Eyes PERRL General Eye: normal appearance of both eyes Neck full ROM General: normal visual inspection Lymph Lymphatic: no lymphadenopathy noted Chest inspection of chest normal Chest: abnormal inspection of the chest Resp normal respiratory effort Effort and Inspection: able to speak in complete sentences Auscultation: clear to auscultation bilaterally Cardio regular rate and regular rhythm Palpation: normal PMI Rate: regular rate Rhythm: regular rhythm GI Auscultation: normoactive bowel sounds Palpation: soft, firm and tender Percussion: normal to percussion no CVA tenderness Back/Spine Thoracic Spine / Upper Back: normal to inspection Lumbar Spine / Lower Back: normal to inspection Extremity Negative for normal to inspection, no clubbing, cyanosis or edema or no pedal edema Extremity Narrative: bilat lower extremity edema right lower leg bigger than left lower leg. Right lower leg has open blisters anterior with slough on top. Bilateral low lower legs has stasis dermatitis General Extremity: edema; Negative for normal exam except as noted or vascular access Peripheral Pulses: Negative for dorsalis pedis pulses present Skin No no rashes or lesions noted General Skin Exam: erythema, venous stasis, dermatitis and other wounds R lower legs Rashes: rashes noted Wounds: wounds noted Neuro oriented x3 Debridement Note Debridement Note Wound debrided: Right ankle Laterality: Right No debridement was completed: No debridement was completed today Assessment/Plan Assessment/Plan (1) Edema, lower extremity: CODE(S): R60.0 - Localized edema PLAN: Continue wearing compression stockings till seen by Dr. Ojeda (2) Non-healing surgical wound: CODE(S): T81.89XA - Other complications of procedures, not elsewhere classified, initial encounter QUALIFIERS: Encounter type: subsequent encounter Qualified Code(s): T81.89XD - Other complications of procedures, not elsewhere classified, subsequent encounter (3) Diabetes type 2, uncontrolled: CODE(S): E11.65 - Type 2 diabetes mellitus with hyperglycemia QUALIFIERS: Glycemic state: with hyperglycemia Qualified Code(s): E11.65 - Type 2 diabetes mellitus with hyperglycemia (4) Peripheral vascular disease of lower extremity with ulceration: CODE(S): I73.9 - Peripheral vascular disease, unspecified; L97.909 - Non- pressure chronic ulcer of unspecified part of unspecified lower leg with unspecified severity PLAN: Patient will be discharged from the wound center follow-up with Dr. Ojeda for further treatments
[2020-12-15 09:29] VITALS: BP 151/66; PULSE 88; TEMP 36; BMI 47.9
== END 2020-12-15 09:51 | disposition home or self-care (01) ==
LOC: WC 09:30
PROVIDERS: Visit Provider Nurse Practitioner
DX: Z09 Encounter for follow-up examination after completed treatment for conditions other than malignant neoplasm (principal); Z86.718 Personal history of other venous thrombosis and embolism; Z79.01 Long term (current) use of anticoagulants; R60.0 Localized edema; E11.51 Type 2 diabetes mellitus with diabetic peripheral angiopathy without gangrene; E11.65 Type 2 diabetes mellitus with hyperglycemia
CPT/HCPCS: 99213; G0463

== ENCOUNTER 2021-03-09 10:30 | Outpatient (RCR) | payer OTHER, SELFPAY ==
[2021-03-02 10:03] VITALS: BP 185/78; PULSE 89; RESP 16; TEMP 35.9; BMI 29.3
--- NOTE | 2021-03-02 12:48 | PCM.WC.PN ---
History of Present Illness Date of Service: 03/02/21 Chief Complaint: Follow-up on right lower leg skin breakdown and edema History of Wound: 60-year-old white female diabetic history of a DVT in the same leg. She is currently on Xarelto. About 2 months ago started developing increase in swelling of the right lower leg with blisters developing on the ankle area but not circumferential. Went to the emergency room on October 18 , and they noted previously she had gone to urgent care and had been put on antibiotics Bactrim DS and she has been taking water pills. The emergency room suggested she refer to wound center. Patient has already seen Dr. Ojeda but pending her insurance for treatment. Patient is already been discharged back in December for her previous problem she is here again for the same thing. On a smaller scale, smaller area but it appears to be a little bit deeper than the last time but not circumferential like it was the last time. Progress of Wound: Today more cobblestoning on the medial ankle of the right ankle. 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 After debridement we will continue to use Aquacel extra on her this time and follow-up in 1 week Subjective Subjective Patient was happy she did not wait as long as she did the last time. Objective Data Objective Data Same cobblestone skin with slough in between the crevices. Lots of swelling in her lower leg discoloration from her peripheral vascular disease it needs to be taken care of. Still pending on insurance for treatment Vital Signs: Vital Signs Temp Pulse Resp BP 96.7 F L 89 16 185/78 H 03/02/21 10:03 03/02/21 10:03 03/02/21 10:03 03/02/21 10:03 Oxygen Delivery Method Room Air Weight: 182 lb Body Mass Index (BMI) 29.3 Physical Exam Const oriented x3 General Appearance: cooperative and disheveled; Negative for well kempt Orientation / Consciousness: awake and oriented to person Exam Limitations: physical limitations Nutritional Appearance: obese HEENT normocephalic Head and Scalp: normal to inspection Face and Sinus: normal facial exam Nose: external nose normal External Ear: external ears normal External Auditory Canal: EAC's normal Mouth: oral and palatal mucosa normal Teeth and Gingiva: abnormal tooth and associated gingiva Throat: posterior oropharynx normal Eyes PERRL General Eye: normal appearance of both eyes Neck full ROM General: normal visual inspection Lymph Lymphatic: no lymphadenopathy noted Chest inspection of chest normal Chest: abnormal inspection of the chest Resp normal respiratory effort Effort and Inspection: able to speak in complete sentences Auscultation: clear to auscultation bilaterally Cardio regular rate and regular rhythm Palpation: normal PMI Rate: regular rate Rhythm: regular rhythm GI Auscultation: normoactive bowel sounds Palpation: soft, firm and tender Percussion: normal to percussion no CVA tenderness Back/Spine Thoracic Spine / Upper Back: normal to inspection Lumbar Spine / Lower Back: normal to inspection Extremity Negative for normal to inspection, no clubbing, cyanosis or edema or no pedal edema Extremity Narrative: bilat lower extremity edema right lower leg bigger than left lower leg. Right lower leg has open blisters anterior with slough on top. Bilateral low lower legs has stasis dermatitis General Extremity: edema; Negative for normal exam except as noted or vascular access Peripheral Pulses: Negative for dorsalis pedis pulses present Skin No no rashes or lesions noted General Skin Exam: erythema, venous stasis, dermatitis and other wounds R lower legs Rashes: rashes noted Wounds: wounds noted Neuro oriented x3 Debridement Note Debridement Note Wound debrided: Right medial ankle peripheral vascular disease with ulcer Type of Debridement: Excisional debridement Depth: in the subcutaneous layer Percentage of wound debrided: 100 Instrument Used: 7mm curette Tissue Removed: Devitalized tissue and slough Severity: Fat Layer Exposed Amount of bleeding with debridement: Mild Bleeding Controlled with: Compression and gauze Patient tolerated procedure: Patient tolerated procedure well Post-Debridement Measurements and Additional Note: Post-Debridement Measurements/Treatment WC - Nurse 1 - General Ulcer Assessment Start: 03/02/21 10:02 Freq: Status: Active Protocol: [email or web address] Activity Type Activity Date Activity User E-Sign Co-Sign Detail Recorded Client Recorded Date Recorded By Document 03/02/21 10:03 [facility] [id number] 03/02/21 10:09 [facility] 03/02/21 10:03 Height and Weight Height 5 ft 6 in Weight 182 lb Weight in Pounds 182.0 lbs Weight Measurement Method Estimated by Patient Body Mass Index (BMI) 29.3 BMI Classification Overweight BSA - Chetna 1.92 Vital Signs Temperature (97.8 F-99.1 F) 96.7 F L Temperature Source Temporal Pulse Rate (60-100) 89 Pulse Location Monitor Respiratory Rate (12-18) 16 Respiratory rate source Observation Oxygen Delivery Method Room Air Blood Pressure (90/60-120/80) 185/78 H Blood Pressure Mean (mm Hg) 113 Source Monitor Position Sitting Blood Pressure Location Left Arm History Since Last Visit- (Skip if this is Patient's initial visit) Left Footwear Regular Shoe Right Footwear Regular Shoe WC - Nurse 1 - General Ulcer Measurement Start: 03/02/21 10:02 Freq: Status: Active Protocol: Activity Type Activity Date Activity User E-Sign Co-Sign Detail Recorded Client Recorded Date Recorded By Document 03/02/21 10:03 [facility] [id number] 03/02/21 10:09 [facility] 03/02/21 10:03 Wound Center Nurse 1 #2- R MEDIAL LOWER LEG CLUSTER -Combined with other wound No -Current Size (cm) - Length 4.5 -Current Size (cm) - Width 6.3 -Current Size (cm) - Depth 0.1 -Total Square Cm 28.35 -Date of Last Picture (Recall this 03/02/21 field) -Photo Taken Yes -Tunneling No -Undermining/Tunneling No -Circular Undermining No -Exudate Amt Medium -Exudate Type Serosanguineous -Wound Margin Distinct, Outline Attached -Granulation Amt Medium (34-66%) -Granulation Quality Red -Slough/Fibrin Yes -Necrosis Amt Medium (34-66%) -Necrotic Tissue Type Adherent Slough -Texture (Flower-wound Skin Appearance) Assessed, Scarring -Moisture (Flower-wound Skin Appearance) Assessed,Dry/ Scaly -Color (Flower-wound Skin Appearance) Assessed, Erythema, Hemosiderin Staining -Temperature (Flower-wound Skin No Abnormality Appearance) (Pt Warm) -Tenderness on Palpation (Flower-wound No Skin Appearance) -Ulcer Cleansing Soap and Water -Foul Odor after Cleansing No -Anesthetic Used 5% Lidocaine Gel Lower Limb Edema Present Yes Right Calf (cm) 49 Right Ankle (cm) 29.8 Left Calf (cm) 45.2 Left Ankle (cm) 29.5 WC - Nurse 2 - General Ulcer CM Notes Start: 03/02/21 10:02 Freq: Status: Active Protocol: Activity Type Activity Date Activity User E-Sign Co-Sign Detail Recorded Client Recorded Date Recorded By Document 03/02/21 10:26 MW [id number] 03/02/21 10:32 MW 03/02/21 10:26 Wound Center Nurse 2 #2- R MEDIAL LOWER LEG CLUSTER -Time 10:27 -Correct Patient Yes -Correct Side, Site, Position Yes -Correct Procedure Yes -Procedure Performed Yes -Type of Procedure Incision & Drainage -Clinical Debridement Subcutaneous -Tissue Removed Subcutaneous -Post Debridement (cm) - Length 4.3 -Post Debridement (cm) - Width 7.5 -Post Debridement (cm) - Depth 0.1 -Total Square (Post) (cm) 32.25 -Area of Debridement (cm) - Length 4.3 -Area of Debridement (cm) - Width 7.5 -Total Square (Area) (cm) 32.25 -Tunneling No -Undermining/Tunneling No -Circular Undermining No -Wound/Ulcer Outcome Not Healed -Ulcer Cleansing Rinsed/ Irrigated with Saline -Foul Odor after Cleansing No -Bioengineered Tissue No -Bleeding Controlled with Pressure -Offloading No -Treatment Response Procedure Tolerated Well -Debridement - Subq, 1st 20sq cm Yes Pain Scale: 0-10 Numeric Is Patient Pain Free? Yes - Nurse 3 - General Ulcer D/C NN Start: 03/02/21 10:02 Freq: Status: Active Protocol: Activity Type Activity Date Activity User E-Sign Co-Sign Detail Recorded Client Recorded Date Recorded By Document 03/02/21 10:50 DL [id number] 03/02/21 10:51 DL 03/02/21 10:50 Wound Care Nurse 3 #2- R MEDIAL LOWER LEG CLUSTER -Ulcer Cleansing Soap and Water -Foul Odor after Cleansing No -Primary Dressing Applied Aquacel Extra, NonAdherent Contact Layer -Other Dressing ABD -Primary Dressing Covered/Secured with Dry Gauze & Roll Gauze -Aquacel Extra 1 Right -Tubular Bandage Double Layer -Size of Tubigrip Used Size E -Size E ($) 1 Treatment Response Procedure Tolerated Well Pain Scale: 0-10 Numeric Is Patient Pain Free? Yes - Visit Discharge Discharge Condition Stable Ambulatory Status Ambulatory Transportation Private Auto Assessment/Plan Assessment/Plan (1) Infected wound: CODE(S): T14.8XXA - Other injury of unspecified body region, initial encounter; L08.9 - Local infection of the skin and subcutaneous tissue, unspecified PLAN: Cultures obtained today (2) Edema, lower extremity: CODE(S): R60.0 - Localized edema PLAN: Double layer Tubigrip to the right lower leg she can wear a stocking it to the other left leg (3) Non-healing surgical wound: CODE(S): T81.89XA - Other complications of procedures, not elsewhere classified, initial encounter QUALIFIERS: Encounter type: subsequent encounter Qualified Code(s): T81.89XD - Other complications of procedures, not elsewhere classified, subsequent encounter PLAN: Wash the right lower leg with antibacterial soap and apply Aquacel extra to the wound base moistened cover with Adaptic gauze and dressing or Christen Apply double layer Tubigrip to it Follow-up in [address] Ojeda's procedures with insurance (4) Diabetes type 2, uncontrolled: CODE(S): E11.65 - Type 2 diabetes mellitus with hyperglycemia QUALIFIERS: Glycemic state: with hyperglycemia Qualified Code(s): E11.65 - Type 2 diabetes mellitus with hyperglycemia
[2021-03-09 10:41] VITALS: BP 160/78; PULSE 74; RESP 18; TEMP 36.1; BMI 29.3
--- NOTE | 2021-03-09 12:29 | PCM.WC.PN ---
History of Present Illness Date of Service: 03/09/21 Chief Complaint: Follow-up on right lower leg skin breakdown and edema History of Wound: 60-year-old white female diabetic history of a DVT in the same leg. She is currently on Xarelto. About 2 months ago started developing increase in swelling of the right lower leg with blisters developing on the ankle area but not circumferential. Went to the emergency room on October 18 , and they noted previously she had gone to urgent care and had been put on antibiotics Bactrim DS and she has been taking water pills. The emergency room suggested she refer to wound center. Patient has already seen Dr. Ojeda but pending her insurance for treatment. Patient is already been discharged back in December for her previous problem she is here again for the same thing. On a smaller scale, smaller area but it appears to be a little bit deeper than the last time but not circumferential like it was the last time. Progress of Wound: Today more cobblestoning on the medial ankle of the right ankle. 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 After debridement we will continue to use Aquacel extra on her this time . Much improvement this week on the size and wound base is more shallow Subjective Subjective No concerns at this time she just needs to wait for insurance to okay her meetings with Dr. Ojeda Objective Data Objective Data Wound is much improved from last week using the Aquacel extra we will continue with same treatment at this time Vital Signs: Vital Signs Temp Pulse Resp BP 97 F L 74 18 160/78 H 03/09/21 10:41 03/09/21 10:41 03/09/21 10:41 03/09/21 10:41 Oxygen Delivery Method Room Air Weight: 182 lb Body Mass Index (BMI) 29.3 Lab / Micro Data Micro: Microbiology 03/02/21 10:30 Wound - Leg, Right Gram Stain - Final 03/02/21 10:30 Wound - Leg, Right Wound Culture - Final Escherichia coli Proteus mirabilis Staphylococcus aureus Kocuria kristinae 03/02/21 10:30 Wound - Leg, Right Anaerobic Culture - Final No anaerobic bacteria isolated. Physical Exam Const oriented x3 General Appearance: cooperative and disheveled; Negative for well kempt Orientation / Consciousness: awake and oriented to person Exam Limitations: physical limitations Nutritional Appearance: obese HEENT normocephalic Head and Scalp: normal to inspection Face and Sinus: normal facial exam Nose: external nose normal External Ear: external ears normal External Auditory Canal: EAC's normal Mouth: oral and palatal mucosa normal Teeth and Gingiva: abnormal tooth and associated gingiva Throat: posterior oropharynx normal Eyes PERRL General Eye: normal appearance of both eyes Neck full ROM General: normal visual inspection Lymph Lymphatic: no lymphadenopathy noted Chest inspection of chest normal Chest: abnormal inspection of the chest Resp normal respiratory effort Effort and Inspection: able to speak in complete sentences Auscultation: clear to auscultation bilaterally Cardio regular rate and regular rhythm Palpation: normal PMI Rate: regular rate Rhythm: regular rhythm GI Auscultation: normoactive bowel sounds Palpation: soft, firm and tender Percussion: normal to percussion no CVA tenderness Back/Spine Thoracic Spine / Upper Back: normal to inspection Lumbar Spine / Lower Back: normal to inspection Extremity Negative for normal to inspection, no clubbing, cyanosis or edema or no pedal edema Extremity Narrative: bilat lower extremity edema right lower leg bigger than left lower leg. Right lower leg has open blisters anterior with slough on top. Bilateral low lower legs has stasis dermatitis General Extremity: edema; Negative for normal exam except as noted or vascular access Peripheral Pulses: Negative for dorsalis pedis pulses present Skin No no rashes or lesions noted General Skin Exam: erythema, venous stasis, dermatitis and other wounds R lower legs Rashes: rashes noted Wounds: wounds noted Neuro oriented x3 Debridement Note Debridement Note Wound debrided: Right medial lower leg ulcer Type of Debridement: Excisional debridement Anesthesia Used: 5% Lidocaine Gel Depth: Down to and including healthy tissue Percentage of wound debrided: 100 Instrument Used: 5mm curette Tissue Removed: Fibrin devitalized tissue Severity: Limited To Skin Breakdown Amount of bleeding with debridement: None Bleeding Controlled with: Compression and gauze Patient tolerated procedure: Patient tolerated procedure well Post-Debridement Measurements and Additional Note: Post-Debridement Measurements/Treatment WC - Nurse 1 - General Ulcer Assessment Start: 03/02/21 10:02 Freq: Status: Active Protocol: DERRICK Activity Type Activity Date Activity User E-Sign Co-Sign Detail Recorded Client Recorded Date Recorded By Document 03/02/21 10:03 [facility] [id number] 03/02/21 10:09 [facility] Document 03/09/21 10:41 [facility] [id number] 03/09/21 10:51 [facility] 03/02/21 03/09/21 10:03 10:41 - Today's Visit Information Type of service Follow-up Visit (Physician/[employer] ) Arrival Mode Ambulatory Accompanied by self Patient Identification Verified (Name & Yes ) Height and Weight Height 5 ft 6 in Weight 182 lb Weight in Pounds 182.0 lbs Weight Measurement Method Estimated by Patient Body Mass Index (BMI) 29.3 29.3 BMI Classification Overweight Overweight BSA - Chetna 1.92 Vital Signs Temperature (97.8 F-99.1 F) 96.7 F L 97 F L Temperature Source Temporal Temporal Pulse Rate (60-100) 89 74 Pulse Location Monitor Monitor Respiratory Rate (12-18) 16 18 Respiratory rate source Observation Observation Oxygen Delivery Method Room Air Room Air Blood Pressure (90/60-120/80) 185/78 H 160/78 H Blood Pressure Mean (mm Hg) 113 105 Source Monitor Monitor Position Sitting Sitting Blood Pressure Location Left Arm Left Arm Has dressing in place as prescribed Yes Has compression in place as prescribed No Has offloadiing in place as prescribed No Experienced any changes in pain level or No management History Since Last Visit- (Skip if this is Patient's initial visit) Left Footwear Regular Shoe Slipper Right Footwear Regular Shoe Slipper WC - Nurse 1 - General Ulcer Measurement Start: 03/02/21 10:02 Freq: Status: Active Protocol: Activity Type Activity Date Activity User E-Sign Co-Sign Detail Recorded Client Recorded Date Recorded By Document 03/02/21 10:03 [facility] [id number] 03/02/21 10:09 [facility] Document 03/09/21 10:41 [facility] [id number] 03/09/21 10:51 [facility] 03/02/21 03/09/21 10:03 10:41 Wound Center Nurse 1 #2- R MEDIAL LOWER LEG CLUSTER -Combined with other wound No -Current Size (cm) - Length 4.5 4.5 -Current Size (cm) - Width 6.3 8.0 -Current Size (cm) - Depth 0.1 0.1 -Total Square Cm 28.35 36.00 -Date of Last Picture (Recall this 03/02/21 field) -Photo Taken Yes -Tunneling No -Undermining/Tunneling No -Circular Undermining No -Exudate Amt Medium Medium -Exudate Type Serosanguineous Serosanguineous -Wound Margin Distinct, Flat & Intact Outline Attached -Granulation Amt Medium (34-66%) Large (67-100%) -Granulation Quality Red Pale,[place] -Slough/Fibrin Yes -Necrosis Amt Medium (34-66%) Small (1-33%) -Necrotic Tissue Type Adherent Slough Adherent Slough -Texture (Flower-wound Skin Appearance) Assessed, Assessed Scarring -Moisture (Flower-wound Skin Appearance) Assessed,Dry/ Assessed Scaly -Color (Flower-wound Skin Appearance) Assessed, Assessed Erythema, Hemosiderin Staining -Temperature (Flower-wound Skin No Abnormality No Abnormality Appearance) (Pt Warm) (Pt Warm) -Tenderness on Palpation (Flower-wound No Yes Skin Appearance) -Ulcer Cleansing Soap and Water Rinsed/ Irrigated with Saline -Foul Odor after Cleansing No No -Anesthetic Used 5% Lidocaine 4% Lidocaine Gel Solution Lower Limb Edema Present Yes Yes Right Calf (cm) 49 50 Right Ankle (cm) 29.8 30 Left Calf (cm) 45.2 Left Ankle (cm) 29.5 WC - Nurse 2 - General Ulcer CM Notes Start: 03/02/21 10:02 Freq: Status: Active Protocol: Activity Type Activity Date Activity User E-Sign Co-Sign Detail Recorded Client Recorded Date Recorded By Document 03/02/21 10:26 MW [id number] 03/02/21 10:32 MW Edit Result 03/02/21 10:26 MW (1) [id number] 03/03/21 08:31 PL Document 03/09/21 10:57 MW [id number] 03/09/21 11:00 MW (1) #2- R MEDIAL LOWER LEG CLUSTER - Debridement, SubQ, ea addt'l 20sq cm => 1 or part thereof 03/02/21 03/09/21 10:26 10:57 Wound Center Nurse 2 #2- R MEDIAL LOWER LEG CLUSTER -Time 10:27 10:58 -Correct Patient Yes Yes -Correct Side, Site, Position Yes Yes -Correct Procedure Yes Yes -Procedure Performed Yes Yes -Type of Procedure Incision & Debridement Drainage -Clinical Debridement Subcutaneous Subcutaneous -Tissue Removed Subcutaneous Subcutaneous -Post Debridement (cm) - Length 4.3 4.8 -Post Debridement (cm) - Width 7.5 6.8 -Post Debridement (cm) - Depth 0.1 0.2 -Total Square (Post) (cm) 32.25 32.64 -Area of Debridement (cm) - Length 4.3 4.8 -Area of Debridement (cm) - Width 7.5 6.8 -Total Square (Area) (cm) 32.25 32.64 -Tunneling No No -Undermining/Tunneling No No -Circular Undermining No No -Wound/Ulcer Outcome Not Healed Not Healed -Ulcer Cleansing Rinsed/ Rinsed/ Irrigated with Irrigated with Saline Saline -Foul Odor after Cleansing No No -Bioengineered Tissue No No -Bleeding Controlled with Pressure Pressure -Offloading No No -Treatment Response Procedure Procedure Tolerated Well Tolerated Well -Debridement - Subq, 1st 20sq cm Yes Yes -Debridement, SubQ, ea addt'l 20sq cm 1 1 or part thereof Pain Scale: 0-10 Numeric Is Patient Pain Free? Yes Yes - Nurse 3 - General Ulcer D/C NN Start: 03/02/21 10:02 Freq: Status: Active Protocol: Activity Type Activity Date Activity User E-Sign Co-Sign Detail Recorded Client Recorded Date Recorded By Document 03/02/21 10:50 DL [id number] 03/02/21 10:51 DL 03/02/21 10:50 Wound Care Nurse 3 #2- R MEDIAL LOWER LEG CLUSTER -Ulcer Cleansing Soap and Water -Foul Odor after Cleansing No -Primary Dressing Applied Aquacel Extra, NonAdherent Contact Layer -Other Dressing ABD -Primary Dressing Covered/Secured with Dry Gauze & Roll Gauze -Aquacel Extra 1 Right -Tubular Bandage Double Layer -Size of Tubigrip Used Size E -Size E ($) 1 Treatment Response Procedure Tolerated Well Pain Scale: 0-10 Numeric Is Patient Pain Free? Yes - Visit Discharge Discharge Condition Stable Ambulatory Status Ambulatory Transportation Private Auto Assessment/Plan Assessment/Plan (1) Infected wound: CODE(S): T14.8XXA - Other injury of unspecified body region, initial encounter; L08.9 - Local infection of the skin and subcutaneous tissue, unspecified PLAN: Cultures obtained today (2) Edema, lower extremity: CODE(S): R60.0 - Localized edema PLAN: Double layer Tubigrip to the right lower leg she can wear a stocking it to the other left leg (3) Non-healing surgical wound: CODE(S): T81.89XA - Other complications of procedures, not elsewhere classified, initial encounter QUALIFIERS: Encounter type: subsequent encounter Qualified Code(s): T81.89XD - Other complications of procedures, not elsewhere classified, subsequent encounter PLAN: Wash the right lower leg with antibacterial soap and apply Aquacel extra to the wound base moistened cover with Adaptic gauze and dressing or Christen Apply double layer Tubigrip to it Follow-up in [address] Ojeda's procedures with insurance (4) Diabetes type 2, uncontrolled: CODE(S): E11.65 - Type 2 diabetes mellitus with hyperglycemia QUALIFIERS: Glycemic state: with hyperglycemia Qualified Code(s): E11.65 - Type 2 diabetes mellitus with hyperglycemia
== END 2021-03-11 23:59 ==
LOC: WC 10:30
PROVIDERS: Visit Provider Nurse Practitioner
DX: T14.8XXA Other injury of unspecified body region, initial encounter (principal); E11.622 Type 2 diabetes mellitus with other skin ulcer; Y83.8 Other surgical procedures as the cause of abnormal reaction of the patient, or of later complication, without mention of misadventure at the time of the procedure; R60.0 Localized edema; T81.89XA Other complications of procedures, not elsewhere classified, initial encounter; E11.65 Type 2 diabetes mellitus with hyperglycemia; Z86.718 Personal history of other venous thrombosis and embolism; L08.9 Local infection of the skin and subcutaneous tissue, unspecified; L97.811 Non-pressure chronic ulcer of other part of right lower leg limited to breakdown of skin
CPT/HCPCS: 11042; 11045; 87070; 87075; 87077; 87186; 87205; 99213; G0463

== ENCOUNTER 2021-03-30 10:30 | Outpatient (RCR) | payer BC, SELFPAY ==
[2021-03-12 00:38] VITALS: BP 160/78; PULSE 74; RESP 18; TEMP 36.1; BMI 29.3
[2021-03-30 12:29] VITALS: BP 193/94; PULSE 91; TEMP 36.2; BMI 29.3
--- NOTE | 2021-03-30 13:12 | PN.PCM_ITS ---
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 She is currently on Xarelto. About 2 months ago started developing increase in swelling of the right lower leg with blisters developing on the ankle area but not circumferential. Went to the emergency room on October 18 , and they noted previously she had gone to urgent care and had been put on antibiotics Bactrim DS and she has been taking water pills. The emergency room suggested she refer to wound center. Patient has already seen Dr. Ojeda but pending her insurance for treatment. Patient is already been discharged back in December for her previous problem she is here again for the same thing. On a smaller scale, smaller area but it appears to be a little bit deeper than the last time but not circumferential like it was the last time. Progress of Wound: Patient is still waiting for insurance to cover procedures. Legs are very still very edematous wearing compression stockings regularly Still has a lot of stasis dermatitis wound on right mid lower leg is healed. Will discharge from the wound center Subjective Subjective Patient very happy with care and healing Objective Data Objective Data Wound is closed patient will be discharged from the wound center and will only need to follow-up with Dr. Ojeda for further procedures Vital Signs: Vital Signs Temp Pulse Resp BP 97.2 F L 91 18 193/94 H 03/30/21 12:29 03/30/21 12:29 03/12/21 00:38 03/30/21 12:29 Weight: 182 lb Body Mass Index (BMI) 29.3 Physical Exam Const oriented x3 General Appearance: cooperative and disheveled; Negative for well kempt Orientation / Consciousness: awake and oriented to person Exam Limitations: physical limitations Nutritional Appearance: obese HEENT normocephalic Head and Scalp: normal to inspection Face and Sinus: normal facial exam Nose: external nose normal External Ear: external ears normal External Auditory Canal: EAC's normal Mouth: oral and palatal mucosa normal Teeth and Gingiva: abnormal tooth and associated gingiva Throat: posterior oropharynx normal Eyes PERRL General Eye: normal appearance of both eyes Neck full ROM General: normal visual inspection Lymph Lymphatic: no lymphadenopathy noted Chest inspection of chest normal Chest: abnormal inspection of the chest Resp normal respiratory effort Effort and Inspection: able to speak in complete sentences Auscultation: clear to auscultation bilaterally Cardio regular rate and regular rhythm Palpation: normal PMI Rate: regular rate Rhythm: regular rhythm GI Auscultation: normoactive bowel sounds Palpation: soft, firm and tender Percussion: normal to percussion no CVA tenderness Back/Spine Thoracic Spine / Upper Back: normal to inspection Lumbar Spine / Lower Back: normal to inspection Extremity Negative for normal to inspection, no clubbing, cyanosis or edema or no pedal edema Extremity Narrative: bilat lower extremity edema right lower leg bigger than left lower leg. Right lower leg has open blisters anterior with slough on top. Bilateral low lower legs has stasis dermatitis General Extremity: edema; Negative for normal exam except as noted or vascular access Peripheral Pulses: Negative for dorsalis pedis pulses present Skin No no rashes or lesions noted General Skin Exam: erythema, venous stasis, dermatitis and other wounds R lower legs Rashes: rashes noted Wounds: wounds noted Neuro oriented x3 Debridement Note Debridement Note Wound debrided: Right mid lower leg No debridement was completed: No debridement was completed today Post-Debridement Measurements and Additional Note: Post-Debridement Measurements/Treatment WC - Nurse 1 - General Ulcer Assessment Start: 03/30/21 11:15 Freq: Status: Active Protocol: DERRICK Activity Type Activity Date Activity User E-Sign Co-Sign Detail Recorded Client Recorded Date Recorded By Document 03/30/21 12:29 ELIZABETH [id number] 03/30/21 12:30 ELIZABETH 03/30/21 12:29 WC - Today's Visit Information Type of service Follow-up 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 Any new allergies or adverse reactions No Had a fall/change in ADL's that may No increase risk of falls Signs or symptoms of abuse and/or No neglect since last visit Have you been in the hospital since your No last visit? Has dressing in place as prescribed Yes Has compression in place as prescribed Yes Has offloadiing in place as prescribed N/A Experienced any changes in pain level or No management Left Footwear Regular Shoe Right Footwear Regular Shoe Pain Scale: 0-10 Numeric Is Patient Pain Free? Yes - Nurse 2 - General Ulcer CM Notes Start: 03/30/21 11:15 Freq: Status: Active Protocol: Activity Type Activity Date Activity User E-Sign Co-Sign Detail Recorded Client Recorded Date Recorded By Document 03/30/21 11:15 [id number] 03/30/21 11:17 MW 03/30/21 11:15 Wound Center Nurse 2 #2- R MEDIAL LOWER LEG CLUSTER -Time 11:15 -Correct Patient Yes -Correct Side, Site, Position Yes -Correct Procedure Yes -Procedure Performed No -Post Debridement (cm) - Length 0 -Post Debridement (cm) - Width 0 -Post Debridement (cm) - Depth 0 -Total Square (Post) (cm) 0 -Wound/Ulcer Outcome Healed- Epithelialized Pain Scale: 0-10 Numeric Is Patient Pain Free? Yes - Nurse 3 - General Ulcer D/C NN Start: 03/30/21 11:15 Freq: Status: Active Protocol: Activity Type Activity Date Activity User E-Sign Co-Sign Detail Recorded Client Recorded Date Recorded By Document 03/30/21 11:35 [facility] [id number] 03/30/21 11:35 [facility] 03/30/21 11:35 Wound Care Nurse 3 Right -Tubular Bandage Double Layer -Size of Tubigrip Used Size E -Size E ($) 2 Treatment Response Procedure Tolerated Well Pain Scale: 0-10 Numeric Is Patient Pain Free? Yes - Visit Discharge Discharge Condition Stable Ambulatory Status Ambulatory Transportation Private Auto Assessment/Plan Assessment/Plan (1) Infected wound: CODE(S): T14.8XXA - Other injury of unspecified body region, initial encounter; L08.9 - Local infection of the skin and subcutaneous tissue, unspecified (2) Edema, lower extremity: CODE(S): R60.0 - Localized edema PLAN: Double layer Tubigrip to the right lower leg she can wear a stocking it to the other left leg (3) Non-healing surgical wound: CODE(S): T81.89XA - Other complications of procedures, not elsewhere clas sified, initial encounter QUALIFIERS: Encounter type: subsequent encounter Qualified Code(s): T81.89XD - Other complications of procedures, not elsewhere classified, subsequent encounter PLAN: Wound is healed patient be discharged from the wound center (4) Diabetes type 2, uncontrolled: CODE(S): E11.65 - Type 2 diabetes mellitus with hyperglycemia QUALIFIERS: Glycemic state: with hyperglycemia Qualified Code(s): E11.65 - Type 2 diabetes mellitus with hyperglycemia
== END 2021-04-11 23:59 ==
LOC: WC 10:30
PROVIDERS: PCP Family Medicine; Visit Provider Nurse Practitioner
DX: L08.9 Local infection of the skin and subcutaneous tissue, unspecified (principal); E11.65 Type 2 diabetes mellitus with hyperglycemia; R60.0 Localized edema; Z86.718 Personal history of other venous thrombosis and embolism
CPT/HCPCS: 99213; G0463

== ENCOUNTER 2021-06-08 10:45 | Outpatient (RCR) | payer BC, SELFPAY ==
[2021-04-12 00:43] VITALS: BP 193/94; PULSE 91; RESP 18; TEMP 36.2; BMI 29.3
[2021-05-11 10:09] VITALS: BP 154/87; PULSE 90; RESP 16; TEMP 35.7; BMI 29.3
--- NOTE | 2021-05-11 11:15 | PCM.WC.HP ---
History of Present Illness Date of Service: 05/11/21 Chief Complaint: Follow-up on right lower leg blister that opened to a hole and again open areas around the ankle History of Wound: 60-year-old white female that was just discharged in March for basically the same thing around her ankles. Never followed up with Dr. Ojeda. 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 Patient states she developed a blister on her right lateral leg that she popped and now it is a deep crater hole on the right lateral leg. Again the ankle the top layer skin she gets were it just opens up like a blister. [facility] Medical History Crohn's disease Diabetes DVT (deep venous thrombosis) Hypertension Urinary incontinence Home Medications amlodipine 5 mg PO QHS 06/09/14 [History Last Taken 10/24/15 00:00] bisoprolol-hydrochlorothiazide 1 tab PO DAILY 06/09/14 [History Last Taken 10/24/15 01:00] lisinopril 40 mg PO QHS 06/09/14 [History Last Taken 10/24/15 00:00] glimepiride 4 mg PO DAILY #60 tab 10/28/15 [Rx Last Taken Unknown] rivaroxaban 20 mg PO DINNER 06/04/20 [History Last Taken Unknown] metformin 1,000 mg PO BID #0 06/07/20 [Rx Last Taken Unknown] pen needle, diabetic, safety #1 box 06/07/20 [Rx Last Taken Unknown] cholecalciferol (vitamin D3) [Vitamin D3] 25 mcg PO DAILY 05/11/21 [History Last Taken Unknown] magnesium mg PO DAILY 05/11/21 [History Last Taken Unknown] Allergy/AdvReac Type Severity Reaction Status Date / Time Sulfa (Sulfonamide Allergy Hives Verified 05/11/21 10:17 Antibiotics) Family History Mother Heart disease Surgical History H/O colonoscopy H/O tubal ligation S/P foot surgery Social History (Reviewed 05/11/21 @ 11:51 by Casandra Jarquin FINANCIAL SYSTEMS MANAGER, FINANCIAL SYSTEMS MANAGER-C) Smoking Status: Never smoker alcohol intake: never substance use type: does not use caffeine: Yes what type of physical activity do you participate in: walking frequency: 1-2 times per week seatbelt use: always do you feel safe at home: Yes additional social history: Anitra [employer] second shift- [employer]- Alicia ROS Constitutional Constitutional: Reports systems reviewed and no addt'l complaints, except as documented Eyes Eyes: Reports systems reviewed and no addt'l complaints, except as documented ENT HEENT: Reports systems reviewed and no addt'l complaints, except as documented Cardiovascular Cardiovascular: Reports systems reviewed and no addt'l complaints, except as documented Respiratory/Chest Respiratory/Chest: Reports systems reviewed and no addt'l complaints, except as documented Gastrointestinal Gastrointestinal: Reports systems reviewed and no addt'l complaints, except as documented Genitourinary Genitourinary: Reports systems reviewed and no addt'l complaints, except as documented Musculoskeletal Musculoskeletal: Reports systems reviewed and no addt'l complaints, except as documented Integumentary Integumentary: Reports wounds and other Details: Blisters that have opened around her ankle and on the right lateral lower leg Neurologic Neurologic: Reports systems reviewed and no addt'l complaints, except as documented Psychiatric Psychiatric: Reports systems reviewed and no addt'l complaints, except as documented Endocrine Endocrinology: Reports systems reviewed and no addt'l complaints, except as documented Hematologic/Lymphatic Hematologic/Lymphatic: Reports systems reviewed and no addt'l complaints, except as documented Allergic/Immunologic Allergic/Immunologic: Reports systems reviewed and no addt'l complaints, except as documented Vital Signs Vital Signs Vital Signs: 05/11/21 10:09 Temperature 96.3 F L Temperature Source Temporal Pulse Rate 90 Respiratory Rate 16 Blood Pressure 154/87 H Blood Pressure Mean 109 Blood Pressure Source Monitor Blood Pressure Position Sitting Blood Pressure Location Left Arm Oxygen Delivery Method Room Air Weight Weight: 182 lb Body Mass Index (BMI) 29.3 Physical Exam Const oriented x3 General Appearance: cooperative Exam Limitations: no limitations HEENT normocephalic Head and Scalp: normal to inspection Face and Sinus: normal facial exam Nose: external nose normal General Ear: hearing grossly impaired External Ear: external ears normal Mouth: oral and palatal mucosa normal Eyes PERRL General Eye: normal appearance of both eyes Neck full ROM General: normal visual inspection Resp normal respiratory effort Effort and Inspection: able to speak in complete sentences Auscultation: clear to auscultation bilaterally Cardio regular rate and regular rhythm Palpation: normal PMI Rate: regular rate Rhythm: regular rhythm GI Auscultation: normoactive bowel sounds Palpation: soft and no hepatosplenomegaly external exam normal Back/Spine Cervical Spine: cervical ROM normal Thoracic Spine / Upper Back: normal to inspection Lumbar Spine / Lower Back: normal to inspection Extremity normal to inspection General Extremity: normal exam except as noted Skin Skin Narrative: Edematous bilateral lower extremities history of positive ultrasound done previously with her incompetency is in her right lower leg worse than her left. Discoloration of skin from blood going through into the skin area staining. This time she has a huge crater hole on the right lateral leg from a blister that popped and her right ankle again has blistered and opened in its superficial not quite circumferential on her legs. Appears the patient has not been wearing her compression stockings Neuro oriented x3 Psych Appearance: grossly normal Speech: normal speech Thought Content: normal thought content Judgement: judgement good Debridement Note Debridement Note Wound debrided: Right lateral lower leg wound from a blister Type of Debridement: Excisional debridement Anesthesia Used: 5% Lidocaine Gel Depth: in the subcutaneous layer Percentage of wound debrided: 100 Instrument Used: 5mm curette Tissue Removed: Fibrin devitalized tissue Severity: Fat Layer Exposed Amount of bleeding with debridement: None Bleeding Controlled with: Compression and gauze Patient tolerated procedure: Patient tolerated procedure well Post-Debridement Measurements and Additional Note: Post-Debridement Measurements/Treatment - Nurse 1 - General Ulcer Assessment Start: 05/11/21 10:09 Freq: Status: Active Protocol: DERRICK Activity Type Activity Date Activity User E-Sign Co-Sign Detail Recorded Client Recorded Date Recorded By Document 05/11/21 10:09 [facility] [id number] 05/11/21 10:16 [facility] 05/11/21 10:09 - Today's Visit Information Type of service Initial Visit Arrival Mode Ambulatory Transfer Assistance None Patient Identification Verified (Name & Yes ) Patient Requires Transmission-Based No Precautions Height and Weight Body Mass Index (BMI) 29.3 BMI Classification Overweight Vital Signs Temperature (97.8 F-99.1 F) 96.3 F L Temperature Source Temporal Pulse Rate (60-100) 90 Pulse Location Monitor Respiratory Rate (12-18) 16 Respiratory rate source Observation Oxygen Delivery Method Room Air Blood Pressure (90/60-120/80) 154/87 H Blood Pressure Mean (mm Hg) 109 Source Monitor Position Sitting Blood Pressure Location Left Arm History Since Last Visit- (Skip if this is Patient's initial visit) Left Footwear Regular Shoe Right Footwear Regular Shoe Pain Scale: 0-10 Numeric Is Patient Pain Free? Yes WC - Nurse 1 - General Ulcer Measurement Start: 05/11/21 10:09 Freq: Status: Active Protocol: Activity Type Activity Date Activity User E-Sign Co-Sign Detail Recorded Client Recorded Date Recorded By Document 05/11/21 10:09 [facility] [id number] 05/11/21 10:16 [facility] 05/11/21 10:09 Wound Center Nurse 1 #4- R LOWER LEHMAN CLUSTER -Combined with other wound No -Current Size (cm) - Length 5 -Current Size (cm) - Width 7.5 -Current Size (cm) - Depth 0.1 -Total Square Cm 37.5 -Date of Last Picture (Recall this 05/11/21 field) -Photo Taken Yes -Epithelialization None Present -Tunneling No -Undermining/Tunneling No -Circular Undermining No -Exudate Amt Large -Exudate Type Serosanguineous -Wound Margin Distinct, Outline Attached -Granulation Amt Large (67-100%) -Granulation Quality Red -Slough/Fibrin Yes -Necrosis Amt Small (1-33%) -Necrotic Tissue Type Adherent Slough -Texture (Flower-wound Skin Appearance) Assessed, Scarring -Moisture (Flower-wound Skin Appearance) Assessed -Color (Flower-wound Skin Appearance) Assessed, Hemosiderin Staining -Temperature (Flower-wound Skin No Abnormality Appearance) (Pt Warm) -Tenderness on Palpation (Flower-wound No Skin Appearance) -Ulcer Cleansing Rinsed/ Irrigated with Saline -Foul Odor after Cleansing No -Anesthetic Used 4% Lidocaine Solution #3- R LAT LE -Combined with other wound No -Current Size (cm) - Length 2.8 -Current Size (cm) - Width 2.8 -Current Size (cm) - Depth 0.7 -Total Square Cm 7.84 -Date of Last Picture (Recall this 05/11/21 field) -Photo Taken Yes -Epithelialization None Present -Tunneling No -Undermining/Tunneling No -Circular Undermining No -Exudate Amt Large -Exudate Type Serosanguineous -Wound Margin Distinct, Outline Attached -Granulation Amt Medium (34-66%) -Granulation Quality Red -Slough/Fibrin Yes -Necrosis Amt Medium (34-66%) -Necrotic Tissue Type Adherent Slough -Texture (Flower-wound Skin Appearance) Assessed, Scarring -Moisture (Flower-wound Skin Appearance) Assessed -Color (Flower-wound Skin Appearance) Assessed, Hemosiderin Staining -Temperature (Flower-wound Skin No Abnormality Appearance) (Pt Warm) -Tenderness on Palpation (Flower-wound No Skin Appearance) -Ulcer Cleansing Rinsed/ Irrigated with Saline -Foul Odor after Cleansing No -Anesthetic Used 5% Lidocaine Gel Lower Limb Edema Present Yes Right Calf (cm) 48.8 Right Ankle (cm) 31.5 WC - Nurse 2 - General Ulcer CM Notes Start: 05/11/21 10:09 Freq: Status: Active Protocol: Activity Type Activity Date Activity User E-Sign Co-Sign Detail Recorded Client Recorded Date Recorded By Document 05/11/21 10:25 MW [id number] 05/11/21 10:37 MW 05/11/21 10:25 Wound Center Nurse 2 #4- R LOWER LEHMAN CLUSTER -Time 10:26 -Correct Patient Yes -Correct Side, Site, Position Yes -Correct Procedure Yes -Procedure Performed Yes -Type of Procedure Debridement -Clinical Debridement Subcutaneous -Tissue Removed Subcutaneous -Post Debridement (cm) - Length 6.0 -Post Debridement (cm) - Width 18.0 -Post Debridement (cm) - Depth 0.1 -Total Square (Post) (cm) 108.00 -Area of Debridement (cm) - Length 6.0 -Area of Debridement (cm) - Width 18.0 -Total Square (Area) (cm) 108.00 -Tunneling No -Undermining/Tunneling No -Circular Undermining No -Wound/Ulcer Outcome Not Healed -Ulcer Cleansing Rinsed/ Irrigated with Saline -Foul Odor after Cleansing No -Bioengineered Tissue No -Bleeding Controlled with Pressure -Offloading No -Treatment Response Procedure Tolerated Well -Debridement - Subq, 1st 20sq cm Yes -Debridement, SubQ, ea addt'l 20sq cm 5 or part thereof #3- R LAT LE -Time 10:26 -Correct Patient Yes -Correct Side, Site, Position Yes -Correct Procedure Yes -Procedure Performed Yes -Type of Procedure Debridement -Clinical Debridement Subcutaneous -Tissue Removed Subcutaneous -Post Debridement (cm) - Length 3.0 -Post Debridement (cm) - Width 3.0 -Post Debridement (cm) - Depth 2.3 -Total Square (Post) (cm) 9.00 -Area of Debridement (cm) - Length 3.0 -Area of Debridement (cm) - Width 3.0 -Total Square (Area) (cm) 9.00 -Tunneling No -Undermining/Tunneling No -Circular Undermining No -Wound/Ulcer Outcome Not Healed -Ulcer Cleansing Rinsed/ Irrigated with Saline -Foul Odor after Cleansing No -Bioengineered Tissue No -Bleeding Controlled with Pressure -Offloading No -Treatment Response Procedure Tolerated Well -Debridement - Subq, 1st 20sq cm No Pain Scale: 0-10 Numeric Is Patient Pain Free? Yes - Nurse 3 - General Ulcer D/C NN Start: 05/11/21 10:09 Freq: Status: Active Protocol: Activity Type Activity Date Activity User E-Sign Co-Sign Detail Recorded Client Recorded Date Recorded By Document 05/11/21 10:43 [facility] [id number] 05/11/21 10:45 [facility] 05/11/21 10:43 Wound Care Nurse 3 #4- R LOWER LEHMAN CLUSTER -Ulcer Cleansing Rinsed/ Irrigated with Saline -Foul Odor after Cleansing No -Primary Dressing Applied NonAdherent Contact Layer -Primary Dressing Covered/Secured with Dry Gauze & Roll Gauze, Secured with Tape,Other -Other Covering ABD; DRSG PER ELIZABETH LANGEN #3- R LAT LE -Ulcer Cleansing Rinsed/ Irrigated with Saline -Foul Odor after Cleansing No -Primary Dressing Applied Aquacel Rope, Optilok 6.5x10 -Primary Dressing Covered/Secured with Dry Gauze & Roll Gauze, Secured with Tape -Other Covering DRSG PER ELIZABETH EQUIPMENT PLANNER -Aquacel Rope 1 -Optilok 6.5x10 1 Right -Tubular Bandage Double Layer -Size of Tubigrip Used Size F -Size F ($) 2 Treatment Response Procedure Tolerated Well Pain Scale: 0-10 Numeric Is Patient Pain Free? Yes WC - Visit Discharge Discharge Condition Stable Ambulatory Status Ambulatory Transportation Private Auto Additional Wound Wound debrided: Right ankle cluster from her peripheral vascular disease Type of Debridement: Excisional debridement Anesthesia Used: 5% Lidocaine Gel Depth: Down to and including healthy tissue Instrument Used: 5mm curette Tissue Removed: Fibrin Severity: Limited To Skin Breakdown Amount of bleeding with debridement: None Bleeding Controlled with: Compression and gauze Patient tolerated procedure: Patient tolerated procedure well Assessment/Plan Assessment/Plan (1) Infected wound: CODE(S): T14.8XXA - Other injury of unspecified body region, initial encounter; L08.9 - Local infection of the skin and subcutaneous tissue, unspecified PLAN: Wound cultures obtained for aerobic and anaerobic (2) Edema, lower extremity: CODE(S): R60.0 - Localized edema PLAN: Applied double layer Tubigrip to the right lower leg (3) Diabetes type 2, uncontrolled: CODE(S): E11.65 - Type 2 diabetes mellitus with hyperglycemia QUALIFIERS: Glycemic state: with hyperglycemia Qualified Code(s): E11.65 - Type 2 diabetes mellitus with hyperglycemia PLAN: Better control of sugar by monitoring and taking medications (4) Peripheral vascular disease of lower extremity with ulceration: CODE(S): I73.9 - Peripheral vascular disease, unspecified; L97.909 - Non-pressure chronic ulcer of unspecified part of unspecified lower leg with unspecified severity (5) Nonhealing nonsurgical wound with fat layer exposed: CODE(S): T14.8XXA - Other injury of unspecified body region, initial encounter PLAN: Wash the right lower leg with antibacterial soap pack the right lower leg wound with Ag roping cover with gauze and tape Xeroform dressing to the right ankle area cover with gauze and Christen Double layer Tubigrip to the right leg Follow-up in 1 week
[2021-05-18 10:31] VITALS: BP 192/84; PULSE 93; TEMP 35.7; BMI 29.3
--- NOTE | 2021-05-18 11:05 | PN.PCM_ITS ---
History of Present Illness Date of Service: 05/18/21 Chief Complaint: Follow-up on right lower leg blister that opened to a hole and again open areas around the ankle History of Wound: 60-year-old white female that was just discharged in March for basically the same thing around her ankles. Never followed up with Dr. Ojeda. 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 Patient states she developed a blister on her right lateral leg that she popped and now it is a deep crater hole on the right lateral leg. Again the ankle the top layer skin she gets were it just opens up like a blister. Progress of Wound: Amazingly the right lateral lower leg: Her leg is filling in and her ankle area is much smaller she definitely suffers from her peripheral vascular disease and and needs to see Dr. Ojeda. Subjective Subjective Patient states going through many bandages and its just saturation from the compression and the packing in her leg. She denies pain Objective Data Objective Data Some maceration around the area but the hole is less in depth and smaller in size. Her right ankle area is smaller in size and again is superficial breakdown of the skin from fluid. Patient has been just keeping her compression stockings on which is increasing the flow of fluid. We will increase her dressing changes to 2 times a day to stop that excessive drainage on her dressings. Patient also found to have staph in her wound and needs to start her antibiotic for 14 days Vital Signs: Vital Signs Temp Pulse Resp BP 96.2 F L 93 16 192/84 H 05/18/21 10:31 05/18/21 10:31 05/11/21 10:09 05/18/21 10:31 Oxygen Delivery Method Room Air Weight: 182 lb Body Mass Index (BMI) 29.3 Lab / Micro Data Attestation: I reviewed the patient's lab results. Micro: Microbiology 05/11/21 10:30 Wound Abcess - Leg, Right Gram Stain - Final 05/11/21 10:30 Wound Abcess - Leg, Right Wound Culture - Final Streptococcus agalactiae (B) Staphylococcus aureus 05/11/21 10:30 Wound Abcess - Leg, Right Anaerobic Culture - Final No anaerobic bacteria isolated. Physical Exam Const oriented x3 General Appearance: cooperative Exam Limitations: no limitations HEENT normocephalic Head and Scalp: normal to inspection Face and Sinus: normal facial exam Nose: external nose normal General Ear: hearing grossly impaired External Ear: external ears normal Mouth: oral and palatal mucosa normal Eyes PERRL General Eye: normal appearance of both eyes Neck full ROM General: normal visual inspection Resp normal respiratory effort Effort and Inspection: able to speak in complete sentences Auscultation: clear to auscultation bilaterally Cardio regular rate and regular rhythm Palpation: normal PMI Rate: regular rate Rhythm: regular rhythm GI Auscultation: normoactive bowel sounds Palpation: soft and no hepatosplenomegaly external exam normal Back/Spine Cervical Spine: cervical ROM normal Thoracic Spine / Upper Back: normal to inspection Lumbar Spine / Lower Back: normal to inspection Extremity normal to inspection General Extremity: normal exam except as noted Skin Skin Narrative: Edematous bilateral lower extremities history of positive ult rasound done previously with her incompetency is in her right lower leg worse than her left. Discoloration of skin from blood going through into the skin area staining. This time she has a huge crater hole on the right lateral leg from a blister that popped and her right ankle again has blistered and opened in its superficial not quite circumferential on her legs. Appears the patient has not been wearing her compression stockings Neuro oriented x3 Psych Appearance: grossly normal Speech: normal speech Thought Content: normal thought content Judgement: judgement good Debridement Note Debridement Note Wound debrided: Right lateral lower leg ulcer from her peripheral vascular disease that bli Type of Debridement: Excisional debridement Anesthesia Used: 5% Lidocaine Gel Depth: Down to and including healthy tissue Percentage of wound debrided: 100 Instrument Used: 5mm curette Tissue Removed: Fibrin Severity: Fat Layer Exposed Amount of bleeding with debridement: Mild (Irrigated with normal saline) Bleeding Controlled with: Compression and gauze Patient tolerated procedure: Patient tolerated procedure well Post-Debridement Measurements and Additional Note: Post-Debridement Measurements/Treatment WC - Nurse 1 - General Ulcer Assessment Start: 05/11/21 10:09 Freq: Status: Active Protocol: DERRICK Activity Type Activity Date Activity User E-Sign Co-Sign Detail Recorded Client Recorded Date Recorded By Document 05/11/21 10:09 [facility] [id number] 05/11/21 10:16 [facility] Document 05/18/21 10:31 RI [id number] 05/18/21 10:40 [place] 05/11/21 05/18/21 10:09 10:31 - Today's Visit Information Type of service Initial Visit Follow-up Visit (Physician/TECHNOLOGY SPECIALIST ) Arrival Mode Ambulatory Ambulatory Transfer Assistance None Patient Identification Verified (Name & Yes Yes ) Patient Requires Transmission-Based No No Precautions Height and Weight Body Mass Index (BMI) 29.3 29.3 BMI Classification Overweight Overweight Vital Signs Temperature (97.8 F-99.1 F) 96.3 F L 96.2 F L Temperature Source Temporal Temporal Pulse Rate (60-100) 90 93 Pulse Location Monitor Monitor Respiratory Rate (12-18) 16 Respiratory rate source Observation Oxygen Delivery Method Room Air Blood Pressure (90/60-120/80) 154/87 H 192/84 H Blood Pressure Mean (mm Hg) 109 120 Source Monitor Monitor Position Sitting Blood Pressure Location Left Arm Have you changed medications since your No last visit? Any new allergies or adverse reactions No Had a fall/change in ADL's that may No increase risk of falls Signs or symptoms of abuse and/or No neglect since last visit Have you been in the hospital since your No last visit? History Since Last Visit- (Skip if this is Patient's initial visit) Left Footwear Regular Shoe Regular Shoe Right Footwear Regular Shoe Regular Shoe Pain Scale: 0-10 Numeric Is Patient Pain Free? Yes Yes - Nurse 1 - General Ulcer Measurement Start: 05/11/21 10:09 Freq: Status: Active Protocol: Activity Type Activity Date Activity User E-Sign Co-Sign Detail Recorded Client Recorded Date Recorded By Document 05/11/21 10:09 [facility] [id number] 05/11/21 10:16 [facility] Document 05/18/21 10:31 RI [id number] 05/18/21 10:40 RI 05/11/21 05/18/21 10:09 10:31 Wound Center Nurse 1 #4- R LOWER LEHMAN CLUSTER -Combined with other wound No No -Current Size (cm) - Length 5 5.5 -Current Size (cm) - Width 7.5 15.3 -Current Size (cm) - Depth 0.1 0.1 -Total Square Cm 37.5 84.15 -Date of Last Picture (Recall this 05/11/21 05/18/21 field) -Photo Taken Yes Yes -Epithelialization None Present None Present -Tunneling No No -Undermining/Tunneling No No -Circular Undermining No No -Exudate Amt Large Large -Exudate Type Serosanguineous Serosanguineous -Wound Margin Distinct, Flat & Intact Outline Attached -Granulation Amt Large (67-100%) None Present (0 %) -Granulation Quality Red N/A -Slough/Fibrin Yes Yes -Necrosis Amt Small (1-33%) Medium (34-66%) -Necrotic Tissue Type Adherent Slough Adherent Slough -Structure Exposed N/A -Texture (Flower-wound Skin Appearance) Assessed, Assessed, Scarring Localized Edema -Moisture (Flower-wound Skin Appearance) Assessed Assessed, Maceration, Weeping -Color (Flower-wound Skin Appearance) Assessed, Assessed, Hemosiderin Hemosiderin Staining Staining -Temperature (Flower-wound Skin No Abnormality No Abnormality Appearance) (Pt Warm) (Pt Warm) -Tenderness on Palpation (Flower-wound No Yes Skin Appearance) -Ulcer Cleansing Rinsed/ Rinsed/ Irrigated with Irrigated with Saline Saline -Foul Odor after Cleansing No No -Anesthetic Used 4% Lidocaine 4% Lidocaine Solution Solution #3- R LAT LE -Combined with other wound No No -Current Size (cm) - Length 2.8 2.5 -Current Size (cm) - Width 2.8 2.4 -Current Size (cm) - Depth 0.7 1.5 -Total Square Cm 7.84 6.00 -Date of Last Picture (Recall this 05/11/21 field) -Photo Taken Yes No -Epithelialization None Present -Tunneling No No -Undermining/Tunneling No No -Circular Undermining No No -Change in Wound Grade/Stage No -Exudate Amt Large Large -Exudate Type Serosanguineous Serosanguineous -Wound Margin Distinct, Distinct, Outline Outline Attached Attached -Granulation Amt Medium (34-66%) None Present (0 %) -Granulation Quality Red N/A -Slough/Fibrin Yes Yes -Necrosis Amt Medium (34-66%) Medium (34-66%) -Necrotic Tissue Type Adherent Slough Adherent Slough -Structure Exposed N/A -Texture (Flower-wound Skin Appearance) Assessed, Assessed, Scarring Excoriation, Localized Edema -Moisture (Flower-wound Skin Appearance) Assessed Assessed, Maceration, Weeping -Color (Flower-wound Skin Appearance) Assessed, Assessed, Hemosiderin Hemosiderin Staining Staining -Temperature (Flower-wound Skin No Abnormality No Abnormality Appearance) (Pt Warm) (Pt Warm) -Tenderness on Palpation (Flower-wound No Yes Skin Appearance) -Ulcer Cleansing Rinsed/ Rinsed/ Irrigated with Irrigated with Saline Saline -Foul Odor after Cleansing No No -Anesthetic Used 5% Lidocaine 4% Lidocaine Gel Solution Lower Limb Edema Present Yes Right Calf (cm) 48.8 Right Ankle (cm) 31.5 WC - Nurse 2 - General Ulcer CM Notes Start: 05/11/21 10:09 Freq: Status: Active Protocol: Activity Type Activity Date Activity User E-Sign Co-Sign Detail Recorded Client Recorded Date Recorded By Document 05/11/21 10:25 MW [id number] 05/11/21 10:37 MW Document 05/18/21 10:47 MW [id number] 05/18/21 10:57 MW 05/11/21 05/18/21 10:25 10:47 Wound Center Nurse 2 #4- R LOWER LEHMAN CLUSTER -Time 10:26 10:48 -Correct Patient Yes Yes -Correct Side, Site, Position Yes Yes -Correct Procedure Yes Yes -Procedure Performed Yes Yes -Type of Procedure Debridement Incision & Drainage -Clinical Debridement Subcutaneous Subcutaneous -Tissue Removed Subcutaneous Subcutaneous -Post Debridement (cm) - Length 6.0 6.5 -Post Debridement (cm) - Width 18.0 15.0 -Post Debridement (cm) - Depth 0.1 0.1 -Total Square (Post) (cm) 108.00 97.50 -Area of Debridement (cm) - Length 6.0 6.5 -Area of Debridement (cm) - Width 18.0 15.0 -Total Square (Area) (cm) 108.00 97.50 -Tunneling No No -Undermining/Tunneling No No -Circular Undermining No No -Wound/Ulcer Outcome Not Healed Not Healed -Ulcer Cleansing Rinsed/ Rinsed/ Irrigated with Irrigated with Saline Saline -Foul Odor after Cleansing No No -Bioengineered Tissue No No -Bleeding Controlled with Pressure Pressure -Offloading No No -Treatment Response Procedure Procedure Tolerated Well Tolerated Well -Debridement - Subq, 1st 20sq cm Yes Yes -Debridement, SubQ, ea addt'l 20sq cm 5 or part thereof #3- R LAT LE -Time 10:26 10:49 -Correct Patient Yes Yes -Correct Side, Site, Position Yes Yes -Correct Procedure Yes Yes -Procedure Performed Yes Yes -Type of Procedure Debridement Debridement -Clinical Debridement Subcutaneous Muscle / Fascia -Tissue Removed Subcutaneous Muscle,Fascia -Post Debridement (cm) - Length 3.0 1.5 -Post Debridement (cm) - Width 3.0 1.0 -Post Debridement (cm) - Depth 2.3 1.5 -Total Square (Post) (cm) 9.00 1.50 -Area of Debridement (cm) - Length 3.0 1.5 -Area of Debridement (cm) - Width 3.0 1.0 -Total Square (Area) (cm) 9.00 1.50 -Tunneling No No -Undermining/Tunneling No No -Circular Undermining No No -Wound/Ulcer Outcome Not Healed Not Healed -Ulcer Cleansing Rinsed/ Rinsed/ Irrigated with Irrigated with Saline Saline -Foul Odor after Cleansing No No -Bioengineered Tissue No No -Bleeding Controlled with Pressure Pressure -Offloading No No -Treatment Response Procedure Procedure Tolerated Well Tolerated Well -Debridement - Subq, 1st 20sq cm No -Debridement - Muscle / Fascia, 1st Yes 20sq cm Pain Scale: 0-10 Numeric Is Patient Pain Free? Yes Yes - Nurse 3 - General Ulcer D/C NN Start: 05/11/21 10:09 Freq: Status: Active Protocol: Activity Type Activity Date Activity User E-Sign Co-Sign Detail Recorded Client Recorded Date Recorded By Document 05/11/21 10:43 [facility] [id number] 05/11/21 10:45 [facility] Document 05/18/21 10:58 [id number] 05/18/21 11:00 MW 05/11/21 05/18/21 10:43 10:58 Wound Care Nurse 3 #4- R LOWER LEHMAN CLUSTER -Ulcer Cleansing Rinsed/ Not Cleansed Irrigated with Saline -Foul Odor after Cleansing No No -Negative Pressure Wound Therapy N/A -Primary Dressing Applied NonAdherent Contact Layer -Other Dressing xeroform -Primary Dressing Covered/Secured with Dry Gauze & Dry Gauze & Roll Gauze, Roll Gauze, Secured with Secured with Tape,Other Tape -Other Covering ABD; DRSG PER RI WASHATERIA ATTENDANT #3- R LAT LE -Ulcer Cleansing Rinsed/ Rinsed/ Irrigated with Irrigated with Saline Saline -Foul Odor after Cleansing No No -Negative Pressure Wound Therapy N/A -Primary Dressing Applied Aquacel Rope, Aquacel Rope, Optilok 6.5x10 Optilok 8x12 -Primary Dressing Covered/Secured with Dry Gauze & Dry Gauze & Roll Gauze, Roll Gauze, Secured with Secured with Tape Tape -Other Covering [facility] -Aquacel Rope 1 1 -Optilok 6.5x10 1 -Optilok 8x12 3 Right -Lotion applied to leg before No compression wrap -Tubular Bandage Double Layer Double Layer -Size of Tubigrip Used Size F Size F -Size F ($) 2 2 Treatment Response Procedure Procedure Tolerated Well Tolerated Well Pain Scale: 0-10 Numeric Is Patient Pain Free? Yes Yes Teaching: Wound Center Dressing Your Wound -Person Taught Patient -Teaching Method Discussion -Response to teaching Verbalize understanding WC - Visit Discharge Discharge Condition Stable Stable Ambulatory Status Ambulatory Ambulatory Transportation Private Auto Private Auto Accompanied by self Medication Reconcilliation completed & No provided to patient/care provider Clinical Summary of Care Provided Yes Additional Wound Wound debrided: Right ankle open wound superficial from peripheral vascular disease Type of Debridement: Excisional debridement Anesthesia Used: 5% Lidocaine Gel Depth: Down to and including healthy tissue Percentage of wound debrided: 100 Instrument Used: 5mm curette Tissue Removed: Fibrin devitalized tissue Severity: Limited To Skin Breakdown Amount of bleeding with debridement: Mild Bleeding Controlled with: Compression and gauze Patient tolerated procedure: Patient tolerated procedure well Assessment/Plan Assessment/Plan (1) Infected wound: CODE(S): T14.8XXA - Other injury of unspecified body region, initial encounter; L08.9 - Local infection of the skin and subcutaneous tissue, unspecified PLAN: Wound cultures obtained for aerobic and anaerobic (2) Edema, lower extremity: CODE(S): R60.0 - Localized edema PLAN: Applied double layer Tubigrip to the right lower leg (3) Diabetes type 2, uncontrolled: CODE(S): E11.65 - Type 2 diabetes mellitus with hyperglycemia QUALIFIERS: Glycemic state: with hyperglycemia Qualified Code(s): E11.65 - Type 2 diabetes mellitus with hyperglycemia PLAN: Better control of sugar by monitoring and taking medications (4) Peripheral vascular disease of lower extremity with ulceration: CODE(S): I73.9 - Peripheral vascular disease, unspecified; L97.909 - Non- pressure chronic ulcer of unspecified part of unspecified lower leg with unspecified severity (5) Nonhealing nonsurgical wound with fat layer exposed: CODE(S): T14.8XXA - Other injury of unspecified body region, initial encounter PLAN: Wash the right lower leg with antibacterial soap pack the right lower leg wound with Ag roping cover with gauze and tape Xeroform dressing to the right ankle area cover with gauze and Christen increase dressings to 2 times a day to the right lateral lower leg Double layer Tubigrip to the right leg Follow-up in 1 week
[2021-05-25 10:25] VITALS: BP 176/85; PULSE 80; RESP 16; TEMP 35.9; BMI 29.3
--- NOTE | 2021-05-25 10:58 | PCM.WC.PN ---
History of Present Illness Date of Service: 05/25/21 Chief Complaint: Follow-up on right lower leg blister that opened to a hole and again open areas around the ankle History of Wound: 60-year-old white female that was just discharged in March for basically the same thing around her ankles. Never followed up with Dr. Ojeda. 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 Patient states she developed a blister on her right lateral leg that she popped and now it is a deep crater hole on the right lateral leg. Again the ankle the top layer skin she gets were it just opens up like a blister. Progress of Wound: Amazingly the right lateral lower leg: Her leg is filling in and her ankle area is much smaller she definitely suffers from her peripheral vascular disease and and needs to see Dr. Ojeda. Appointment is June 22 for evaluation and treatment by Dr. Ojeda We will continue with same treatment patient is finishing up her antibiotic of doxycycline starting to heal well. Subjective Subjective Patient seems happier and doing well with the treatments Objective Data Objective Data Patient appears more compliant with her treatments doing well with using the more absorbent pads and ABDs for absorbing more drainage on her leg and not having a dripping down her leg. Finishing up her antibiotic and already has a Rusty appointment on June Vital Signs: Vital Signs Temp Pulse Resp BP 96.7 F L 80 16 176/85 H 05/25/21 10:25 05/25/21 10:25 05/25/21 10:25 05/25/21 10:25 Oxygen Delivery Method Room Air Weight: 182 lb Body Mass Index (BMI) 29.3 Lab / Micro Data Micro: Microbiology 05/11/21 10:30 Wound Abcess - Leg, Right Gram Stain - Final 05/11/21 10:30 Wound Abcess - Leg, Right Wound Culture - Final Streptococcus agalactiae (B) Staphylococcus aureus 05/11/21 10:30 Wound Abcess - Leg, Right Anaerobic Culture - Final No anaerobic bacteria isolated. Physical Exam Const oriented x3 General Appearance: cooperative Exam Limitations: no limitations HEENT normocephalic Head and Scalp: normal to inspection Face and Sinus: normal facial exam Nose: external nose normal General Ear: hearing grossly impaired External Ear: external ears normal Mouth: oral and palatal mucosa normal Eyes PERRL General Eye: normal appearance of both eyes Neck full ROM General: normal visual inspection Resp normal respiratory effort Effort and Inspection: able to speak in complete sentences Auscultation: clear to auscultation bilaterally Cardio regular rate and regular rhythm Palpation: normal PMI Rate: regular rate Rhythm: regular rhythm GI Auscultation: normoactive bowel sounds Palpation: soft and no hepatosplenomegaly external exam normal Back/Spine Cervical Spine: cervical ROM normal Thoracic Spine / Upper Back: normal to inspection Lumbar Spine / Lower Back: normal to inspection Extremity normal to inspection General Extremity: normal exam except as noted Skin Skin Narrative: Edematous bilateral lower extremities history of positive ultrasound done previously with her incompetency is in her right lower leg worse than her left. Discoloration of skin from blood going through into the skin area staining. This time she has a huge crater hole on the right lateral leg from a blister that popped and her right ankle again has blistered and opened in its superficial not quite circumferential on her legs. Appears the patient has not been wearing her compression stockings Neuro oriented x3 Psych Appearance: grossly normal Speech: normal speech Thought Content: normal thought content Judgement: judgement good Debridement Note Debridement Note Wound debrided: Right lateral ulcer from blister from peripheral vascular disease Type of Debridement: Excisional debridement Anesthesia Used: 5% Lidocaine Gel Depth: Down to and including healthy tissue Percentage of wound debrided: 100 Instrument Used: 5mm curette Tissue Removed: Fibrin and slough Severity: Fat Layer Exposed Amount of bleeding with debridement: Mild Bleeding Controlled with: Compression and gauze Patient tolerated procedure: Patient tolerated procedure well Post-Debridement Measurements and Additional Note: Post-Debridement Measurements/Treatment WC - Nurse 1 - General Ulcer Assessment Start: 05/11/21 10:09 Freq: Status: Active Protocol: MICHELLE.LOWARIAT Activity Type Activity Date Activity User E-Sign Co-Sign Detail Recorded Client Recorded Date Recorded By Document 05/11/21 10:09 [facility] [id number] 05/11/21 10:16 [facility] Document 05/18/21 10:31 [place] [id number] 05/18/21 10:40 [place] Document 05/25/21 10:25 [facility] [id number] 05/25/21 10:33 [facility] 05/11/21 05/18/21 05/25/21 10:09 10:31 10:25 - Today's Visit Information Type of service Initial Visit Follow-up Visit Follow-up Visit (Physician/FISH ROE TECHNICIAN (Physician/FISH ROE TECHNICIAN ) ) Arrival Mode Ambulatory Ambulatory Ambulatory Transfer Assistance None None Patient Identification Verified (Name & Yes Yes Yes ) Patient Requires Transmission-Based No No No Precautions Height and Weight Body Mass Index (BMI) 29.3 29.3 29.3 BMI Classification Overweight Overweight Overweight Vital Signs Temperature (97.8 F-99.1 F) 96.3 F L 96.2 F L 96.7 F L Temperature Source Temporal Temporal Temporal Pulse Rate (60-100) 90 93 80 Pulse Location Monitor Monitor Monitor Respiratory Rate (12-18) 16 16 Respiratory rate source Observation Observation Oxygen Delivery Method Room Air Room Air Blood Pressure (90/60-120/80) 154/87 H 192/84 H 176/85 H Blood Pressure Mean (mm Hg) 109 120 115 Source Monitor Monitor Monitor Position Sitting Sitting Blood Pressure Location Left Arm Left Arm Have you changed medications since your No No last visit? Any new allergies or adverse reactions No No Had a fall/change in ADL's that may No No increase risk of falls Signs or symptoms of abuse and/or No No neglect since last visit Have you been in the hospital since your No No last visit? Has dressing in place as prescribed Yes Has compression in place as prescribed No Has offloadiing in place as prescribed N/A Experienced any changes in pain level or No management History Since Last Visit- (Skip if this is Patient's initial visit) Left Footwear Regular Shoe Regular Shoe Regular Shoe Right Footwear Regular Shoe Regular Shoe Regular Shoe Pain Scale: 0-10 Numeric Is Patient Pain Free? Yes Yes Yes - Nurse 1 - General Ulcer Measurement Start: 05/11/21 10:09 Freq: Status: Active Protocol: Activity Type Activity Date Activity User E-Sign Co-Sign Detail Recorded Client Recorded Date Recorded By Document 05/11/21 10:09 [facility] [id number] 05/11/21 10:16 [facility] Document 05/18/21 10:31 [place] [id number] 05/18/21 10:40 [place] Document 05/25/21 10:25 [facility] [id number] 05/25/21 10:33 [facility] 05/11/21 05/18/2105/25/22 10:09 10:31 10:25 Wound Center Nurse 1 #4- R LOWER LEHMAN CLUSTER -Combined with other wound No No No -Current Size (cm) - Length 5 5.5 5 -Current Size (cm) - Width 7.5 15.3 19 -Current Size (cm) - Depth 0.1 0.1 0.1 -Total Square Cm 37.5 84.15 95 -Date of Last Picture (Recall this 05/11/21 05/18/21 field) -Photo Taken Yes Yes No -Epithelialization None Present None Present Small 1-33% -Tunneling No No No -Undermining/Tunneling No No No -Circular Undermining No No No -Exudate Amt Large Large Medium -Exudate Type Serosanguineous Serosanguineous Serosanguineous -Wound Margin Distinct, Flat & Intact Distinct, Outline Outline Attached Attached -Granulation Amt Large (67-100%) None Present (0 Large (67-100%) %) -Granulation Quality Red N/A Red -Slough/Fibrin Yes Yes Yes -Necrosis Amt Small (1-33%) Medium (34-66%) Small (1-33%) -Necrotic Tissue Type Adherent Slough Adherent Slough Adherent Slough -Structure Exposed N/A -Texture (Flower-wound Skin Appearance) Assessed, Assessed, Assessed, Scarring Localized Edema Scarring -Moisture (Flower-wound Skin Appearance) Assessed Assessed, Assessed, Maceration, Maceration, Weeping Weeping -Color (Flower-wound Skin Appearance) Assessed, Assessed, Assessed, Hemosiderin Hemosiderin Hemosiderin Staining Staining Staining,Palor -Temperature (Flower-wound Skin No Abnormality No Abnormality No Abnormality Appearance) (Pt Warm) (Pt Warm) (Pt Warm) -Tenderness on Palpation (Flower-wound No Yes No Skin Appearance) -Ulcer Cleansing Rinsed/ Rinsed/ Soap and Water Irrigated with Irrigated with Saline Saline -Foul Odor after Cleansing No No No -Anesthetic Used 4% Lidocaine 4% Lidocaine 4% Lidocaine Solution Solution Solution #3- R LAT LE -Combined with other wound No No -Current Size (cm) - Length 2.8 2.5 2 -Current Size (cm) - Width 2.8 2.4 2.1 -Current Size (cm) - Depth 0.7 1.5 1.8 -Total Square Cm 7.84 6.00 4.2 -Date of Last Picture (Recall this 05/11/21 field) -Photo Taken Yes No -Epithelialization None Present None Present -Tunneling No No No -Undermining/Tunneling No No No -Circular Undermining No No No -Change in Wound Grade/Stage No -Exudate Amt Large Large Large -Exudate Type Serosanguineous Serosanguineous Serosanguineous -Wound Margin Distinct, Distinct, Distinct, Outline Outline Outline Attached Attached Attached -Granulation Amt Medium (34-66%) None Present (0 Small (1-33%) %) -Granulation Quality Red N/A Red -Slough/Fibrin Yes Yes Yes -Necrosis Amt Medium (34-66%) Medium (34-66%) Large (67-100%) -Necrotic Tissue Type Adherent Slough Adherent Slough Adherent Slough -Structure Exposed N/A -Texture (Flower-wound Skin Appearance) Assessed, Assessed, Assessed, Scarring Excoriation, Scarring Localized Edema -Moisture (Flower-wound Skin Appearance) Assessed Assessed, Assessed, Maceration, Maceration Weeping -Color (Flower-wound Skin Appearance) Assessed, Assessed, Hemosiderin Hemosiderin Hemosiderin Staining,Palor Staining Staining -Temperature (Flower-wound Skin No Abnormality No Abnormality No Abnormality Appearance) (Pt Warm) (Pt Warm) (Pt Warm) -Tenderness on Palpation (Flower-wound No Yes No Skin Appearance) -Ulcer Cleansing Rinsed/ Rinsed/ Soap and Water Irrigated with Irrigated with Saline Saline -Foul Odor after Cleansing No No No -Anesthetic Used 5% Lidocaine 4% Lidocaine 4% Lidocaine Gel Solution Solution Lower Limb Edema Present Yes Yes Right Calf (cm) 48.8 52 Right Ankle (cm) 31.5 33.2 WC - Nurse 2 - General Ulcer CM Notes Start: 05/11/21 10:09 Freq: Status: Active Protocol: Activity Type Activity Date Activity User E-Sign Co-Sign Detail Recorded Client Recorded Date Recorded By Document 05/11/21 10:25 MW [id number] 05/11/21 10:37 MW Document 05/18/21 10:47 MW [id number] 05/18/21 10:57 MW Edit Result 05/18/21 10:47 MW (1) [id number] 05/19/21 06:45 PL Document 05/25/21 10:51 MW [id number] 05/25/21 10:55 MW (1) #4- R LOWER LEHMAN CLUSTER - Debridement, SubQ, ea addt'l 20sq cm => 4 or part thereof 05/11/21 05/18/21 05/25/21 10:25 10:47 10:51 Wound Center Nurse 2 #4- R LOWER LEHMAN CLUSTER -Time 10: 10:48 10:53 -Correct Patient Yes Yes Yes -Correct Side, Site, Position Yes Yes Yes -Correct Procedure Yes Yes Yes -Procedure Performed Yes Yes Yes -Type of Procedure Debridement Incision & Debridement Drainage -Clinical Debridement Subcutaneous Subcutaneous Subcutaneous -Tissue Removed Subcutaneous Subcutaneous Subcutaneous -Post Debridement (cm) - Length 6.0 6.5 5.5 -Post Debridement (cm) - Width 18.0 15.0 17.0 -Post Debridement (cm) - Depth 0.1 0.1 0.1 -Total Square (Post) (cm) 108.00 97.50 93.50 -Area of Debridement (cm) - Length 6.0 6.5 5.5 -Area of Debridement (cm) - Width 18.0 15.0 17.0 -Total Square (Area) (cm) 108.00 97.50 93.50 -Tunneling No No No -Undermining/Tunneling No No No -Circular Undermining No No No -Wound/Ulcer Outcome Not Healed Not Healed Not Healed -Ulcer Cleansing Rinsed/ Rinsed/ Rinsed/ Irrigated with Irrigated with Irrigated with Saline Saline Saline -Foul Odor after Cleansing No No No -Bioengineered Tissue No No No -Bleeding Controlled with Pressure Pressure Pressure -Offloading No No No -Treatment Response Procedure Procedure Procedure Tolerated Well Tolerated Well Tolerated Well -Debridement - Subq, 1st 20sq cm Yes Yes Yes -Debridement, SubQ, ea addt'l 20sq cm 5 4 4 or part thereof #3- R LAT LE -Time 10: 10:49 10:53 -Correct Patient Yes Yes Yes -Correct Side, Site, Position Yes Yes Yes -Correct Procedure Yes Yes Yes -Procedure Performed Yes Yes Yes -Type of Procedure Debridement Debridement Debridement -Clinical Debridement Subcutaneous Muscle / Fascia Subcutaneous -Tissue Removed Subcutaneous Muscle,Fascia Subcutaneous -Post Debridement (cm) - Length 3.0 1.5 2.0 -Post Debridement (cm) - Width 3.0 1.0 2.0 -Post Debridement (cm) - Depth 2.3 1.5 1.8 -Total Square (Post) (cm) 9.00 1.50 4.00 -Area of Debridement (cm) - Length 3.0 1.5 2.0 -Area of Debridement (cm) - Width 3.0 1.0 2.0 -Total Square (Area) (cm) 9.00 1.50 4.00 -Tunneling No No No -Undermining/Tunneling No No No -Circular Undermining No No No -Wound/Ulcer Outcome Not Healed Not Healed Not Healed -Ulcer Cleansing Rinsed/ Rinsed/ Wound Cleanser Irrigated with Irrigated with Saline Saline -Foul Odor after Cleansing No No No -Bioengineered Tissue No No No -Bleeding Controlled with Pressure Pressure Pressure -Offloading No No No -Treatment Response Procedure Procedure Procedure Tolerated Well Tolerated Well Tolerated Well -Debridement - Subq, 1st 20sq cm No No -Debridement - Muscle / Fascia, 1st Yes 20sq cm Pain Scale: 0-10 Numeric Is Patient Pain Free? Yes Yes Yes WC - Nurse 3 - General Ulcer D/C NN Start: 05/11/21 10:09 Freq: Status: Active Protocol: Activity Type Activity Date Activity User E-Sign Co-Sign Detail Recorded Client Recorded Date Recorded By Document 05/11/21 10:43 [facility] [id number] 05/11/21 10:45 [facility] Document 05/18/21 10:58 MW [id number] 05/18/21 11:00 MW 05/11/21 05/18/21 10:43 10:58 Wound Care Nurse 3 #4- R LOWER LEHMAN CLUSTER -Ulcer Cleansing Rinsed/ Not Cleansed Irrigated with Saline -Foul Odor after Cleansing No No -Negative Pressure Wound Therapy N/A -Primary Dressing Applied NonAdherent Contact Layer -Other Dressing xeroform -Primary Dressing Covered/Secured with Dry Gauze & Dry Gauze & Roll Gauze, Roll Gauze, Secured with Secured with Tape,Other Tape -Other Covering ABD; DRSG PER [place] [employer] #3- R LAT LE -Ulcer Cleansing Rinsed/ Rinsed/ Irrigated with Irrigated with Saline Saline -Foul Odor after Cleansing No No -Negative Pressure Wound Therapy N/A -Primary Dressing Applied Aquacel Rope, Aquacel Rope, Optilok 6.5x10 Optilok 8x12 -Primary Dressing Covered/Secured with Dry Gauze & Dry Gauze & Roll Gauze, Roll Gauze, Secured with Secured with Tape Tape -Other Covering DRSG PER [place] [employer] -Aquacel Rope 1 1 -Optilok 6.5x10 1 -Optilok 8x12 3 Right -Lotion applied to leg before No compression wrap -Tubular Bandage Double Layer Double Layer -Size of Tubigrip Used Size F Size F -Size F ($) 2 2 Treatment Response Procedure Procedure Tolerated Well Tolerated Well Pain Scale: 0-10 Numeric Is Patient Pain Free? Yes Yes Teaching: Wound Center Dressing Your Wound -Person Taught Patient -Teaching Method Discussion -Response to teaching Verbalize understanding WC - Visit Discharge Discharge Condition Stable Stable Ambulatory Status Ambulatory Ambulatory Transportation Private Auto Private Auto Accompanied by self Medication Reconcilliation completed & No provided to patient/care provider Clinical Summary of Care Provided Yes Additional Wound Wound debrided: Right ankle ulcers from peripheral vascular disease Type of Debridement: Excisional debridement Depth: Down to and including healthy tissue Percentage of wound debrided: 100 Instrument Used: 5mm curette Tissue Removed: Fibrin Severity: Limited To Skin Breakdown Amount of bleeding with debridement: None Bleeding Controlled with: Pressure Patient tolerated procedure: Patient tolerated procedure well Assessment/Plan Assessment/Plan (1) Infected wound: CODE(S): T14.8XXA - Other injury of unspecified body region, initial encounter; L08.9 - Local infection of the skin and subcutaneous tissue, unspecified PLAN: Wound cultures obtained finish the doxycycline twice a day till gone (2) Edema, lower extremity: CODE(S): R60.0 - Localized edema PLAN: Applied double layer Tubigrip to the right lower leg (3) Diabetes type 2, uncontrolled: CODE(S): E11.65 - Type 2 diabetes mellitus with hyperglycemia QUALIFIERS: Glycemic state: with hyperglycemia Qualified Code(s): E11.65 - Type 2 diabetes mellitus with hyperglycemia PLAN: Better control of sugar by monitoring and taking medications (4) Peripheral vascular disease of lower extremity with ulceration: CODE(S): I73.9 - Peripheral vascular disease, unspecified; L97.909 - Non-pressure chronic ulcer of unspecified part of unspecified lower leg with unspecified severity (5) Nonhealing nonsurgical wound with fat layer exposed: CODE(S): T14.8XXA - Other injury of unspecified body region, initial encounter PLAN: Wash the right lower leg with antibacterial soap pack the right lower leg wound with Ag roping cover with gauze and tape Xeroform dressing to the right ankle area cover with gauze and Christen increase dressings to 2 times a day to the right lateral lower leg Double layer Tubigrip to the right leg Follow-up in 1 week
[2021-06-01 10:24] VITALS: BP 160/83; PULSE 77; RESP 16; TEMP 36.2; BMI 29.3
--- NOTE | 2021-06-01 11:15 | PN.PCM_ITS ---
History of Present Illness Date of Service: 06/01/21 Chief Complaint: Follow-up on right lower leg blister that opened to a hole and again open areas around the ankle History of Wound: 60-year-old white female that was just discharged in March for basically the same thing around her ankles. Never followed up with Dr. Ojeda. 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 Patient states she developed a blister on her right lateral leg that she popped and now it is a deep crater hole on the right lateral leg. Again the ankle the top layer skin she gets were it just opens up like a blister. Progress of Wound: Amazingly the right lateral lower leg: Her leg is filling in and her ankle area is much smaller she definitely suffers from her peripheral vascular disease and and needs to see Dr. Ojeda. Appointment is June 22 for evaluation and treatment by Dr. Ojeda We will continue with same treatment patient is finishing up her antibiotic of doxycycline starting to heal well. Subjective Subjective Patient states seeing a lot more drainage this last week than usual. Objective Data Objective Data Right lower leg has become more supple and coloring is better. Explained to patient that the compression is helping getting more liquid out of her so she is going to see more drainage which is fine as long as she has good padding to wick the moisture not to let touch her skin Vital Signs: Vital Signs Temp Pulse Resp BP 97.2 F L 77 16 160/83 H 06/01/21 10:24 06/01/21 10:24 06/01/21 10:24 06/01/21 10:24 Oxygen Delivery Method Room Air Weight: 182 lb Body Mass Index (BMI) 29.3 Lab / Micro Data Attestation: I reviewed the patient's lab results. Micro: Microbiology 05/11/21 10:30 Wound Abcess - Leg, Right Gram Stain - Final 05/11/21 10:30 Wound Abcess - Leg, Right Wound Culture - Final Streptococcus agalactiae (B) Staphylococcus aureus 05/11/21 10:30 Wound Abcess - Leg, Right Anaerobic Culture - Final No anaerobic bacteria isolated. Physical Exam Const oriented x3 General Appearance: cooperative Exam Limitations: no limitations HEENT normocephalic Head and Scalp: normal to inspection Face and Sinus: normal facial exam Nose: external nose normal General Ear: hearing grossly impaired External Ear: external ears normal Mouth: oral and palatal mucosa normal Eyes PERRL General Eye: normal appearance of both eyes Neck full ROM General: normal visual inspection Resp normal respiratory effort Effort and Inspection: able to speak in complete sentences Auscultation: clear to auscultation bilaterally Cardio regular rate and regular rhythm Palpation: normal PMI Rate: regular rate Rhythm: regular rhythm GI Auscultation: normoactive bowel sounds Palpation: soft and no hepatosplenomegaly external exam normal Back/Spine Cervical Spine: cervical ROM normal Thoracic Spine / Upper Back: normal to inspection Lumbar Spine / Lower Back: normal to inspection Extremity normal to inspection General Extremity: normal exam except as noted Skin Skin Narrative: Edematous bilateral lower extremities history of positive ultrasound done previously with her incompetency is in her right lower leg worse than her left. Discoloration of skin from blood going through into the skin area staining. This time she has a huge crater hole on the right lateral leg from a blister that popped and her right ankle again has blistered and opened in its superficial not quite circumferential on her legs. Appears the patient has not been wearing her compression stockings Neuro oriented x3 Psych Appearance: grossly normal Speech: normal speech Thought Content: normal thought content Judgement: judgement good Debridement Note Debridement Note Wound debrided: Right ankle ulcers from her peripheral vascular disease Type of Debridement: Excisional debridement Anesthesia Used: 5% Lidocaine Gel Depth: Down to and including healthy tissue Percentage of wound debrided: 100 Instrument Used: 5mm curette Tissue Removed: Fibrin Severity: Limited To Skin Breakdown Amount of bleeding with debridement: None Bleeding Controlled with: Compression and gauze Patient tolerated procedure: Patient tolerated procedure well Post-Debridement Measurements and Additional Note: Post-Debridement Measurements/Treatment - Nurse 1 - General Ulcer Assessment Start: 05/11/21 10:09 Freq: Status: Active Protocol: [email or web address].[email or web address] Activity Type Activity Date Activity User E-Sign Co-Sign Detail Recorded Client Recorded Date Recorded By Document 05/11/21 10:09 [facility] [id number] 05/11/21 10:16 [facility] Document 05/18/21 10:31 [place] [id number] 05/18/21 10:40 OK Document 05/25/21 10:25 [facility] [id number] 05/25/21 10:33 [facility] Document 06/01/21 10:24 [facility] [id number] 06/01/21 10:29 BM 05/11/21 05/18/21 05/25/21 10:09 10:31 10:25 - Today's Visit Information Type of service Initial Visit Follow-up Visit Follow-up Visit (Physician/COAL DIGGER (Physician/COAL DIGGER ) ) Arrival Mode Ambulatory Ambulatory Ambulatory Transfer Assistance None None Patient Identification Verified (Name & Yes Yes Yes ) Patient Requires Transmission-Based No No No Precautions Height and Weight Body Mass Index (BMI) 29.3 29.3 29.3 BMI Classification Overweight Overweight Overweight Vital Signs Temperature (97.8 F-99.1 F) 96.3 F L 96.2 F L 96.7 F L Temperature Source Temporal Temporal Temporal Pulse Rate (60-100) 90 93 80 Pulse Location Monitor Monitor Monitor Respiratory Rate (12-18) 16 16 Respiratory rate source Observation Observation Oxygen Delivery Method Room Air Room Air Blood Pressure (90/60-120/80) 154/87 H 192/84 H 176/85 H Blood Pressure Mean (mm Hg) 109 120 115 Source Monitor Monitor Monitor Position Sitting Sitting Blood Pressure Location Left Arm Left Arm Have you changed medications since your No No last visit? Any new allergies or adverse reactions No No Had a fall/change in ADL's that may No No increase risk of falls Signs or symptoms of abuse and/or No No neglect since last visit Have you been in the hospital since your No No last visit? Has dressing in place as prescribed Yes Has compression in place as prescribed No Has offloadiing in place as prescribed N/A Experienced any changes in pain level or No management History Since Last Visit- (Skip if this is Patient's initial visit) Left Footwear Regular Shoe Regular Shoe Regular Shoe Right Footwear Regular Shoe Regular Shoe Regular Shoe Pain Scale: 0-10 Numeric Is Patient Pain Free? Yes Yes Yes 06/01/21 10:24 - Today's Visit Information Type of service Follow-up Visit (Physician/COAL DIGGER ) Arrival Mode Ambulatory Transfer Assistance None Patient Identification Verified (Name & Yes ) Patient Requires Transmission-Based No Precautions Height and Weight Body Mass Index (BMI) 29.3 BMI Classification Overweight Vital Signs Temperature (97.8 F-99.1 F) 97.2 F L Temperature Source Temporal Pulse Rate (60-100) 77 Pulse Location Monitor Respiratory Rate (12-18) 16 Respiratory rate source Observation Oxygen Delivery Method Room Air Blood Pressure (90/60-120/80) 160/83 H Blood Pressure Mean (mm Hg) 108 Source Manual Position Sitting Blood Pressure Location Right Arm Have you changed medications since your No last visit? Any new allergies or adverse reactions No Had a fall/change in ADL's that may No increase risk of falls Signs or symptoms of abuse and/or No neglect since last visit Have you been in the hospital since your No last visit? Has dressing in place as prescribed Yes Has compression in place as prescribed Yes Has offloadiing in place as prescribed N/A Experienced any changes in pain level or No management History Since Last Visit- (Skip if this is Patient's initial visit) Left Footwear Regular Shoe Right Footwear Regular Shoe Pain Scale: 0-10 Numeric Is Patient Pain Free? Yes WC - Nurse 1 - General Ulcer Measurement Start: 05/11/21 10:09 Freq: Status: Active Protocol: Activity Type Activity Date Activity User E-Sign Co-Sign Detail Recorded Client Recorded Date Recorded By Document 05/11/21 10:09 [facility] [id number] 05/11/21 10:16 [facility] Document 05/18/21 10:31 [place] [id number] 05/18/21 10:40 OK Document 05/25/21 10:25 [facility] [id number] 05/25/21 10:33 [facility] Document 06/01/21 10:24 [facility] [id number] 06/01/21 10:29 [facility] 05/11/21 05/18/21 05/25/21 10:09 10:31 10:25 Wound Center Nurse 1 #4- R LOWER LEHMAN CLUSTER -Combined with other wound No No No -Current Size (cm) - Length 5 5.5 5 -Current Size (cm) - Width 7.5 15.3 19 -Current Size (cm) - Depth 0.1 0.1 0.1 -Total Square Cm 37.5 84.15 95 -Date of Last Picture (Recall this 05/11/21 05/18/21 field) -Photo Taken Yes Yes No -Epithelialization None Present None Present Small 1-33% -Tunneling No No No -Undermining/Tunneling No No No -Circular Undermining No No No -Exudate Amt Large Large Medium -Exudate Type Serosanguineous Serosanguineous Serosanguineous -Wound Margin Distinct, Flat & Intact Distinct, Outline Outline Attached Attached -Granulation Amt Large (67-100%) None Present (0 Large (67-100%) %) -Granulation Quality Red N/A Red -Slough/Fibrin Yes Yes Yes -Necrosis Amt Small (1-33%) Medium (34-66%) Small (1-33%) -Necrotic Tissue Type Adherent Slough Adherent Slough Adherent Slough -Structure Exposed N/A -Texture (Flower-wound Skin Appearance) Assessed, Assessed, Assessed, Scarring Localized Edema Scarring -Moisture (Flower-wound Skin Appearance) Assessed Assessed, Assessed, Maceration, Maceration, Weeping Weeping -Color (Flower-wound Skin Appearance) Assessed, Assessed, Assessed, Hemosiderin Hemosiderin Hemosiderin Staining Staining Staining,Palor -Temperature (Flower-wound Skin No Abnormality No Abnormality No Abnormality Appearance) (Pt Warm) (Pt Warm) (Pt Warm) -Tenderness on Palpation (Flower-wound No Yes No Skin Appearance) -Ulcer Cleansing Rinsed/ Rinsed/ Soap and Water Irrigated with Irrigated with Saline Saline -Foul Odor after Cleansing No No No -Anesthetic Used 4% Lidocaine 4% Lidocaine 4% Lidocaine Solution Solution Solution #3- R LAT LE -Combined with other wound No No -Current Size (cm) - Length 2.8 2.5 2 -Current Size (cm) - Width 2.8 2.4 2.1 -Current Size (cm) - Depth 0.7 1.5 1.8 -Total Square Cm 7.84 6.00 4.2 -Date of Last Picture (Recall this 05/11/21 field) -Photo Taken Yes No -Epithelialization None Present None Present -Tunneling No No No -Undermining/Tunneling No No No -Circular Undermining No No No -Change in Wound Grade/Stage No -Exudate Amt Large Large Large -Exudate Type Serosanguineous Serosanguineous Serosanguineous -Wound Margin Distinct, Distinct, Distinct, Outline Outline Outline Attached Attached Attached -Granulation Amt Medium (34-66%) None Present (0 Small (1-33%) %) -Granulation Quality Red N/A Red -Slough/Fibrin Yes Yes Yes -Necrosis Amt Medium (34-66%) Medium (34-66%) Large (67-100%) -Necrotic Tissue Type Adherent Slough Adherent Slough Adherent Slough -Structure Exposed N/A -Texture (Flower-wound Skin Appearance) Assessed, Assessed, Assessed, Scarring Excoriation, Scarring Localized Edema -Moisture (Flower-wound Skin Appearance) Assessed Assessed, Assessed, Maceration, Maceration Weeping -Color (Flower-wound Skin Appearance) Assessed, Assessed, Hemosiderin Hemosiderin Hemosiderin Staining,Palor Staining Staining -Temperature (Flower-wound Skin No Abnormality No Abnormality No Abnormality Appearance) (Pt Warm) (Pt Warm) (Pt Warm) -Tenderness on Palpation (Flower-wound No Yes No Skin Appearance) -Ulcer Cleansing Rinsed/ Rinsed/ Soap and Water Irrigated with Irrigated with Saline Saline -Foul Odor after Cleansing No No No -Anesthetic Used 5% Lidocaine 4% Lidocaine 4% Lidocaine Gel Solution Solution Lower Limb Edema Present Yes Yes Right Calf (cm) 48.8 52 Right Ankle (cm) 31.5 33.2 06/01/21 10:24 Wound Center Nurse 1 #4- R LOWER LEHMAN CLUSTER -Combined with other wound No -Current Size (cm) - Length 5 -Current Size (cm) - Width 17.5 -Current Size (cm) - Depth 0.1 -Total Square Cm 87.5 -Date of Last Picture (Recall this 06/01/21 field) -Photo Taken Yes -Epithelialization None Present -Tunneling No -Undermining/Tunneling No -Circular Undermining No -Exudate Amt Medium -Exudate Type Serosanguineous -Wound Margin Distinct, Outline Attached -Granulation Amt Medium (34-66%) -Granulation Quality Red -Slough/Fibrin Yes -Necrosis Amt Medium (34-66%) -Necrotic Tissue Type Adherent Slough -Structure Exposed -Texture (Flower-wound Skin Appearance) Assessed, Excoriation, Scarring -Moisture (Flower-wound Skin Appearance) Assessed, Maceration -Color (Flower-wound Skin Appearance) Assessed, Erythema,Palor -Temperature (Flower-wound Skin No Abnormality Appearance) (Pt Warm) -Tenderness on Palpation (Flower-wound No Skin Appearance) -Ulcer Cleansing Soap and Water -Foul Odor after Cleansing No -Anesthetic Used 4% Lidocaine Solution #3- R LAT LE -Combined with other wound No -Current Size (cm) - Length 1.8 -Current Size (cm) - Width 2 -Current Size (cm) - Depth 1.4 -Total Square Cm 3.6 -Date of Last Picture (Recall this 06/01/21 field) -Photo Taken Yes -Epithelialization None Present -Tunneling No -Undermining/Tunneling No -Circular Undermining No -Change in Wound Grade/Stage -Exudate Amt Large -Exudate Type Yellow/Green -Wound Margin Distinct, Outline Attached -Granulation Amt Medium (34-66%) -Granulation Quality Red -Slough/Fibrin Yes -Necrosis Amt Medium (34-66%) -Necrotic Tissue Type Adherent Slough -Structure Exposed -Texture (Flower-wound Skin Appearance) Assessed, Scarring -Moisture (Flower-wound Skin Appearance) Assessed -Color (Flower-wound Skin Appearance) Assessed -Temperature (Flower-wound Skin No Abnormality Appearance) (Pt Warm) -Tenderness on Palpation (Flower-wound No Skin Appearance) -Ulcer Cleansing Soap and Water -Foul Odor after Cleansing No -Anesthetic Used 4% Lidocaine Solution Lower Limb Edema Present Yes Right Calf (cm) 51.5 Right Ankle (cm) 31 WC - Nurse 2 - General Ulcer CM Notes Start: 05/11/21 10:09 Freq: Status: Active Protocol: Activity Type Activity Date Activity User E-Sign Co-Sign Detail Recorded Client Recorded Date Recorded By Document 05/11/21 10:25 MW [id number] 05/11/21 10:37 MW Document 05/18/21 10:47 MW [id number] 05/18/21 10:57 MW Edit Result 05/18/21 10:47 MW (1) [id number] 05/19/21 06:45 PL Document 05/25/21 10:51 MW [id number] 05/25/21 10:55 MW Document 06/01/21 10:46 MW [id number] 06/01/21 10:51 MW (1) #4- R LOWER LEHMAN CLUSTER - Debridement, SubQ, ea addt'l 20sq cm => 4 or part thereof 05/11/21 05/18/21 05/25/21 10:25 10:47 10:51 Wound Center Nurse 2 #4- R LOWER LEHMAN CLUSTER -Time 10: 10:48 10:53 -Correct Patient Yes Yes Yes -Correct Side, Site, Position Yes Yes Yes -Correct Procedure Yes Yes Yes -Procedure Performed Yes Yes Yes -Type of Procedure Debridement Incision & Debridement Drainage -Clinical Debridement Subcutaneous Subcutaneous Subcutaneous -Tissue Removed Subcutaneous Subcutaneous Subcutaneous -Post Debridement (cm) - Length 6.0 6.5 5.5 -Post Debridement (cm) - Width 18.0 15.0 17.0 -Post Debridement (cm) - Depth 0.1 0.1 0.1 -Total Square (Post) (cm) 108.00 97.50 93.50 -Area of Debridement (cm) - Length 6.0 6.5 5.5 -Area of Debridement (cm) - Width 18.0 15.0 17.0 -Total Square (Area) (cm) 108.00 97.50 93.50 -Tunneling No No No -Undermining/Tunneling No No No -Circular Undermining No No No -Wound/Ulcer Outcome Not Healed Not Healed Not Healed -Ulcer Cleansing Rinsed/ Rinsed/ Rinsed/ Irrigated with Irrigated with Irrigated with Saline Saline Saline -Foul Odor after Cleansing No No No -Bioengineered Tissue No No No -Bleeding Controlled with Pressure Pressure Pressure -Treatment Response Procedure Procedure Procedure Tolerated Well Tolerated Well Tolerated Well -Offloading No No No -Debridement - Subq, 1st 20sq cm Yes Yes Yes -Debridement, SubQ, ea addt'l 20sq cm 5 4 4 or part thereof #3- R LAT LE -Time 10: 10:49 10:53 -Correct Patient Yes Yes Yes -Correct Side, Site, Position Yes Yes Yes -Correct Procedure Yes Yes Yes -Procedure Performed Yes Yes Yes -Type of Procedure Debridement Debridement Debridement -Clinical Debridement Subcutaneous Muscle / Fascia Subcutaneous -Tissue Removed Subcutaneous Muscle,Fascia Subcutaneous -Post Debridement (cm) - Length 3.0 1.5 2.0 -Post Debridement (cm) - Width 3.0 1.0 2.0 -Post Debridement (cm) - Depth 2.3 1.5 1.8 -Total Square (Post) (cm) 9.00 1.50 4.00 -Area of Debridement (cm) - Length 3.0 1.5 2.0 -Area of Debridement (cm) - Width 3.0 1.0 2.0 -Total Square (Area) (cm) 9.00 1.50 4.00 -Tunneling No No No -Undermining/Tunneling No No No -Undermining/Tunneling Starts (O'clock ) -Undermining/Tunneling Ends (O'clock) -Maximum Distance (cm) -Circular Undermining No No No -Wound/Ulcer Outcome Not Healed Not Healed Not Healed -Ulcer Cleansing Rinsed/ Rinsed/ Wound Cleanser Irrigated with Irrigated with Saline Saline -Foul Odor after Cleansing No No No -Bioengineered Tissue No No No -Bleeding Controlled with Pressure Pressure Pressure -Treatment Response Procedure Procedure Procedure Tolerated Well Tolerated Well Tolerated Well -Offloading No No No -Debridement - Subq, 1st 20sq cm No No -Debridement - Muscle / Fascia, 1st Yes 20sq cm Pain Scale: 0-10 Numeric Is Patient Pain Free? Yes Yes Yes 06/01/21 10:46 Wound Center Nurse 2 #4- R LOWER LEHMAN CLUSTER -Time 10:49 -Correct Patient Yes -Correct Side, Site, Position Yes -Correct Procedure Yes -Procedure Performed Yes -Type of Procedure Debridement -Clinical Debridement Subcutaneous -Tissue Removed Subcutaneous -Post Debridement (cm) - Length 4.5 -Post Debridement (cm) - Width 15.0 -Post Debridement (cm) - Depth 0.1 -Total Square (Post) (cm) 67.50 -Area of Debridement (cm) - Length 4.5 -Area of Debridement (cm) - Width 15.0 -Total Square (Area) (cm) 67.50 -Tunneling No -Undermining/Tunneling No -Circular Undermining No -Wound/Ulcer Outcome Not Healed -Ulcer Cleansing Rinsed/ Irrigated with Saline -Foul Odor after Cleansing No -Bioengineered Tissue No -Bleeding Controlled with Pressure -Treatment Response Procedure Tolerated Well -Offloading No -Debridement - Subq, 1st 20sq cm Yes -Debridement, SubQ, ea addt'l 20sq cm 3 or part thereof #3- R LAT LE -Time 10:49 -Correct Patient Yes -Correct Side, Site, Position Yes -Correct Procedure Yes -Procedure Performed Yes -Type of Procedure Debridement -Clinical Debridement Subcutaneous -Tissue Removed Subcutaneous -Post Debridement (cm) - Length 1.9 -Post Debridement (cm) - Width 2.0 -Post Debridement (cm) - Depth 1.7 -Total Square (Post) (cm) 3.80 -Area of Debridement (cm) - Length 1.9 -Area of Debridement (cm) - Width 2.0 -Total Square (Area) (cm) 3.80 -Tunneling No -Undermining/Tunneling Yes -Undermining/Tunneling Starts (O'clock 7 ) -Undermining/Tunneling Ends (O'clock) 10 -Maximum Distance (cm) 0.4 -Circular Undermining No -Wound/Ulcer Outcome Not Healed -Ulcer Cleansing Rinsed/ Irrigated with Saline -Foul Odor after Cleansing No -Bioengineered Tissue No -Bleeding Controlled with Pressure -Treatment Response Procedure Tolerated Well -Offloading No -Debridement - Subq, 1st 20sq cm No -Debridement - Muscle / Fascia, 1st 20sq cm Pain Scale: 0-10 Numeric Is Patient Pain Free? Yes WC - Nurse 3 - General Ulcer D/C NN Start: 05/11/21 10:09 Freq: Status: Active Protocol: Activity Type Activity Date Activity User E-Sign Co-Sign Detail Recorded Client Recorded Date Recorded By Document 05/11/21 10:43 [facility] [id number] 05/11/21 10:45 [facility] Document 05/18/21 10:58 [id number] 05/18/21 11:00 MW Document 05/25/21 11:02 [place] [id number] 05/25/21 11:05 [place] Document 06/01/21 10:57 OK [id number] 06/01/21 10:59 AK 05/11/21 05/18/21 05/25/21 10:43 10:58 11:02 Wound Care Nurse 3 #4- R LOWER LEHMAN CLUSTER -Ulcer Cleansing Rinsed/ Not Cleansed Rinsed/ Irrigated with Irrigated with Saline Saline -Foul Odor after Cleansing No No No -Negative Pressure Wound Therapy N/A N/A -Primary Dressing Applied NonAdherent NonAdherent Contact Layer Contact Layer, Optilok 8x12 -Other Dressing xeroform xeroform -Primary Dressing Covered/Secured with Dry Gauze & Dry Gauze & Dry Gauze & Roll Gauze, Roll Gauze, Roll Gauze, Secured with Secured with Secured with Tape,Other Tape Tape -Other Covering ABD; DRSG PER [place] [employer]IST -Optilok 6.5x10 1 -Optilok 8x12 0 #3- R LAT LE -Ulcer Cleansing Rinsed/ Rinsed/ Rinsed/ Irrigated with Irrigated with Irrigated with Saline Saline Saline -Foul Odor after Cleansing No No No -Negative Pressure Wound Therapy N/A N/A -Primary Dressing Applied Aquacel Rope, Aquacel Rope, Aquacel Rope, Optilok 6.5x10 Optilok 8x12 Optilok 8x12 -Primary Dressing Covered/Secured with Dry Gauze & Dry Gauze & Roll Gauze, Roll Gauze, Secured with Secured with Tape Tape -Other Covering DRSG PER [place] [employer] SPECIALIST -Aquacel Rope 1 1 1 -Optilok 6.5x10 1 -Optilok 8x12 3 0 Right -Lotion applied to leg before No No compression wrap -Tubular Bandage Double Layer Double Layer Double Layer -Size of Tubigrip Used Size F Size F Size E -Size E ($) 2 -Size F ($) 2 2 Treatment Response Procedure Procedure Tolerated Well Tolerated Well Pain Scale: 0-10 Numeric Is Patient Pain Free? Yes Yes Yes Teaching: Wound Center Dressing Your Wound -Person Taught Patient -Teaching Method Discussion -Response to teaching Verbalize understanding WC - Visit Discharge Discharge Condition Stable Stable Stable Ambulatory Status Ambulatory Ambulatory Ambulatory Transportation Private Auto Private Auto Private Auto Accompanied by self Medication Reconcilliation completed & No Yes provided to patient/care provider Clinical Summary of Care Provided Yes Yes 06/01/21 10:57 Wound Care Nurse 3 #4- R LOWER LEHMAN CLUSTER -Ulcer Cleansing -Foul Odor after Cleansing -Negative Pressure Wound Therapy -Primary Dressing Applied Optilok 8x12, Other -Other Dressing xeroform -Primary Dressing Covered/Secured with Dry Gauze & Roll Gauze, Secured with Tape -Other Covering -Optilok 6.5x10 -Optilok 8x12 1 #3- R LAT LE -Ulcer Cleansing Rinsed/ Irrigated with Saline -Foul Odor after Cleansing -Negative Pressure Wound Therapy -Primary Dressing Applied Aquacel Rope -Primary Dressing Covered/Secured with Dry Gauze & Roll Gauze, Secured with Tape -Other Covering -Aquacel Rope 1 -Optilok 6.5x10 -Optilok 8x12 Right -Lotion applied to leg before compression wrap -Tubular Bandage -Size of Tubigrip Used -Size E ($) -Size F ($) Treatment Response Pain Scale: 0-10 Numeric Is Patient Pain Free? Yes Teaching: Wound Center Dressing Your Wound -Person Taught -Teaching Method -Response to teaching WC - Visit Discharge Discharge Condition Stable Ambulatory Status Ambulatory Transportation Private Auto Accompanied by Medication Reconcilliation completed & Yes provided to patient/care provider Clinical Summary of Care Provided Yes Additional Wound Wound debrided: Right lateral lower leg ulcer with depth and undermining 7-10 Type of Debridement: Excisional debridement Anesthesia Used: 5% Lidocaine Gel Depth: Down to and including healthy tissue and in the subcutaneous layer Percentage of wound debrided: 100 Instrument Used: 5mm curette Tissue Removed: Slough and fibrin and blood Severity: Fat Layer Exposed Amount of bleeding with debridement: Mild Bleeding Controlled with: Compression and gauze Patient tolerated procedure: Patient tolerated procedure well Assessment/Plan Assessment/Plan (1) Infected wound: CODE(S): T14.8XXA - Other injury of unspecified body region, initial encounter; L08.9 - Local infection of the skin and subcutaneous tissue, unspecified PLAN: Wound cultures obtained finish the doxycycline twice a day till gone (2) Edema, lower extremity: CODE(S): R60.0 - Localized edema PLAN: Applied double layer Tubigrip to the right lower leg (3) Diabetes type 2, uncontrolled: CODE(S): E11.65 - Type 2 diabetes mellitus with hyperglycemia QUALIFIERS: Glycemic state: with hyperglycemia Qualified Code(s): E11.65 - Type 2 diabetes mellitus with hyperglycemia PLAN: Better control of sugar by monitoring and taking medications (4) Peripheral vascular disease of lower extremity with ulceration: CODE(S): I73.9 - Peripheral vascular disease, unspecified; L97.909 - Non- pressure chronic ulcer of unspecified part of unspecified lower leg with unspecified severity PLAN: Appointment with Dr. Ojeda on June 22 (5) Nonhealing nonsurgical wound with fat layer exposed: CODE(S): T14.8XXA - Other injury of unspecified body region, initial encounter PLAN: Wash the right lower leg with antibacterial soap pack the right lower leg wound with Ag roping cover with gauze and tape Xeroform dressing to the right ankle area cover with gauze and Christen increase dressings to 2 times a day to the right lateral lower leg Double layer Tubigrip to the right leg Follow-up in 1 week
--- NOTE | 2021-06-01 11:15 | PN.PCM_ITS ---
History of Present Illness Date of Service: 06/01/21 Chief Complaint: Follow-up on right lower leg blister that opened to a hole and again open areas around the ankle History of Wound: 60-year-old white female that was just discharged in March for basically the same thing around her ankles. Never followed up with Dr. Ojeda. 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 Patient states she developed a blister on her right lateral leg that she popped and now it is a deep crater hole on the right lateral leg. Again the ankle the top layer skin she gets were it just opens up like a blister. Progress of Wound: Amazingly the right lateral lower leg: Her leg is filling in and her ankle area is much smaller she definitely suffers from her peripheral vascular disease and and needs to see Dr. Ojeda. Appointment is June 22 for evaluation and treatment by Dr. Ojeda We will continue with same treatment patient is finishing up her antibiotic of doxycycline starting to heal well. Subjective Subjective no concerns Objective Data Objective Data continues to heal on the treatment plan .No signs of infection Vital Signs: Vital Signs Temp Pulse Resp BP 97.2 F L 77 16 160/83 H 06/01/21 10:24 06/01/21 10:24 06/01/21 10:24 06/01/21 10:24 Oxygen Delivery Method Room Air Weight: 182 lb Body Mass Index (BMI) 29.3 Lab / Micro Data Micro: Microbiology 05/11/21 10:30 Wound Abcess - Leg, Right Gram Stain - Final 05/11/21 10:30 Wound Abcess - Leg, Right Wound Culture - Final Streptococcus agalactiae (B) Staphylococcus aureus 05/11/21 10:30 Wound Abcess - Leg, Right Anaerobic Culture - Final No anaerobic bacteria isolated. Physical Exam Const oriented x3 General Appearance: cooperative Exam Limitations: no limitations HEENT normocephalic Head and Scalp: normal to inspection Face and Sinus: normal facial exam Nose: external nose normal General Ear: hearing grossly impaired External Ear: external ears normal Mouth: oral and palatal mucosa normal Eyes PERRL General Eye: normal appearance of both eyes Neck full ROM General: normal visual inspection Resp normal respiratory effort Effort and Inspection: able to speak in complete sentences Auscultation: clear to auscultation bilaterally Cardio regular rate and regular rhythm Palpation: normal PMI Rate: regular rate Rhythm: regular rhythm GI Auscultation: normoactive bowel sounds Palpation: soft and no hepatosplenomegaly external exam normal Back/Spine Cervical Spine: cervical ROM normal Thoracic Spine / Upper Back: normal to inspection Lumbar Spine / Lower Back: normal to inspection Extremity normal to inspection General Extremity: normal exam except as noted Skin Skin Narrative: Edematous bilateral lower extremities history of positive ultrasound done previously with her incompetency is in her right lower leg worse than her left. Discoloration of skin from blood going through into the skin area staining. This time she has a huge crater hole on the right lateral leg from a blister that popped and her right ankle again has blistered and opened in its superficial not quite circumferential on her legs. Appears the patient has not been wearing her compression stockings Neuro oriented x3 Psych Appearance: grossly normal Speech: normal speech Thought Content: normal thought content Judgement: judgement good Debridement Note Debridement Note Wound debrided: R lat lower leg ulcer from PVD Laterality: Right Type of Debridement: Excisional debridement Anesthesia Used: 5% Lidocaine Gel Depth: Down to and including healthy tissue Percentage of wound debrided: 100 Instrument Used: 5mm curette Tissue Removed: fibrin and slough and old blood Severity: Fat Layer Exposed Amount of bleeding with debridement: Mild Bleeding Controlled with: Pressure and Compression and gauze Patient tolerated procedure: Patient tolerated procedure well Post-Debridement Measurements and Additional Note: Post-Debridement Measurements/Treatment - Nurse 1 - General Ulcer Assessment Start: 05/11/21 10:09 Freq: Status: Active Protocol: MICHELLE.VAIBHAV Activity Type Activity Date Activity User E-Sign Co-Sign Detail Recorded Client Recorded Date Recorded By Document 05/11/21 10:09 [facility] [id number] 05/11/21 10:16 [facility] Document 05/18/21 10:31 [place] [id number] 05/18/21 10:40 [place] Document 05/25/21 10:25 [facility] [id number] 05/25/21 10:33 [facility] Document 06/01/21 10:24 [facility] [id number] 06/01/21 10:29 [facility] 05/11/21 05/18/21 05/25/21 10:09 10:31 10:25 - Today's Visit Information Type of service Initial Visit Follow-up Visit Follow-up Visit (Physician/METHODS ENGINEER (Physician/METHODS ENGINEER ) ) Arrival Mode Ambulatory Ambulatory Ambulatory Transfer Assistance None None Patient Identification Verified (Name & Yes Yes Yes ) Patient Requires Transmission-Based No No No Precautions Height and Weight Body Mass Index (BMI) 29.3 29.3 29.3 BMI Classification Overweight Overweight Overweight Vital Signs Temperature (97.8 F-99.1 F) 96.3 F L 96.2 F L 96.7 F L Temperature Source Temporal Temporal Temporal Pulse Rate (60-100) 90 93 80 Pulse Location Monitor Monitor Monitor Respiratory Rate (12-18) 16 16 Respiratory rate source Observation Observation Oxygen Delivery Method Room Air Room Air Blood Pressure (90/60-120/80) 154/87 H 192/84 H 176/85 H Blood Pressure Mean (mm Hg) 109 120 115 Source Monitor Monitor Monitor Position Sitting Sitting Blood Pressure Location Left Arm Left Arm Have you changed medications since your No No last visit? Any new allergies or adverse reactions No No Had a fall/change in ADL's that may No No increase risk of falls Signs or symptoms of abuse and/or No No neglect since last visit Have you been in the hospital since your No No last visit? Has dressing in place as prescribed Yes Has compression in place as prescribed No Has offloadiing in place as prescribed N/A Experienced any changes in pain level or No management History Since Last Visit- (Skip if this is Patient's initial visit) Left Footwear Regular Shoe Regular Shoe Regular Shoe Right Footwear Regular Shoe Regular Shoe Regular Shoe Pain Scale: 0-10 Numeric Is Patient Pain Free? Yes Yes Yes 06/01/21 10:24 - Today's Visit Information Type of service Follow-up Visit (Physician/METHODS ENGINEER ) Arrival Mode Ambulatory Transfer Assistance None Patient Identification Verified (Name & Yes ) Patient Requires Transmission-Based No Precautions Height and Weight Body Mass Index (BMI) 29.3 BMI Classification Overweight Vital Signs Temperature (97.8 F-99.1 F) 97.2 F L Temperature Source Temporal Pulse Rate (60-100) 77 Pulse Location Monitor Respiratory Rate (12-18) 16 Respiratory rate source Observation Oxygen Delivery Method Room Air Blood Pressure (90/60-120/80) 160/83 H Blood Pressure Mean (mm Hg) 108 Source Manual Position Sitting Blood Pressure Location Right Arm Have you changed medications since your No last visit? Any new allergies or adverse reactions No Had a fall/change in ADL's that may No increase risk of falls Signs or symptoms of abuse and/or No neglect since last visit Have you been in the hospital since your No last visit? Has dressing in place as prescribed Yes Has compression in place as prescribed Yes Has offloadiing in place as prescribed N/A Experienced any changes in pain level or No management History Since Last Visit- (Skip if this is Patient's initial visit) Left Footwear Regular Shoe Right Footwear Regular Shoe Pain Scale: 0-10 Numeric Is Patient Pain Free? Yes WC - Nurse 1 - General Ulcer Measurement Start: 05/11/21 10:09 Freq: Status: Active Protocol: Activity Type Activity Date Activity User E-Sign Co-Sign Detail Recorded Client Recorded Date Recorded By Document 05/11/21 10:09 [facility] [id number] 05/11/21 10:16 [facility] Document 05/18/21 10:31 [place] [id number] 05/18/21 10:40 [place] Document 05/25/21 10:25 [facility] [id number] 05/25/21 10:33 [facility] Document 06/01/21 10:24 [facility] [id number] 06/01/21 10:29 BMF 05/11/21 05/18/21 05/25/21 10:09 10:31 10:25 Wound Center Nurse 1 #4- R LOWER LEHMAN CLUSTER -Combined with other wound No No No -Current Size (cm) - Length 5 5.5 5 -Current Size (cm) - Width 7.5 15.3 19 -Current Size (cm) - Depth 0.1 0.1 0.1 -Total Square Cm 37.5 84.15 95 -Date of Last Picture (Recall this 05/11/21 05/18/21 field) -Photo Taken Yes Yes No -Epithelialization None Present None Present Small 1-33% -Tunneling No No No -Undermining/Tunneling No No No -Circular Undermining No No No -Exudate Amt Large Large Medium -Exudate Type Serosanguineous Serosanguineous Serosanguineous -Wound Margin Distinct, Flat & Intact Distinct, Outline Outline Attached Attached -Granulation Amt Large (67-100%) None Present (0 Large (67-100%) %) -Granulation Quality Red N/A Red -Slough/Fibrin Yes Yes Yes -Necrosis Amt Small (1-33%) Medium (34-66%) Small (1-33%) -Necrotic Tissue Type Adherent Slough Adherent Slough Adherent Slough -Structure Exposed N/A -Texture (Flower-wound Skin Appearance) Assessed, Assessed, Assessed, Scarring Localized Edema Scarring -Moisture (Flower-wound Skin Appearance) Assessed Assessed, Assessed, Maceration, Maceration, Weeping Weeping -Color (Flower-wound Skin Appearance) Assessed, Assessed, Assessed, Hemosiderin Hemosiderin Hemosiderin Staining Staining Staining,Palor -Temperature (Flower-wound Skin No Abnormality No Abnormality No Abnormality Appearance) (Pt Warm) (Pt Warm) (Pt Warm) -Tenderness on Palpation (Flower-wound No Yes No Skin Appearance) -Ulcer Cleansing Rinsed/ Rinsed/ Soap and Water Irrigated with Irrigated with Saline Saline -Foul Odor after Cleansing No No No -Anesthetic Used 4% Lidocaine 4% Lidocaine 4% Lidocaine Solution Solution Solution #3- R LAT LE -Combined with other wound No No -Current Size (cm) - Length 2.8 2.5 2 -Current Size (cm) - Width 2.8 2.4 2.1 -Current Size (cm) - Depth 0.7 1.5 1.8 -Total Square Cm 7.84 6.00 4.2 -Date of Last Picture (Recall this 05/11/21 field) -Photo Taken Yes No -Epithelialization None Present None Present -Tunneling No No No -Undermining/Tunneling No No No -Circular Undermining No No No -Change in Wound Grade/Stage No -Exudate Amt Large Large Large -Exudate Type Serosanguineous Serosanguineous Serosanguineous -Wound Margin Distinct, Distinct, Distinct, Outline Outline Outline Attached Attached Attached -Granulation Amt Medium (34-66%) None Present (0 Small (1-33%) %) -Granulation Quality Red N/A Red -Slough/Fibrin Yes Yes Yes -Necrosis Amt Medium (34-66%) Medium (34-66%) Large (67-100%) -Necrotic Tissue Type Adherent Slough Adherent Slough Adherent Slough -Structure Exposed N/A -Texture (Flower-wound Skin Appearance) Assessed, Assessed, Assessed, Scarring Excoriation, Scarring Localized Edema -Moisture (Flower-wound Skin Appearance) Assessed Assessed, Assessed, Maceration, Maceration Weeping -Color (Flower-wound Skin Appearance) Assessed, Assessed, Hemosiderin Hemosiderin Hemosiderin Staining,Palor Staining Staining -Temperature (Flower-wound Skin No Abnormality No Abnormality No Abnormality Appearance) (Pt Warm) (Pt Warm) (Pt Warm) -Tenderness on Palpation (Flower-wound No Yes No Skin Appearance) -Ulcer Cleansing Rinsed/ Rinsed/ Soap and Water Irrigated with Irrigated with Saline Saline -Foul Odor after Cleansing No No No -Anesthetic Used 5% Lidocaine 4% Lidocaine 4% Lidocaine Gel Solution Solution Lower Limb Edema Present Yes Yes Right Calf (cm) 48.8 52 Right Ankle (cm) 31.5 33.2 06/01/21 10:24 Wound Center Nurse 1 #4- R LOWER LEHMAN CLUSTER -Combined with other wound No -Current Size (cm) - Length 5 -Current Size (cm) - Width 17.5 -Current Size (cm) - Depth 0.1 -Total Square Cm 87.5 -Date of Last Picture (Recall this 06/01/21 field) -Photo Taken Yes -Epithelialization None Present -Tunneling No -Undermining/Tunneling No -Circular Undermining No -Exudate Amt Medium -Exudate Type Serosanguineous -Wound Margin Distinct, Outline Attached -Granulation Amt Medium (34-66%) -Granulation Quality Red -Slough/Fibrin Yes -Necrosis Amt Medium (34-66%) -Necrotic Tissue Type Adherent Slough -Structure Exposed -Texture (Flower-wound Skin Appearance) Assessed, Excoriation, Scarring -Moisture (Flower-wound Skin Appearance) Assessed, Maceration -Color (Flower-wound Skin Appearance) Assessed, Erythema,Palor -Temperature (Flower-wound Skin No Abnormality Appearance) (Pt Warm) -Tenderness on Palpation (Flower-wound No Skin Appearance) -Ulcer Cleansing Soap and Water -Foul Odor after Cleansing No -Anesthetic Used 4% Lidocaine Solution #3- R LAT LE -Combined with other wound No -Current Size (cm) - Length 1.8 -Current Size (cm) - Width 2 -Current Size (cm) - Depth 1.4 -Total Square Cm 3.6 -Date of Last Picture (Recall this 06/01/21 field) -Photo Taken Yes -Epithelialization None Present -Tunneling No -Undermining/Tunneling No -Circular Undermining No -Change in Wound Grade/Stage -Exudate Amt Large -Exudate Type Yellow/Green -Wound Margin Distinct, Outline Attached -Granulation Amt Medium (34-66%) -Granulation Quality Red -Slough/Fibrin Yes -Necrosis Amt Medium (34-66%) -Necrotic Tissue Type Adherent Slough -Structure Exposed -Texture (Flower-wound Skin Appearance) Assessed, Scarring -Moisture (Flower-wound Skin Appearance) Assessed -Color (Flower-wound Skin Appearance) Assessed -Temperature (Flower-wound Skin No Abnormality Appearance) (Pt Warm) -Tenderness on Palpation (Flower-wound No Skin Appearance) -Ulcer Cleansing Soap and Water -Foul Odor after Cleansing No -Anesthetic Used 4% Lidocaine Solution Lower Limb Edema Present Yes Right Calf (cm) 51.5 Right Ankle (cm) 31 WC - Nurse 2 - General Ulcer CM Notes Start: 05/11/21 10:09 Freq: Status: Active Protocol: Activity Type Activity Date Activity User E-Sign Co-Sign Detail Recorded Client Recorded Date Recorded By Document 05/11/21 10:25 MW [id number] 05/11/21 10:37 MW Document 05/18/21 10:47 MW [id number] 05/18/21 10:57 MW Edit Result 05/18/21 10:47 MW (1) [id number] 05/19/21 06:45 PL Document 05/25/21 10:51 MW [id number] 05/25/21 10:55 MW Document 06/01/21 10:46 MW [id number] 06/01/21 10:51 MW (1) #4- R LOWER LEHMAN CLUSTER - Debridement, SubQ, ea addt'l 20sq cm => 4 or part thereof 05/11/21 05/18/21 05/25/21 10:25 10:47 10:51 Wound Center Nurse 2 #4- R LOWER LEHMAN CLUSTER -Time 10:26 10:48 10:53 -Correct Patient Yes Yes Yes -Correct Side, Site, Position Yes Yes Yes -Correct Procedure Yes Yes Yes -Procedure Performed Yes Yes Yes -Type of Procedure Debridement Incision & Debridement Drainage -Clinical Debridement Subcutaneous Subcutaneous Subcutaneous -Tissue Removed Subcutaneous Subcutaneous Subcutaneous -Post Debridement (cm) - Length 6.0 6.5 5.5 -Post Debridement (cm) - Width 18.0 15.0 17.0 -Post Debridement (cm) - Depth 0.1 0.1 0.1 -Total Square (Post) (cm) 108.00 97.50 93.50 -Area of Debridement (cm) - Length 6.0 6.5 5.5 -Area of Debridement (cm) - Width 18.0 15.0 17.0 -Total Square (Area) (cm) 108.00 97.50 93.50 -Tunneling No No No -Undermining/Tunneling No No No -Circular Undermining No No No -Wound/Ulcer Outcome Not Healed Not Healed Not Healed -Ulcer Cleansing Rinsed/ Rinsed/ Rinsed/ Irrigated with Irrigated with Irrigated with Saline Saline Saline -Foul Odor after Cleansing No No No -Bioengineered Tissue No No No -Bleeding Controlled with Pressure Pressure Pressure -Treatment Response Procedure Procedure Procedure Tolerated Well Tolerated Well Tolerated Well -Offloading No No No -Debridement - Subq, 1st 20sq cm Yes Yes Yes -Debridement, SubQ, ea addt'l 20sq cm 5 4 4 or part thereof #3- R LAT LE -Time 10:26 10:49 10:53 -Correct Patient Yes Yes Yes -Correct Side, Site, Position Yes Yes Yes -Correct Procedure Yes Yes Yes -Procedure Performed Yes Yes Yes -Type of Procedure Debridement Debridement Debridement -Clinical Debridement Subcutaneous Muscle / Fascia Subcutaneous -Tissue Removed Subcutaneous Muscle,Fascia Subcutaneous -Post Debridement (cm) - Length 3.0 1.5 2.0 -Post Debridement (cm) - Width 3.0 1.0 2.0 -Post Debridement (cm) - Depth 2.3 1.5 1.8 -Total Square (Post) (cm) 9.00 1.50 4.00 -Area of Debridement (cm) - Length 3.0 1.5 2.0 -Area of Debridement (cm) - Width 3.0 1.0 2.0 -Total Square (Area) (cm) 9.00 1.50 4.00 -Tunneling No No No -Undermining/Tunneling No No No -Undermining/Tunneling Starts (O'clock ) -Undermining/Tunneling Ends (O'clock) -Maximum Distance (cm) -Circular Undermining No No No -Wound/Ulcer Outcome Not Healed Not Healed Not Healed -Ulcer Cleansing Rinsed/ Rinsed/ Wound Cleanser Irrigated with Irrigated with Saline Saline -Foul Odor after Cleansing No No No -Bioengineered Tissue No No No -Bleeding Controlled with Pressure Pressure Pressure -Treatment Response Procedure Procedure Procedure Tolerated Well Tolerated Well Tolerated Well -Offloading No No No -Debridement - Subq, 1st 20sq cm No No -Debridement - Muscle / Fascia, 1st Yes 20sq cm Pain Scale: 0-10 Numeric Is Patient Pain Free? Yes Yes Yes 06/01/21 10:46 Wound Center Nurse 2 #4- R LOWER LEHMAN CLUSTER -Time 10:49 -Correct Patient Yes -Correct Side, Site, Position Yes -Correct Procedure Yes -Procedure Performed Yes -Type of Procedure Debridement -Clinical Debridement Subcutaneous -Tissue Removed Subcutaneous -Post Debridement (cm) - Length 4.5 -Post Debridement (cm) - Width 15.0 -Post Debridement (cm) - Depth 0.1 -Total Square (Post) (cm) 67.50 -Area of Debridement (cm) - Length 4.5 -Area of Debridement (cm) - Width 15.0 -Total Square (Area) (cm) 67.50 -Tunneling No -Undermining/Tunneling No -Circular Undermining No -Wound/Ulcer Outcome Not Healed -Ulcer Cleansing Rinsed/ Irrigated with Saline -Foul Odor after Cleansing No -Bioengineered Tissue No -Bleeding Controlled with Pressure -Treatment Response Procedure Tolerated Well -Offloading No -Debridement - Subq, 1st 20sq cm Yes -Debridement, SubQ, ea addt'l 20sq cm 3 or part thereof #3- R LAT LE -Time 10:49 -Correct Patient Yes -Correct Side, Site, Position Yes -Correct Procedure Yes -Procedure Performed Yes -Type of Procedure Debridement -Clinical Debridement Subcutaneous -Tissue Removed Subcutaneous -Post Debridement (cm) - Length 1.9 -Post Debridement (cm) - Width 2.0 -Post Debridement (cm) - Depth 1.7 -Total Square (Post) (cm) 3.80 -Area of Debridement (cm) - Length 1.9 -Area of Debridement (cm) - Width 2.0 -Total Square (Area) (cm) 3.80 -Tunneling No -Undermining/Tunneling Yes -Undermining/Tunneling Starts (O'clock 7 ) -Undermining/Tunneling Ends (O'clock) 10 -Maximum Distance (cm) 0.4 -Circular Undermining No -Wound/Ulcer Outcome Not Healed -Ulcer Cleansing Rinsed/ Irrigated with Saline -Foul Odor after Cleansing No -Bioengineered Tissue No -Bleeding Controlled with Pressure -Treatment Response Procedure Tolerated Well -Offloading No -Debridement - Subq, 1st 20sq cm No -Debridement - Muscle / Fascia, 1st 20sq cm Pain Scale: 0-10 Numeric Is Patient Pain Free? Yes WC - Nurse 3 - General Ulcer D/C NN Start: 05/11/21 10:09 Freq: Status: Active Protocol: Activity Type Activity Date Activity User E-Sign Co-Sign Detail Recorded Client Recorded Date Recorded By Document 05/11/21 10:43 [facility] [id number] 05/11/21 10:45 [facility] Document 05/18/21 10:58 [id number] 05/18/21 11:00 Document 05/25/21 11:02 [place] [id number] 05/25/21 11:05 [place] Document 06/01/21 10:57 [place] [id number] 06/01/21 10:59 [place] 05/11/21 05/18/21 05/25/21 10:43 10:58 11:02 Wound Care Nurse 3 #4- R LOWER LEHMAN CLUSTER -Ulcer Cleansing Rinsed/ Not Cleansed Rinsed/ Irrigated with Irrigated with Saline Saline -Foul Odor after Cleansing No No No -Negative Pressure Wound Therapy N/A N/A -Primary Dressing Applied NonAdherent NonAdherent Contact Layer Contact Layer, Optilok 8x12 -Other Dressing xeroform xeroform -Primary Dressing Covered/Secured with Dry Gauze & Dry Gauze & Dry Gauze & Roll Gauze, Roll Gauze, Roll Gauze, Secured with Secured with Secured with Tape,Other Tape Tape -Other Covering ABD; DRSG PER [place] TANK PUMPER PANELBOARD -Optilok 6.5x10 1 -Optilok 8x12 0 #3- R LAT LE -Ulcer Cleansing Rinsed/ Rinsed/ Rinsed/ Irrigated with Irrigated with Irrigated with Saline Saline Saline -Foul Odor after Cleansing No No No -Negative Pressure Wound Therapy N/A N/A -Primary Dressing Applied Aquacel Rope, Aquacel Rope, Aquacel Rope, Optilok 6.5x10 Optilok 8x12 Optilok 8x12 -Primary Dressing Covered/Secured with Dry Gauze & Dry Gauze & Roll Gauze, Roll Gauze, Secured with Secured with Tape Tape -Other Covering DRSG PER [place] TANK PUMPER PANELBOARD -Aquacel Rope 1 1 1 -Optilok 6.5x10 1 -Optilok 8x12 3 0 Right -Lotion applied to leg before No No compression wrap -Tubular Bandage Double Layer Double Layer Double Layer -Size of Tubigrip Used Size F Size F Size E -Size E ($) 2 -Size F ($) 2 2 Treatment Response Procedure Procedure Tolerated Well Tolerated Well Pain Scale: 0-10 Numeric Is Patient Pain Free? Yes Yes Yes Teaching: Wound Center Dressing Your Wound -Person Taught Patient -Teaching Method Discussion -Response to teaching Verbalize understanding WC - Visit Discharge Discharge Condition Stable Stable Stable Ambulatory Status Ambulatory Ambulatory Ambulatory Transportation Private Auto Private Auto Private Auto Accompanied by self Medication Reconcilliation completed & No Yes provided to patient/care provider Clinical Summary of Care Provided Yes Yes 06/01/21 10:57 Wound Care Nurse 3 #4- R LOWER LEHMAN CLUSTER -Ulcer Cleansing -Foul Odor after Cleansing -Negative Pressure Wound Therapy -Primary Dressing Applied Optilok 8x12, Other -Other Dressing xeroform -Primary Dressing Covered/Secured with Dry Gauze & Roll Gauze, Secured with Tape -Other Covering -Optilok 6.5x10 -Optilok 8x12 1 #3- R LAT LE -Ulcer Cleansing Rinsed/ Irrigated with Saline -Foul Odor after Cleansing -Negative Pressure Wound Therapy -Primary Dressing Applied Aquacel Rope -Primary Dressing Covered/Secured with Dry Gauze & Roll Gauze, Secured with Tape -Other Covering -Aquacel Rope 1 -Optilok 6.5x10 -Optilok 8x12 Right -Lotion applied to leg before compression wrap -Tubular Bandage -Size of Tubigrip Used -Size E ($) -Size F ($) Treatment Response Pain Scale: 0-10 Numeric Is Patient Pain Free? Yes Teaching: Wound Center Dressing Your Wound -Person Taught -Teaching Method -Response to teaching WC - Visit Discharge Discharge Condition Stable Ambulatory Status Ambulatory Transportation Private Auto Accompanied by Medication Reconcilliation completed & Yes provided to patient/care provider Clinical Summary of Care Provided Yes Additional Wound Wound debrided: R ankle break down from the PVD Laterality: Right Type of Debridement: Excisional debridement Anesthesia Used: 5% Lidocaine Gel Depth: Down to and including healthy tissue Percentage of wound debrided: 100 Instrument Used: 5mm curette Tissue Removed: fibrin and devitalized tissue Amount of bleeding with debridement: None Bleeding Controlled with: Pressure Patient tolerated procedure: Patient tolerated procedure well Assessment/Plan Assessment/Plan (1) Infected wound: CODE(S): T14.8XXA - Other injury of unspecified body region, initial encounter; L08.9 - Local infection of the skin and subcutaneous tissue, unspe cified PLAN: Wound cultures obtained finish the doxycycline twice a day till gone (2) Edema, lower extremity: CODE(S): R60.0 - Localized edema PLAN: Applied double layer Tubigrip to the right lower leg (3) Diabetes type 2, uncontrolled: CODE(S): E11.65 - Type 2 diabetes mellitus with hyperglycemia QUALIFIERS: Glycemic state: with hyperglycemia Qualified Code(s): E11.65 - Type 2 diabetes mellitus with hyperglycemia PLAN: Better control of sugar by monitoring and taking medications (4) Peripheral vascular disease of lower extremity with ulceration: CODE(S): I73.9 - Peripheral vascular disease, unspecified; L97.909 - Non- pressure chronic ulcer of unspecified part of unspecified lower leg with unspecified severity PLAN: Appointment with Dr. Ojeda on June 22 (5) Nonhealing nonsurgical wound with fat layer exposed: CODE(S): T14.8XXA - Other injury of unspecified body region, initial encounter PLAN: Wash the right lower leg with antibacterial soap pack the right lower leg wound with Ag roping cover with gauze and tape Xeroform dressing to the right ankle area cover with gauze and Christen increase dressings to 2 times a day to the right lateral lower leg Double layer Tubigrip to the right leg Follow-up in 1 week
[2021-06-08 10:49] VITALS: BP 181/92; PULSE 89; RESP 16; TEMP 36.6; BMI 29.3
--- NOTE | 2021-06-08 11:32 | PCM.WC.PN ---
History of Present Illness Date of Service: 06/08/21 Chief Complaint: Follow-up on right lower leg blister that opened to a hole and again open areas around the ankle History of Wound: 60-year-old white female that was just discharged in March for basically the same thing around her ankles. Never followed up with Dr. Ojeda. 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 Patient states she developed a blister on her right lateral leg that she popped and now it is a deep crater hole on the right lateral leg. Again the ankle the top layer skin she gets were it just opens up like a blister. Progress of Wound: Amazingly the right lateral lower leg: Her leg is filling in and her ankle area is much smaller she definitely suffers from her peripheral vascular disease and and needs to see Dr. Ojeda. Appointment is June 22 for evaluation and treatment by Dr. Ojeda We will continue with same treatment patient is finishing up her antibiotic of doxycycline starting to heal well. Subjective Subjective Patient has no concerns Objective Data Objective Data Right ankle has just some areas that are not quite closed but the majority of the lower leg should be closed by next week using Xeroform. The right lateral hole in her leg still has undermining at 12:00 but it is smaller she starting to fill in on her whole and it does measure smaller tolerating the packing with the Aquacel Ag roping well no sign of infection Vital Signs: Vital Signs Temp Pulse Resp BP 98 F 89 16 181/92 H 06/08/21 10:49 06/08/21 10:49 06/08/21 10:49 06/08/21 10:49 Oxygen Delivery Method Room Air Weight: 182 lb Body Mass Index (BMI) 29.3 Lab / Micro Data Micro: Microbiology 05/11/21 10:30 Wound Abcess - Leg, Right Gram Stain - Final 05/11/21 10:30 Wound Abcess - Leg, Right Wound Culture - Final Streptococcus agalactiae (B) Staphylococcus aureus 05/11/21 10:30 Wound Abcess - Leg, Right Anaerobic Culture - Final No anaerobic bacteria isolated. Physical Exam Const oriented x3 General Appearance: cooperative Exam Limitations: no limitations HEENT normocephalic Head and Scalp: normal to inspection Face and Sinus: normal facial exam Nose: external nose normal General Ear: hearing grossly impaired External Ear: external ears normal Mouth: oral and palatal mucosa normal Eyes PERRL General Eye: normal appearance of both eyes Neck full ROM General: normal visual inspection Resp normal respiratory effort Effort and Inspection: able to speak in complete sentences Auscultation: clear to auscultation bilaterally Cardio regular rate and regular rhythm Palpation: normal PMI Rate: regular rate Rhythm: regular rhythm GI Auscultation: normoactive bowel sounds Palpation: soft and no hepatosplenomegaly external exam normal Back/Spine Cervical Spine: cervical ROM normal Thoracic Spine / Upper Back: normal to inspection Lumbar Spine / Lower Back: normal to inspection Extremity normal to inspection General Extremity: normal exam except as noted Skin Skin Narrative: Edematous bilateral lower extremities history of positive ultrasound done previously with her incompetency is in her right lower leg worse than her left. Discoloration of skin from blood going through into the skin area staining. This time she has a huge crater hole on the right lateral leg from a blister that popped and her right ankle again has blistered and opened in its superficial not quite circumferential on her legs. Appears the patient has not been wearing her compression stockings Neuro oriented x3 Psych Appearance: grossly normal Speech: normal speech Thought Content: normal thought content Judgement: judgement good Debridement Note Debridement Note Wound debrided: Right lateral lower leg hole from her peripheral vascular disease with ulce Laterality: Right Type of Debridement: Excisional debridement Anesthesia Used: 5% Lidocaine Gel Depth: Down to and including healthy tissue and in the subcutaneous layer Percentage of wound debrided: 100 Instrument Used: 5mm curette Tissue Removed: Fibrin devitalized tissue old blood Severity: Fat Layer Exposed Amount of bleeding with debridement: Mild Bleeding Controlled with: Compression and gauze Patient tolerated procedure: Patient tolerated procedure well Post-Debridement Measurements and Additional Note: Post-Debridement Measurements/Treatment MICHELLE - Nurse 1 - General Ulcer Assessment Start: 05/11/21 10:09 Freq: Status: Active Protocol: DERRICK Activity Type Activity Date Activity User E-Sign Co-Sign Detail Recorded Client Recorded Date Recorded By Document 05/11/21 10:09 [facility] [id number] 05/11/21 10:16 [facility] Document 05/18/21 10:31 [place] [id number] 05/18/21 10:40 [place] Document 05/25/21 10:25 [facility] [id number] 05/25/21 10:33 BM Document 06/01/21 10:24 BM [id number] 06/01/21 10:29 [facility] Document 06/08/21 10:49 [facility] [id number] 06/08/21 11:00 BMF 05/11/21 05/18/21 05/25/21 10:09 10:31 10:25 WC - Today's Visit Information Type of service Initial Visit Follow-up Visit Follow-up Visit (Physician/GYMNASIUM TEACHER (Physician/GYMNASIUM TEACHER ) ) Arrival Mode Ambulatory Ambulatory Ambulatory Transfer Assistance None None Patient Identification Verified (Name & Yes Yes Yes ) Patient Requires Transmission-Based No No No Precautions Height and Weight Body Mass Index (BMI) 29.3 29.3 29.3 BMI Classification Overweight Overweight Overweight Vital Signs Temperature (97.8 F-99.1 F) 96.3 F L 96.2 F L 96.7 F L Temperature Source Temporal Temporal Temporal Pulse Rate (60-100) 90 93 80 Pulse Location Monitor Monitor Monitor Respiratory Rate (12-18) 16 16 Respiratory rate source Observation Observation Oxygen Delivery Method Room Air Room Air Blood Pressure (90/60-120/80) 154/87 H 192/84 H 176/85 H Blood Pressure Mean (mm Hg) 109 120 115 Source Monitor Monitor Monitor Position Sitting Sitting Blood Pressure Location Left Arm Left Arm Comment Have you changed medications since your No No last visit? Any new allergies or adverse reactions No No Had a fall/change in ADL's that may No No increase risk of falls Signs or symptoms of abuse and/or No No neglect since last visit Have you been in the hospital since your No No last visit? Has dressing in place as prescribed Yes Has compression in place as prescribed No Has offloadiing in place as prescribed N/A Experienced any changes in pain level or No management History Since Last Visit- (Skip if this is Patient's initial visit) Left Footwear Regular Shoe Regular Shoe Regular Shoe Right Footwear Regular Shoe Regular Shoe Regular Shoe Pain Scale: 0-10 Numeric Is Patient Pain Free? Yes Yes Yes 06/01/21 06/08/21 10:24 10:49 WC - Today's Visit Information Type of service Follow-up Visit Follow-up Visit (Physician/GYMNASIUM TEACHER (Physician/GYMNASIUM TEACHER ) ) Arrival Mode Ambulatory Ambulatory Transfer Assistance None None Patient Identification Verified (Name & Yes Yes ) Patient Requires Transmission-Based No No Precautions Height and Weight Body Mass Index (BMI) 29.3 29.3 BMI Classification Overweight Overweight Vital Signs Temperature (97.8 F-99.1 F) 97.2 F L 98 F Temperature Source Temporal Temporal Pulse Rate (60-100) 77 89 Pulse Location Monitor Monitor Respiratory Rate (12-18) 16 16 Respiratory rate source Observation Observation Oxygen Delivery Method Room Air Room Air Blood Pressure (90/60-120/80) 160/83 H 181/92 H Blood Pressure Mean (mm Hg) 108 121 Source Manual Monitor Position Sitting Sitting Blood Pressure Location Right Arm Left Arm Comment COUNSELED ON BP Have you changed medications since your No No last visit? Any new allergies or adverse reactions No No Had a fall/change in ADL's that may No No increase risk of falls Signs or symptoms of abuse and/or No No neglect since last visit Have you been in the hospital since your No No last visit? Has dressing in place as prescribed Yes Yes Has compression in place as prescribed Yes No Has offloadiing in place as prescribed N/A N/A Experienced any changes in pain level or No No management History Since Last Visit- (Skip if this is Patient's initial visit) Left Footwear Regular Shoe Regular Shoe Right Footwear Regular Shoe Regular Shoe Pain Scale: 0-10 Numeric Is Patient Pain Free? Yes Yes WC - Nurse 1 - General Ulcer Measurement Start: 05/11/21 10:09 Freq: Status: Active Protocol: Activity Type Activity Date Activity User E-Sign Co-Sign Detail Recorded Client Recorded Date Recorded By Document 05/11/21 10:09 [facility] [id number] 05/11/21 10:16 [facility] Document 05/18/21 10:31 [place] [id number] 05/18/21 10:40 [place] Document 05/25/21 10:25 [facility] [id number] 05/25/21 10:33 [facility] Document 06/01/21 10:24 BM [id number] 06/01/21 10:29 [facility] Document 06/08/21 10:49 [facility] [id number] 06/08/21 11:00 BMF 05/11/21 05/18/21 05/25/21 10:09 10:31 10:25 Wound Center Nurse 1 #4- R LOWER LEHMAN CLUSTER -Combined with other wound No No No -Current Size (cm) - Length 5 5.5 5 -Current Size (cm) - Width 7.5 15.3 19 -Current Size (cm) - Depth 0.1 0.1 0.1 -Total Square Cm 37.5 84.15 95 -Date of Last Picture (Recall this 05/11/21 05/18/21 field) -Photo Taken Yes Yes No -Epithelialization None Present None Present Small 1-33% -Tunneling No No No -Undermining/Tunneling No No No -Circular Undermining No No No -Exudate Amt Large Large Medium -Exudate Type Serosanguineous Serosanguineous Serosanguineous -Wound Margin Distinct, Flat & Intact Distinct, Outline Outline Attached Attached -Granulation Amt Large (67-100%) None Present (0 Large (67-100%) %) -Granulation Quality Red N/A Red -Slough/Fibrin Yes Yes Yes -Necrosis Amt Small (1-33%) Medium (34-66%) Small (1-33%) -Necrotic Tissue Type Adherent Slough Adherent Slough Adherent Slough -Structure Exposed N/A -Texture (Flower-wound Skin Appearance) Assessed, Assessed, Assessed, Scarring Localized Edema Scarring -Moisture (Flower-wound Skin Appearance) Assessed Assessed, Assessed, Maceration, Maceration, Weeping Weeping -Color (Flower-wound Skin Appearance) Assessed, Assessed, Assessed, Hemosiderin Hemosiderin Hemosiderin Staining Staining Staining,Palor -Temperature (Flower-wound Skin No Abnormality No Abnormality No Abnormality Appearance) (Pt Warm) (Pt Warm) (Pt Warm) -Tenderness on Palpation (Flower-wound No Yes No Skin Appearance) -Ulcer Cleansing Rinsed/ Rinsed/ Soap and Water Irrigated with Irrigated with Saline Saline -Foul Odor after Cleansing No No No -Anesthetic Used 4% Lidocaine 4% Lidocaine 4% Lidocaine Solution Solution Solution #3- R LAT LE -Combined with other wound No No -Current Size (cm) - Length 2.8 2.5 2 -Current Size (cm) - Width 2.8 2.4 2.1 -Current Size (cm) - Depth 0.7 1.5 1.8 -Total Square Cm 7.84 6.00 4.2 -Date of Last Picture (Recall this 05/11/21 field) -Photo Taken Yes No -Epithelialization None Present None Present -Tunneling No No No -Undermining/Tunneling No No No -Circular Undermining No No No -Change in Wound Grade/Stage No -Exudate Amt Large Large Large -Exudate Type Serosanguineous Serosanguineous Serosanguineous -Wound Margin Distinct, Distinct, Distinct, Outline Outline Outline Attached Attached Attached -Granulation Amt Medium (34-66%) None Present (0 Small (1-33%) %) -Granulation Quality Red N/A Red -Slough/Fibrin Yes Yes Yes -Necrosis Amt Medium (34-66%) Medium (34-66%) Large (67-100%) -Necrotic Tissue Type Adherent Slough Adherent Slough Adherent Slough -Structure Exposed N/A -Texture (Flower-wound Skin Appearance) Assessed, Assessed, Assessed, Scarring Excoriation, Scarring Localized Edema -Moisture (Flower-wound Skin Appearance) Assessed Assessed, Assessed, Maceration, Maceration Weeping -Color (Flower-wound Skin Appearance) Assessed, Assessed, Hemosiderin Hemosiderin Hemosiderin Staining,Palor Staining Staining -Temperature (Flower-wound Skin No Abnormality No Abnormality No Abnormality Appearance) (Pt Warm) (Pt Warm) (Pt Warm) -Tenderness on Palpation (Flower-wound No Yes No Skin Appearance) -Ulcer Cleansing Rinsed/ Rinsed/ Soap and Water Irrigated with Irrigated with Saline Saline -Foul Odor after Cleansing No No No -Anesthetic Used 5% Lidocaine 4% Lidocaine 4% Lidocaine Gel Solution Solution Lower Limb Edema Present Yes Yes Right Calf (cm) 48.8 52 Right Ankle (cm) 31.5 33.2 06/01/21 06/08/21 10:24 10:49 Wound Center Nurse 1 #4- R LOWER LEHMAN CLUSTER -Combined with other wound No No -Current Size (cm) - Length 5 11.7 -Current Size (cm) - Width 17.5 1.5 -Current Size (cm) - Depth 0.1 0.1 -Total Square Cm 87.5 17.55 -Date of Last Picture (Recall this 06/01/21 06/08/21 field) -Photo Taken Yes Yes -Epithelialization None Present Small 1-33% -Tunneling No No -Undermining/Tunneling No No -Circular Undermining No No -Exudate Amt Medium Small -Exudate Type Serosanguineous Serosanguineous -Wound Margin Distinct, Flat & Intact Outline Attached -Granulation Amt Medium (34-66%) Medium (34-66%) -Granulation Quality Red [place] -Slough/Fibrin Yes Yes -Necrosis Amt Medium (34-66%) Medium (34-66%) -Necrotic Tissue Type Adherent Slough Adherent Slough -Structure Exposed -Texture (Flower-wound Skin Appearance) Assessed, Assessed, Excoriation, Scarring Scarring -Moisture (Flower-wound Skin Appearance) Assessed, Assessed,Dry/ Maceration Scaly -Color (Flower-wound Skin Appearance) Assessed, Assessed Erythema,Palor -Temperature (Flower-wound Skin No Abnormality No Abnormality Appearance) (Pt Warm) (Pt Warm) -Tenderness on Palpation (Flower-wound No No Skin Appearance) -Ulcer Cleansing Soap and Water Soap and Water -Foul Odor after Cleansing No No -Anesthetic Used 4% Lidocaine 4% Lidocaine Solution Solution #3- R LAT LE -Combined with other wound No No -Current Size (cm) - Length 1.8 1.7 -Current Size (cm) - Width 2 1.8 -Current Size (cm) - Depth 1.4 1.5 -Total Square Cm 3.6 3.06 -Date of Last Picture (Recall this 06/01/21 06/08/21 field) -Photo Taken Yes Yes -Epithelialization None Present Small 1-33% -Tunneling No No -Undermining/Tunneling No No -Circular Undermining No No -Change in Wound Grade/Stage -Exudate Amt Large Large -Exudate Type Yellow/Green Serosanguineous -Wound Margin Distinct, Distinct, Outline Outline Attached Attached -Granulation Amt Medium (34-66%) Large (67-100%) -Granulation Quality Red Red -Slough/Fibrin Yes Yes -Necrosis Amt Medium (34-66%) Small (1-33%) -Necrotic Tissue Type Adherent Slough Adherent Slough -Structure Exposed -Texture (Flower-wound Skin Appearance) Assessed, Assessed, Scarring Scarring -Moisture (Flower-wound Skin Appearance) Assessed Assessed,Dry/ Scaly -Color (Flower-wound Skin Appearance) Assessed Assessed -Temperature (Flower-wound Skin No Abnormality No Abnormality Appearance) (Pt Warm) (Pt Warm) -Tenderness on Palpation (Flower-wound No No Skin Appearance) -Ulcer Cleansing Soap and Water Soap and Water -Foul Odor after Cleansing No No -Anesthetic Used 4% Lidocaine 4% Lidocaine Solution Solution Lower Limb Edema Present Yes Yes Right Calf (cm) 51.5 50.9 Right Ankle (cm) 31 30.6 WC - Nurse 2 - General Ulcer CM Notes Start: 05/11/21 10:09 Freq: Status: Active Protocol: Activity Type Activity Date Activity User E-Sign Co-Sign Detail Recorded Client Recorded Date Recorded By Document 05/11/21 10:25 MW [id number] 05/11/21 10:37 MW Document 05/18/21 10:47 MW [id number] 05/18/21 10:57 MW Edit Result 05/18/21 10:47 MW (1) [id number] 05/19/21 06:45 PL Document 05/25/21 10:51 MW [id number] 05/25/21 10:55 MW Document 06/01/21 10:46 MW [id number] 06/01/21 10:51 MW Document 06/08/21 11:15 MW [id number] 06/08/21 11:22 MW (1) #4- R LOWER LEHMAN CLUSTER - Debridement, SubQ, ea addt'l 20sq cm => 4 or part thereof 05/11/21 05/18/21 05/25/21 10:25 10:47 10:51 Wound Center Nurse 2 #4- R LOWER LEHMAN CLUSTER -Time 10:26 10:48 10:53 -Correct Patient Yes Yes Yes -Correct Side, Site, Position Yes Yes Yes -Correct Procedure Yes Yes Yes -Procedure Performed Yes Yes Yes -Type of Procedure Debridement Incision & Debridement Drainage -Clinical Debridement Subcutaneous Subcutaneous Subcutaneous -Tissue Removed Subcutaneous Subcutaneous Subcutaneous -Post Debridement (cm) - Length 6.0 6.5 5.5 -Post Debridement (cm) - Width 18.0 15.0 17.0 -Post Debridement (cm) - Depth 0.1 0.1 0.1 -Total Square (Post) (cm) 108.00 97.50 93.50 -Area of Debridement (cm) - Length 6.0 6.5 5.5 -Area of Debridement (cm) - Width 18.0 15.0 17.0 -Total Square (Area) (cm) 108.00 97.50 93.50 -Tunneling No No No -Undermining/Tunneling No No No -Circular Undermining No No No -Wound/Ulcer Outcome Not Healed Not Healed Not Healed -Ulcer Cleansing Rinsed/ Rinsed/ Rinsed/ Irrigated with Irrigated with Irrigated with Saline Saline Saline -Foul Odor after Cleansing No No No -Bioengineered Tissue No No No -Bleeding Controlled with Pressure Pressure Pressure -Treatment Response Procedure Procedure Procedure Tolerated Well Tolerated Well Tolerated Well -Offloading No No No -Debridement - Subq, 1st 20sq cm Yes Yes Yes -Debridement, SubQ, ea addt'l 20sq cm 5 4 4 or part thereof #3- R LAT LE -Time 10:26 10:49 10:53 -Correct Patient Yes Yes Yes -Correct Side, Site, Position Yes Yes Yes -Correct Procedure Yes Yes Yes -Procedure Performed Yes Yes Yes -Type of Procedure Debridement Debridement Debridement -Clinical Debridement Subcutaneous Muscle / Fascia Subcutaneous -Tissue Removed Subcutaneous Muscle,Fascia Subcutaneous -Post Debridement (cm) - Length 3.0 1.5 2.0 -Post Debridement (cm) - Width 3.0 1.0 2.0 -Post Debridement (cm) - Depth 2.3 1.5 1.8 -Total Square (Post) (cm) 9.00 1.50 4.00 -Area of Debridement (cm) - Length 3.0 1.5 2.0 -Area of Debridement (cm) - Width 3.0 1.0 2.0 -Total Square (Area) (cm) 9.00 1.50 4.00 -Tunneling No No No -Tunneling Position (O'clock) -Tunneling Distance (cm) -Undermining/Tunneling No No No -Undermining/Tunneling Starts (O'clock ) -Undermining/Tunneling Ends (O'clock) -Maximum Distance (cm) -Circular Undermining No No No -Wound/Ulcer Outcome Not Healed Not Healed Not Healed -Ulcer Cleansing Rinsed/ Rinsed/ Wound Cleanser Irrigated with Irrigated with Saline Saline -Foul Odor after Cleansing No No No -Bioengineered Tissue No No No -Bleeding Controlled with Pressure Pressure Pressure -Treatment Response Procedure Procedure Procedure Tolerated Well Tolerated Well Tolerated Well -Offloading No No No -Debridement - Subq, 1st 20sq cm No No -Debridement - Muscle / Fascia, 1st Yes 20sq cm Pain Scale: 0-10 Numeric Is Patient Pain Free? Yes Yes Yes 06/01/21 06/08/21 10:46 11:15 Wound Center Nurse 2 #4- R LOWER LEHMAN CLUSTER -Time 10:49 11:17 -Correct Patient Yes Yes -Correct Side, Site, Position Yes Yes -Correct Procedure Yes Yes -Procedure Performed Yes Yes -Type of Procedure Debridement Debridement -Clinical Debridement Subcutaneous Subcutaneous -Tissue Removed Subcutaneous Subcutaneous -Post Debridement (cm) - Length 4.5 3.5 -Post Debridement (cm) - Width 15.0 15.0 -Post Debridement (cm) - Depth 0.1 0.1 -Total Square (Post) (cm) 67.50 52.50 -Area of Debridement (cm) - Length 4.5 3.5 -Area of Debridement (cm) - Width 15.0 15.0 -Total Square (Area) (cm) 67.50 52.50 -Tunneling No No -Undermining/Tunneling No No -Circular Undermining No No -Wound/Ulcer Outcome Not Healed Not Healed -Ulcer Cleansing Rinsed/ Rinsed/ Irrigated with Irrigated with Saline Saline -Foul Odor after Cleansing No No -Bioengineered Tissue No No -Bleeding Controlled with Pressure Pressure -Treatment Response Procedure Procedure Tolerated Well Tolerated Well -Offloading No No -Debridement - Subq, 1st 20sq cm Yes Yes -Debridement, SubQ, ea addt'l 20sq cm 3 2 or part thereof #3- R LAT LE -Time 10:49 11:17 -Correct Patient Yes Yes -Correct Side, Site, Position Yes Yes -Correct Procedure Yes Yes -Procedure Performed Yes Yes -Type of Procedure Debridement Debridement -Clinical Debridement Subcutaneous Subcutaneous -Tissue Removed Subcutaneous Subcutaneous -Post Debridement (cm) - Length 1.9 1.6 -Post Debridement (cm) - Width 2.0 1.9 -Post Debridement (cm) - Depth 1.7 1.1 -Total Square (Post) (cm) 3.80 3.04 -Area of Debridement (cm) - Length 1.9 1.6 -Area of Debridement (cm) - Width 2.0 1.9 -Total Square (Area) (cm) 3.80 3.04 -Tunneling No Yes -Tunneling Position (O'clock) 12 -Tunneling Distance (cm) 2.5 -Undermining/Tunneling Yes No -Undermining/Tunneling Starts (O'clock 7 ) -Undermining/Tunneling Ends (O'clock) 10 -Maximum Distance (cm) 0.4 -Circular Undermining No No -Wound/Ulcer Outcome Not Healed Not Healed -Ulcer Cleansing Rinsed/ Rinsed/ Irrigated with Irrigated with Saline Saline -Foul Odor after Cleansing No No -Bioengineered Tissue No No -Bleeding Controlled with Pressure Pressure -Treatment Response Procedure Procedure Tolerated Well Tolerated Well -Offloading No No -Debridement - Subq, 1st 20sq cm No No -Debridement - Muscle / Fascia, 1st 20sq cm Pain Scale: 0-10 Numeric Is Patient Pain Free? Yes Yes - Nurse 3 - General Ulcer D/C NN Start: 05/11/21 10:09 Freq: Status: Active Protocol: Activity Type Activity Date Activity User E-Sign Co-Sign Detail Recorded Client Recorded Date Recorded By Document 05/11/21 10:43 [facility] [id number] 05/11/21 10:45 [facility] Document 05/18/21 10:58 MW [id number] 05/18/21 11:00 MW Document 05/25/21 11:02 [place] [id number] 05/25/21 11:05 [place] Document 06/01/21 10:57 [place] [id number] 06/01/21 10:59 [place] Document 06/08/21 11:27 KR [id number] 06/08/21 11:28 KR 05/11/21 05/18/21 05/25/21 10:43 10:58 11:02 Wound Care Nurse 3 #4- R LOWER LEHMAN CLUSTER -Ulcer Cleansing Rinsed/ Not Cleansed Rinsed/ Irrigated with Irrigated with Saline Saline -Foul Odor after Cleansing No No No -Negative Pressure Wound Therapy N/A N/A -Primary Dressing Applied NonAdherent NonAdherent Contact Layer Contact Layer, Optilok 8x12 -Other Dressing xeroform xeroform -Primary Dressing Covered/Secured with Dry Gauze & Dry Gauze & Dry Gauze & Roll Gauze, Roll Gauze, Roll Gauze, Secured with Secured with Secured with Tape,Other Tape Tape -Other Covering ABD; DRSG PER [place] FIELD SERVICE MANAGER -Aquacel Rope -Optilok 6.5x10 1 -Optilok 8x12 0 #3- R LAT LE -Ulcer Cleansing Rinsed/ Rinsed/ Rinsed/ Irrigated with Irrigated with Irrigated with Saline Saline Saline -Foul Odor after Cleansing No No No -Negative Pressure Wound Therapy N/A N/A -Primary Dressing Applied Aquacel Rope, Aquacel Rope, Aquacel Rope, Optilok 6.5x10 Optilok 8x12 Optilok 8x12 -Other Dressing -Primary Dressing Covered/Secured with Dry Gauze & Dry Gauze & Roll Gauze, Roll Gauze, Secured with Secured with Tape Tape -Other Covering DRSG PER [place] FIELD SERVICE MANAGER -Aquacel Rope 1 1 1 -Optilok 6.5x10 1 -Optilok 8x12 3 0 Right -Lotion applied to leg before No No compression wrap -Tubular Bandage Double Layer Double Layer Double Layer -Size of Tubigrip Used Size F Size F Size E -Size E ($) 2 -Size F ($) 2 2 Treatment Response Procedure Procedure Tolerated Well Tolerated Well Pain Scale: 0-10 Numeric Is Patient Pain Free? Yes Yes Yes Teaching: Wound Center Dressing Your Wound -Person Taught Patient -Teaching Method Discussion -Response to teaching Verbalize understanding WC - Visit Discharge Discharge Condition Stable Stable Stable Ambulatory Status Ambulatory Ambulatory Ambulatory Transportation Private Auto Private Auto Private Auto Accompanied by self Medication Reconcilliation completed & No Yes provided to patient/care provider Clinical Summary of Care Provided Yes Yes 06/01/21 06/08/21 10:57 11:27 Wound Care Nurse 3 #4- R LOWER LEHMAN CLUSTER -Ulcer Cleansing -Foul Odor after Cleansing -Negative Pressure Wound Therapy -Primary Dressing Applied Optilok 8x12, Aquacel Rope Other -Other Dressing xeroform super absorb -Primary Dressing Covered/Secured with Dry Gauze & Dry Gauze, Roll Gauze, Secured with Secured with Tape Tape -Other Covering -Aquacel Rope 1 -Optilok 6.5x10 -Optilok 8x12 1 #3- R LAT LE -Ulcer Cleansing Rinsed/ Rinsed/ Irrigated with Irrigated with Saline Saline -Foul Odor after Cleansing -Negative Pressure Wound Therapy -Primary Dressing Applied Aquacel Rope -Other Dressing xeroform -Primary Dressing Covered/Secured with Dry Gauze & Dry Gauze, Roll Gauze, Secured with Secured with Tape Tape -Other Covering -Aquacel Rope 1 -Optilok 6.5x10 -Optilok 8x12 Right -Lotion applied to leg before compression wrap -Tubular Bandage Double Layer -Size of Tubigrip Used Size F -Size E ($) -Size F ($) 2 Treatment Response Pain Scale: 0-10 Numeric Is Patient Pain Free? Yes Yes Teaching: Wound Center Dressing Your Wound -Person Taught -Teaching Method -Response to teaching WC - Visit Discharge Discharge Condition Stable Stable Ambulatory Status Ambulatory Ambulatory Transportation Private Auto Private Auto Accompanied by Medication Reconcilliation completed & Yes provided to patient/care provider Clinical Summary of Care Provided Yes Additional Wound Wound debrided: Right ankle superficial openings from peripheral vascular disease Laterality: Right Type of Debridement: Excisional debridement Anesthesia Used: 5% Lidocaine Gel Depth: Down to and including healthy tissue Percentage of wound debrided: 100 Instrument Used: 5mm curette Tissue Removed: Fibrin and some devitalized tissue Severity: Limited To Skin Breakdown Amount of bleeding with debridement: None Bleeding Controlled with: Compression and gauze Patient tolerated procedure: Patient tolerated procedure well Assessment/Plan Assessment/Plan (1) Infected wound: CODE(S): T14.8XXA - Other injury of unspecified body region, initial encounter; L08.9 - Local infection of the skin and subcutaneous tissue, unspecified PLAN: Wound cultures obtained finish the doxycycline twice a day till gone (2) Edema, lower extremity: CODE(S): R60.0 - Localized edema PLAN: Applied double layer Tubigrip to the right lower leg (3) Diabetes type 2, uncontrolled: CODE(S): E11.65 - Type 2 diabetes mellitus with hyperglycemia QUALIFIERS: Glycemic state: with hyperglycemia Qualified Code(s): E11.65 - Type 2 diabetes mellitus with hyperglycemia PLAN: Better control of sugar by monitoring and taking medications (4) Peripheral vascular disease of lower extremity with ulceration: CODE(S): I73.9 - Peripheral vascular disease, unspecified; L97.909 - Non-pressure chronic ulcer of unspecified part of unspecified lower leg with unspecified severity PLAN: Appointment with Dr. Ojeda on June 22 (5) Nonhealing nonsurgical wound with fat layer exposed: CODE(S): T14.8XXA - Other injury of unspecified body region, initial encounter PLAN: Wash the right lower leg with antibacterial soap pack the right lower leg wound with Ag roping cover with gauze and tape Xeroform dressing to the right ankle area cover with gauze and Christen increase dressings to 2 times a day to the right lateral lower leg Double layer Tubigrip to the right leg Follow-up in 1 week
== END 2021-06-09 23:59 | disposition home or self-care (01) ==
LOC: WC 10:45
PROVIDERS: PCP Family Medicine; Visit Provider Nurse Practitioner
DX: E11.622 Type 2 diabetes mellitus with other skin ulcer (principal); E11.51 Type 2 diabetes mellitus with diabetic peripheral angiopathy without gangrene; L97.312 Non-pressure chronic ulcer of right ankle with fat layer exposed; L97.311 Non-pressure chronic ulcer of right ankle limited to breakdown of skin; K50.90 Crohn's disease, unspecified, without complications; E11.65 Type 2 diabetes mellitus with hyperglycemia; L08.9 Local infection of the skin and subcutaneous tissue, unspecified; I10 Essential (primary) hypertension; Z79.84 Long term (current) use of oral hypoglycemic drugs; R60.0 Localized edema; Z86.718 Personal history of other venous thrombosis and embolism; R32 Unspecified urinary incontinence; Z79.899 Other long term (current) drug therapy
CPT/HCPCS: 11042; 11043; 11045; 87070; 87075; 87077; 87186; 87205; 99213; G0463

== ENCOUNTER 2021-06-21 20:22 | Emergency (ER) | payer OTHER, BC, SELFPAY ==
[2021-06-21 20:24] VITALS: BP 138/82; PULSE 74; TEMP 36.2; BMI 46.1
--- NOTE | 2021-06-21 20:27 | ED.RN ---
OUR SYSTEM SAYS TO CALL [facility] FOR FRANSISCO BRUSH. EVON WAS CALLED AND STATES THEY DONT DO FRANSISCO BRUSH. EVON STATES SHE WILL LOOK INTO IT.
--- NOTE | 2021-06-21 21:22 | EDS_ITS ---
HPI History of Present Illness Chief Complaint: Laceration Informant: patient Onset/Context/Timing Onset: Today Current Severity: Mild Maximum Severity: Moderate Narrative Narrative: Patient presents secondary laceration to the left fourth finger. She was at work today when a piece of machinery came down and caught her left fourth finger. She was able to pull her finger out of the entrapment. She is a flap laceration of the proximal phalanx of the left fourth finger. She is unsure of her last tetanus update. She denies any other injury. [facility] Medical History Crohn's disease Diabetes DVT (deep venous thrombosis) Hypertension Urinary incontinence Home Medications amlodipine 5 mg PO QHS 06/09/14 [History Last Taken 10/24/15 00:00] bisoprolol-hydrochlorothiazide 1 tab PO DAILY 06/09/14 [History Last Taken 10/24/15 01:00] lisinopril 40 mg PO QHS 06/09/14 [History Last Taken 10/24/15 00:00] glimepiride 4 mg PO DAILY #60 tab 10/28/15 [Rx Last Taken Unknown] rivaroxaban 20 mg PO DINNER 06/04/20 [History Last Taken Unknown] metformin 1,000 mg PO BID #0 06/07/20 [Rx Last Taken Unknown] pen needle, diabetic, safety #1 box 06/07/20 [Rx Last Taken Unknown] cholecalciferol (vitamin D3) [Vitamin D3] 25 mcg PO DAILY 05/11/21 [History Last Taken Unknown] magnesium mg PO DAILY 05/11/21 [History Last Taken Unknown] Allergy/AdvReac Type Severity Reaction Status Date / Time Sulfa (Sulfonamide Allergy Hives Verified 06/21/21 20:24 Antibiotics) Family History Mother Heart disease Surgical History H/O colonoscopy H/O tubal ligation S/P foot surgery Social History Smoking Status: Never smoker alcohol intake: never substance use type: does not use caffeine: Yes what type of physical activity do you participate in: walking frequency: 1-2 times per week seatbelt use: always do you feel safe at home: Yes additional social history: [employer] [place] second shift- [employer] [place] [employer] [facility] ED Constitutional Constitutional ED: Denies chills or fever(s) Eyes Eyes: Denies change in vision ENT ENT ED: Denies sore throat Cardiovascular Cardiovascular: Denies chest pain Respiratory/Chest Respiratory/Chest: Denies cough or dyspnea Gastrointestinal Gastrointestinal: Denies abdominal pain, nausea or vomiting Musculoskeletal Musculoskeletal: Reports other Details: Left hand pain ; Denies back pain Integumentary Reports other Details: Laceration left fourth finger ; Denies rash Neurologic Neurologic: Denies headache(s), paresthesias or weakness Allergic/Immunologic Allergic/Immunologic ED: Denies urticaria EXAM Physical Exam Const Vital Signs: 06/21/21 20:24 Temperature 97.2 F L Temperature Source Temporal Pulse Rate 74 Blood Pressure 138/82 H Blood Pressure Mean 100 Positive well nourished and well developed General Appearance ED: well developed HEENT normocephalic Eyes PERRL and EOMs intact bilaterally Neck supple Chest Wall inspection of chest normal and palpation of chest normal Resp normal respiratory effort and clear to auscultation bilaterally Cardio regular rate and regular rhythm GI non-tender Palpation: soft Extremity Extremity Narrative: 2.5 cm laceration to the proximal phalanx of the left fourth finger along the extensor surface. Full range of motion of digit without difficulty. Good cap refill distally. Neuro oriented x3 and no sensory deficits noted Sensorium / Orientation: alert Motor Exam: strength 5/5 throughout MDM MDM MDM Narrative Medical decision making narrative: Left fourth finger x-rays obtained. Tetanus update given. Treatment and Re-Evaluation Narrative: Left finger laceration sutured. Please see procedure note. Patient will follow up with [facility]. Work restrictions provided. Procedures Lacerations Left fourth finger laceration: Length: 0.98 in Depth: Sub Q Shape: Flap Prep: Rupali-Moo Laceration repair: Local (2 cc 1% lidocaine) Number of Sutures/Shahram: 3 Suture Information: Ethilon, Simple and 5-0 Discharge Plan Triage Chief Complaint: Laceration ED Provider: Stephy Moore Dx/Rx/DC Orders Clinical Impression: Finger laceration Instructions: ED Laceration, Hand: All Closures Prescriptions: No Action bisoprolol-hydrochlorothiazide 1 TAB tablet 1 tab PO DAILY RF: 0 amlodipine 5 MG tablet 5 mg PO QHS RF: 0 lisinopril 40 MG tablet 40 mg PO QHS RF: 0 glimepiride 2 MG tablet 4 mg PO DAILY Qty: 60 RF: 0 rivaroxaban 20 MG tablet 20 mg PO DINNER RF: 0 (DME) pen needle, diabetic, safety 1 EACH needle 1 each MISCELL. UD Qty: 1 RF: 0 metformin 1,000 mg tablet 1,000 mg PO BID Qty: 0 RF: 0 magnesium 100 mg Capsule PO DAILY RF: 0 cholecalciferol (vitamin D3) [Vitamin D3] 25 mcg (1,000 unit) Capsule 25 mcg PO DAILY RF: 0 Stand Alone Forms: Work Status Form Primary Care Provider: Stu Orozco Referrals: [facility]IC[facility]] - 7 Days for suture removal Stu Orozco MD [Primary Care Provider] - Disposition Disposition: Home, Self Care
--- NOTE | 2021-06-21 21:38 | RAD_ITS ---
EXAM: XR LEFT FINGERS, 2 OR MORE VIEWS CLINICAL INDICATION: injury -- left 4th finger TECHNIQUE: Frontal, lateral and oblique views of the fingers of the left hand. This report was created using [employer] technology. COMPARISON: None. FINDINGS: BONES/JOINTS: Advanced demineralization for age. Moderate narrowing of the DIP and PIP joints. No acute fracture. No subluxation. Normal alignment. No sclerotic or destructive changes observed. SOFT TISSUES: Soft tissue swelling at the dorsum of the fourth digit at the level of the distal metacarpal and MCP joint. No underlying fracture or subluxation. No radiopaque foreign body. RAD/Finger(s) Min 2 Views IMPRESSION: No acute findings in the fingers of the left hand. Demineralization and degenerative joint changes. Electronically Signed: Noni Natarajan MD at 22:32 EDT ,
[2021-06-21] MEDS: Diphth,Pertuss(Acell),Tet Vac 0.5 ML Vial IM (22:07)
[2021-06-21] MEDS: Lidocaine 1% (20 ml mdv) 20 ML Vial INFILT (22:10)
[2021-06-21 22:11] VITALS: PULSE 84; RESP 16; O2SAT 99
== END 2021-06-21 22:12 | disposition home or self-care (01) ==
PROVIDERS: Emergency Provider Emergency Medicine; PCP Family Medicine; Visit Provider Emergency Medicine
DX: S61.215A Laceration without foreign body of left ring finger without damage to nail, initial encounter (principal); E11.9 Type 2 diabetes mellitus without complications; W31.9XXA Contact with unspecified machinery, initial encounter; Y99.0 Civilian activity done for income or pay; I10 Essential (primary) hypertension; Z79.84 Long term (current) use of oral hypoglycemic drugs; Z79.899 Other long term (current) drug therapy
CPT/HCPCS: 12001; 73140; 90471; 90715; 99283

== ENCOUNTER 2021-07-06 10:30 | Outpatient (RCR) | payer BC, SELFPAY ==
[2021-06-10 00:10] VITALS: BP 181/92; PULSE 89; RESP 16; TEMP 36.6; BMI 29.3
[2021-06-15 10:45] VITALS: BP 164/85; PULSE 72; TEMP 35.9; BMI 29.3
--- NOTE | 2021-06-15 11:45 | PN.PCM_ITS ---
History of Present Illness Date of Service: 06/15/21 Chief Complaint: Follow-up on right lower leg blister that opened to a hole and again open areas around the ankle History of Wound: 60-year-old white female that was just discharged in March for basically the same thing around her ankles. Never followed up with Dr. Ojeda. 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 Patient states she developed a blister on her right lateral leg that she popped and now it is a deep crater hole on the right lateral leg. Again the ankle the top layer skin she gets were it just opens up like a blister. Progress of Wound: Ankle is almost healed looks very good and 1 little spot that was the deepest area that is still healing but has new cells developing. Right lateral hole that she has is filling in no more deepness it it is filled and and she now just has positive depth Subjective Subjective Patient states has an appoint with Dr. Ojeda next week in the afternoon Objective Data Objective Data No sign of infection as above all improved patient should be healing well especially after she gets treatment from Dr. Ojeda Vital Signs: Vital Signs Temp Pulse Resp BP 96.7 F L 72 16 164/85 H 06/15/21 10:45 06/15/21 10:45 06/10/21 00:10 06/15/21 10:45 Weight: 182 lb Body Mass Index (BMI) 29.3 Lab / Micro Data Attestation: I reviewed the patient's lab results. Physical Exam Const oriented x3 General Appearance: cooperative Exam Limitations: no limitations HEENT normocephalic Head and Scalp: normal to inspection Face and Sinus: normal facial exam Nose: external nose normal General Ear: hearing grossly impaired External Ear: external ears normal Mouth: oral and palatal mucosa normal Eyes PERRL General Eye: normal appearance of both eyes Neck full ROM General: normal visual inspection Resp normal respiratory effort Effort and Inspection: able to speak in complete sentences Auscultation: clear to auscultation bilaterally Cardio regular rate and regular rhythm Palpation: normal PMI Rate: regular rate Rhythm: regular rhythm GI Auscultation: normoactive bowel sounds Palpation: soft and no hepatosplenomegaly external exam normal Back/Spine Cervical Spine: cervical ROM normal Thoracic Spine / Upper Back: normal to inspection Lumbar Spine / Lower Back: normal to inspection Extremity normal to inspection General Extremity: normal exam except as noted Skin Skin Narrative: Edematous bilateral lower extremities history of positive ultrasound done previously with her incompetency is in her right lower leg worse than her left. Discoloration of skin from blood going through into the skin area staining. This time she has a huge crater hole on the right lateral leg from a blister that popped and her right ankle again has blistered and opened in its superficial not quite circumferential on her legs. Appears the patient has not been wearing her compression stockings Neuro oriented x3 Psych Appearance: grossly normal Speech: normal speech Thought Content: normal thought content Judgement: judgement good Debridement Note Debridement Note Wound debrided: Right ankle superficial nonhealing wounds due to peripheral vascular diseas Type of Debridement: Excisional debridement Anesthesia Used: 5% Lidocaine Gel Depth: Down to and including healthy tissue Percentage of wound debrided: 100 Instrument Used: 7mm curette Tissue Removed: Fibrin Severity: Limited To Skin Breakdown Amount of bleeding with debridement: Mild Bleeding Controlled with: Pressure Patient tolerated procedure: Patient tolerated procedure well Post-Debridement Measurements and Additional Note: Post-Debridement Measurements/Treatment - Nurse 1 - General Ulcer Assessment Start: 06/15/21 10:44 Freq: Status: Active Protocol: MICHELLE.[email or web address] Activity Type Activity Date Activity User E-Sign Co-Sign Detail Recorded Client Recorded Date Recorded By Document 06/15/21 10:45 DREW [id number] 06/15/21 10:52 DREW 06/15/21 10:45 - Today's Visit Information 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 Any new allergies or adverse reactions No Had a fall/change in ADL's that may No increase risk of falls Signs or symptoms of abuse and/or No neglect since last visit Have you been in the hospital since your No last visit? Has dressing in place as prescribed Yes Has compression in place as prescribed Yes Has offloadiing in place as prescribed N/A Experienced any changes in pain level or No management Left Footwear Regular Shoe Right Footwear Regular Shoe Pain Scale: 0-10 Numeric Is Patient Pain Free? Yes WC - Nurse 1 - General Ulcer Measurement Start: 06/15/21 10:44 Freq: Status: Active Protocol: Activity Type Activity Date Activity User E-Sign Co-Sign Detail Recorded Client Recorded Date Recorded By Document 06/15/21 10:45 DREW [id number] 06/15/21 10:52 KR 06/15/21 10:45 Wound Center Nurse 1 #4- R LOWER LEHMAN CLUSTER -Current Size (cm) - Length 3.3 -Current Size (cm) - Width 16 -Current Size (cm) - Depth 0.1 -Total Square Cm 52.8 -Exudate Amt Small -Exudate Type Serosanguineous -Wound Margin Distinct, Outline Attached -Granulation Amt Medium (34-66%) -Granulation Quality Red -Necrosis Amt Medium (34-66%) -Necrotic Tissue Type Adherent Slough -Texture (Flower-wound Skin Appearance) Assessed, Scarring -Moisture (Flower-wound Skin Appearance) Assessed, Maceration -Color (Flower-wound Skin Appearance) No Abnormality, Assessed -Temperature (Flower-wound Skin No Abnormality Appearance) (Pt Warm) -Tenderness on Palpation (Flower-wound No Skin Appearance) -Ulcer Cleansing Rinsed/ Irrigated with Saline -Foul Odor after Cleansing No -Anesthetic Used 4% Lidocaine Solution #3- R LAT LE -Current Size (cm) - Length 1.5 -Current Size (cm) - Width 1.5 -Current Size (cm) - Depth 1.0 -Total Square Cm 2.25 -Tunneling Position (O'clock) 12 -Tunneling Distance (cm) 2.5 -Exudate Amt Medium -Exudate Type Serosanguineous -Wound Margin Distinct, Outline Attached -Granulation Amt Medium (34-66%) -Granulation Quality Red -Necrosis Amt Medium (34-66%) -Necrotic Tissue Type Adherent Slough -Texture (Flower-wound Skin Appearance) Assessed, Scarring -Moisture (Flower-wound Skin Appearance) No Abnormality, Assessed -Color (Flower-wound Skin Appearance) No Abnormality, Assessed -Temperature (Flower-wound Skin No Abnormality Appearance) (Pt Warm) -Tenderness on Palpation (Flower-wound No Skin Appearance) -Ulcer Cleansing Rinsed/ Irrigated with Saline -Foul Odor after Cleansing No -Anesthetic Used 5% Lidocaine Gel WC - Nurse 2 - General Ulcer CM Notes Start: 06/15/21 10:44 Freq: Status: Active Protocol: Activity Type Activity Date Activity User E-Sign Co-Sign Detail Recorded Client Recorded Date Recorded By Document 06/15/21 11:03 MW [id number] 06/15/21 11:08 MW 06/15/21 11:03 Wound Center Nurse 2 #4- R LOWER LEHMAN CLUSTER -Time 11:03 -Correct Patient Yes -Correct Side, Site, Position Yes -Correct Procedure Yes -Procedure Performed Yes -Type of Procedure Debridement -Clinical Debridement Subcutaneous -Tissue Removed Subcutaneous -Post Debridement (cm) - Length 1.0 -Post Debridement (cm) - Width 1.5 -Post Debridement (cm) - Depth 0.1 -Total Square (Post) (cm) 1.50 -Area of Debridement (cm) - Length 1.0 -Area of Debridement (cm) - Width 1.5 -Total Square (Area) (cm) 1.50 -Tunneling No -Undermining/Tunneling No -Circular Undermining No -Wound/Ulcer Outcome Not Healed -Ulcer Cleansing Rinsed/ Irrigated with Saline -Foul Odor after Cleansing No -Bioengineered Tissue No -Bleeding Controlled with Pressure -Treatment Response Procedure Tolerated Well -Offloading No -Debridement - Subq, 1st 20sq cm Yes #3- R LAT LE -Time 11:05 -Correct Patient Yes -Correct Side, Site, Position Yes -Correct Procedure Yes -Procedure Performed Yes -Type of Procedure Debridement -Clinical Debridement Subcutaneous -Tissue Removed Subcutaneous -Post Debridement (cm) - Length 1.4 -Post Debridement (cm) - Width 1.5 -Post Debridement (cm) - Depth 0.7 -Total Square (Post) (cm) 2.10 -Area of Debridement (cm) - Length 1.4 -Area of Debridement (cm) - Width 1.5 -Total Square (Area) (cm) 2.10 -Tunneling No -Undermining/Tunneling No -Circular Undermining No -Wound/Ulcer Outcome Not Healed -Ulcer Cleansing Rinsed/ Irrigated with Saline -Foul Odor after Cleansing No -Bioengineered Tissue No -Bleeding Controlled with Pressure -Treatment Response Procedure Tolerated Well -Offloading No -Debridement - Subq, 1st 20sq cm No Pain Scale: 0-10 Numeric Is Patient Pain Free? Yes WC - Nurse 3 - General Ulcer D/C NN Start: 06/15/21 10:44 Freq: Status: Active Protocol: Activity Type Activity Date Activity User E-Sign Co-Sign Detail Recorded Client Recorded Date Recorded By Document 06/15/21 11:17 [id number] 06/15/21 11:18 DREW 06/15/21 11:17 Wound Care Nurse 3 #4- R LOWER LEHMAN CLUSTER -Ulcer Cleansing Rinsed/ Irrigated with Saline -Primary Dressing Applied Aquacel Rope -Primary Dressing Covered/Secured with Dry Gauze,Dry Gauze & Roll Gauze,Secured with Tape -Aquacel Rope 1 #3- R LAT LE -Ulcer Cleansing Rinsed/ Irrigated with Saline -Other Dressing xeroform -Primary Dressing Covered/Secured with Dry Gauze, Secured with Tape Right -Tubular Bandage Double Layer -Size of Tubigrip Used Size F -Size F ($) 2 Pain Scale: 0-10 Numeric Is Patient Pain Free? Yes Additional Wound Wound debrided: Right lateral ulcer from peripheral vascular disease that blistered Type of Debridement: Excisional debridement Anesthesia Used: 5% Lidocaine Gel Depth: Down to and including healthy tissue Percentage of wound debrided: 100 Instrument Used: 5mm curette Tissue Removed: Fibrin Severity: Fat Layer Exposed Amount of bleeding with debridement: Mild Bleeding Controlled with: Compression and gauze Assessment/Plan Assessment/Plan (1) Infected wound: CODE(S): T14.8XXA - Other injury of unspecified body region, initial encounter; L08.9 - Local infection of the skin and subcutaneous tissue, unspe cified PLAN: Wound cultures obtained finish the doxycycline twice a day till gone (2) Edema, lower extremity: CODE(S): R60.0 - Localized edema PLAN: Applied double layer Tubigrip to the right lower leg (3) Diabetes type 2, uncontrolled: CODE(S): E11.65 - Type 2 diabetes mellitus with hyperglycemia QUALIFIERS: Glycemic state: with hyperglycemia Qualified Code(s): E11.65 - Type 2 diabetes mellitus with hyperglycemia PLAN: Better control of sugar by monitoring and taking medications (4) Peripheral vascular disease of lower extremity with ulceration: CODE(S): I73.9 - Peripheral vascular disease, unspecified; L97.909 - Non- pressure chronic ulcer of unspecified part of unspecified lower leg with unspecified severity PLAN: Appointment with Dr. Ojeda on June 22 (5) Nonhealing nonsurgical wound with fat layer exposed: CODE(S): T14.8XXA - Other injury of unspecified body region, initial encounter PLAN: Wash the right lower leg with antibacterial soap pack the right lower leg wound with Ag roping cover with gauze and tape Xeroform dressing to the right ankle area cover with gauze and Christen increase dressings to 2 times a day to the right lateral lower leg Double layer Tubigrip to the right leg Follow-up in 1 week
--- NOTE | 2021-06-22 11:13 | PN.PCM_ITS ---
History of Present Illness Date of Service: 06/22/21 Chief Complaint: Follow-up on right lower leg blister that opened to a hole and again open areas around the ankle History of Wound: 60-year-old white female that was just discharged in March for basically the same thing around her ankles. Never followed up with Dr. Ojeda. 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 Patient states she developed a blister on her right lateral leg that she popped and now it is a deep crater hole on the right lateral leg. Again the ankle the top layer skin she gets were it just opens up like a blister. Progress of Wound: Ankle is almost healed looks very good and 1 little spot that was the deepest area that is still healing but has new cells developing. Right lateral hole that she has is filling in. All improving Subjective Subjective Patient states has appoint with Rusty today at 230 Objective Data Objective Data As stated above no sign of infection right lateral leg hole is now just a divot in her leg amazingly she is healed very well and her right ankle is healing also very well has 1 open area that just needs skin coverage. Vital Signs: Vital Signs Temp Pulse Resp BP 96.7 F L 72 16 164/85 H 06/15/21 10:45 06/15/21 10:45 06/10/21 00:10 06/15/21 10:45 Weight: 182 lb Body Mass Index (BMI) 29.3 Physical Exam Const oriented x3 General Appearance: cooperative Exam Limitations: no limitations HEENT normocephalic Head and Scalp: normal to inspection Face and Sinus: normal facial exam Nose: external nose normal General Ear: hearing grossly impaired External Ear: external ears normal Mouth: oral and palatal mucosa normal Eyes PERRL General Eye: normal appearance of both eyes Neck full ROM General: normal visual inspection Resp normal respiratory effort Effort and Inspection: able to speak in complete sentences Auscultation: clear to auscultation bilaterally Cardio regular rate and regular rhythm Palpation: normal PMI Rate: regular rate Rhythm: regular rhythm GI Auscultation: normoactive bowel sounds Palpation: soft and no hepatosplenomegaly external exam normal Back/Spine Cervical Spine: cervical ROM normal Thoracic Spine / Upper Back: normal to inspection Lumbar Spine / Lower Back: normal to inspection Extremity normal to inspection General Extremity: normal exam except as noted Skin Skin Narrative: Edematous bilateral lower extremities history of positive ultrasound done previously with her incompetency is in her right lower leg worse than her left. Discoloration of skin from blood going through into the skin area staining. This time she has a huge crater hole on the right lateral leg from a blister that popped and her right ankle again has blistered and opened in its superficial not quite circumferential on her legs. Appears the patient has not been wearing her compression stockings Neuro oriented x3 Psych Appearance: grossly normal Speech: normal speech Thought Content: normal thought content Judgement: judgement good Debridement Note Debridement Note Wound debrided: Right lateral leg ulcer from her peripheral vascular disease Laterality: Right Type of Debridement: Excisional debridement Anesthesia Used: 5% Lidocaine Gel Depth: Down to and including healthy tissue Percentage of wound debrided: 100 Instrument Used: 5mm curette Tissue Removed: Fibrin Severity: Fat Layer Exposed Amount of bleeding with debridement: Mild Bleeding Controlled with: Pressure Patient tolerated procedure: Patient tolerated procedure well Post-Debridement Measurements and Additional Note: Post-Debridement Measurements/Treatment - Nurse 1 - General Ulcer Assessment Start: 06/15/21 10:44 Freq: Status: Active Protocol: MICHELLE.LOWARIAT Activity Type Activity Date Activity User E-Sign Co-Sign Detail Recorded Client Recorded Date Recorded By Document 06/15/21 10:45 DREW [id number] 06/15/21 10:52 DREW 06/15/21 10:45 - Today's Visit Information 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 Any new allergies or adverse reactions No Had a fall/change in ADL's that may No increase risk of falls Signs or symptoms of abuse and/or No neglect since last visit Have you been in the hospital since your No last visit? Has dressing in place as prescribed Yes Has compression in place as prescribed Yes Has offloadiing in place as prescribed N/A Experienced any changes in pain level or No management Left Footwear Regular Shoe Right Footwear Regular Shoe Pain Scale: 0-10 Numeric Is Patient Pain Free? Yes WC - Nurse 1 - General Ulcer Measurement Start: 06/15/21 10:44 Freq: Status: Active Protocol: Activity Type Activity Date Activity User E-Sign Co-Sign Detail Recorded Client Recorded Date Recorded By Document 06/15/21 10:45 DREW [id number] 06/15/21 10:52 KR 06/15/21 10:45 Wound Center Nurse 1 #4- R LOWER LEHMAN CLUSTER -Current Size (cm) - Length 3.3 -Current Size (cm) - Width 16 -Current Size (cm) - Depth 0.1 -Total Square Cm 52.8 -Exudate Amt Small -Exudate Type Serosanguineous -Wound Margin Distinct, Outline Attached -Granulation Amt Medium (34-66%) -Granulation Quality Red -Necrosis Amt Medium (34-66%) -Necrotic Tissue Type Adherent Slough -Texture (Flower-wound Skin Appearance) Assessed, Scarring -Moisture (Flower-wound Skin Appearance) Assessed, Maceration -Color (Flower-wound Skin Appearance) No Abnormality, Assessed -Temperature (Flower-wound Skin No Abnormality Appearance) (Pt Warm) -Tenderness on Palpation (Flower-wound No Skin Appearance) -Ulcer Cleansing Rinsed/ Irrigated with Saline -Foul Odor after Cleansing No -Anesthetic Used 4% Lidocaine Solution #3- R LAT LE -Current Size (cm) - Length 1.5 -Current Size (cm) - Width 1.5 -Current Size (cm) - Depth 1.0 -Total Square Cm 2.25 -Tunneling Position (O'clock) 12 -Tunneling Distance (cm) 2.5 -Exudate Amt Medium -Exudate Type Serosanguineous -Wound Margin Distinct, Outline Attached -Granulation Amt Medium (34-66%) -Granulation Quality Red -Necrosis Amt Medium (34-66%) -Necrotic Tissue Type Adherent Slough -Texture (Flower-wound Skin Appearance) Assessed, Scarring -Moisture (Flower-wound Skin Appearance) No Abnormality, Assessed -Color (Flower-wound Skin Appearance) No Abnormality, Assessed -Temperature (Flower-wound Skin No Abnormality Appearance) (Pt Warm) -Tenderness on Palpation (Flower-wound No Skin Appearance) -Ulcer Cleansing Rinsed/ Irrigated with Saline -Foul Odor after Cleansing No -Anesthetic Used 5% Lidocaine Gel WC - Nurse 2 - General Ulcer CM Notes Start: 06/15/21 10:44 Freq: Status: Active Protocol: Activity Type Activity Date Activity User E-Sign Co-Sign Detail Recorded Client Recorded Date Recorded By Document 06/15/21 11:03 MW [id number] 06/15/21 11:08 MW Document 06/22/21 10:59 MW [id number] 06/22/21 11:02 MW 06/15/21 06/22/21 11:03 10:59 Wound Center Nurse 2 #4- R LOWER LEHMAN CLUSTER -Time 11:03 11:00 -Correct Patient Yes Yes -Correct Side, Site, Position Yes Yes -Correct Procedure Yes Yes -Procedure Performed Yes Yes -Type of Procedure Debridement Debridement -Clinical Debridement Subcutaneous Subcutaneous -Tissue Removed Subcutaneous Subcutaneous -Post Debridement (cm) - Length 1.0 2.3 -Post Debridement (cm) - Width 1.5 3.5 -Post Debridement (cm) - Depth 0.1 0.1 -Total Square (Post) (cm) 1.50 8.05 -Area of Debridement (cm) - Length 1.0 2.3 -Area of Debridement (cm) - Width 1.5 3.5 -Total Square (Area) (cm) 1.50 8.05 -Tunneling No No -Undermining/Tunneling No No -Circular Undermining No No -Wound/Ulcer Outcome Not Healed Not Healed -Ulcer Cleansing Rinsed/ Rinsed/ Irrigated with Irrigated with Saline Saline -Foul Odor after Cleansing No No -Bioengineered Tissue No No -Bleeding Controlled with Pressure NA -Treatment Response Procedure Procedure Tolerated Well Tolerated Well -Offloading No No -Debridement - Subq, 1st 20sq cm Yes Yes #3- R LAT LE -Time 11:05 11:01 -Correct Patient Yes Yes -Correct Side, Site, Position Yes Yes -Correct Procedure Yes Yes -Procedure Performed Yes Yes -Type of Procedure Debridement Debridement -Clinical Debridement Subcutaneous Subcutaneous -Tissue Removed Subcutaneous Subcutaneous -Post Debridement (cm) - Length 1.4 1.5 -Post Debridement (cm) - Width 1.5 1.0 -Post Debridement (cm) - Depth 0.7 0.4 -Total Square (Post) (cm) 2.10 1.50 -Area of Debridement (cm) - Length 1.4 1.5 -Area of Debridement (cm) - Width 1.5 1.0 -Total Square (Area) (cm) 2.10 1.50 -Tunneling No No -Undermining/Tunneling No No -Circular Undermining No No -Wound/Ulcer Outcome Not Healed Not Healed -Ulcer Cleansing Rinsed/ Rinsed/ Irrigated with Irrigated with Saline Saline -Foul Odor after Cleansing No No -Bioengineered Tissue No No -Bleeding Controlled with Pressure Pressure -Treatment Response Procedure Procedure Tolerated Well Tolerated Well -Offloading No No -Debridement - Subq, 1st 20sq cm No No Pain Scale: 0-10 Numeric Is Patient Pain Free? Yes Yes WC - Nurse 3 - General Ulcer D/C NN Start: 06/15/21 10:44 Freq: Status: Active Protocol: Activity Type Activity Date Activity User E-Sign Co-Sign Detail Recorded Client Recorded Date Recorded By Document 06/15/21 11:17 [id number] 06/15/21 11:18 DREW 06/15/21 11:17 Wound Care Nurse 3 #4- R LOWER LEHMAN CLUSTER -Ulcer Cleansing Rinsed/ Irrigated with Saline -Primary Dressing Applied Aquacel Rope -Primary Dressing Covered/Secured with Dry Gauze,Dry Gauze & Roll Gauze,Secured with Tape -Aquacel Rope 1 #3- R LAT LE -Ulcer Cleansing Rinsed/ Irrigated with Saline -Other Dressing xeroform -Primary Dressing Covered/Secured with Dry Gauze, Secured with Tape Right -Tubular Bandage Double Layer -Size of Tubigrip Used Size F -Size F ($) 2 Pain Scale: 0-10 Numeric Is Patient Pain Free? Yes Additional Wound Wound debrided: Right ankle Type of Debridement: Excisional debridement Anesthesia Used: 5% Lidocaine Gel Depth: Down to and including healthy tissue Percentage of wound debrided: 100 Instrument Used: 5mm curette Tissue Removed: Fibrin Severity: Limited To Skin Breakdown Amount of bleeding with debridement: None Bleeding Controlled with: Compression and gauze Assessment/Plan Assessment/Plan (1) Infected wound: CODE(S): T14.8XXA - Other injury of unspecified body region, initial encounter; L08.9 - Local infection of the skin and subcutaneous tissue, unspecified (2) Edema, lower extremity: CODE(S): R60.0 - Localized edema PLAN: Applied double layer Tubigrip to the right lower leg (3) Diabetes type 2, uncontrolled: CODE(S): E11.65 - Type 2 diabetes mellitus with hyperglycemia QUALIFIERS: Glycemic state: with hyperglycemia Qualified Code(s): E11.65 - Type 2 diabetes mellitus with hyperglycemia PLAN: Better control of sugar by monitoring and taking medications (4) Peripheral vascular disease of lower extremity with ulceration: CODE(S): I73.9 - Peripheral vascular disease, unspecified; L97.909 - Non- pressure chronic ulcer of unspecified part of unspecified lower leg with unspecified severity PLAN: Appointment with Dr. Ojeda on June 22 (5) Nonhealing nonsurgical wound with fat layer exposed: CODE(S): T14.8XXA - Other injury of unspecified body region, initial encounter PLAN: Wash the right lower leg with antibacterial soap pack the right lower leg wound with Promogran cover with gauze and tape Xeroform dressing to the right ankle area cover with gauze and Christen Double layer Tubigrip to the right leg Follow-up in 2 week
[2021-06-22 11:37] VITALS: BP 151/82; PULSE 71; TEMP 35.7; BMI 29.3
[2021-07-06 10:48] VITALS: BP 165/86; PULSE 67; TEMP 36.2; BMI 29.3
--- NOTE | 2021-07-06 12:32 | PN.PCM_ITS ---
History of Present Illness Date of Service: 07/06/21 Chief Complaint: Follow-up on right lower leg blister that opened to a hole and again open areas around the ankle History of Wound: 60-year-old white female that was just discharged in March for basically the same thing around her ankles. Never followed up with Dr. Ojeda. 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 Patient states she developed a blister on her right lateral leg that she popped and now it is a deep crater hole on the right lateral leg. Again the ankle the top layer skin she gets were it just opens up like a blister. Progress of Wound: Ankle is almost healed looks very good and 1 little spot that was the deepest area that is still healing but has new cells developing. Right lateral hole that she has is filling in. All improving no sign of an infection noted. Saw Rusty this last week and he did another couple procedures it shows circulation looks so much better healing is happening faster. Subjective Subjective Patient is very pleased with the outcomes Objective Data Objective Data Obvious patient is being compliant with care and healing is taking note very well she is moving along quicker now after she received those procedures from Dr. Ojeda ankle is almost healed and the hole on the side of her leg is now just a divot we will continue with same treatments follow-up in 1 week. Vital Signs: Vital Signs Temp Pulse Resp BP 97.2 F L 67 16 165/86 H 07/06/21 10:48 07/06/21 10:48 06/10/21 00:10 07/06/21 10:48 Weight: 182 lb Body Mass Index (BMI) 29.3 Physical Exam Const oriented x3 General Appearance: cooperative Exam Limitations: no limitations HEENT normocephalic Head and Scalp: normal to inspection Face and Sinus: normal facial exam Nose: external nose normal General Ear: hearing grossly impaired External Ear: external ears normal Mouth: oral and palatal mucosa normal Eyes PERRL General Eye: normal appearance of both eyes Neck full ROM General: normal visual inspection Resp normal respiratory effort Effort and Inspection: able to speak in complete sentences Auscultation: clear to auscultation bilaterally Cardio regular rate and regular rhythm Palpation: normal PMI Rate: regular rate Rhythm: regular rhythm GI Auscultation: normoactive bowel sounds Palpation: soft and no hepatosplenomegaly external exam normal Back/Spine Cervical Spine: cervical ROM normal Thoracic Spine / Upper Back: normal to inspection Lumbar Spine / Lower Back: normal to inspection Extremity normal to inspection General Extremity: normal exam except as noted Skin Skin Narrative: Edematous bilateral lower extremities history of positive ultrasound done previously with her incompetency is in her right lower leg worse than her left. Discoloration of skin from blood going through into the skin area staining. This time she has a huge crater hole on the right lateral leg from a blister that popped and her right ankle again has blistered and opened in its superficial not quite circumferential on her legs. Appears the patient has not been wearing her compression stockings Neuro oriented x3 Psych Appearance: grossly normal Speech: normal speech Thought Content: normal thought content Judgement: judgement good Debridement Note Debridement Note Wound debrided: Right lower ankle from peripheral vascular disease Type of Debridement: Excisional debridement Anesthesia Used: 5% Lidocaine Gel Depth: Down to and including healthy tissue Percentage of wound debrided: 100 Instrument Used: 3mm curette Tissue Removed: Fibrin Severity: Limited To Skin Breakdown Amount of bleeding with debridement: None Bleeding Controlled with: Compression and gauze Patient tolerated procedure: Patient tolerated procedure well Post-Debridement Measurements and Additional Note: Post-Debridement Measurements/Treatment - Nurse 1 - General Ulcer Assessment Start: 06/15/21 10:44 Freq: Status: Active Protocol: [email or web address].[email or web address] Activity Type Activity Date Activity User E-Sign Co-Sign Detail Recorded Client Recorded Date Recorded By Document 06/15/21 10:45 DREW [id number] 06/15/21 10:52 KR Document 06/22/21 11:37 SD [id number] 06/22/21 11:43 AK Document 07/06/21 10:48 KR [id number] 07/06/21 10:50 KR 06/15/21 06/22/21 07/06/21 10:45 11:37 10:48 - Today's Visit Information Type of service Follow-up Visit Follow-up Visit Follow-up Visit (Physician/FACILITIES FLIGHT CHECK PILOT (Physician/FACILITIES FLIGHT CHECK PILOT (Physician/FACILITIES FLIGHT CHECK PILOT ) ) ) Arrival Mode Ambulatory Ambulatory Ambulatory Patient Identification Verified (Name & Yes Yes Yes ) Patient Requires Transmission-Based No Precautions Safety Precautions NA Height and Weight Body Mass Index (BMI) 29.3 29.3 29.3 BMI Classification Overweight Overweight Overweight Vital Signs Temperature (97.8 F-99.1 F) 96.7 F L 96.2 F L 97.2 F L Temperature Source Temporal Temporal Temporal Pulse Rate (60-100) 72 71 67 Pulse Location Monitor Monitor Monitor Blood Pressure (90/60-120/80) 164/85 H 151/82 H 165/86 H Blood Pressure Mean (mm Hg) 111 105 112 Source Monitor Monitor Monitor Position Sitting Semi-Fowlers Blood Pressure Location Right Arm Left Arm History Since Last Visit- (Skip if this is Patient's initial visit) Have you changed medications since your No No No last visit? Any new allergies or adverse reactions No No No Had a fall/change in ADL's that may No No No increase risk of falls Signs or symptoms of abuse and/or No No No neglect since last visit Have you been in the hospital since your No No No last visit? Has dressing in place as prescribed Yes Yes Yes Has compression in place as prescribed Yes No N/A Has offloadiing in place as prescribed N/A N/A N/A Experienced any changes in pain level or No No No management Left Footwear Regular Shoe Regular Shoe Regular Shoe Right Footwear Regular Shoe Regular Shoe Regular Shoe Pain Scale: 0-10 Numeric Is Patient Pain Free? Yes Yes Yes WC - Nurse 1 - General Ulcer Measurement Start: 06/15/21 10:44 Freq: Status: Active Protocol: Activity Type Activity Date Activity User E-Sign Co-Sign Detail Recorded Client Recorded Date Recorded By Document 06/15/21 10:45 DREW [id number] 06/15/21 10:52 KR Document 06/22/21 11:37 AK [id number] 06/22/21 11:43 AK Document 07/06/21 10:48 KR [id number] 07/06/21 10:50 KR 06/15/21 06/22/21 07/06/21 10:45 11:37 10:48 Wound Center Nurse 1 #4- R LOWER LEHMAN CLUSTER -Combined with other wound No -Current Size (cm) - Length 3.3 0.6 2.4 -Current Size (cm) - Width 16 1.5 1.3 -Current Size (cm) - Depth 0.1 0.1 0.1 -Total Square Cm 52.8 0.90 3.12 -Photo Taken No -Epithelialization None Present -Tunneling No -Undermining/Tunneling No -Circular Undermining No -Change in Wound Grade/Stage No -Exudate Amt Small Medium Small -Exudate Type Serosanguineous Serosanguineous Serosanguineous -Wound Margin Distinct, Flat & Intact Distinct, Outline Outline Attached Attached -Granulation Amt Medium (34-66%) None Present (0 Large (67-100%) %) -Granulation Quality Red N/A Red -Slough/Fibrin Yes -Necrosis Amt Medium (34-66%) Large (67-100%) -Necrotic Tissue Type Adherent Slough Adherent Slough -Structure Exposed N/A -Texture (Flower-wound Skin Appearance) Assessed, Assessed, Assessed, Scarring Excoriation Scarring -Moisture (Flower-wound Skin Appearance) Assessed, No Abnormality, No Abnormality, Maceration Assessed Assessed -Color (Flower-wound Skin Appearance) No Abnormality, Assessed, No Abnormality, Assessed Erythema Assessed -Temperature (Flower-wound Skin No Abnormality No Abnormality No Abnormality Appearance) (Pt Warm) (Pt Warm) (Pt Warm) -Tenderness on Palpation (Flower-wound No No No Skin Appearance) -Ulcer Cleansing Rinsed/ Rinsed/ Soap and Water Irrigated with Irrigated with Saline Saline -Foul Odor after Cleansing No No No -Anesthetic Used 4% Lidocaine 4% Lidocaine 5% Lidocaine Solution Solution Gel #3- R LAT LE -Combined with other wound No -Current Size (cm) - Length 1.5 1.6 1 -Current Size (cm) - Width 1.5 1 1 -Current Size (cm) - Depth 1.0 0.4 0.4 -Total Square Cm 2.25 1.6 1 -Photo Taken No -Tunneling No -Tunneling Position (O'clock) 12 -Tunneling Distance (cm) 2.5 -Undermining/Tunneling No -Change in Wound Grade/Stage No -Exudate Amt Medium Large Small -Exudate Type Serosanguineous Serosanguineous Yellow/Green -Wound Margin Distinct, Distinct, Distinct, Outline Outline Outline Attached Attached Attached -Granulation Amt Medium (34-66%) Medium (34-66%) -Granulation Quality Red [place],Red -Slough/Fibrin No -Necrosis Amt Medium (34-66%) Medium (34-66%) Large (67-100%) -Necrotic Tissue Type Adherent Slough Adherent Slough Adherent Slough -Structure Exposed N/A -Texture (Flower-wound Skin Appearance) Assessed, No Abnormality, Assessed, Scarring Assessed Scarring -Moisture (Flower-wound Skin Appearance) No Abnormality, Assessed, No Abnormality, Assessed Weeping Assessed -Color (Flower-wound Skin Appearance) No Abnormality, Assessed, No Abnormality, Assessed Erythema Assessed -Temperature (Flower-wound Skin No Abnormality No Abnormality No Abnormality Appearance) (Pt Warm) (Pt Warm) (Pt Warm) -Tenderness on Palpation (Flower-wound No Yes No Skin Appearance) -Ulcer Cleansing Rinsed/ Rinsed/ Soap and Water Irrigated with Irrigated with Saline Saline -Foul Odor after Cleansing No No No -Anesthetic Used 5% Lidocaine 5% Lidocaine 5% Lidocaine Gel Gel Gel Right Calf (cm) 47.2 Right Ankle (cm) 30 WC - Nurse 2 - General Ulcer CM Notes Start: 06/15/21 10:44 Freq: Status: Active Protocol: Activity Type Activity Date Activity User E-Sign Co-Sign Detail Recorded Client Recorded Date Recorded By Document 06/15/21 11:03 MW [id number] 06/15/21 11:08 MW Document 06/22/21 10:59 MW [id number] 06/22/21 11:02 MW Document 07/06/21 10:56 MW [id number] 07/06/21 11:01 MW 06/15/21 06/22/21 07/06/21 11:03 10:59 10:56 Wound Center Nurse 2 #4- R LOWER LEHMAN CLUSTER -Time 11:03 11:00 10:58 -Correct Patient Yes Yes Yes -Correct Side, Site, Position Yes Yes Yes -Correct Procedure Yes Yes Yes -Procedure Performed Yes Yes Yes -Type of Procedure Debridement Debridement Debridement -Clinical Debridement Subcutaneous Subcutaneous Subcutaneous -Tissue Removed Subcutaneous Subcutaneous Subcutaneous -Post Debridement (cm) - Length 1.0 2.3 0.9 -Post Debridement (cm) - Width 1.5 3.5 1.3 -Post Debridement (cm) - Depth 0.1 0.1 0.1 -Total Square (Post) (cm) 1.50 8.05 1.17 -Area of Debridement (cm) - Length 1.0 2.3 0.9 -Area of Debridement (cm) - Width 1.5 3.5 1.3 -Total Square (Area) (cm) 1.50 8.05 1.17 -Tunneling No No No -Undermining/Tunneling No No No -Circular Undermining No No No -Wound/Ulcer Outcome Not Healed Not Healed Not Healed -Ulcer Cleansing Rinsed/ Rinsed/ Rinsed/ Irrigated with Irrigated with Irrigated with Saline Saline Saline -Foul Odor after Cleansing No No No -Bioengineered Tissue No No No -Bleeding Controlled with Pressure NA Pressure -Treatment Response Procedure Procedure Procedure Tolerated Well Tolerated Well Tolerated Well -Offloading No No No -Debridement - Subq, 1st 20sq cm Yes Yes Yes #3- R LAT LE -Time 11:05 11:01 10:58 -Correct Patient Yes Yes Yes -Correct Side, Site, Position Yes Yes Yes -Correct Procedure Yes Yes Yes -Procedure Performed Yes Yes Yes -Type of Procedure Debridement Debridement Debridement -Clinical Debridement Subcutaneous Subcutaneous Subcutaneous -Tissue Removed Subcutaneous Subcutaneous Subcutaneous -Post Debridement (cm) - Length 1.4 1.5 0.4 -Post Debridement (cm) - Width 1.5 1.0 0.6 -Post Debridement (cm) - Depth 0.7 0.4 0.3 -Total Square (Post) (cm) 2.10 1.50 0.24 -Area of Debridement (cm) - Length 1.4 1.5 0.4 -Area of Debridement (cm) - Width 1.5 1.0 0.6 -Total Square (Area) (cm) 2.10 1.50 0.24 -Tunneling No No No -Undermining/Tunneling No No No -Circular Undermining No No No -Wound/Ulcer Outcome Not Healed Not Healed Not Healed -Ulcer Cleansing Rinsed/ Rinsed/ Rinsed/ Irrigated with Irrigated with Irrigated with Saline Saline Saline -Foul Odor after Cleansing No No No -Bioengineered Tissue No No No -Bleeding Controlled with Pressure Pressure Pressure -Treatment Response Procedure Procedure Procedure Tolerated Well Tolerated Well Tolerated Well -Offloading No No No -Debridement - Subq, 1st 20sq cm No No No Pain Scale: 0-10 Numeric Is Patient Pain Free? Yes Yes Yes WC - Nurse 3 - General Ulcer D/C NN Start: 06/15/21 10:44 Freq: Status: Active Protocol: Activity Type Activity Date Activity User E-Sign Co-Sign Detail Recorded Client Recorded Date Recorded By Document 06/15/21 11:17 KR [id number] 06/15/21 11:18 KR Document 06/22/21 11:18 DL [id number] 06/22/21 11:19 DL Document 07/06/21 11:23 KR [id number] 07/06/21 11:24 KR 06/15/21 06/22/21 07/06/21 11:17 11:18 11:23 Wound Care Nurse 3 #4- R LOWER LEHMAN CLUSTER -Ulcer Cleansing Rinsed/ Rinsed/ Rinsed/ Irrigated with Irrigated with Irrigated with Saline Saline Saline -Foul Odor after Cleansing No -Primary Dressing Applied Aquacel Rope NonAdherent NonAdherent Contact Layer Contact Layer, Promogran -Primary Dressing Covered/Secured with Dry Gauze,Dry Dry Gauze & Dry Gauze, Gauze & Roll Roll Gauze, Secured with Gauze,Secured Secured with Tape with Tape Tape -Aquacel Rope 1 -Promogran 1 #3- R LAT LE -Ulcer Cleansing Rinsed/ Rinsed/ Irrigated with Irrigated with Saline Saline -Foul Odor after Cleansing No -Primary Dressing Applied Promogran -Other Dressing xeroform -Primary Dressing Covered/Secured with Dry Gauze, Dry Gauze & Dry Gauze, Secured with Roll Gauze, Secured with Tape Secured with Tape Tape -Promogran 1 Right -Tubular Bandage Double Layer Double Layer -Size of Tubigrip Used Size F Size F -Size F ($) 2 1 Treatment Response Procedure Tolerated Well Pain Scale: 0-10 Numeric Is Patient Pain Free? Yes Yes Yes WC - Visit Discharge Discharge Condition Stable Stable Ambulatory Status Ambulatory Ambulatory Transportation Private Auto Private Auto Additional Wound Wound debrided: Right lateral leg from peripheral vascular disease Type of Debridement: Excisional debridement Anesthesia Used: 5% Lidocaine Gel Depth: Down to and including healthy tissue Percentage of wound debrided: 100 Instrument Used: 3mm curette Tissue Removed: Fibrin Severity: Fat Layer Exposed Amount of bleeding with debridement: Mild Bleeding Controlled with: Compression and gauze Patient tolerated procedure: Patient tolerated procedure well Assessment/Plan Assessment/Plan (1) Infected wound: CODE(S): T14.8XXA - Other injury of unspecified body region, initial encounter; L08.9 - Local infection of the skin and subcutaneous tissue, unspecified (2) Edema, lower extremity: CODE(S): R60.0 - Localized edema PLAN: Applied double layer Tubigrip to the right lower leg (3) Diabetes type 2, uncontrolled: CODE(S): E11.65 - Type 2 diabetes mellitus with hyperglycemia QUALIFIERS: Glycemic state: with hyperglycemia Qualified Code(s): E11.65 - Type 2 diabetes mellitus with hyperglycemia PLAN: Better control of sugar by monitoring and taking medications (4) Peripheral vascular disease of lower extremity with ulceration: CODE(S): I73.9 - Peripheral vascular disease, unspecified; L97.909 - Non- pressure chronic ulcer of unspecified part of unspecified lower leg with unspecified severity PLAN: Appointment with Dr. Ojeda on July 13 (5) Nonhealing nonsurgical wound with fat layer exposed: CODE(S): T14.8XXA - Other injury of unspecified body region, initial encounter PLAN: Wash the right lower leg with antibacterial soap pack the right lower leg wound with Promogran cover with gauze and tape Xeroform dressing to the right ankle area cover with gauze and Christen Double layer Tubigrip to the right leg Follow-up in 1 week
== END 2021-07-09 23:59 | disposition home or self-care (01) ==
LOC: WC 10:30
PROVIDERS: PCP Family Medicine; Visit Provider Nurse Practitioner
DX: E11.622 Type 2 diabetes mellitus with other skin ulcer (principal); E11.51 Type 2 diabetes mellitus with diabetic peripheral angiopathy without gangrene; L97.812 Non-pressure chronic ulcer of other part of right lower leg with fat layer exposed; L97.311 Non-pressure chronic ulcer of right ankle limited to breakdown of skin; E11.65 Type 2 diabetes mellitus with hyperglycemia; R60.0 Localized edema; L08.9 Local infection of the skin and subcutaneous tissue, unspecified; Z86.718 Personal history of other venous thrombosis and embolism; Z79.01 Long term (current) use of anticoagulants; T14.8XXA Other injury of unspecified body region, initial encounter
CPT/HCPCS: 11042

== ENCOUNTER 2021-07-13 11:00 | Outpatient (RCR) | payer BC, SELFPAY ==
[2021-07-10 00:14] VITALS: BP 165/86; PULSE 67; RESP 16; TEMP 36.2; BMI 29.3
[2021-07-13 11:02] VITALS: BP 174/91; PULSE 84; TEMP 35.7; BMI 29.3
--- NOTE | 2021-07-13 11:25 | PCM.WC.PN ---
History of Present Illness Date of Service: 07/13/21 Chief Complaint: Follow-up on right lower leg blister that opened to a hole and again open areas around the ankle History of Wound: 60-year-old white female that was just discharged in March for basically the same thing around her ankles. Never followed up with Dr. Ojeda. 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 Patient states she developed a blister on her right lateral leg that she popped and now it is a deep crater hole on the right lateral leg. Again the ankle the top layer skin she gets were it just opens up like a blister. Progress of Wound: Right lateral leg and the right ankle area are all resolved patient will be discharged from the wound center Subjective Subjective Patient is very happy with results and still has another appoint with Dr. Ojeda today Objective Data Objective Data No sign of infection patient will be discharged from the wound center follow-up as needed Vital Signs: Vital Signs Temp Pulse Resp BP 96.2 F L 84 16 174/91 H 07/13/21 11:02 07/13/21 11:02 07/10/21 00:14 07/13/21 11:02 Weight: 182 lb Body Mass Index (BMI) 29.3 Physical Exam Const oriented x3 General Appearance: cooperative Exam Limitations: no limitations HEENT normocephalic Head and Scalp: normal to inspection Face and Sinus: normal facial exam Nose: external nose normal General Ear: hearing grossly impaired External Ear: external ears normal Mouth: oral and palatal mucosa normal Eyes PERRL General Eye: normal appearance of both eyes Neck full ROM General: normal visual inspection Resp normal respiratory effort Effort and Inspection: able to speak in complete sentences Auscultation: clear to auscultation bilaterally Cardio regular rate and regular rhythm Palpation: normal PMI Rate: regular rate Rhythm: regular rhythm GI Auscultation: normoactive bowel sounds Palpation: soft and no hepatosplenomegaly external exam normal Back/Spine Cervical Spine: cervical ROM normal Thoracic Spine / Upper Back: normal to inspection Lumbar Spine / Lower Back: normal to inspection Extremity normal to inspection General Extremity: normal exam except as noted Skin Skin Narrative: Edematous bilateral lower extremities history of positive ultrasound done previously with her incompetency is in her right lower leg worse than her left. Discoloration of skin from blood going through into the skin area staining. This time she has a huge crater hole on the right lateral leg from a blister that popped and her right ankle again has blistered and opened in its superficial not quite circumferential on her legs. Appears the patient has not been wearing her compression stockings Neuro oriented x3 Psych Appearance: grossly normal Speech: normal speech Thought Content: normal thought content Judgement: judgement good Debridement Note Debridement Note No debridement was completed: No debridement was completed today Post-Debridement Measurements and Additional Note: Post-Debridement Measurements/Treatment WC - Nurse 1 - General Ulcer Assessment Start: 07/13/21 11:01 Freq: Status: Active Protocol: DERRICK Activity Type Activity Date Activity User E-Sign Co-Sign Detail Recorded Client Recorded Date Recorded By Document 07/13/21 11:02 ELIZABETH [id number] 07/13/21 11:07 ELIZABETH 07/13/21 11:02 WC - Today's Visit Information Type of service 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 Any new allergies or adverse reactions No Had a fall/change in ADL's that may No increase risk of falls Signs or symptoms of abuse and/or No neglect since last visit Have you been in the hospital since your No last visit? Has dressing in place as prescribed Yes Has compression in place as prescribed N/A Has offloadiing in place as prescribed N/A Experienced any changes in pain level or No management Left Footwear Regular Shoe Right Footwear Regular Shoe Pain Scale: 0-10 Numeric Is Patient Pain Free? No MICHELLE - Nurse 1 - General Ulcer Measurement Start: 07/13/21 11:01 Freq: Status: Active Protocol: Activity Type Activity Date Activity User E-Sign Co-Sign Detail Recorded Client Recorded Date Recorded By Document 07/13/21 11:02 ELIZABETH [id number] 07/13/21 11:07 MN 07/13/21 11:02 Wound Center Nurse 1 #4- R LOWER LEHMAN CLUSTER -Combined with other wound No -Current Size (cm) - Length 0.1 -Current Size (cm) - Width 0.1 -Current Size (cm) - Depth 0.1 -Total Square Cm 0.01 -Photo Taken No -Tunneling No -Undermining/Tunneling No -Circular Undermining No -Change in Wound Grade/Stage No -Exudate Amt None Present -Wound Margin Distinct, Outline Attached -Granulation Amt None Present (0 %) -Granulation Quality N/A -Slough/Fibrin Yes -Necrosis Amt Large (67-100%) -Necrotic Tissue Type Eschar -Structure Exposed N/A -Texture (Flower-wound Skin Appearance) No Abnormality, Assessed -Moisture (Flower-wound Skin Appearance) No Abnormality, Assessed -Color (Flower-wound Skin Appearance) No Abnormality, Assessed -Temperature (Flower-wound Skin No Abnormality Appearance) (Pt Warm) -Tenderness on Palpation (Flower-wound No Skin Appearance) -Ulcer Cleansing Rinsed/ Irrigated with Saline -Foul Odor after Cleansing No -Anesthetic Used 5% Lidocaine Gel #3- R LAT LE -Combined with other wound No -Current Size (cm) - Length 0.4 -Current Size (cm) - Width 0.5 -Current Size (cm) - Depth 0.1 -Total Square Cm 0.20 -Photo Taken No -Tunneling No -Undermining/Tunneling No -Circular Undermining No -Change in Wound Grade/Stage No -Exudate Amt None Present -Wound Margin Distinct, Outline Attached -Granulation Amt None Present (0 %) -Granulation Quality N/A -Slough/Fibrin No -Necrosis Amt None Present (0 %) -Structure Exposed N/A -Texture (Flower-wound Skin Appearance) No Abnormality, Assessed -Moisture (Flower-wound Skin Appearance) No Abnormality, Assessed -Color (Flower-wound Skin Appearance) No Abnormality, Assessed -Temperature (Flower-wound Skin No Abnormality Appearance) (Pt Warm) -Tenderness on Palpation (Flower-wound No Skin Appearance) -Ulcer Cleansing Rinsed/ Irrigated with Saline -Foul Odor after Cleansing No -Anesthetic Used 5% Lidocaine Gel WC - Nurse 2 - General Ulcer CM Notes Start: 07/13/21 11:01 Freq: Status: Active Protocol: Activity Type Activity Date Activity User E-Sign Co-Sign Detail Recorded Client Recorded Date Recorded By Document 07/13/21 11:09 MW [id number] 07/13/21 11:13 MW 07/13/21 11:09 Wound Center Nurse 2 #4- R LOWER LEHMAN CLUSTER -Time 11:09 -Correct Patient Yes -Correct Side, Site, Position Yes -Correct Procedure Yes -Procedure Performed No -Post Debridement (cm) - Length 0 -Post Debridement (cm) - Width 0 -Post Debridement (cm) - Depth 0 -Total Square (Post) (cm) 0 -Tunneling No -Undermining/Tunneling No -Circular Undermining No -Wound/Ulcer Outcome Healed- Epithelialized -Bleeding Controlled with NA -Treatment Response Procedure Tolerated Well -Offloading No #3- R LAT LE -Time 11:09 -Correct Patient Yes -Correct Side, Site, Position Yes -Correct Procedure Yes -Procedure Performed No -Post Debridement (cm) - Length 0 -Post Debridement (cm) - Width 0 -Post Debridement (cm) - Depth 0 -Total Square (Post) (cm) 0 -Wound/Ulcer Outcome Healed- Epithelialized Pain Scale: 0-10 Numeric Is Patient Pain Free? Yes WC - Nurse 3 - General Ulcer D/C NN Start: 07/13/21 11:01 Freq: Status: Active Protocol: Activity Type Activity Date Activity User E-Sign Co-Sign Detail Recorded Client Recorded Date Recorded By Document 07/13/21 11:20 MW [id number] 07/13/21 11:22 MW 07/13/21 11:20 Wound Care Nurse 3 #4- R LOWER LEHMAN CLUSTER -Ulcer Cleansing Rinsed/ Irrigated with Saline -Primary Dressing Covered/Secured with Dry Gauze & Roll Gauze, Secured with Tape #3- R LAT LE -Ulcer Cleansing Rinsed/ Irrigated with Saline -Foul Odor after Cleansing No -Negative Pressure Wound Therapy N/A -Primary Dressing Covered/Secured with Dry Gauze & Roll Gauze, Secured with Tape Treatment Response Procedure Tolerated Well Pain Scale: 0-10 Numeric Is Patient Pain Free? Yes Teaching: Wound Center Discharge Instructions -Person Taught Patient -Teaching Method Discussion -Response to teaching Verbalize understanding Dressing Your Wound -Person Taught Patient -Teaching Method Discussion -Response to teaching Verbalize understanding WC - Visit Discharge Discharge Condition Stable Ambulatory Status Ambulatory Transportation Private Auto Accompanied by self Medication Reconcilliation completed & No provided to patient/care provider Clinical Summary of Care Provided Yes Notes: Healed, discharged from clinic Assessment/Plan Assessment/Plan (1) Infected wound: CODE(S): T14.8XXA - Other injury of unspecified body region, initial encounter; L08.9 - Local infection of the skin and subcutaneous tissue, unspecified PLAN: Resolved (2) Edema, lower extremity: CODE(S): R60.0 - Localized edema PLAN: Applied double layer Tubigrip to the right lower leg (3) Diabetes type 2, uncontrolled: CODE(S): E11.65 - Type 2 diabetes mellitus with hyperglycemia QUALIFIERS: Glycemic state: with hyperglycemia Qualified Code(s): E11.65 - Type 2 diabetes mellitus with hyperglycemia PLAN: Better control of sugar by monitoring and taking medications (4) Peripheral vascular disease of lower extremity with ulceration: CODE(S): I73.9 - Peripheral vascular disease, unspecified; L97.909 - Non-pressure chronic ulcer of unspecified part of unspecified lower leg with unspecified severity PLAN: Appointment with Dr. Ojeda on July 13 (5) Nonhealing nonsurgical wound with fat layer exposed: CODE(S): T14.8XXA - Other injury of unspecified body region, initial encounter PLAN: Both wounds completely healed patient will be discharged from the wound center follow-up only as needed
== END 2021-07-13 16:18 | disposition home or self-care (01) ==
LOC: WC 11:00
PROVIDERS: PCP Family Medicine; Visit Provider Nurse Practitioner
DX: Z09 Encounter for follow-up examination after completed treatment for conditions other than malignant neoplasm (principal); E11.51 Type 2 diabetes mellitus with diabetic peripheral angiopathy without gangrene; E11.65 Type 2 diabetes mellitus with hyperglycemia; Z79.01 Long term (current) use of anticoagulants; Z86.718 Personal history of other venous thrombosis and embolism; R60.0 Localized edema
CPT/HCPCS: 99213; G0463

== ENCOUNTER 2021-12-20 11:59 | Emergency (ER) | payer BC, SELFPAY ==
[2021-12-20 12:00] VITALS: BP 146/87; PULSE 74; RESP 18; TEMP 36.6; O2SAT 98; BMI 44.0
--- NOTE | 2021-12-20 12:29 | EDS_ITS ---
HPI History of Present Illness Chief Complaint: Back Informant: patient Onset/Context/Timing Onset: Days (3) Context: Gradual Onset Timing: Continuous Quality: Sharp Location: Lumbar Worsened by: improves with - (Standing) Relieved by: Not Relieved By Nothing Associated Symptoms Associated Symptoms: Negative for Numbness, Tingling, Radiation to Right Leg, Radiation to Left Leg, Fever, Abdominal Pain, Dysuria, Unable to Ambulate, Unable to Transfer, Urinary Retention, Urinary Incontinence, Constipation or Fecal Incontinence Narrative Narrative: Patient presents with back pain that has been constant for the past 3 days. Patient denies any trauma or injury. Patient states it is gradually gotten worse. Patient describes the pain as sharp. Patient states the pain is over her lower lumbar and sacral area. Patient states it is worse when she first stands up from a seated position. Patient states it is also worse with prolonged standing. Patient states nothing has been helping with the pain. Patient denies any radiation of the pain. Patient denies any paresthesias or weakness. Patient denies any bowel or bladder changes. Patient denies any saddle anesthesia. [facility] Medical History Crohn's disease Diabetes DVT (deep venous thrombosis) Hypertension Urinary incontinence Home Medications amlodipine 5 mg tablet 5 mg PO QHS 06/09/14 [History Last Taken 10/24/15 00:00] bisoprolol 10 mg-hydrochlorothiazide 6.25 mg tablet 1 tab PO DAILY 06/09/14 [History Last Taken 10/24/15 01:00] lisinopril 40 mg tablet 40 mg PO QHS 06/09/14 [History Last Taken 10/24/15 00:00] glimepiride 2 mg tablet 4 mg PO DAILY ##60 10/28/15 [Rx Last Taken Unknown] rivaroxaban 20 mg tablet 20 mg PO DINNER 06/04/20 [History Last Taken Unknown] metformin 1,000 mg tablet 1,000 mg PO BID ##0 06/07/20 [Rx Last Taken Unknown] pen needle, diabetic, safety 30 gauge x / ##1 06/07/20 [Rx Last Taken Unknown] cholecalciferol (vitamin D3) 25 mcg (1,000 unit) capsule (Vitamin D3) 25 mcg PO DAILY 05/11/21 [History Last Taken Unknown] magnesium 100 mg capsule mg PO DAILY 05/11/21 [History Last Taken Unknown] hydrocodone-acetaminophen 5-325mg 5mg-325mg 1 tab PO Q6H PRN PRN Pain 3 days #10 TABLETS 12/20/21 [Rx Last Taken Unknown] Allergy/AdvReac Type Severity Reaction Status Date / Time Sulfa (Sulfonamide Allergy Hives Verified 12/20/21 12:01 Antibiotics) Family History Mother Heart disease Surgical History H/O colonoscopy H/O tubal ligation S/P foot surgery Social History Smoking Status: Never smoker alcohol intake: never substance use type: does not use caffeine: Yes what type of physical activity do you participate in: walking frequency: 1-2 times per week seatbelt use: always do you feel safe at home: Yes additional social history: [employer] second shift- [employer] ROS ROS ED Constitutional Constitutional ED: Denies chills or fever(s) Eyes Eyes: Denies blurry vision or change in vision ENT ENT ED: Denies rhinorrhea or sore throat Cardiovascular Cardiovascular: Denies chest pain or palpitations Respiratory/Chest Respiratory/Chest: Denies cough or dyspnea Gastrointestinal Gastrointestinal: Denies nausea or vomiting Genitourinary Genitourinary ED: Denies dysuria or hematuria Musculoskeletal Musculoskeletal: Reports back pain; Denies neck pain Integumentary Denies abscess or rash Neurologic Neurologic: Denies headache(s) or weakness Allergic/Immunologic Allergic/Immunologic ED: Denies mouth swelling or urticaria EXAM Physical Exam Const Vital Signs: 12/20/21 12:00 Temperature 97.9 F Temperature Source Temporal Pulse Rate 74 Respiratory Rate 18 Blood Pressure 146/87 H Blood Pressure Mean 106 Pulse Ox 98 Oxygen Delivery Method Room Air Positive well nourished, well developed and obese General Appearance ED: well developed and NAD Nutritional Appearance: obese HEENT Reports moist mucous membranes Neck supple and no JVD Back/Spine Back/Spine Narrative: There is tenderness over the lower lumbar spine and paraspinal muscles. There is also mild tenderness over the sacrum and sacroiliac joint, worse on the right. There is no bony crepitance or step-off. There is no deformity noted. Range of motion was limited in all motions of the lumbar spine secondary to pain. Straight leg raises were negative bilaterally. Strength is 5/5 bilaterally in the lower extremities. There are no sensory deficits noted. Deep tendon reflexes are 2/4 bilaterally. Lumbar Spine / Lower Back: ROM limited and straight leg raise negative bilaterally Extremity normal to inspection General Extremety ED: Negative for edema or tenderness General Extremity: Negative for edema Neuro oriented x3, CN's II-XII intact bilaterally and no sensory deficits noted Sensorium / Orientation: alert Motor Exam: strength 5/5 throughout Deep Tendon Reflexes: Rt Patellar (L4): 2+, Lt Patellar (L4): 2+, Rt Ankle (S1): 2+ and Lt Ankle (S1): 2+ Deep Tendon Reflexes Back: Rt Patellar (L4): 2+, Lt Patellar (L4): 2+, Rt Ankle (S1): 2+ and Lt Ankle (S1): 2+ Psych mental status grossly normal Skin no rashes or lesions noted MDM MDM MDM Narrative Medical decision making narrative: Patient was given injection of morphine here. X-rays of the lumbar spine were obtained. There are 3 views. On my interpretation, there is no acute fracture. There is mild spondylolisthesis of L4 on L5. There are some degenerative changes noted. Radiologist also interpreted the x-rays and agrees. Patient was advised of her findings. Patient was instructed to use ice to the area. Patient was given a prescription for a short course of [place]. Patient was instructed to follow-up with her primary care physician in 5 to 7 days. Patient understood and was agreeable with plan. All questions were answered. Radiography Diagnostic Testing: Clinical Impression(s) from Imaging Studies Lumbar Spine X-Ray 12/20/21 12:57 IMPRESSION: No acute fracture identified in the lumbar spine. Mild anterolisthesis of L4-5. Multilevel degenerative change. Electronically Signed: Scarlett Ladd MD at 13:32 EDT , Discharge Plan Triage Chief Complaint: Back ED Provider: Schwiger,Luis Dx/Rx/DC Orders Clinical Impression: Acute lumbosacral myofascial strain, Sacroiliitis Prescriptions: New hydrocodone-acetaminophen [hydrocodone-acetaminophen] 5-325 mg tablet 1 tab PO Q6H PRN PRN (Reason: Pain) 3 Days Qty: 10 0RF No Action bisoprolol-hydrochlorothiazide 1 TAB tablet 1 tab PO DAILY Label Comments: BLOOD PRESSURE amlodipine 5 MG tablet 5 mg PO QHS Label Comments: BLOOD PRSSURE lisinopril 40 MG tablet 40 mg PO QHS Label Comments: BLOOD PRESSURE glimepiride 2 MG tablet 4 mg PO DAILY Qty: 60 0RF Label Comments: BLOOD SUGAR rivaroxaban 20 MG tablet 20 mg PO DINNER (DME) pen needle, diabetic, safety 1 EACH needle 1 each MISCELL. UD Qty: 1 0RF metformin 1,000 mg tablet 1,000 mg PO BID Qty: 0 0RF magnesium 100 mg Capsule PO DAILY cholecalciferol (vitamin D3) [Vitamin D3] 25 mcg (1,000 unit) Capsule 25 mcg PO DAILY Primary Care Provider: Stu Orozco Referrals: Stu Orozco MD [Primary Care Provider] - 5-7 Days Disposition Disposition: Home, Self Care
--- NOTE | 2021-12-20 12:57 | RAD_ITS ---
HISTORY: Injury/Pain. TECHNIQUE: XR Spine Lumbar 2 or 3 Views. COMPARISON: None. FINDINGS: VERTEBRAE: Vertebral body heights preserved. Degenerative changes of posterior elements. ALIGNMENT: Minimal retrolisthesis of L2-3 and L3-4. 4 mm anterolisthesis of L4-5. INTERVERTEBRAL DISCS: Degenerative endplate changes with intervertebral disc space narrowing at multiple levels particularly L2-3, L4-5, and L5-S1. RAD/Lumbar Spine 2 or 3 Views IMPRESSION: No acute fracture identified in the lumbar spine. Mild anterolisthesis of L4-5. Multilevel degenerative change. Electronically Signed: Scarlett Ladd MD at 13:32 EDT ,
[2021-12-20] MEDS: Morphine 4 MG/ML Syringe IM (13:06)
== END 2021-12-20 14:31 | disposition home or self-care (01) ==
PROVIDERS: Emergency Provider Emergency Medicine; PCP Family Medicine; Visit Provider Emergency Medicine
DX: S39.012A Strain of muscle, fascia and tendon of lower back, initial encounter (principal); M46.1 Sacroiliitis, not elsewhere classified; Z68.41 Body mass index [BMI] 40.0-44.9, adult; E11.9 Type 2 diabetes mellitus without complications; X58.XXXA Exposure to other specified factors, initial encounter; I10 Essential (primary) hypertension; E66.9 Obesity, unspecified; Z79.84 Long term (current) use of oral hypoglycemic drugs; Z79.899 Other long term (current) drug therapy
CPT/HCPCS: 72100; 96372; 99282

== ENCOUNTER 2023-04-10 11:00 | Outpatient (RCR) | payer BC, SELFPAY ==
[2023-04-03 10:02] VITALS: BP 162/84; PULSE 88; RESP 18; TEMP 36.2; BMI 42.1
--- NOTE | 2023-04-03 11:53 | HP.PCM_ITS ---
History of Present Illness Date of Service: 04/03/23 Chief Complaint: Chronic venous insufficiency, venous hypertension with in flammation, venous stasis dermatitis, lower extremity swelling and edema History of Wound: This is a 62-year-old morbidly obese female with multiple pre- existing medical problems, including diabetes mellitus, hypertension, etc. She has a long history of lower extremity venous disease. She has previously undergone endovenous laser ablation of both lower extremities by Dr. Morgan Ojeda. She has a history of 2 episodes of acute deep vein thrombosis in the right lower extremity, for which she has been on long-term systemic anticoagulation with Xarelto, which continues until the current time. She has been a previous patient at our wound care facility, treated for similar problems to those for which she presents now. She has now presented with swelling and edema of both lower extremities, with venous stasis dermatitis involving the distal portion of her right lower extremity. There do not appear to be any gerry open wounds or ulcerations. Severe lipodermatosclerosis and hyperpigmentation is noted in the lower extremities bilaterally involving the gaiter areas, as well as swelling and edema. Patient claims to sleep on a flat mattress at night. 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 She is not very active. She sits a great deal while at home. She is known to be diabetic, with a recently documented hemoglobin A1c of 13.2. A noninvasive lower e xtremity arterial study performed in November 2020 was normal. The patient states that the swelling in her legs is more prominent at the end of the day. Patient has a history of tubal ligation and right foot surgery. She is also undergone bilateral endovenous laser ablation procedures. She is currently near the completion of a prescription for doxycycline, prescribed by her primary care physician. She has been using Bactroban and Xeroform topically on her right lower extremity dermatitis. [facility] Medical History Chronic venous hypertension with inflammation involving right side Crohn's disease Diabetes DVT (deep venous thrombosis) History of deep vein thrombosis Hypertension Left leg swelling Leg edema, left Leg edema, right Morbid obesity with BMI of 40.0-44.9, adult Right leg swelling Urinary incontinence Venous stasis dermatitis Home Medications amlodipine 5 mg tablet 5 mg PO QHS 06/09/14 [History Last Taken 10/24/15 00:00] bisoprolol 10 mg-hydrochlorothiazide 6.25 mg tablet 1 tab PO DAILY 06/09/14 [History Last Taken 10/24/15 01:00] lisinopril 40 mg tablet 40 mg PO QHS 06/09/14 [History Last Taken 10/24/15 00:00] glimepiride 2 mg tablet 4 mg (2 x 2 mg) PO DAILY ##60 10/28/15 [Rx Last Taken Unknown] rivaroxaban 20 mg tablet 20 mg PO DINNER 06/04/20 [History Last Taken Unknown] metformin 1,000 mg tablet 1,000 mg PO BID ##0 06/07/20 [Rx Last Taken Unknown] pen needle, diabetic, safety 30 gauge x 03/14 ##1 06/07/20 [Rx Last Taken Unknown] cholecalciferol (vitamin D3) 25 mcg (1,000 unit) capsule (Vitamin D3) 25 mcg PO DAILY 05/11/21 [History Last Taken Unknown] magnesium 100 mg capsule mg PO DAILY 05/11/21 [History Last Taken Unknown] hydrocodone-acetaminophen 5-325mg 5mg-325mg 1 tab PO Q6H PRN PRN Pain 3 days #10 TABLETS 12/20/21 [Rx Last Taken Unknown] Allergy/AdvReac Type Severity Reaction Status Date / Time Sulfa (Sulfonamide Allergy Hives Verified 12/20/21 12:01 Antibiotics) Family History Mother Heart disease Surgical History H/O colonoscopy H/O tubal ligation S/P foot surgery Social History Smoking Status: Never smoker alcohol intake: never substance use type: does not use caffeine: Yes what type of physical activity do you participate in: walking frequency: 1-2 times per week seatbelt use: always do you feel safe at home: Yes additional social history: [employer] shift- [employer] Vital Signs Vital Signs Vital Signs: 04/03/23 10:02 Temperature 97.1 F L Temperature Source Temporal Pulse Rate 88 Respiratory Rate 18 Blood Pressure 162/84 H Blood Pressure Mean 110 Blood Pressure Source Monitor Blood Pressure Position Sitting Blood Pressure Location Left Arm Oxygen Delivery Method Room Air Weight Weight: 261 lb Body Mass Index (BMI) 42.1 Physical Exam Const alert, oriented x3, no apparent distress and well nourished Constitutional Narrative: The patient is morbidly obese, with a BMI of 42.1. General Appearance: cooperative, comfortable, well kempt and well developed Orientation / Consciousness: awake, oriented to person, oriented to place and oriented to time Nutritional Appearance: overweight HEENT normocephalic, head/scalp atraumatic and hearing grossly normal bilaterally Head and Scalp: normal to inspection, normocephalic and atraumatic External Ear: external ears normal Eyes PERRL and EOMs intact bilaterally General Eye: normal appearance of both eyes Resp normal respiratory effort, normal air movement, no retractions and no use of accessory muscles Effort and Inspection: able to speak in complete sentences and symmetric chest movement Extremity no calf tenderness General Extremity: Negative for clubbing or cyanosis Skin Wound Narrative: Swelling and edema are noted bilaterally in the lower extremities. Lipodermatosclerosis and hyperpigmentation is noted in the gaiter areas bilaterally. Distal lower extremities are warm and well-perfused. Venous stasis dermatitis is noted in the distal right gaiter area, and at ankle level. There appear to be no gerry open wounds or ulcerations. There is no sign of infection or cellulitis. Neuro oriented x3, CN's II-XII intact bilaterally and moves all extremities Sensorium / Orientation: awake, alert, oriented to person, oriented to place and oriented to time Psych Appearance: grossly normal and appropriate Attitude: calm Activity / Motor Behavior: appropriate eye contact Speech: normal speech Mood & Affect: euthymic mood Thought Process: normal thought process Thought Content: normal thought content Attention / Concentration: attention grossly intact Debridement Note Debridement Note No debridement was completed: No debridement was completed today Post-Debridement Measurements and Additional Note: Post-Debridement Measurements/Treatment - Nurse 1 - General Ulcer Assessment Start: 04/03/23 10:01 Freq: Status: Active Protocol: DERRICK Activity Type Activity Date Activity User E-sign Co-sign Detail Recorded Client Recorded Date Recorded By Document 04/03/23 10:02 Desktop 04/03/23 10:11 04/03/23 10:02 - Today's Visit Information Type of service Initial Visit Arrival Mode Ambulatory Patient Identification Verified (Name & Yes ) Height and Weight Height 5 ft 6 in Weight 261 lb Weight in Pounds 261.0 lbs Body Mass Index (BMI) 42.1 BMI Classification Obese BSA - [place] 2.24 Vital Signs Temperature (97.8 F-99.1 F) 97.1 F L Temperature Source Temporal Pulse Rate (60-100) 88 Pulse Location Monitor Respiratory Rate (12-18) 18 Respiratory rate source Observation Oxygen Delivery Method Room Air Blood Pressure (90/60-120/80) 162/84 H Blood Pressure Mean 110 Source Monitor Position Sitting Blood Pressure Location Left Arm History Since Last Visit- (Skip if this is Patient's initial visit) Left Footwear Regular Shoe Right Footwear Regular Shoe Pain Scale: 0-10 Numeric Is Patient Pain Free? Yes RLE -Intensity 5 -Alleviating Factors/Interventions Medication Pain Scale: Adult NonVerbal Is Patient Pain Free? Yes Communication Assessment Preferred language Cameroonian Able to Read Yes Able to Write Yes Communication Tools None Caregiver Communication Skills No Impairment Impairment Right Hearing Abillity Normal Left Hearing Abillity Normal Visual Assistive Devices Glasses Teaching Assessment Preferences Verbal,Written, Demonstration Barriers to Learning None Readiness To Learn Excellent Willingness to Engage in Self Management High Activies Readiness to Engage in Self Management High Activities Anxiety Level Calm Cooperation Cooperative Perception Coherent Interest in Health Problem Asks Questions Education Importance Acknowledges Need Does Patient Smoke tobacco or other No substances Smoking Status Never smoker Is Patient Diabetic Yes Functional Assessment Recent Decline in Ability to Perform Denies Any Declines WC - Nurse 1 - General Ulcer Measurement Start: 04/03/23 10:01 Freq: Status: Active Protocol: Activity Type Activity Date Activity User E-sign Co-sign Detail Recorded Client Recorded Date Recorded By Document 04/03/23 10:02 KW Desktop 04/03/23 10:11 KW 04/03/23 10:02 Wound Center Nurse 1 #5 RLE -Current Size (cm) - Length 0.1 -Current Size (cm) - Width 0.1 -Current Size (cm) - Depth 0.1 -Total Square Cm 0.01 -Date of Last Picture (Recall this 04/03/23 field) -Photo Taken Yes -Temperature (Flower-wound Skin No Abnormality Appearance) (Pt Warm) -Tenderness on Palpation (Flower-wound Yes Skin Appearance) -Ulcer Cleansing Soap and Water -Wound Comment(s) mostly excoriated and edema, no noticed open areas Right Calf (cm) 53.9 Right Ankle (cm) 31.5 WC - Nurse 3 - General Ulcer D/C NN Start: 04/03/23 10:01 Freq: Status: Active Protocol: Activity Type Activity Date Activity User E-sign Co-sign Detail Recorded Client Recorded Date Recorded By Document 04/03/23 11:00 KW Desktop 04/03/23 11:12 KW 04/03/23 11:00 Wound Care Center Nurse 3 Left -Tubular Bandage Single Layer -Size of Tubigrip Used Size E -Size E ($) 1 Right -Multi-Layered Wrap Application Unna Boot - Right ($) Pain Scale: 0-10 Numeric Is Patient Pain Free? Yes WC - Visit Discharge Discharge Condition Stable Ambulatory Status Ambulatory Transportation Private Auto Medication Reconcilliation completed & No provided to patient/care provider Clinical Summary of Care Provided Yes Assessment/Plan Assessment/Plan (1) Venous (peripheral) insufficiency: (2) Venous stasis dermatitis: CODE(S): I87.2 - Venous insufficiency (chronic) (peripheral) (3) Chronic venous hypertension with inflammation involving right side: CODE(S): I87.321 - Chronic venous hypertension (idiopathic) with i nflammation of right lower extremity (4) History of deep vein thrombosis: CODE(S): Z86.718 - Personal history of other venous thrombosis and embolism (5) Right leg swelling: CODE(S): M79.89 - Other specified soft tissue disorders (6) Left leg swelling: CODE(S): M79.89 - Other specified soft tissue disorders (7) Edema, lower extremity: CODE(S): R60.0 - Localized edema (8) Leg edema, right: CODE(S): R60.0 - Localized edema (9) Leg edema, left: CODE(S): R60.0 - Localized edema (10) Diabetes type 2, uncontrolled: CODE(S): E11.65 - Type 2 diabetes mellitus with hyperglycemia QUALIFIERS: Glycemic state: with hyperglycemia Qualified Code(s): E11.65 - Type 2 diabetes mellitus with hyperglycemia (11) Peripheral vascular disease of lower extremity with ulceration: CODE(S): I73.9 - Peripheral vascular disease, unspecified; L97.909 - Non- pressure chronic ulcer of unspecified part of unspecified lower leg with unspecified severity (12) HTN (hypertension): CODE(S): I10 - Essential (primary) hypertension QUALIFIERS: Hypertension type: essential hypertension Qualified Code(s): I10 - Essential (primary) hypertension (13) History of Crohn's disease: CODE(S): Z87.19 - Personal history of other diseases of the digestive system (14) Morbid obesity with BMI of 40.0-44.9, adult: CODE(S): E66.01 - Morbid (severe) obesity due to excess calories; Z68.41 - Body mass index [BMI] 40.0-44.9, adult PLAN: Plan This is a 62-year-old morbidly obese diabetic female with multiple pre-existing medical problems. She is known to have a history of chronic venous disease, with several prior episodes of acute deep vein thrombosis in her right lower extremity. It appears as though she was also undergone superficial venous ablation procedures in both lower extremities. She presents with severe venous stasis dermatitis in the distal right lower extremity. She is to conclude her prescription for doxycycline. We are to implement conservative treatment measures, which have been explained to the patient in great detail. Leg elevation is to be implemented, even during daytime hours. Legs are to be elevated to heart level, or higher. She is to continue sleeping on a flat mattress at night. Prolonged idle sitting has been discouraged. Activity and ambulation has been encouraged. Weight loss has also been recommended. We are to implement compression to the right lower extremity by means of Unna boots, which we applied twice weekly. This should address the issue of dermatitis, and the need for compression. Compression to the left lower extremity is to continue by means of Tubigrip's. The patient has been encouraged to lose weight. Optimization of the patient's blood sugars has also been recommended. The patient is to return in 1 week for reevaluation. Total time: 50 minutes
[2023-04-06 10:52] VITALS: BP 150/92; PULSE 85; RESP 18; TEMP 36.3; BMI 42.1
[2023-04-10 11:01] VITALS: BP 175/78; PULSE 75; RESP 18; TEMP 36.1; BMI 42.1
--- NOTE | 2023-04-10 12:46 | HP.PCM_ITS ---
History of Present Illness Date of Service: 04/10/23 Chief Complaint: Chronic venous insufficiency, venous hypertension with in flammation, venous stasis dermatitis, lower extremity swelling and edema History of Wound: This is a 62-year-old morbidly obese female with multiple pre- existing medical problems, including diabetes mellitus, hypertension, etc. She has a long history of lower extremity venous disease. She has previously undergone endovenous laser ablation of both lower extremities by Dr. Morgan Ojeda. She has a history of 2 episodes of acute deep vein thrombosis in the right lower extremity, for which she has been on long-term systemic anticoagulation with Xarelto, which continues until the current time. She has been a previous patient at our wound care facility, treated for similar problems to those for which she presents now. She has now presented with swelling and edema of both lower extremities, with venous stasis dermatitis involving the distal portion of her right lower extremity. There do not appear to be any gerry open wounds or ulcerations. Severe lipodermatosclerosis and hyperpigmentation is noted in the lower extremities bilaterally involving the gaiter areas, as well as swelling and edema. Patient claims to sleep on a flat mattress at night. 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 She is not very active. She sits a great deal while at home. She is known to be diabetic, with a recently documented hemoglobin A1c of 13.2. A noninvasive lower e xtremity arterial study performed in November 2020 was normal. The patient states that the swelling in her legs is more prominent at the end of the day. Patient has a history of tubal ligation and right foot surgery. She is also undergone bilateral endovenous laser ablation procedures. She had been using Bactroban and Xeroform topically on her right lower extremity dermatitis. [facility] Medical History (Updated 04/10/23 @ 12:[address] Mumtaz Serra MD) Chronic venous hypertension with inflammation involving right side Crohn's disease Diabetes DVT (deep venous thrombosis) History of deep vein thrombosis Hypertension Left leg swelling Leg edema, left Leg edema, right Morbid obesity with BMI of 40.0-44.9, adult Right leg swelling Urinary incontinence Venous stasis dermatitis Venous stasis ulcer of right ankle Home Medications amlodipine 5 mg tablet 5 mg PO QHS 06/09/14 [History Last Taken 10/24/15 00:00] bisoprolol 10 mg-hydrochlorothiazide 6.25 mg tablet 1 tab PO DAILY 06/09/14 [History Last Taken 10/24/15 01:00] lisinopril 40 mg tablet 40 mg PO QHS 06/09/14 [History Last Taken 10/24/15 0 0:00] glimepiride 2 mg tablet 4 mg (2 x 2 mg) PO DAILY ##60 10/28/15 [Rx Last Taken Unknown] rivaroxaban 20 mg tablet 20 mg PO DINNER 06/04/20 [History Last Taken Unknown] metformin 1,000 mg tablet 1,000 mg PO BID ##0 06/07/20 [Rx Last Taken Unknown] pen needle, diabetic, safety 30 gauge x / ##1 06/07/20 [Rx Last Taken Unknown] cholecalciferol (vitamin D3) 25 mcg (1,000 unit) capsule (Vitamin D3) 25 mcg PO DAILY 05/11/21 [History Last Taken Unknown] magnesium 100 mg capsule mg PO DAILY 05/11/21 [History Last Taken Unknown] hydrocodone-acetaminophen 5-325mg 5mg-325mg 1 tab PO Q6H PRN PRN Pain 3 days #10 TABLETS 12/20/21 [Rx Last Taken Unknown] Allergy/AdvReac Type Severity Reaction Status Date / Time Sulfa (Sulfonamide Allergy Hives Verified 12/20/21 12:01 Antibiotics) Family History Mother Heart disease Surgical History H/O colonoscopy H/O tubal ligation S/P foot surgery Social History Smoking Status: Never smoker alcohol intake: never substance use type: does not use caffeine: Yes what type of physical activity do you participate in: walking frequency: 1-2 times per week seatbelt use: always do you feel safe at home: Yes additional social history: [employer] shift- [employer] Vital Signs Vital Signs Vital Signs: 04/10/23 11:01 Temperature 97 F L Temperature Source Temporal Pulse Rate 75 Respiratory Rate 18 Blood Pressure 175/78 H Blood Pressure Mean 110 Blood Pressure Source Monitor Blood Pressure Position Sitting Blood Pressure Location Left Arm Oxygen Delivery Method Room Air Weight Weight: 261 lb Body Mass Index (BMI) 42.1 Physical Exam Const alert, oriented x3, no apparent distress and well nourished Constitutional Narrative: The patient is morbidly obese, with a BMI of 42.1. General Appearance: cooperative, comfortable, well kempt and well developed Orientation / Consciousness: awake, oriented to person, oriented to place and oriented to time Nutritional Appearance: overweight HEENT normocephalic, head/scalp atraumatic and hearing grossly normal bilaterally Head and Scalp: normal to inspection, normocephalic and atraumatic External Ear: external ears normal Eyes PERRL and EOMs intact bilaterally General Eye: normal appearance of both eyes Resp normal respiratory effort, normal air movement, no retractions and no use of accessory muscles Effort and Inspection: able to speak in complete sentences and symmetric chest movement Extremity no calf tenderness General Extremity: Negative for clubbing or cyanosis Skin Wound Narrative: Swelling and edema are noted bilaterally in the lower extremities. Lipodermatosclerosis and hyperpigmentation is noted in the gaiter areas bilaterally. Distal lower extremities are warm and well-perfused. Venous stasis dermatitis is noted in the distal right gaiter area, and at ankle level. There is a small ulceration on the right medial supramalleolar area. There is no sign of infection or cellulitis. Dimensions are documented elsewhere. A moderate amount of bioburden is noted. Neuro oriented x3, CN's II-XII intact bilaterally and moves all extremities Sensorium / Orientation: awake, alert, oriented to person, oriented to place and oriented to time Psych Appearance: grossly normal and appropriate Attitude: calm Activity / Motor Behavior: appropriate eye contact Speech: normal speech Mood & Affect: euthymic mood Thought Process: normal thought process Thought Content: normal thought content Attention / Concentration: attention grossly intact Debridement Note Debridement Note Wound debrided: Ulceration of the right medial supramalleolar area Laterality: Right Type of Debridement: Excisional debridement Anesthesia Used: 5% Lidocaine Gel Depth: Down to and including healthy tissue and in the subcutaneous layer Percentage of wound debrided: 100 Instrument Used: 5mm curette Severity: Fat Layer Exposed Amount of bleeding with debridement: Mild Bleeding Controlled with: Compression and gauze Patient tolerated procedure: Patient tolerated procedure well Post-Debridement Measurements and Additional Note: Post-Debridement Measurements/Treatment WC - Nurse 1 - General Ulcer Assessment Start: 04/03/23 10:01 Freq: Status: Active Protocol: WC.LOWEXT Activity Type Activity Date Activity User E-sign Co-sign Detail Recorded Client Recorded Date Recorded By Document 04/03/23 10:02 KW Desktop 04/03/23 10:11 KW Document 04/06/23 10:52 KW Desktop 04/06/23 11:12 KW Document 04/10/23 11:01 MT Desktop 04/10/23 11:14 MT 04/03/23 04/06/23 04/10/23 10:02 10:52 11:01 WC - Today's Visit Information Type of service Initial Visit Nurse-only Follow-up Visit Visit (Physician/[employer] ) Arrival Mode Ambulatory Ambulatory Ambulatory Patient Identification Verified (Name & Yes Yes Yes ) Height and Weight Height 5 ft 6 in Weight 261 lb Weight in Pounds 261.0 lbs Body Mass Index (BMI) 42.1 42.1 42.1 BMI Classification Obese Obese Obese BSA - [place] 2.24 Vital Signs Temperature (97.8 F-99.1 F) 97.1 F L 97.4 F L 97 F L Temperature Source Temporal Temporal Temporal Pulse Rate (60-100) 88 85 75 Pulse Location Monitor Monitor Monitor Respiratory Rate (12-18) 18 18 18 Respiratory rate source Observation Observation Observation Oxygen Delivery Method Room Air Room Air Room Air Blood Pressure (90/60-120/80) 162/84 H 150/92 H 175/78 H Blood Pressure Mean 110 111 110 Source Monitor Monitor Monitor Position Sitting Sitting Sitting Blood Pressure Location Left Arm Left Arm Left Arm History Since Last Visit- (Skip if this is Patient's initial visit) Have you changed medications since your No last visit? Any new allergies or adverse reactions No Had a fall/change in ADL's that may No increase risk of falls Signs or symptoms of abuse and/or No neglect since last visit Have you been in the hospital since your No last visit? Has dressing in place as prescribed Yes Yes Has compression in place as prescribed Yes Yes Has offloadiing in place as prescribed N/A N/A Experienced any changes in pain level or No No management Left Footwear Regular Shoe Regular Shoe Regular Shoe Right Footwear Regular Shoe Regular Shoe Regular Shoe Pain Scale: 0-10 Numeric Is Patient Pain Free? Yes Yes Yes RLE -Intensity 5 -Alleviating Factors/Interventions Medication Pain Scale: Adult NonVerbal Is Patient Pain Free? Yes Communication Assessment Preferred language [place] Able to Read Yes Able to Write Yes Communication Tools None Caregiver Communication Skills No Impairment Impairment Right Hearing Abillity Normal Left Hearing Abillity Normal Visual Assistive Devices Glasses Teaching Assessment Preferences Verbal,Written, Demonstration Barriers to Learning None Readiness To Learn Excellent Willingness to Engage in Self Management High Activies Readiness to Engage in Self Management High Activities Anxiety Level Calm Cooperation Cooperative Perception Coherent Interest in Health Problem Asks Questions Education Importance Acknowledges Need Does Patient Smoke tobacco or other No substances Smoking Status Never smoker Is Patient Diabetic Yes Functional Assessment Recent Decline in Ability to Perform Denies Any Declines WC - Nurse 1 - General Ulcer Measurement Start: 04/03/23 10:01 Freq: Status: Active Protocol: Activity Type Activity Date Activity User E-sign Co-sign Detail Recorded Client Recorded Date Recorded By Document 04/03/23 10:02 Desktop 04/03/23 10:11 KW Document 04/10/23 11:01 LA Desktop 04/10/23 11:14 LA 04/03/23 04/10/23 10:02 11:01 Wound Center Nurse 1 #5 RLE -Current Size (cm) - Length 0.1 0.7 -Current Size (cm) - Width 0.1 0.6 -Current Size (cm) - Depth 0.1 0.1 -Total Square Cm 0.01 0.42 -Date of Last Picture (Recall this 04/03/23 field) -Photo Taken Yes -Exudate Amt Small -Exudate Type Serous -Wound Margin Flat & Intact -Granulation Amt Large (67-100%) -Granulation Quality Pale,[place] -Necrosis Amt Small (1-33%) -Necrotic Tissue Type Adherent Slough -Texture (Flower-wound Skin Appearance) Assessed, Localized Edema -Moisture (Flower-wound Skin Appearance) Assessed, Maceration -Color (Flower-wound Skin Appearance) Assessed, Hemosiderin Staining -Temperature (Flower-wound Skin No Abnormality No Abnormality Appearance) (Pt Warm) (Pt Warm) -Tenderness on Palpation (Flower-wound Yes No Skin Appearance) -Ulcer Cleansing Soap and Water Soap and Water -Foul Odor after Cleansing No -Anesthetic Used 5% Lidocaine Gel -Wound Comment(s) mostly excoriated and edema, no noticed open areas Right Calf (cm) 53.9 50 Right Ankle (cm) 31.5 34 WC - Nurse 3 - General Ulcer D/C NN Start: 04/03/23 10:01 Freq: Status: Active Protocol: Activity Type Activity Date Activity User E-sign Co-sign Detail Recorded Client Recorded Date Recorded By Document 04/03/23 11:00 KW Desktop 04/03/23 11:12 KW Document 04/06/23 11:12 KW Desktop 04/06/23 11:12 KW Document 04/10/23 11:37 KW Desktop 04/10/23 11:37 KW 04/03/23 04/06/23 04/10/23 11:00 11:12 11:37 Wound Care Center Nurse 3 #5 RLE -Ulcer Cleansing Soap and Water -Primary Dressing Applied Promogran -Primary Dressing Covered/Secured with Dry Gauze & Roll Gauze, Secured with Tape -Promogran 1 BLE -Multi-Layered Wrap Application Multi-Layer Comp - Bilat ($ ) Left -Tubular Bandage Single Layer -Size of Tubigrip Used Size E -Size E ($) 1 Right -Multi-Layered Wrap Application Unna Boot - Unna Boot - Right ($) Right ($) Pain Scale: 0-10 Numeric Is Patient Pain Free? Yes Yes Yes WC - Visit Discharge Discharge Condition Stable Stable Stable Ambulatory Status Ambulatory Ambulatory Ambulatory Transportation Private Auto Private Auto Private Auto Medication Reconcilliation completed & No No No provided to patient/care provider Clinical Summary of Care Provided Yes Yes Yes Assessment/Plan Assessment/Plan (1) Venous stasis ulcer of right ankle: CODE(S): I83.013 - Varicose veins of right lower extremity with ulcer of ankle; L97.319 - Non-pressure chronic ulcer of right ankle with unspecified severity QUALIFIERS: Varicose vein presence: without varicose veins Non- pressure ulcer stage: with fat layer exposed Qualified Code(s): I87.2 - Venous insufficiency (chronic) (peripheral); L97.312 - Non-pressure chronic ulcer of right ankle with fat layer exposed (2) Venous (peripheral) insufficiency: (3) Venous stasis dermatitis: CODE(S): I87.2 - Venous insufficiency (chronic) (peripheral) (4) Chronic venous hypertension with inflammation involving right side: CODE(S): I87.321 - Chronic venous hypertension (idiopathic) with inflammation of right lower extremity (5) History of deep vein thrombosis: CODE(S): Z86.718 - Personal history of other venous thrombosis and embolism (6) Right leg swelling: CODE(S): M79.89 - Other specified soft tissue disorders (7) Left leg swelling: CODE(S): M79.89 - Other specified soft tissue disorders (8) Edema, lower extremity: CODE(S): R60.0 - Localized edema (9) Leg edema, right: CODE(S): R60.0 - Localized edema (10) Leg edema, left: CODE(S): R60.0 - Localized edema (11) Diabetes type 2, uncontrolled: CODE(S): E11.65 - Type 2 diabetes mellitus with hyperglycemia QUALIFIERS: Glycemic state: with hyperglycemia Qualified Code(s): E11.65 - Type 2 diabetes mellitus with hyperglycemia (12) Peripheral vascular disease of lower extremity with ulceration: CODE(S): I73.9 - Peripheral vascular disease, unspecified; L97.909 - Non- pressure chronic ulcer of unspecified part of unspecified lower leg with unspecified severity (13) HTN (hypertension): CODE(S): I10 - Essential (primary) hypertension QUALIFIERS: Hypertension type: essential hypertension Qualified Code(s): I10 - Essential (primary) hypertension (14) History of Crohn's disease: CODE(S): Z87.19 - Personal history of other diseases of the digestive system (15) Morbid obesity with BMI of 40.0-44.9, adult: CODE(S): E66.01 - Morbid (severe) obesity due to excess calories; Z68.41 - Body mass index [BMI] 40.0-44.9, adult PLAN: Plan This is a 62-year-old morbidly obese diabetic female with multiple pre-existing medical problems. She is known to have a history of chronic venous disease, with several prior episodes of acute deep vein thrombosis in her right lower extremity. It appears as though she was also undergone superficial venous ablation procedures in both lower extremities. She presents with severe venous stasis dermatitis in the distal right lower extremity. She has completed her prescription for doxycycline. We are to continue conservative treatment measures, which have been explained to the patient in great detail. Leg elevation is to be implemented, even during daytime hours. Legs are to be elevated to heart level, or higher. She is to continue sleeping on a flat mattress at night. Prolonged idle sitting has been discouraged. Activity and ambulation has been encouraged. Weight loss has also been recommended. We are to continue compression to the right lower extremity by means of Unna boots, which will be applied twice weekly. Promogran is to be applied topically to the venous ulceration in the right medial supramalleolar area. Compression to the left lower extremity is to continue by means of Tubigrip's. Ultimately, for long-term purposes, the patient will need graduated compression stockings or CircAid garments for use in her lower extremities. The patient has been encouraged to lose weight. Optimization of the patient's blood sugars has also been recommended. The patient is to return in 1 week for reevaluation. Total time: 25 minutes
== END 2023-04-11 23:59 | disposition home or self-care (01) ==
LOC: WC 11:00
PROVIDERS: PCP Family Medicine; Referring Provider Family Medicine; Visit Provider Surgery
DX: I83.213 Varicose veins of right lower extremity with both ulcer of ankle and inflammation (principal); E11.51 Type 2 diabetes mellitus with diabetic peripheral angiopathy without gangrene; L97.312 Non-pressure chronic ulcer of right ankle with fat layer exposed; E11.65 Type 2 diabetes mellitus with hyperglycemia; E11.59 Type 2 diabetes mellitus with other circulatory complications; E66.01 Morbid (severe) obesity due to excess calories; Z68.41 Body mass index [BMI] 40.0-44.9, adult; Z79.01 Long term (current) use of anticoagulants; Z79.84 Long term (current) use of oral hypoglycemic drugs; R60.0 Localized edema; M79.89 Other specified soft tissue disorders; Z79.899 Other long term (current) drug therapy; Z86.718 Personal history of other venous thrombosis and embolism
CPT/HCPCS: 11042; 29580; 29581; 99211; 99213; G0463

== ENCOUNTER 2023-04-24 10:45 | Outpatient (RCR) | payer BC, SELFPAY ==
[2023-04-12 00:59] VITALS: BP 175/78; PULSE 75; RESP 18; TEMP 36.1; BMI 42.1
[2023-04-17 11:03] VITALS: BP 165/88; PULSE 72; RESP 18; TEMP 36.1; BMI 42.1
--- NOTE | 2023-04-17 11:38 | PCM.WC.HP ---
History of Present Illness Date of Service: 04/17/23 Chief Complaint: Chronic venous insufficiency, venous hypertension with inflammation, venous stasis dermatitis, lower extremity swelling and edema History of Wound: This is a 62-year-old morbidly obese female with multiple pre-existing medical problems, including diabetes mellitus, hypertension, etc. She has a long history of lower extremity venous disease. She has previously undergone endovenous laser ablation of both lower extremities by Dr. Morgan Ojeda. She has a history of 2 episodes of acute deep vein thrombosis in the right lower extremity, for which she has been on long-term systemic anticoagulation with Xarelto, which continues until the current time. She has been a previous patient at our wound care facility, treated for similar problems to those for which she presents now. She has now presented with swelling and edema of both lower extremities, with venous stasis dermatitis involving the distal portion of her right lower extremity. There do not appear to be any gerry open wounds or ulcerations. Severe lipodermatosclerosis and hyperpigmentation is noted in the lower extremities bilaterally involving the gaiter areas, as well as swelling and edema. Patient claims to sleep on a flat mattress at night. 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 She is not very active. She sits a great deal while at home. She is known to be diabetic, with a recently documented hemoglobin A1c of 13.2. A noninvasive lower extremity arterial study performed in November 2020 was normal. The patient states that the swelling in her legs is more prominent at the end of the day. Patient has a history of tubal ligation and right foot surgery. She is also undergone bilateral endovenous laser ablation procedures. She had been using Bactroban and Xeroform topically on her right lower extremity dermatitis. [facility] Medical History Chronic venous hypertension with inflammation involving right side Crohn's disease Diabetes DVT (deep venous thrombosis) History of deep vein thrombosis Hypertension Left leg swelling Leg edema, left Leg edema, right Morbid obesity with BMI of 40.0-44.9, adult Right leg swelling Urinary incontinence Venous stasis dermatitis Venous stasis ulcer of right ankle Home Medications amlodipine 5 mg tablet 5 mg PO QHS 06/09/14 [History Last Taken 10/24/15 00:00] bisoprolol 10 mg-hydrochlorothiazide 6.25 mg tablet 1 tab PO DAILY 06/09/14 [History Last Taken 10/24/15 01:00] lisinopril 40 mg tablet 40 mg PO QHS 06/09/14 [History Last Taken 10/24/15 00:00] glimepiride 2 mg tablet 4 mg (2 x 2 mg) PO DAILY ##60 10/28/15 [Rx Last Taken Unknown] rivaroxaban 20 mg tablet 20 mg PO DINNER 06/04/20 [History Last Taken Unknown] metformin 1,000 mg tablet 1,000 mg PO BID ##0 06/07/20 [Rx Last Taken Unknown] pen needle, diabetic, safety 30 gauge x / ##1 06/07/20 [Rx Last Taken Unknown] cholecalciferol (vitamin D3) 25 mcg (1,000 unit) capsule (Vitamin D3) 25 mcg PO DAILY 05/11/21 [History Last Taken Unknown] magnesium 100 mg capsule mg PO DAILY 05/11/21 [History Last Taken Unknown] hydrocodone-acetaminophen 5-325mg 5mg-325mg 1 tab PO Q6H PRN PRN Pain 3 days #10 TABLETS 12/20/21 [Rx Last Taken Unknown] Allergy/AdvReac Type Severity Reaction Status Date / Time Sulfa (Sulfonamide Allergy Hives Verified 12/20/21 12:01 Antibiotics) Family History Mother Heart disease Surgical History H/O colonoscopy H/O tubal ligation S/P foot surgery Social History Smoking Status: Never smoker alcohol intake: never substance use type: does not use caffeine: Yes what type of physical activity do you participate in: walking frequency: 1-2 times per week seatbelt use: always do you feel safe at home: Yes additional social history: [employer]- [employer] Vital Signs Vital Signs Vital Signs: 04/17/23 11:03 Temperature 97 F L Temperature Source Temporal Pulse Rate 72 Respiratory Rate 18 Blood Pressure 165/88 H Blood Pressure Mean 113 Blood Pressure Source Monitor Blood Pressure Position Sitting Blood Pressure Location Left Arm Weight Weight: 261 lb Body Mass Index (BMI) 42.1 Physical Exam Const alert, oriented x3, no apparent distress and well nourished Constitutional Narrative: The patient is morbidly obese, with a BMI of 42.1. General Appearance: cooperative, comfortable, well kempt and well developed Orientation / Consciousness: awake, oriented to person, oriented to place and oriented to time Nutritional Appearance: overweight HEENT normocephalic, head/scalp atraumatic and hearing grossly normal bilaterally Head and Scalp: normal to inspection, normocephalic and atraumatic External Ear: external ears normal Eyes PERRL and EOMs intact bilaterally General Eye: normal appearance of both eyes Resp normal respiratory effort, normal air movement, no retractions and no use of accessory muscles Effort and Inspection: able to speak in complete sentences and symmetric chest movement Extremity no calf tenderness General Extremity: Negative for clubbing or cyanosis Skin Wound Narrative: Swelling and edema are noted bilaterally in the lower extremities. Lipodermatosclerosis and hyperpigmentation is noted in the gaiter areas bilaterally. Distal lower extremities are warm and well-perfused. Venous stasis dermatitis is noted in the distal right gaiter area, and at ankle level. There is a small ulceration on the right medial supramalleolar area. There is no sign of infection or cellulitis. Dimensions are documented elsewhere. A small amount of bioburden is noted. Neuro oriented x3, CN's II-XII intact bilaterally and moves all extremities Sensorium / Orientation: awake, alert, oriented to person, oriented to place and oriented to time Psych Appearance: grossly normal and appropriate Attitude: calm Activity / Motor Behavior: appropriate eye contact Speech: normal speech Mood & Affect: euthymic mood Thought Process: normal thought process Thought Content: normal thought content Attention / Concentration: attention grossly intact Debridement Note Debridement Note Patient tolerated procedure: Patient tolerated procedure well Debridement Free Text: Wide area of superficial dermatitis is noted in the distal right lower extremity and at ankle level. There does not appear to be any gerry full-thickness ulceration. Therefore, debridement was not performed. There is no significant bioburden or nonviable tissue. Post-Debridement Measurements and Additional Note: Post-Debridement Measurements/Treatment MICHELLE - Nurse 1 - General Ulcer Assessment Start: 04/17/23 11:02 Freq: Status: Active Protocol: DERRICK Activity Type Activity Date Activity User E-sign Co-sign Detail Recorded Client Recorded Date Recorded By Document 04/17/23 11:03 [place] [employer] 04/17/23 11:15 [place] 04/17/23 11:03 - Today's Visit Information Type of service Follow-up Visit (Physician/LANDSC[employer]CH[employer]URE TE[employer]ER ) Arrival Mode Ambulatory Accompanied by self Patient Identification Verified (Name & Yes ) Height and Weight Body Mass Index (BMI) 42.1 BMI Classification Obese Vital Signs Temperature (97.8 F-99.1 F) 97 F L Temperature Source Temporal Pulse Rate (60-100) 72 Pulse Location Monitor Respiratory Rate (12-18) 18 Respiratory rate source Observation Blood Pressure (90/60-120/80) 165/88 H Blood Pressure Mean 113 Source Monitor Position Sitting Blood Pressure Location Left Arm History Since Last Visit- (Skip if this is Patient's initial visit) Has dressing in place as prescribed Yes Has compression in place as prescribed Yes Has offloadiing in place as prescribed N/A Left Footwear Regular Shoe Right Footwear Regular Shoe Pain Scale: 0-10 Numeric Is Patient Pain Free? Yes - Nurse 1 - General Ulcer Measurement Start: 04/17/23 11:02 Freq: Status: Active Protocol: Activity Type Activity Date Activity User E-sign Co-sign Detail Recorded Client Recorded Date Recorded By Document 04/17/23 11:03 [place] [employer] 04/17/23 11:15 [place] 04/17/23 11:03 Wound Center Nurse 1 #5 RLE -Current Size (cm) - Length 0.4 -Current Size (cm) - Width 0.2 -Current Size (cm) - Depth 0.2 -Total Square Cm 0.08 -Photo Taken No -Tunneling No -Undermining/Tunneling No -Circular Undermining No -Exudate Amt Small -Exudate Type Serosanguineous -Wound Margin Flat & Intact -Granulation Amt Large (67-100%) -Granulation Quality Red -Slough/Fibrin No -Texture (Flower-wound Skin Appearance) Assessed -Moisture (Flower-wound Skin Appearance) Assessed -Color (Flower-wound Skin Appearance) Assessed, Erythema -Temperature (Flower-wound Skin No Abnormality Appearance) (Pt Warm) -Tenderness on Palpation (Flower-wound No Skin Appearance) -Ulcer Cleansing Soap and Water -Foul Odor after Cleansing No -Anesthetic Used 5% Lidocaine Gel Right Calf (cm) 47.6 Right Ankle (cm) 30 Assessment/Plan Assessment/Plan (1) Venous stasis ulcer of right ankle: CODE(S): I83.013 - Varicose veins of right lower extremity with ulcer of ankle; L97.319 - Non-pressure chronic ulcer of right ankle with unspecified severity QUALIFIERS: Varicose vein presence: without varicose veins Non-pressure ulcer stage: with fat layer exposed Qualified Code(s): I87.2 - Venous insufficiency (chronic) (peripheral); L97.312 - Non-pressure chronic ulcer of right ankle with fat layer exposed (2) Venous (peripheral) insufficiency: (3) Venous stasis dermatitis: CODE(S): I87.2 - Venous insufficiency (chronic) (peripheral) (4) Chronic venous hypertension with inflammation involving right side: CODE(S): I87.321 - Chronic venous hypertension (idiopathic) with inflammation of right lower extremity (5) History of deep vein thrombosis: CODE(S): Z86.718 - Personal history of other venous thrombosis and embolism (6) Right leg swelling: CODE(S): M79.89 - Other specified soft tissue disorders (7) Left leg swelling: CODE(S): M79.89 - Other specified soft tissue disorders (8) Edema, lower extremity: CODE(S): R60.0 - Localized edema (9) Leg edema, right: CODE(S): R60.0 - Localized edema (10) Leg edema, left: CODE(S): R60.0 - Localized edema (11) Diabetes type 2, uncontrolled: CODE(S): E11.65 - Type 2 diabetes mellitus with hyperglycemia QUALIFIERS: Glycemic state: with hyperglycemia Qualified Code(s): E11.65 - Type 2 diabetes mellitus with hyperglycemia (12) Peripheral vascular disease of lower extremity with ulceration: CODE(S): I73.9 - Peripheral vascular disease, unspecified; L97.909 - Non-pressure chronic ulcer of unspecified part of unspecified lower leg with unspecified severity (13) HTN (hypertension): CODE(S): I10 - Essential (primary) hypertension QUALIFIERS: Hypertension type: essential hypertension Qualified Code(s): I10 - Essential (primary) hypertension (14) History of Crohn's disease: CODE(S): Z87.19 - Personal history of other diseases of the digestive system (15) Morbid obesity with BMI of 40.0-44.9, adult: CODE(S): E66.01 - Morbid (severe) obesity due to excess calories; Z68.41 - Body mass index [BMI] 40.0-44.9, adult PLAN: Plan This is a 62-year-old morbidly obese diabetic female with multiple pre-existing medical problems. She is known to have a history of chronic venous disease, with several prior episodes of acute deep vein thrombosis in her right lower extremity. It appears as though she has also undergone superficial venous ablation procedures in both lower extremities. She presents with severe venous stasis dermatitis in the distal right lower extremity. She has completed a course of oral doxycycline. We are to continue conservative treatment measures, which have been explained to the patient in great detail. Leg elevation is to be implemented, even during daytime hours. Legs are to be elevated to heart level, or higher. She is to continue sleeping on a flat mattress at night. Prolonged idle sitting has been discouraged. Activity and ambulation has been encouraged. Weight loss has also been recommended. We are to continue compression to the right lower extremity by means of Unna boots, which will be applied twice weekly. However, since Unna boots are not currently available, we are to use a 3M 2 layer compression wrap with Fibracol topically to the open, ulcerated areas. Compression to the left lower extremity is to continue by means of Tubigrip's. Ultimately, for long-term purposes, the patient will need graduated compression stockings or CircAid garments for use in her lower extremities. The patient has been encouraged to lose weight. Optimization of the patient's blood sugars has also been recommended. The patient is to return in 1 week for reevaluation. Total time: 24 minutes
[2023-04-20 11:52] VITALS: BP 180/79; PULSE 67; RESP 18; TEMP 36.2; BMI 42.1
[2023-04-24 10:49] VITALS: BP 176/74; PULSE 76; RESP 16; TEMP 36.7; BMI 42.1
--- NOTE | 2023-04-24 11:30 | PCM.WC.HP ---
History of Present Illness Date of Service: 04/24/23 Chief Complaint: Chronic venous insufficiency, venous hypertension with inflammation, venous stasis dermatitis, lower extremity swelling and edema History of Wound: This is a 62-year-old morbidly obese female with multiple pre-existing medical problems, including diabetes mellitus, hypertension, etc. She has a long history of lower extremity venous disease. She has previously undergone endovenous laser ablation of both lower extremities by Dr. Morgan Ojeda. She has a history of 2 episodes of acute deep vein thrombosis in the right lower extremity, for which she has been on long-term systemic anticoagulation with Xarelto, which continues until the current time. She has been a previous patient at our wound care facility, treated for similar problems to those for which she presents now. She has now presented with swelling and edema of both lower extremities, with venous stasis dermatitis involving the distal portion of her right lower extremity. There do not appear to be any gerry open wounds or ulcerations. Severe lipodermatosclerosis and hyperpigmentation is noted in the lower extremities bilaterally involving the gaiter areas, as well as swelling and edema. Patient claims to sleep on a flat mattress at night. 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 She is not very active. She sits a great deal while at home. She is known to be diabetic, with a recently documented hemoglobin A1c of 13.2. A noninvasive lower extremity arterial study performed in November 2020 was normal. The patient states that the swelling in her legs is more prominent at the end of the day. Patient has a history of tubal ligation and right foot surgery. She is also undergone bilateral endovenous laser ablation procedures. She had been using Bactroban and Xeroform topically on her right lower extremity dermatitis. [facility] Medical History Chronic venous hypertension with inflammation involving right side Crohn's disease Diabetes DVT (deep venous thrombosis) History of deep vein thrombosis Hypertension Left leg swelling Leg edema, left Leg edema, right Morbid obesity with BMI of 40.0-44.9, adult Right leg swelling Urinary incontinence Venous stasis dermatitis Venous stasis ulcer of right ankle Home Medications amlodipine 5 mg tablet 5 mg PO QHS 06/09/14 [History Last Taken 10/24/15 00:00] bisoprolol 10 mg-hydrochlorothiazide 6.25 mg tablet 1 tab PO DAILY 06/09/14 [History Last Taken 10/24/15 01:00] lisinopril 40 mg tablet 40 mg PO QHS 06/09/14 [History Last Taken 10/24/15 00:00] glimepiride 2 mg tablet 4 mg (2 x 2 mg) PO DAILY ##60 10/28/15 [Rx Last Taken Unknown] rivaroxaban 20 mg tablet 20 mg PO DINNER 06/04/20 [History Last Taken Unknown] metformin 1,000 mg tablet 1,000 mg PO BID ##0 06/07/20 [Rx Last Taken Unknown] pen needle, diabetic, safety 30 gauge x / ##1 06/07/20 [Rx Last Taken Unknown] cholecalciferol (vitamin D3) 25 mcg (1,000 unit) capsule (Vitamin D3) 25 mcg PO DAILY 05/11/21 [History Last Taken Unknown] magnesium 100 mg capsule mg PO DAILY 05/11/21 [History Last Taken Unknown] hydrocodone-acetaminophen 5-325mg 5mg-325mg 1 tab PO Q6H PRN PRN Pain 3 days #10 TABLETS 12/20/21 [Rx Last Taken Unknown] Allergy/AdvReac Type Severity Reaction Status Date / Time Sulfa (Sulfonamide Allergy Hives Verified 12/20/21 12:01 Antibiotics) Family History Mother Heart disease Surgical History H/O colonoscopy H/O tubal ligation S/P foot surgery Social History Smoking Status: Never smoker alcohol intake: never substance use type: does not use caffeine: Yes what type of physical activity do you participate in: walking frequency: 1-2 times per week seatbelt use: always do you feel safe at home: Yes additional social history: [employer] second shift- [employer] Vital Signs Vital Signs Vital Signs: 04/24/23 10:49 Temperature 98.0 F Temperature Source Temporal Pulse Rate 76 Respiratory Rate 16 Blood Pressure 176/74 H Blood Pressure Mean 108 Blood Pressure Source Monitor Blood Pressure Position Sitting Blood Pressure Location Right Arm Oxygen Delivery Method Room Air Weight Weight: 261 lb Body Mass Index (BMI) 42.1 Physical Exam Const alert, oriented x3, no apparent distress and well nourished Constitutional Narrative: The patient is morbidly obese, with a BMI of 42.1. General Appearance: cooperative, comfortable, well kempt and well developed Orientation / Consciousness: awake, oriented to person, oriented to place and oriented to time Nutritional Appearance: overweight HEENT normocephalic, head/scalp atraumatic and hearing grossly normal bilaterally Head and Scalp: normal to inspection, normocephalic and atraumatic External Ear: external ears normal Eyes PERRL and EOMs intact bilaterally General Eye: normal appearance of both eyes Resp normal respiratory effort, normal air movement, no retractions and no use of accessory muscles Effort and Inspection: able to speak in complete sentences and symmetric chest movement Extremity no calf tenderness General Extremity: Negative for clubbing or cyanosis Skin Wound Narrative: Swelling and edema are noted bilaterally in the lower extremities. Lipodermatosclerosis and hyperpigmentation is noted in the gaiter areas bilaterally. Distal lower extremities are warm and well-perfused. There has been improvement in the venous stasis dermatitis in the distal right lower extremity, and healing of the ulceration in the right supramalleolar area. The ulceration is now healed and epithelialized. There is no sign of infection or cellulitis. Neuro oriented x3, CN's II-XII intact bilaterally and moves all extremities Sensorium / Orientation: awake, alert, oriented to person, oriented to place and oriented to time Psych Appearance: grossly normal and appropriate Attitude: calm Activity / Motor Behavior: appropriate eye contact Speech: normal speech Mood & Affect: euthymic mood Thought Process: normal thought process Thought Content: normal thought content Attention / Concentration: attention grossly intact Debridement Note Debridement Note No debridement was completed: No debridement was completed today Post-Debridement Measurements and Additional Note: Post-Debridement Measurements/Treatment MICHELLE - Nurse 1 - General Ulcer Assessment Start: 04/17/23 11:02 Freq: Status: Active Protocol: DERRICK Activity Type Activity Date Activity User E-sign Co-sign Detail Recorded Client Recorded Date Recorded By Document 04/17/23 11:03 MT Desktop 04/17/23 11:15 MT Document 04/20/23 11:52 RB Desktop 04/20/23 11:54 RB Document 04/24/23 10:49 KW Desktop 04/24/23 10:56 KW 04/17/23 04/20/23 04/24/23 11:03 11:52 10:49 - Today's Visit Information Type of service Follow-up Visit Nurse-only Follow-up Visit (Physician/TEST PREPARER Visit (Physician/TEST PREPARER ) ) Arrival Mode Ambulatory Ambulatory Ambulatory Transfer Assistance None Accompanied by self Patient Identification Verified (Name & Yes Yes Yes ) Patient Requires Transmission-Based No Precautions Height and Weight Body Mass Index (BMI) 42.1 42.1 42.1 BMI Classification Obese Obese Obese Vital Signs Temperature (97.8 F-99.1 F) 97 F L 97.2 F L 98.0 F Temperature Source Temporal Temporal Temporal Pulse Rate (60-100) 72 67 76 Pulse Location Monitor Monitor Monitor Respiratory Rate (12-18) 18 18 16 Respiratory rate source Observation Observation Observation Oxygen Delivery Method Room Air Blood Pressure (90/60-120/80) 165/88 H 180/79 H 176/74 H Blood Pressure Mean 113 112 108 Source Monitor Monitor Monitor Position Sitting Sitting Sitting Blood Pressure Location Left Arm Left Arm Right Arm History Since Last Visit- (Skip if this is Patient's initial visit) Have you changed medications since your No No last visit? Any new allergies or adverse reactions No No Had a fall/change in ADL's that may No No increase risk of falls Signs or symptoms of abuse and/or No No neglect since last visit Have you been in the hospital since your No No last visit? Has dressing in place as prescribed Yes Yes Yes Has compression in place as prescribed Yes Yes Yes Has offloadiing in place as prescribed N/A No N/A Experienced any changes in pain level or No No management Left Footwear Regular Shoe Regular Shoe Right Footwear Regular Shoe Regular Shoe Pain Scale: 0-10 Numeric Is Patient Pain Free? Yes Yes Yes - Nurse 1 - General Ulcer Measurement Start: 04/17/23 11:02 Freq: Status: Active Protocol: Activity Type Activity Date Activity User E-sign Co-sign Detail Recorded Client Recorded Date Recorded By Document 04/17/23 11:03 MT Desktop 04/17/23 11:15 MT Document 04/24/23 10:49 KW Desktop 04/24/23 10:56 KW 04/17/23 04/24/23 11:03 10:49 Wound Center Nurse 1 #5 RLE -Current Size (cm) - Length 0.4 0.1 -Current Size (cm) - Width 0.2 0.1 -Current Size (cm) - Depth 0.2 0.1 -Total Square Cm 0.08 0.01 -Photo Taken No -Tunneling No -Undermining/Tunneling No -Circular Undermining No -Exudate Amt Small None Present -Exudate Type Serosanguineous -Wound Margin Flat & Intact Indistinct, Non -Visible -Granulation Amt Large (67-100%) Large (67-100%) -Granulation Quality Red [place] -Slough/Fibrin No -Necrosis Amt None Present (0 %) -Structure Exposed N/A -Texture (Flower-wound Skin Appearance) Assessed Scarring -Moisture (Flower-wound Skin Appearance) Assessed Dry/Scaly -Color (Flower-wound Skin Appearance) Assessed, Hemosiderin Erythema Staining -Temperature (Flower-wound Skin No Abnormality No Abnormality Appearance) (Pt Warm) (Pt Warm) -Tenderness on Palpation (Flower-wound No Skin Appearance) -Ulcer Cleansing Soap and Water Soap and Water -Foul Odor after Cleansing No No -Anesthetic Used 5% Lidocaine Gel Right Calf (cm) 47.6 48 Right Ankle (cm) 30 30 WC - Nurse 3 - General Ulcer D/C NN Start: 04/17/23 11:02 Freq: Status: Active Protocol: Activity Type Activity Date Activity User E-sign Co-sign Detail Recorded Client Recorded Date Recorded By Document 04/17/23 11:50 KW Desktop 04/17/23 11:51 KW Document 04/20/23 11:52 RB Desktop 04/20/23 11:54 RB 04/17/23 04/20/23 11:50 11:52 Wound Care Center Nurse 3 #5 RLE -Ulcer Cleansing Wound Cleanser -Primary Dressing Applied Fibracol Plus Fibracol Plus 4x4 4x4 -Primary Dressing Covered/Secured with Dry Gauze & Dry Gauze Roll Gauze, Secured with Tape -Fibracol Plus 4x4 1 1 Right -Multi-Layered Wrap Application Multi-Layer Comp - Right ($ ) Left -Multi-Layered Wrap Application Multi-Layer Comp - Left ($) -Tubular Bandage Single Layer -Size of Tubigrip Used Size E -Size E ($) 1 Treatment Response Procedure Tolerated Well Vital Signs Temperature (97.8 F-99.1 F) 97.2 F L Temperature Source Temporal Pulse Rate (60-100) 67 Pulse Location Monitor Respiratory Rate (12-18) 18 Respiratory rate source Observation Blood Pressure (90/60-120/80) 180/79 H Blood Pressure Mean 112 Source Monitor Position Sitting Blood Pressure Location Left Arm Pain Scale: 0-10 Numeric Is Patient Pain Free? Yes Yes WC - Visit Discharge Discharge Condition Stable Stable Ambulatory Status Ambulatory Ambulatory Transportation Private Auto Private Auto Medication Reconcilliation completed & No No provided to patient/care provider Clinical Summary of Care Provided Yes Yes Assessment/Plan Assessment/Plan (1) Venous stasis ulcer of right ankle: CODE(S): I83.013 - Varicose veins of right lower extremity with ulcer of ankle; L97.319 - Non-pressure chronic ulcer of right ankle with unspecified severity QUALIFIERS: Varicose vein presence: without varicose veins Non-pressure ulcer stage: with fat layer exposed Qualified Code(s): I87.2 - Venous insufficiency (chronic) (peripheral); L97.312 - Non-pressure chronic ulcer of right ankle with fat layer exposed (2) Venous (peripheral) insufficiency: (3) Venous stasis dermatitis: CODE(S): I87.2 - Venous insufficiency (chronic) (peripheral) (4) Chronic venous hypertension with inflammation involving right side: CODE(S): I87.321 - Chronic venous hypertension (idiopathic) with inflammation of right lower extremity (5) History of deep vein thrombosis: CODE(S): Z86.718 - Personal history of other venous thrombosis and embolism (6) Right leg swelling: CODE(S): M79.89 - Other specified soft tissue disorders (7) Left leg swelling: CODE(S): M79.89 - Other specified soft tissue disorders (8) Edema, lower extremity: CODE(S): R60.0 - Localized edema (9) Leg edema, right: CODE(S): R60.0 - Localized edema (10) Leg edema, left: CODE(S): R60.0 - Localized edema (11) Diabetes type 2, uncontrolled: CODE(S): E11.65 - Type 2 diabetes mellitus with hyperglycemia QUALIFIERS: Glycemic state: with hyperglycemia Qualified Code(s): E11.65 - Type 2 diabetes mellitus with hyperglycemia (12) Peripheral vascular disease of lower extremity with ulceration: CODE(S): I73.9 - Peripheral vascular disease, unspecified; L97.909 - Non-pressure chronic ulcer of unspecified part of unspecified lower leg with unspecified severity (13) HTN (hypertension): CODE(S): I10 - Essential (primary) hypertension QUALIFIERS: Hypertension type: essential hypertension Qualified Code(s): I10 - Essential (primary) hypertension (14) History of Crohn's disease: CODE(S): Z87.19 - Personal history of other diseases of the digestive system (15) Morbid obesity with BMI of 40.0-44.9, adult: CODE(S): E66.01 - Morbid (severe) obesity due to excess calories; Z68.41 - Body mass index [BMI] 40.0-44.9, adult PLAN: Plan This is a 62-year-old morbidly obese diabetic female with multiple pre-existing medical problems. She is known to have a history of chronic venous disease, with several prior episodes of acute deep vein thrombosis in her right lower extremity. It appears as though she has also undergone superficial venous ablation procedures in both lower extremities. She presented with severe venous stasis dermatitis in the distal right lower extremity. She has completed a course of oral doxycycline. A venous stasis ulceration in the right medial supramalleolar area is now completely healed and epithelialized. We are to continue conservative treatment measures, which have been explained to the patient in great detail. Leg elevation is to be implemented, even during daytime hours. Legs are to be elevated to heart level, or higher. She is to continue sleeping on a flat mattress at night. Prolonged idle sitting has been discouraged. Activity and ambulation has been encouraged. Weight loss has also been recommended. We are to continue compression to the right lower extremity. The patient has been provided with Tubigrip's of 20 to 30 mmHg compression. These are to serve the short-term need. We have discussed other alternatives, including the use of CircAid Velcro garments, and graduated compression stockings of 10 to 15 mmHg compression, doubled to achieve a total of 20 to 30 mmHg. She has been provided a prescription for such. The patient has had difficulties in donning compression stockings of 20 to 30 mmHg in the past. She is to be measured for CircAid's, and discharged today using Tubigrip's as a temporary measure. The patient has been encouraged to lose weight. Optimization of the patient's blood sugars has also been recommended. The patient is to be discharged, and will follow-up henceforth on an as-needed basis. The patient is to return in 1 week for reevaluation. Total time: 25 minutes
== END 2023-05-10 23:59 | disposition home or self-care (01) ==
LOC: WC 10:45
PROVIDERS: PCP Family Medicine; Referring Provider Family Medicine; Visit Provider Surgery
DX: I83.213 Varicose veins of right lower extremity with both ulcer of ankle and inflammation (principal); L97.312 Non-pressure chronic ulcer of right ankle with fat layer exposed; Z68.41 Body mass index [BMI] 40.0-44.9, adult; E66.01 Morbid (severe) obesity due to excess calories; E11.51 Type 2 diabetes mellitus with diabetic peripheral angiopathy without gangrene; E11.59 Type 2 diabetes mellitus with other circulatory complications; I87.2 Venous insufficiency (chronic) (peripheral); Z79.84 Long term (current) use of oral hypoglycemic drugs; R60.0 Localized edema; Z79.01 Long term (current) use of anticoagulants
CPT/HCPCS: 29581; 99213; G0463

== ENCOUNTER 2024-09-22 09:30 | Emergency (ER) | payer MEDICARE, SELFPAY ==
[2024-09-22] VITALS (12 sets, daily range): BP systolic 157–202; BP diastolic 95–114; PULSE 81–133; RESP 16–31; TEMP 36.6–36.7; O2SAT 9–99; BMI 45.2
--- NOTE | 2024-09-22 10:00 | EKG12_ITS ---
Test Reason : REPEAT Blood Pressure : */* mmHG Vent. Rate : 83 BPM Atrial Rate : 83 BPM P-R Int : 236 ms QRS Dur : 86 ms QT Int : 360 ms P-R-T Axes : 91 -19 43 degrees QTcB Int : 423 ms Sinus rhythm with 1st degree A-V block with Otherwise normal ECG Confirmed by Gino Paredes ([id number]), book editor JOSETTE DUARTE ([id number]) on 09/24/2024 11:16:37 AM Referred By: Confirmed By: Gino Paredes
--- NOTE | 2024-09-22 10:01 | EX.ED.DYSGE1 ---
HPI History of Present Illness Chief Complaint: Shortness of Breath Informant: patient Narrative Narrative: 64-year-old female sent to the ER from outpatient surgery by anesthesia because of high heart rate. Patient states she is asymptomatic; she denies feeling any palpitations, dyspnea even with exertion, orthopnea, chest discomfort, orthostatic symptoms, leg edema. She has been on Xarelto for years because of a provoked right popliteal DVT after foot surgery. She states she was not given an end date for the anticoagulation. She has never had a pulmonary embolus in the past or an unprovoked DVT that she knows of. She denies any cardiac history. Even with exertion she has had no chest discomfort recently. She has been n.p.o. all morning because she was scheduled for cataract surgery today, and was advised to continue her Xarelto prior to the surgery as well as her other medications, with the exception that she has not had this morning's medications yet because she was supposed to be n.p.o. for surgery. She presents to the ER around 10 AM. [facility] Medical History Venous stasis ulcer of right ankle History of deep vein thrombosis Chronic venous hypertension with inflammation involving right side Venous stasis dermatitis Leg edema, left Leg edema, right Left leg swelling Right leg swelling Morbid obesity with BMI of 40.0-44.9, adult Urinary incontinence DVT (deep venous thrombosis) Crohn's disease Diabetes Hypertension Home Medications ?Medication ?Instructions ?Recorded ?Last Taken ?Type bisoprolol 10 1 tab PO DAILY 06/09/14 09/21/24 History mg-hydrochlorothiazide 6.25 mg tablet lisinopril 40 mg tablet 40 mg PO QHS 06/09/14 09/21/24 History rivaroxaban 20 mg tablet 20 mg PO DINNER 06/04/20 09/21/24 History metformin 1,000 mg tablet 1,000 mg PO BID ##0 06/07/20 09/21/24 Rx amlodipine 10 mg tablet 10 mg PO DAILY 09/22/24 09/21/24 History atorvastatin 40 mg tablet 40 mg PO DAILY cholesterol 09/22/24 09/21/24 History glimepiride 4 mg tablet 4 mg PO DAILY 09/22/24 09/21/24 History ibuprofen 200 mg tablet (Advil) 400 mg PO Q8H PRN pain 09/22/24 09/21/24 History oxybutynin chloride 10 mg 10 mg PO DAILY 09/22/24 09/21/24 History tablet,extended release 24 hr Allergy/AdvReac Type Severity Reaction Status Date / Time Sulfa (Sulfonamide Allergy Hives Verified 09/22/24 09:31 Antibiotics) Family History Mother Heart disease Surgical History H/O colonoscopy S/P foot surgery H/O tubal ligation Social History Smoking Status: Never smoker alcohol intake: never substance use type: does not use caffeine: Yes what type of physical activity do you participate in: walking frequency: 1-2 times per week seatbelt use: always do you feel safe at home: Yes additional social history: [employer]- [employer] ROS ROS ED Constitutional Constitutional ED: Denies chills or fever(s) Eyes Eyes: Denies change in vision or diplopia ENT ENT ED: Denies rhinorrhea or sore throat Cardiovascular Cardiovascular: Denies chest pain, leg edema, lightheadedness, orthopnea, palpitations or syncope Respiratory/Chest Respiratory/Chest: Denies cough, dyspnea, dyspnea on exertion or orthopnea Gastrointestinal Gastrointestinal: Denies abdominal pain, diarrhea, nausea or vomiting Genitourinary Genitourinary ED: Denies dysuria or hematuria Musculoskeletal Musculoskeletal: Denies back pain or neck pain Integumentary Denies abscess or rash Neurologic Neurologic: Denies headache(s), paresthesias or weakness Psychiatric Psychiatric: Denies anxiety or suicidal thoughts EXAM Physical Exam Const Vital Signs: 09/22/24 09:30 09/22/24 10:42 09/22/24 11:13 Temperature 98.1 F Temperature Source Temporal Pulse Rate 123 H Pulse Rate [1 (Initial Baseline)] Respiratory Rate 16 Respiratory Rate [1 (Initial Baseline)] Respiratory Effort Non-Labored Respiratory Pattern Normal Blood Pressure 167/102 H Blood Pressure [1 (Initial Baseline)] Blood Pressure Mean 123 Pulse Ox 98 Oxygen Delivery Method Room Air Room Air Oxygen Delivery Method [1 (Initial Baseline)] Oxygen Flow Rate (L/min) Oxygen Flow Rate (L/min) [1 (Initial Baseline)] EtCo2 - Document during CPR and with ROSC 32 09/22/24 11:14 09/22/24 11:18 09/22/24 11:22 Temperature 98 F Temperature Source Pulse Rate 133 H 103 H Pulse Rate [1 (Initial Baseline)] 133 H Respiratory Rate 29 H 31 H Respiratory Rate [1 (Initial Baseline)] 22 H Respiratory Effort Respiratory Pattern Blood Pressure 162/106 H 202/114 H Blood Pressure [1 (Initial Baseline)] 165/109 H Blood Pressure Mean 143 Pulse Ox 98 95 Oxygen Delivery Method Nasal Cannula Nasal Cannula Oxygen Delivery Method [1 (Initial Baseline)] Nasal Cannula Oxygen Flow Rate (L/min) 2 Oxygen Flow Rate (L/min) [1 (Initial Baseline)] 2 EtCo2 - Document during CPR and with ROSC 09/22/24 11:28 09/22/24 11:29 09/22/24 11:34 Temperature Temperature Source Pulse Rate 84 93 Pulse Rate [1 (Initial Baseline)] Respiratory Rate 21 H 23 H 22 H Respiratory Rate [1 (Initial Baseline)] Respiratory Effort Respiratory Pattern Blood Pressure 167/106 H 167/106 H 167/95 H Blood Pressure [1 (Initial Baseline)] Blood Pressure Mean 126 Pulse Ox 9 95 95 Oxygen Delivery Method Nasal Cannula Nasal Cannula Nasal Cannula Oxygen Delivery Method [1 (Initial Baseline)] Oxygen Flow Rate (L/min) 2 2 2 Oxygen Flow Rate (L/min) [1 (Initial Baseline)] EtCo2 - Document during CPR and with ROSC 09/22/24 11:39 09/22/24 11:56 Temperature Temperature Source Pulse Rate 94 90 Pulse Rate [1 (Initial Baseline)] Respiratory Rate 22 H Respiratory Rate [1 (Initial Baseline)] Respiratory Effort Respiratory Pattern Blood Pressure 157/96 H Blood Pressure [1 (Initial Baseline)] Blood Pressure Mean Pulse Ox 94 Oxygen Delivery Method Room Air Oxygen Delivery Method [1 (Initial Baseline)] Oxygen Flow Rate (L/min) Oxygen Flow Rate (L/min) [1 (Initial Baseline)] EtCo2 - Document during CPR and with ROSC Positive well nourished and well developed Constitutional Narrative: Well-appearing no distress General Appearance ED: well developed and NAD HEENT Reports moist mucous membranes normocephalic and atraumatic Eyes PERRL and EOMs intact bilaterally Neck full ROM and supple Resp normal respiratory effort and clear to auscultation bilaterally Cardio regular rate, regular rhythm and no murmurs Rate: tachycardic GI non-tender and non-distended Auscultation: normoactive bowel sounds Palpation: soft Back/Spine no CVA tenderness General Back: other FROM Extremity normal to inspection General Extremety ED: Negative for edema, pulses abnormal or tenderness General Extremity: Negative for edema or pulses abnormal Neuro oriented x3, CN's II-XII intact bilaterally and no sensory deficits noted Sensorium / Orientation: awake and alert Motor Exam: strength 5/5 throughout Skin no rashes or lesions noted and no wounds MDM MDM MDM Narrative Medical decision making narrative: We obtained an EKG, it suggests atrial flutter at a rate of about 130, seen a sawtooth pattern inferiorly. Given that she has been chronically anticoagulated although the duration has been unknown it would be appropriate to cardiovert her, but I sought to verify that this is atrial flutter first with a dose of adenosine. This confirmed that the patient is in atrial flutter with RVR. I spoke with Dr. Paredes concerning these details and he agrees cardioverting the patient is appropriate especially since she has been n.p.o. all day/morning. She was cardioverted see the procedure note, this was successful. With observation she had no recurrent dysrhythmias or symptoms and her heart rate is in the 80s, sinus rhythm. She is already on bisoprolol and Xarelto she is advised to continue these medications and follow-up with cardiology as an outpatient. We spoke about reasons to return. Lab Data Attestation: I reviewed the patient's lab results. Labs: Laboratory Results - last 24 hr 09/22/24 10:11 WBC 6.8 RBC 4.88 Hgb 14.0 Hct 42.4 MCV 86.9 MCH 28.7 MCHC 33.0 RDW Std Deviation 45.3 H RDW Coeff of Yves 14.3 Plt Count 264 MPV 11.2 Immature Gran % (Auto) 0.300 Neut % (Auto) 67.0 Lymph % (Auto) 18.3 L Hall % (Auto) 10.9 H Eos % (Auto) 2.8 Baso % (Auto) 0.7 Absolute Neuts (auto) 4.6 Absolute Lymphs (auto) 1.25 Sodium 138 Potassium 3.9 Chloride 103 Carbon Dioxide 22.0 Anion Gap 12 BUN 17 Creatinine 0.55 L Estim Creat Clear Calc 91.21 Est GFR (MDRD) Non-Af 101 BUN/Creatinine Ratio 30.1 H Glucose 320 H Calcium 8.9 Rhythm Strip Rhythm Strip: narrow complex tachycardia Rate: 130 Ectopy: None EKG Initial EKG: Attestation: I personally reviewed and interpreted this EKG as follows: Interpretation: No Acute Injury Pattern and Atrial Flutter Prior EKG tracings: available for review Prior: Changed (2020, S.tach) Follow-up EKG: Attestation: I personally reviewed and interpreted this EKG as follows: Interpretation: Sinus Rhythm, No Acute Injury Pattern and AV Block (First-degree) Prior: Changed Management Discussion w/another healthcare provider: [employer] Liaison Adviser (Cardiology Dr. Paredes) Procedures Procedural Sedation 1 (Initial Baseline): Consent Signed: Yes Any Problems With Anesthesia: No Sedation medication: Etomidate Dose: 10 Route: IV Total Moderate Sedation Units: 7 Maliampati Score: Class III ASA Classification: II Comment:: On monitor with prophylactic nasal cannula oxygenation and IV fluids, end-tidal CO2 monitoring, airway equipment at the bedside. Tolerated well with no complications. Other Procedures Procedure(s): Electrocardioversion: While on monitor receiving prophylactic oxygen and IV fluids for procedural sedation, see above, I performed synchronized cardioversion biphasic at 30 J x 1 which resulted in successful cardioversion to normal sinus rhythm, with first-degree AV block. Documented on repeat EKG. No complications, tolerated well. Pretreated with fentanyl 50 mcg. She did have a little bit of nausea and dry heaves a little later so she was given Zofran. Critical Care Time Critical Care Time: Yes Critical care time (excluding procedures): 30-74 minutes (37 min), Including time spent:, Discussing w/Patient &/or Family/Public Service Administrator, Discussing w/Consultants and Performing Direct Patient Care at Bedside Discharge Plan Triage Chief Complaint: Shortness of Breath ED Provider: Alex Pizarro Dx/Rx/DC Orders Clinical Impression: Atrial flutter with rapid ventricular response, Anticoagulated on rivaroxaban Instructions: ED Atrial Flutter Prescriptions: Continued bisoprolol-hydrochlorothiazide 1 TAB tablet 1 tab PO DAILY Patient Comments: BLOOD PRESSURE lisinopril 40 MG tablet 40 mg PO QHS Patient Comments: BLOOD PRESSURE rivaroxaban 20 MG tablet 20 mg PO DINNER metformin 1,000 mg tablet 1,000 mg PO BID Qty: 0 0RF atorvastatin 40 mg tablet 40 mg PO DAILY oxybutynin chloride 10 mg tablet extended release 24hr 10 mg PO DAILY amlodipine 10 mg tablet 10 mg PO DAILY glimepiride 4 mg tablet 4 mg PO DAILY ibuprofen [Advil] 200 mg tablet 400 mg PO Q8H PRN (Reason: pain) Primary Care Provider: Stu Orozco Referrals: Gino Paredes MD [Med Staff - Active Staff] - As soon as possible (Call for appointment) Activity Restrictions/Additional Instructions: If you are screening for recurrent atrial flutter by checking your heart rate, and usual resting circumstances anything 100 or less is normal. Print Language: Turkmen Disposition Disposition: Home, Self Care
[2024-09-22] MEDS: 0.9% Normal Saline (1000mL) 1,000 ML 999 ML IV (10:30)
[2024-09-22] MEDS: Adenosine 6 MG/2 ML Syringe IV (10:39)
[2024-09-22 10:44] LABS: Hematocrit 42.4 % (37-47); Hemoglobin 14.0 g/dL (12.0-15.0); Mean Corp Hgb Conc 33.0 g/dL (32-36); Mean Corpuscular Volume 86.9 fL (81-99); Mean Platelet Vol. 11.2 fl (6.2-12.0); Platelet Count 264 K/mm3 (150-450); RBC Distribution Width CV 14.3 % (11.6-14.6); RBC Distribution Width SD 45.3 fl (35.1-43.9); Red Blood Count 4.88 M/mm3 (4.2-5.4); White Blood Count 6.8 K/mm3 (4.4-11.0)
[2024-09-22 10:45] LABS: Immature Granulocytes Count 0.020 X10^3/uL (0.0-0.0)
[2024-09-22 10:46] LABS: Anion Gap 12 (5-15); BUN 17 mg/dL (4-19); BUN/Creat Ratio 30.1 RATIO (10-20); Calcium,Total 8.9 mg/dL (7.6-11.0); Carbon Dioxide 22.0 mmol/L (21.0-32.0); Chloride 103 mmol/L (98-108); Estimated Creatinine Clearance 91.21 ml/min (50-250); Glucose 320 mg/dL (70-99); Potassium 3.9 mmol/L (3.3-5.1)
[2024-09-22] MEDS: fentaNYL 100 MCG/2 ML Ampul 50 MCG IV (11:12)
--- NOTE | 2024-09-22 11:29 | EKG12_ITS ---
Test Reason : TACHY Blood Pressure : */* mmHG Vent. Rate : 130 BPM Atrial Rate : 278 BPM P-R Int : * ms QRS Dur : 88 ms QT Int : 316 ms P-R-T Axes : * -25 70 degrees QTcB Int : 465 ms Atrial flutter with variable A-V block Nonspecific ST and T wave abnormality Abnormal ECG Confirmed by Gino Paredes ([id number]), associate entertainment editor JOSETTE DUARTE ([id number]) on 09/24/2024 11:16:49 AM Referred By: LUCILA/GIBSON Confirmed By: Gino Paredes
== END 2024-09-22 13:35 | disposition home or self-care (01) ==
PROVIDERS: Emergency Provider Emergency Medicine; PCP Family Medicine; Visit Provider Emergency Medicine
DX: I48.92 Unspecified atrial flutter (principal); K50.90 Crohn's disease, unspecified, without complications; E11.9 Type 2 diabetes mellitus without complications; Z79.01 Long term (current) use of anticoagulants; Z86.718 Personal history of other venous thrombosis and embolism; Z79.84 Long term (current) use of oral hypoglycemic drugs; Z79.899 Other long term (current) drug therapy
CPT/HCPCS: 80048; 85025; 92960; 93005; 96361; 96374; 96375; 99283; A4216; J0153

== ENCOUNTER → 2024-11-05 | Outpatient (CLI) | payer MEDICARE, SELFPAY ==
--- NOTE | 2024-11-05 13:59 | ECHOCS_ITS ---
Reason For Study Reason For Study: Afib/Flutter Procedure This was a 2D Doppler, Color Flow transthoracic echocardiogram. The study was technically difficult. Contrast injection was performed. Exam performed in department. Left Ventricle Normal LV size. Left ventricular systolic function is normal. The left ventricular ejection fraction is 60 %. Stage 1 diastolic dysfunction. No regional wall motion abnormalities noted. Right Ventricle Normal RV size. Normal systolic function. Atria Normal left atrium. Normal right atrium. Bubble contrast study is negative for PFO/ASD. Mitral Valve Normal mitral valve. Tricuspid Valve Normal tricuspid valve. Aortic Valve Trisinus/trileaflet aortic valve. Pulmonic Valve Normal pulmonic valve. Great Vessels Normal aortic root. The pulmonary artery is normal size. Inferior vena cava collapse with respiration. Pericardium/Pleural No pericardial effusion. Medication 22 gauge I.V. with prn adaptor inserted into right arm. Diluted definity 2ml given slow IV push to enhance endocardial definition. Performed a rapid injection of agitated mix of 9 cc saline and 1cc air to assess for atrial septal defect. MMode/2D Measurements & Calculations LVIDd: 5.0 cm IVSd: 0.98 cm CO(Teich): 6.4 l/min LVIDs: 3.3 cm LVPWd: 0.98 cm RVDd: 4.5 cm FS: 33.9 % Ao root diam: 3.5 cm LAV(MOD-bp): 62.4 ml LVAd ap4: 31.1 cm2 LAV(MOD-bp) Indexed: 27.3 ml/m2 LVLd ap4: 7.9 cm LAV(MOD-sp2): 53.8 ml EDV(MOD-sp4): 102.1 ml LAV(MOD-sp4): 61.7 ml EDV(sp4-el): 103.4 ml LVAs ap4: 19.5 cm2 LVLs ap4: 7.5 cm ESV(MOD-sp4): 43.5 ml ESV(sp4-el): 43.2 ml EF(MOD-sp4): 57.4 % EF(sp4-el): 58.2 % CO(MOD-sp4): 5.0 l/min SV(sp4-el): 60.2 ml LA A4 area: 22.0 cm2 SV(MOD-sp4): 58.6 ml SI(MOD-sp4): 25.6 ml/m2 LA dimension(2D): 4.5 cm RA A4 area: 20.0 cm2 TAPSE: 1.8 cm Time Measurements MV dec time: 0.25 sec Doppler Measurements & Calculations MV E max darinel: 54.1 cm/sec Lat Peak E' Darinel: 12.2 cm/sec Med Peak E' Darinel: 8.6 cm/sec MV A max darinel: 77.1 cm/sec E/E' lat: 4.4 E/E' med: 6.3 MV E/A: 0.70 MV V2 max: 82.8 cm/sec MV P1/2t max darinel: 62.1 cm/sec Ao V2 max: 119.0 cm/sec MV max P.8 mmHg MV P1/2t: 71.1 msec Ao max P.7 mmHg MV V2 mean: 45.1 cm/sec MV dec slope: 256.0 cm/sec2 Ao V2 mean: 83.1 cm/sec MV mean P.99 mmHg MVA(P1/2t): 3.1 cm2 Ao mean P.2 mmHg MV V2 VTI: 16.8 cm Ao V2 VTI: 22.2 cm AV (velocity ratio): 0.92 LV V1 max: 111.7 cm/sec PA V2 max: 93.6 cm/sec LV V1 max P.0 mmHg LV V1 mean P.8 mmHg LV V1 mean: 78.8 cm/sec LV V1 VTI: 20.4 cm ECHO/Echo Complete W/ Contrast Interpretation Summary Normal LV size. Left ventricular systolic function is normal. The left ventricular ejection fraction is 60 %. Stage 1 diastolic dysfunction. Bubble contrast study is negative for PFO/ASD. Contrast injection was performed. Ordering Physician: Gino Paredes Referring Physician: Gino Paredes Performed By: Rocky Flores RCS
== END | disposition home or self-care (01) ==
LOC: CVS 13:58
PROVIDERS: PCP Family Medicine; Referring Provider Internal Medicine Cardiovascular Disease; Visit Provider Internal Medicine Cardiovascular Disease
DX: I48.0 Paroxysmal atrial fibrillation (principal)
CPT/HCPCS: 93306; Q9957; A4216; C8929